=== PATIENT | male | born 1950 | race Caucasian/White ===

== ENCOUNTER 2017-08-20 11:15 | Inpatient (IN) | payer MEDICARE, OTHER ==
[~2017-08-20] VITALS: Ht 198.1 cm; Wt 67.6 kg
[2017-08-20 11:25] VITALS: BP 129/92
[2017-08-20] MEDS ORDERED: Mylanta II UD 30ml ORAL PRN (11:30)
[2017-08-20] MEDS ORDERED: LIPITOR80 MG ORAL (11:50)
[2017-08-20] MEDS ORDERED: GABAPENTIN300 MG ORAL (11:52)
[2017-08-20] MEDS ORDERED: ZOFRAN4 M3 ORAL (11:52)
[2017-08-20] MEDS ORDERED: BACLOFEN10 MG ORAL (11:52)
[2017-08-20] MEDS ORDERED: MECLIZINE HCL25 MG ORAL (11:52)
[2017-08-20] MEDS ORDERED: PANTOPRAZOLE SO40 MG ORAL (11:52)
[2017-08-20] MEDS ORDERED: CLOPIDOGREL75 MG ORAL (11:52)
[2017-08-20] MEDS ORDERED: MIRALAX17 G2 ORAL (11:52)
[2017-08-20] MEDS ORDERED: NUCYNTA75 MG PO (11:54)
[2017-08-20] MEDS ORDERED: FLUOXETINE HCL20 MG ORAL (11:55)
[2017-08-20] MEDS ORDERED: BUSPIRONE HCL10 M1 ORAL (11:55)
[2017-08-20 12:24] LABS: BASOPHILS % (AUTO) 0.8 % (0.0-2.0); EOSINOPHILS % (AUTO) 0.7 % (0.0-3.0); HEMOGLOBIN 16.2 G/DL (14.2-18.0); MEAN CORPUSCULAR VOLUME 88 FL (80-99); MONOCYTES % (AUTO) 8.1 % (1.0-10.0); NEUTROPHILS % (AUTO) 70.4 % (45.0-75.0); PLATELET COUNT 235 K/UL (150-450); RED CELL DISTRIBUTION WIDTH 11.8 % (11.6-14.8); WHITE BLOOD COUNT 12.4 K/UL (4.8-10.8)
--- NOTE | 2017-08-20 12:26 | Diagnostic Imaging Report ---
Indication: Cough Technique: One view of the chest Comparison: none Findings: Suboptimal inspiration. Lungs and pleural spaces are clear. Heart size is normal. The aorta is tortuous. The upper mediastinum is unremarkable. Surgical hardware is seen in the lumbar spine Impression: No acute process
[2017-08-20] MEDS ORDERED: Morphine Sulfate 4mg/ml Inj IVP ONE (12:30)
[2017-08-20] MEDS: LORazepam Inj 2mg/ml 1ml IV PRN ×3 (12:34→22:03)
--- NOTE | 2017-08-20 12:36 | GI Initial Consult Note ---
History of Present Illness General Date patient seen: Aug 20, 2017 Time patient seen: 12:23 Reason for Hospitalization: General Complaint Referring physician: DIMPLE OBRIEN Reason for Consultation: FTT Present Illness HPI 67 year old male patient brought in today for FTT. Per report, the patient has not had any PO intake for the past 3 days. Has complaint of odynophagia and nausea x 1 week without emesis. Epigastric abdominal pain 8/10 with tenderness described as sharp and constant. History of depression, chronic pain , neuropathy, HLD,constipation and heart disease. His last EGD/colonoscopy was performed in 2012. No labs or imaging studies available at this time. Home Meds Reported Medications Buspirone Hcl* (BUSPIRONE HCL*) 10 Mg Tablet, 10 MG ORAL TWICE A DAY, #60 TAB 0 Refills 08/20/17 Fluoxetine Hcl* (FLUOXETINE HCL*) 20 Mg Capsule, 20 MG ORAL DAILY, #3 CAP 08/20/17 Tapentadol Hcl (NUCYNTA) 75 Mg Tablet, 75 MG PO NEEDED, TAB 08/20/17 Polyethylene Glycol 3350* (MIRALAX*) 17 Gm Powd.pack, 17 GM ORAL DAILY, PACKET 08/20/17 Ondansetron* (ZOFRAN*) 4 Mg Tablet, 4 MG ORAL Q6H PRN for Nausea & Vomiting, TAB 08/20/17 Meclizine Hcl* (MECLIZINE*) 25 Mg Tablet, 25 MG ORAL FOUR TIMES A DAY, TAB 08/20/17 Pantoprazole* (PANTOPRAZOLE*) 40 Mg Tablet.dr, 40 MG ORAL DAILY, TAB 08/20/17 Gabapentin* (GABAPENTIN*) 300 Mg Capsule, 300 MG ORAL THREE TIMES A DAY, CAP 0 Refills 08/20/17 Clopidogrel* (CLOPIDOGREL*) 75 Mg Tablet, 75 MG ORAL DAILY, TAB 08/20/17 Baclofen* (BACLOFEN*) 10 Mg Tablet, 10 MG ORAL THREE TIMES A DAY, TAB 08/20/17 Atorvastatin (Lipitor) 80 Mg Tablet, 80 MG ORAL DAILY, TAB 0 Refills 08/20/17 Med list reviewed/reconciled: Yes Allergies: Coded Allergies: FENTANYL (Unverified Allergy, Unknown, 08/20/17) KETOROLAC (Unverified Allergy, Unknown, 08/20/17) NAPROXEN (Unverified Allergy, Unknown, 08/20/17) PENICILLINS (Unverified Allergy, Unknown, 08/20/17) Patient History History Provided By: Patient, Medical Record PMH Narrative See HPI. Social History: Denies: smoking, alcohol use, drug use, other Review of Systems All Other Systems: negative except mentioned in HPI Physical Exam Vital Signs Date Time Temp Pulse Resp B/P (MAP) Pulse Ox O2 Delivery O2 Flow Rate FiO2 08/20/17 11:10 98.7 79 18 155/91 96 Room Air 98.8 Sp02 EP Interpretation: reviewed, normal General Appearance: well appearing, no apparent distress, alert, thin Head: normocephalic EENT: PERRL/EOMI, normal ENT inspection Neck: supple Respiratory: normal breath sounds, no respiratory distress Cardiovascular: normal rate Gastrointestinal: normal inspection, non tender, soft, normal bowel sounds, non -distended Rectal: deferred Genitourinary: deferred Musculoskeletal: normal inspection, back normal Neurologic: normal inspection, alert, oriented x3, responsive Psychiatric: normal inspection, judgement/insight normal, memory normal Skin: normal inspection, normal color, no rash, warm/dry, palpation normal, well hydrated, other - BLE trace edema Lymphatic: normal inspection, no adenopathy Current Medications Current Medications Medications (Trade) Dose Ordered Sig/Paul Route PRN Reason Start Time Stop Time Status Last Admin Dose Admin Acetaminophen (Tylenol) 650 mg Q4H PRN ORAL T>100.5 08/20/17 11:30 09/19/17 11:29 Al Hydroxide/Mg Hydroxide (Mylanta II) 30 ml Q6H PRN ORAL dyspepsia 08/20/17 11:30 09/19/17 11:29 Dextrose (Dextrose 50%) 25 ml PRN IV Hypoglycemia 08/20/17 11:45 09/19/17 11:44 Dextrose (Dextrose 50%) 50 ml PRN IV hypoglycemia 08/20/17 11:45 09/19/17 11:44 Lorazepam (Ativan 2mg/ml 1ml) 0.5 mg Q4H PRN IV For Anxiety 08/20/17 11:30 08/27/17 11:29 Morphine Sulfate (Morphine Sulfate) 1 mg Q4H PRN IVP PAIN 4-10 08/20/17 11:30 08/27/17 11:29 Morphine Sulfate (Morphine Sulfate) 4 mg ONCE ONCE IVP 08/20/17 12:30 08/20/17 12:31 Ondansetron HCl (Zofran) 4 mg Q6H PRN IVP Nausea & Vomiting 08/20/17 11:30 09/19/17 11:29 Polyethylene Glycol (Miralax) 17 gm HSPRN PRN ORAL Constipation 08/20/17 21:00 09/19/17 20:59 Sodium Chloride 1,000 ml @ 300 mls/hr Q3H20M IV 08/20/17 11:30 09/19/17 11:29 08/20/17 11:30 Zolpidem Tartrate (Ambien) 5 mg HSPRN PRN ORAL Insomnia 08/20/17 21:00 08/27/17 20:59 GI: Plan Problems: (1) Odynophagia (2) Abdominal pain (3) Dehydration (4) Severe malnutrition (5) Constipation (6) Nausea alone (7) Failure to thrive Plan Hx of EGD/colonoscopy in 2012 patient on Plavix >> must be stopped min 72 hours prior if any GI procedures are to be done will consider endoscopy Sunday if needed maintain NPO + IVFs obtain ST evaluation calorie count ppi pain mgmt IV/PO hydration electrolyte correction consider Marinol bowel regime PT/OT consult fu labs Discussed with Dr. Ramos. Thank you for this patient referral, we will follow. The patient was seen and examined at bedside and all new and available data was reviewed in the patients chart. I agree with the above findings, impression and plan. (Patient seen earlier today. Signature stamp does not reflect patient encounter time.). - MD Shelly Soler,[facility] [employer] Aug 20, 2017 12:36
[2017-08-20 12:39] LABS: ANION GAP 9 mmol/L (5-15); BLOOD UREA NITROGEN 16 mg/dL (7-18); CALCIUM 9.8 MG/DL (8.5-10.1); CARBON DIOXIDE 26 MMOL/L (21-32); CHLORIDE 105 MMOL/L (98-107); CREATININE 1.1 MG/DL (0.55-1.30); POTASSIUM 3.5 MMOL/L (3.5-5.1); SODIUM 140 MMOL/L (136-145)
[2017-08-20 12:44] LABS: ALANINE AMINOTRANSFERASE 15 U/L (12-78); ALBUMIN 3.7 G/DL (3.4-5.0); ALBUMIN/GLOBULIN RATIO 0.8 (1.0-2.7); ALKALINE PHOSPHATASE 112 U/L (46-116); ASPARTATE AMINO TRANSFERASE 13 U/L (15-37); BILIRUBIN,TOTAL 0.5 MG/DL (0.2-1.0)
--- NOTE | 2017-08-20 12:45 | History and Physical Report ---
DATE OF ADMISSION: 08/20/2017 TIME: 12 noon. CONSULTANTS: 1. Camden Ramos M.D. 2. Javi Viveros M.D. 3. Hudson Ribeiro M.D. 4. Danita Swift M.D. CHIEF COMPLAINT: Nausea and vomiting x3 days, failure to thrive, and weakness. BRIEF HISTORY: This is a 67-year-old male from [facility] presents with above-mentioned diagnosis. Currently in the ER being process to be admitted, calm in bed, slight general weakness. No complaint. REVIEW OF SYSTEMS: No chest pain. No shortness of breath. Slight nausea and vomiting. No diarrhea. PAST MEDICAL HISTORY: Includes failure to thrive and weakness. PAST SURGICAL HISTORY: Back surgery. MEDICATIONS: Include MiraLAX, Ambien, IV fluids, Zofran, Tylenol, morphine, and Mylanta. ALLERGIES: Fentanyl, Ketoralac, naproxen, and penicillin. SOCIAL HISTORY: No smoking. No alcohol. No intravenous drug abuse. FAMILY HISTORY: Noncontributory. PHYSICAL EXAMINATION: GENERAL: Calm in bed, oriented x2, in no acute distress. VITAL SIGNS: Temperature 98, pulse 84, respirations 17, and blood pressure 129/92 CARDIOVASCULAR: No murmur. LUNGS: Distant and clear. ABDOMEN: Bowel sounds distant. Soft. No guarding. No rigidity. No rebound. EXTREMITIES: No cyanosis, clubbing, or edema. NEUROLOGIC: The patient moves all extremities, slightly weak. LABORATORY DATA: Laboratories at this time are pending. ASSESSMENT: 1. Failure to thrive. 2. Nausea. 3. Vomiting. 4. Weakness. PLAN: 1. Continue previous medications. 2. OT, PT, dietary evaluation. 3. CBC and BMP in the morning. 4. Dr. Ramos, Dr. Viveros, Dr. Orozco, and Dr. Swift to consult. Miguel Patino D.O. DR: KURTIS JOB#: [id number] CC:
[2017-08-20 12:48] LABS: AMMONIA 35 umol/L (11-32)
[2017-08-20 13:30] VITALS: BP 141/96
[2017-08-20] MEDS: Morphine Sulfate 2mg/ml Inj IVP PRN ×3 (15:19→23:49)
[2017-08-20 16:24] VITALS: BP 131/69
--- NOTE | 2017-08-20 18:20 | Diagnostic Imaging Report ---
Indication: Abdominal pain Technique: Supine view of the abdomen Comparison: none Findings: There are cholecystectomy clips. There is spinal fusion hardware. Bowel gas pattern is unremarkable. No unusual masses or calcifications. Impression: No acute process
[2017-08-20 20:27] VITALS: BP 123/85
[2017-08-20 20:38] LABS: APPEARANCE,URINE CLEAR; BILIRUBIN, URINE NEGATIVE (NEGATIVE); COLOR,URINE PALE YELLOW; GLUCOSE, URINE (UA) NEGATIVE (NEGATIVE); KETONES,URINE NEGATIVE (NEGATIVE); LEUKOCYTE ESTERASE ,URINE NEGATIVE (NEGATIVE); NITRITE,URINE NEGATIVE (NEGATIVE); PH,URINE 8 (4.5-8.0); PROTEIN,URINE NEGATIVE (NEGATIVE); UROBILINOGEN,URINE 1 MG/DL (0.0-1.0)
[2017-08-20] MEDS ORDERED: Miralax 17gm pkt ORAL PRN (21:00)
--- NOTE | 2017-08-20 22:59 | Emergency Room Report ---
History of Present Illness General Chief Complaint: General Complaint Source: Patient, Medical Record Present Illness HPI Patient sent for not eating. States has nausea but not vomiting. (Other reports suggest some vomiting.) Also not taking meds. Chronic back pain. Pain rated 6/10, lower back and not radiating. States an operation was not successful. H/O schizophrenia H/O depression and anxiety. Denies SI or HI. No headache, rashes, sore throat, cough, dysuria, extremity pain, change vision , polyuria/polydipsia. No seizures. Allergies: Coded Allergies: FENTANYL (Unverified Allergy, Unknown, 08/20/17) KETOROLAC (Unverified Allergy, Unknown, 08/20/17) NAPROXEN (Unverified Allergy, Unknown, 08/20/17) PENICILLINS (Unverified Allergy, Unknown, 08/20/17) Patient History Past Medical History: see triage record Social History: Reports: alcohol use; Denies: smoking - former Social History Narrative in SNF Reviewed Nursing Documentation: PMH: Agreed; PSxH: Agreed Nursing Documentation-PMH Past Medical History: No History, Except For Hx Cardiac Problems: Yes Hx Cancer: No Hx Gastrointestinal Problems: No Hx Neurological Problems: Yes - polyneuropathy Hx Dizziness: Yes Hx Weakness: Yes Review of Systems All Other Systems: negative except mentioned in HPI Physical Exam Vital Signs Date Time Temp Pulse Resp B/P (MAP) Pulse Ox O2 Delivery O2 Flow Rate FiO2 08/20/17 11:10 98.7 79 18 155/91 96 Room Air 98.8 Sp02 EP Interpretation: reviewed, normal General Appearance: no apparent distress, GCS 15, Chronically Ill Head: normocephalic, atraumatic Eyes: bilateral eye normal inspection, bilateral eye PERRL ENT: moist mucus membranes - poor dentition Neck: supple Respiratory: lungs clear, normal breath sounds Cardiovascular #1: regular rate, rhythm Cardiovascular #2: 2+ radial (R) Gastrointestinal: normal inspection, normal bowel sounds, non tender, no mass, non-distended Musculoskeletal: back normal, normal range of motion Neurologic: alert, noise tester III-XII nml as tested, DTRs symmetric, sensory intact, motor weakness - LE and foot drop, oriented - X2 Psychiatric: no suicidal/homicidal ideation, depressed affect - flat Skin: normal inspection, warm/dry Medical Decision Making Diagnostic Impression: Primary Impression: Dehydration Additional Impressions: Failure to thrive Qualified Codes: R62.7 - Adult failure to thrive Back pain Qualified Codes: M54.5 - Low back pain; G89.29 - Other chronic pain Schizophrenia Qualified Codes: F20.9 - Schizophrenia, unspecified ER Course Patient presents with poor oral intake. DDx: electrolyte abnormality, failure to thrive, dehydration, renal failure, AMI, occult infection, exacerbation of depression/schizophrenia, PMR amongst others. Evaluation with EKG, CXR, abd film labs. Treatment with IV hydration, zofran, pepcid. EKG without injury. CXR no infiltrates. Abd, NSBGP and prior back surgery. Labs leukocytosis, CMP normal. Slight improvement. Treated for back pain with improvement. Still not taking po well. Admit med Dr. Patino. Laboratory Tests Test 08/20/17 11:35 08/20/17 20:20 White Blood Count 12.4 K/UL (4.8-10.8) H Red Blood Count 5.20 M/UL (4.70-6.10) Hemoglobin 16.2 G/DL (14.2-18.0) Hematocrit 46.0 % (42.0-52.0) Mean Corpuscular Volume 88 FL (80-99) Mean Corpuscular Hemoglobin 31.1 PG (27.0-31.0) H Mean Corpuscular Hemoglobin Concent 35.1 G/DL (32.0-36.0) Red Cell Distribution Width 11.8 % (11.6-14.8) Platelet Count 235 K/UL (150-450) Mean Platelet Volume 8.3 FL (6.5-10.1) Neutrophils (%) (Auto) 70.4 % (45.0-75.0) Lymphocytes (%) (Auto) 20.0 % (20.0-45.0) Monocytes (%) (Auto) 8.1 % (1.0-10.0) Eosinophils (%) (Auto) 0.7 % (0.0-3.0) Basophils (%) (Auto) 0.8 % (0.0-2.0) Prothrombin Time 10.4 SEC (9.30-11.50) Prothrombin Time INR 1.0 (0.9-1.1) PTT 26 SEC (23-33) Sodium Level 140 MMOL/L (136-145) Potassium Level 3.5 MMOL/L (3.5-5.1) Chloride Level 105 MMOL/L (98-107) Carbon Dioxide Level 26 MMOL/L (21-32) Anion Gap 9 mmol/L (5-15) Blood Urea Nitrogen 16 mg/dL (7-18) Creatinine 1.1 MG/DL (0.55-1.30) Estimate Glomerular Filtration Rate > 60 mL/min (>60) Glucose Level 105 MG/DL (74-106) Calcium Level 9.8 MG/DL (8.5-10.1) Total Bilirubin 0.5 MG/DL (0.2-1.0) Aspartate Amino Transferase (AST) 13 U/L (15-37) L Alanine Aminotransferase (ALT) 15 U/L (12-78) Alkaline Phosphatase 112 U/L (46-116) Ammonia 35 umol/L (11-32) H Troponin I 0.000 ng/mL (0.000-0.056) Total Protein 8.3 G/DL (6.4-8.2) H Albumin 3.7 G/DL (3.4-5.0) Globulin 4.6 g/dL Albumin/Globulin Ratio 0.8 (1.0-2.7) L Lipase 159 U/L (73-393) Urine Color Pale yellow Urine Appearance Clear Urine pH 8 (4.5-8.0) Urine Specific [place] 1.010 (1.005-1.035) Urine Protein Negative (NEGATIVE) Urine Glucose (UA) Negative (NEGATIVE) Urine Ketones Negative (NEGATIVE) Urine Occult Blood 3+ (NEGATIVE) H Urine Nitrite Negative (NEGATIVE) Urine Bilirubin Negative (NEGATIVE) Urine Urobilinogen 1 MG/DL (0.0-1.0) H Urine Leukocyte Esterase Negative (NEGATIVE) Urine RBC 5-10 /HPF (0 - 0) H Urine WBC 2-4 /HPF (0 - 0) Urine Squamous Epithelial Cells None /LPF (NONE/OCC) Urine Bacteria Moderate /HPF (NONE) H Urine Yeast Few /HPF (NONE) H EKG Diagnostic Results Rate: normal Rhythm: NSR ST Segments: no acute changes Rhythm Strip Diag. Results EP Interpretation: yes Rhythm: NSR, no PVC's, other - PACs Chest X-Ray Diagnostic Results Chest X-Ray Diagnostic Results : Chest X-Ray Ordered: Yes # of Views/Limited/Complete: 1 View Indication: Other Interpretation: no consolidation, no effusion, no pneumothorax Impression: No acute disease Electronically Signed by: Marc Garcia MD Other X-Ray Diagnostic Results Other X-Ray Diagnostic Results : X-Ray ordered: abd # of Views/Limited Vs Complete: 1 View Indication: Other Interpretation: nonspecific bowel gas, no sbo, other - fusion Lumbar spine Impression: Other Electronically Signed by: Marc Garcia MD Last Vital Signs Date Time Temp Pulse Resp B/P (MAP) Pulse Ox O2 Delivery O2 Flow Rate FiO2 08/20/17 20:27 97.1 78 18 123/85 98 Room Air 97.1 Status: improved Disposition: ADMITTED INPATIENT Condition: Serious Referrals: Miguel Patino DO (PCP) Marc Garcia M.D. Aug 20, 2017 22:59
[2017-08-21] VITALS: BP 135/85
[2017-08-21] MEDS: Morphine Sulfate 2mg/ml Inj IVP PRN ×2 (03:49→21:04)
[2017-08-21 04:00] VITALS: BP 137/79
[2017-08-21 06:14] LABS: BASOPHILS % (AUTO) 1.1 % (0.0-2.0); HEMATOCRIT 42.4 % (42.0-52.0); HEMOGLOBIN 14.9 G/DL (14.2-18.0); LYMPHOCYTES % (AUTO) 21.3 % (20.0-45.0); MEAN CORPUSCULAR VOLUME 88 FL (80-99); NEUTROPHILS % (AUTO) 67.6 % (45.0-75.0); PLATELET COUNT 226 K/UL (150-450); RED BLOOD COUNT 4.82 M/UL (4.70-6.10); RED CELL DISTRIBUTION WIDTH 11.7 % (11.6-14.8)
[2017-08-21 06:56] LABS: ALANINE AMINOTRANSFERASE 15 U/L (12-78); ALBUMIN 3.4 G/DL (3.4-5.0); ALBUMIN/GLOBULIN RATIO 0.8 (1.0-2.7); ALKALINE PHOSPHATASE 102 U/L (46-116); ANION GAP 10 mmol/L (5-15); ASPARTATE AMINO TRANSFERASE 12 U/L (15-37); BILIRUBIN,TOTAL 0.5 MG/DL (0.2-1.0); BLOOD UREA NITROGEN 14 mg/dL (7-18); CALCIUM 9.8 MG/DL (8.5-10.1); CARBON DIOXIDE 26 MMOL/L (21-32); CHLORIDE 104 MMOL/L (98-107); CHOLESTEROL 98 MG/DL (< 200); CREATININE 0.9 MG/DL (0.55-1.30); HDL CHOLESTEROL 42 MG/DL (40-60); POTASSIUM 3.6 MMOL/L (3.5-5.1); SODIUM 140 MMOL/L (136-145); TRIGLYCERIDES 74 MG/DL (30-150)
[2017-08-21 08:15] VITALS: BP 129/78
--- NOTE | 2017-08-21 08:17 | Consultation ---
History of Present Illness General Date patient seen: Aug 21, 2017 Chief Complaint: Referring physician: Reason for Consultation: Present Illness Allergies: Coded Allergies: FENTANYL (Unverified Allergy, Unknown, 08/20/17) KETOROLAC (Unverified Allergy, Unknown, 08/20/17) NAPROXEN (Unverified Allergy, Unknown, 08/20/17) PENICILLINS (Unverified Allergy, Unknown, 08/20/17) Medication History Scheduled Atorvastatin (Lipitor), 80 MG ORAL DAILY, (Reported) Baclofen* (Baclofen*), 10 MG ORAL THREE TIMES A DAY, (Reported) Buspirone Hcl* (Buspirone Hcl*), 10 MG ORAL TWICE A DAY, (Reported) Clopidogrel* (Clopidogrel*), 75 MG ORAL DAILY, (Reported) Fluoxetine Hcl* (Fluoxetine Hcl*), 20 MG ORAL DAILY, (Reported) Gabapentin* (Gabapentin*), 300 MG ORAL THREE TIMES A DAY, (Reported) Meclizine Hcl* (Meclizine*), 25 MG ORAL FOUR TIMES A DAY, (Reported) Pantoprazole* (Pantoprazole*), 40 MG ORAL DAILY, (Reported) Polyethylene Glycol 3350* (Miralax*), 17 GM ORAL DAILY, (Reported) Tapentadol Hcl (Nucynta), 75 MG PO NEEDED, (Reported) Scheduled PRN Ondansetron* (Zofran*), 4 MG ORAL Q6H PRN for Nausea & Vomiting, (Reported) Patient History Healthcare decision maker Resuscitation status Full Code Advanced Directive on File No Physical Exam Last 24 Hour Vital Signs Date Time Temp Pulse Resp B/P (MAP) Pulse Ox O2 Delivery O2 Flow Rate FiO2 08/21/17 04:00 98.3 72 18 137/79 97 Room Air 98.3 08/21/17 00:00 98.2 76 18 135/85 98 Room Air 98.2 08/20/17 20:27 97.1 78 18 123/85 98 Room Air 97.1 08/20/17 16:24 97.3 87 20 131/69 97 97.3 08/20/17 15:49 98.7 08/20/17 15:19 98.7 08/20/17 13:32 98.7 74 18 141/96 96 Room Air 98.7 08/20/17 13:30 98.7 74 18 141/96 96 Room Air 98.7 08/20/17 12:36 98.8 08/20/17 11:25 98.8 84 17 129/92 96 Room Air 98.8 08/20/17 11:10 98.7 79 18 155/91 96 Room Air 98.8 Intake and Output 08/20/17 08/21/17 19:00 07:00 Intake Total 420 ml Output Total 300 ml 850 ml Balance 120 ml -850 ml Intake Oral 420 ml Output Urine Total 300 ml 850 ml # Voids 2 Laboratory Tests Test 08/20/17 11:35 08/20/17 20:20 08/21/17 05:41 White Blood Count 12.4 K/UL (4.8-10.8) H 14.0 K/UL (4.8-10.8) H Red Blood Count 5.20 M/UL (4.70-6.10) 4.82 M/UL (4.70-6.10) Hemoglobin 16.2 G/DL (14.2-18.0) 14.9 G/DL (14.2-18.0) Hematocrit 46.0 % (42.0-52.0) 42.4 % (42.0-52.0) Mean Corpuscular Volume 88 FL (80-99) 88 FL (80-99) Mean Corpuscular Hemoglobin 31.1 PG (27.0-31.0) H 30.8 PG (27.0-31.0) Mean Corpuscular Hemoglobin Concent 35.1 G/DL (32.0-36.0) 35.1 G/DL (32.0-36.0) Red Cell Distribution Width 11.8 % (11.6-14.8) 11.7 % (11.6-14.8) Platelet Count 235 K/UL (150-450) 226 K/UL (150-450) Mean Platelet Volume 8.3 FL (6.5-10.1) 8.0 FL (6.5-10.1) Neutrophils (%) (Auto) 70.4 % (45.0-75.0) 67.6 % (45.0-75.0) Lymphocytes (%) (Auto) 20.0 % (20.0-45.0) 21.3 % (20.0-45.0) Monocytes (%) (Auto) 8.1 % (1.0-10.0) 9.0 % (1.0-10.0) Eosinophils (%) (Auto) 0.7 % (0.0-3.0) 1.0 % (0.0-3.0) Basophils (%) (Auto) 0.8 % (0.0-2.0) 1.1 % (0.0-2.0) Prothrombin Time 10.4 SEC (9.30-11.50) Prothromb Time International Ratio 1.0 (0.9-1.1) Activated Partial Thromboplast Time 26 SEC (23-33) Sodium Level 140 MMOL/L (136-145) 140 MMOL/L (136-145) Potassium Level 3.5 MMOL/L (3.5-5.1) 3.6 MMOL/L (3.5-5.1) Chloride Level 105 MMOL/L (98-107) 104 MMOL/L (98-107) Carbon Dioxide Level 26 MMOL/L (21-32) 26 MMOL/L (21-32) Anion Gap 9 mmol/L (5-15) 10 mmol/L (5-15) Blood Urea Nitrogen 16 mg/dL (7-18) 14 mg/dL (7-18) Creatinine 1.1 MG/DL (0.55-1.30) 0.9 MG/DL (0.55-1.30) Estimat Glomerular Filtration Rate > 60 mL/min (>60) > 60 mL/min (>60) Glucose Level 105 MG/DL (74-106) 98 MG/DL (74-106) Calcium Level 9.8 MG/DL (8.5-10.1) 9.8 MG/DL (8.5-10.1) Total Bilirubin 0.5 MG/DL (0.2-1.0) 0.5 MG/DL (0.2-1.0) Aspartate Amino Transf (AST/SGOT) 13 U/L (15-37) L 12 U/L (15-37) L Alanine Aminotransferase (ALT/SGPT) 15 U/L (12-78) 15 U/L (12-78) Alkaline Phosphatase 112 U/L (46-116) 102 U/L (46-116) Ammonia 35 umol/L (11-32) H Troponin I 0.000 ng/mL (0.000-0.056) Total Protein 8.3 G/DL (6.4-8.2) H 7.7 G/DL (6.4-8.2) Albumin 3.7 G/DL (3.4-5.0) 3.4 G/DL (3.4-5.0) Globulin 4.6 g/dL 4.3 g/dL Albumin/Globulin Ratio 0.8 (1.0-2.7) L 0.8 (1.0-2.7) L Lipase 159 U/L (73-393) Urine Color Pale yellow Urine Appearance Clear Urine pH 8 (4.5-8.0) Urine Specific [place] 1.010 (1.005-1.035) Urine Protein Negative (NEGATIVE) Urine Glucose (UA) Negative (NEGATIVE) Urine Ketones Negative (NEGATIVE) Urine Occult Blood 3+ (NEGATIVE) H Urine Nitrite Negative (NEGATIVE) Urine Bilirubin Negative (NEGATIVE) Urine Urobilinogen 1 MG/DL (0.0-1.0) H Urine Leukocyte Esterase Negative (NEGATIVE) Urine RBC 5-10 /HPF (0 - 0) H Urine WBC 2-4 /HPF (0 - 0) Urine Squamous Epithelial Cells None /LPF (NONE/OCC) Urine Bacteria Moderate /HPF (NONE) H Urine Yeast Few /HPF (NONE) H Triglycerides Level 74 MG/DL (30-150) Cholesterol Level 98 MG/DL (< 200) LDL Cholesterol 58 mg/dL (<100) HDL Cholesterol 42 MG/DL (40-60) Cholesterol/HDL Ratio 2.3 (3.3-4.4) L Thyroid Stimulating Hormone (TSH) 0.850 uiU/mL (0.358-3.740) Height (Feet): 6 Height (Inches): 0.00 Weight (Pounds): 150 Medications Current Medications Medications (Trade) Dose Ordered Sig/Paul Route PRN Reason Start Time Stop Time Status Last Admin Dose Admin Acetaminophen (Tylenol) 650 mg Q4H PRN ORAL T>100.5 08/20/17 11:30 09/19/17 11:29 Al Hydroxide/Mg Hydroxide (Mylanta II) 30 ml Q6H PRN ORAL dyspepsia 08/20/17 11:30 09/19/17 11:29 Dextrose (Dextrose 50%) 25 ml PRN IV Hypoglycemia 08/20/17 11:45 09/19/17 11:44 Dextrose (Dextrose 50%) 50 ml PRN IV hypoglycemia 08/20/17 11:45 09/19/17 11:44 Lorazepam (Ativan 2mg/ml 1ml) 0.5 mg Q4H PRN IV For Anxiety 08/20/17 11:30 08/27/17 11:29 08/20/17 22:03 Morphine Sulfate (Morphine Sulfate) 1 mg Q4H PRN IVP PAIN 4-10 08/20/17 11:30 08/27/17 11:29 08/21/17 03:49 Ondansetron HCl (Zofran) 4 mg Q6H PRN IVP Nausea & Vomiting 08/20/17 11:30 09/19/17 11:29 Pantoprazole (Protonix) 40 mg DAILY IVP 08/21/17 09:00 09/20/17 08:59 Polyethylene Glycol (Miralax) 17 gm HSPRN PRN ORAL Constipation 08/20/17 21:00 09/19/17 20:59 Zolpidem Tartrate (Ambien) 5 mg HSPRN PRN ORAL Insomnia 08/20/17 21:00 08/27/17 20:59 Assessment/Plan Assessment/Plan (1) Lumbar DDD (2) Lumbar Spondylosis (3) Lumbar Herniated disc (4) Lumbar Radiculopathy (5) H/o Lumbar fusion (6) Paraparesis (7) Abdominal pain seen dictated Khari Harrison Aug 21, 2017 08:17
[2017-08-21] MEDS: Pantoprazole Inj IVP SCH (09:24)
[2017-08-21] MEDS: LORazepam Inj 2mg/ml 1ml IV PRN (11:25)
[2017-08-21 12:00] VITALS: BP 141/98
--- NOTE | 2017-08-21 13:00 | Consultation ---
DATE OF CONSULTATION: 08/21/2017 PAIN MANAGEMENT CONSULTATION CONSULTING PHYSICIAN: Danita Swift M.D. REFERRING PHYSICIAN: Miguel Patino D.O. PHYSICIAN MECHANICAL SUPERVISOR: Collin Wayne CHIEF COMPLAINT: Low back pain. HISTORY OF PRESENT ILLNESS: This is a 67-year-old male, who is being seen on the Medical/Surgical floor of [facility] for comprehensive pain management consultation. The patient is a known patient from prior admission to the hospital as well in Dr. Swift's office reporting that he has been having epigastric abdominal pain and unable to intake food for the past three days, being seen by medical geneticist at this time and continues to have chronic back pain, which he has been admitted into nursing facilities for and has been on mg every four hours as needed for pain. At this time, we were consulted to help the patient to have adequate pain control while here in the hospital. The patient was on morphine 1 mg IV every four hours as needed and has been reducing his pain at this time. REVIEW OF SYSTEMS: Denies rash, fever, chills, sweating, dizziness, drowsiness, blurred vision, sore throat, or change in weight. No shortness of breath or chest pain. No nausea, vomiting, diarrhea, or blood in the stool or urine. No dysuria. No bowel or bladder incontinence. He is complaining of low back and abdominal pain. PHYSICAL EXAMINATION: GENERAL: Alert, awake, and oriented. VITAL SIGNS: Blood pressure 137/69, heart rate 72, oxygen saturation is 92%, respiratory rate 18, and temperature 98.2 degrees Fahrenheit. LUNGS: Decreased breath sounds bilaterally. HEART: Regular. ABDOMEN: Tenderness to palpation. BACK: Range of motion is decreased in flexion and extension with scar noted on midline of the lumbar spine. EXTREMITIES: No cyanosis. No clubbing. No edema. NEUROLOGIC: Paraplegia as noted. ASSESSMENT AND PLAN: This is a 67-year-old male with lumbar degenerative disc disease, lumbar spondylosis, lumbar herniated disc, lumbar radiculopathy, history of lumbar fusion, paraplegia, and abdominal pain. The patient will be continued on the morphine 1 mg IV every four hours as needed for severe pain. The patient was discussed with Dr. Swift and Dr. Swift concurred. We will follow the patient. Thank you very much for the courtesy of this consultation Danita Swift M.D. STEVE Wayne DR: TELLO JOB#: [id number] CC:
[2017-08-21 13:05] VITALS: BP 141/98
--- NOTE | 2017-08-21 13:47 | Consultation ---
History of Present Illness General Chief Complaint: General Complaint Referring physician: Reason for Consultation: Present Illness Allergies: Coded Allergies: FENTANYL (Unverified Allergy, Unknown, 08/20/17) KETOROLAC (Unverified Allergy, Unknown, 08/20/17) NAPROXEN (Unverified Allergy, Unknown, 08/20/17) PENICILLINS (Unverified Allergy, Unknown, 08/20/17) Medication History Scheduled Atorvastatin (Lipitor), 80 MG ORAL DAILY, (Reported) Baclofen* (Baclofen*), 10 MG ORAL THREE TIMES A DAY, (Reported) Buspirone Hcl* (Buspirone Hcl*), 10 MG ORAL TWICE A DAY, (Reported) Clopidogrel* (Clopidogrel*), 75 MG ORAL DAILY, (Reported) Fluoxetine Hcl* (Fluoxetine Hcl*), 20 MG ORAL DAILY, (Reported) Gabapentin* (Gabapentin*), 300 MG ORAL THREE TIMES A DAY, (Reported) Meclizine Hcl* (Meclizine*), 25 MG ORAL FOUR TIMES A DAY, (Reported) Pantoprazole* (Pantoprazole*), 40 MG ORAL DAILY, (Reported) Polyethylene Glycol 3350* (Miralax*), 17 GM ORAL DAILY, (Reported) Tapentadol Hcl (Nucynta), 75 MG PO NEEDED, (Reported) Scheduled PRN Ondansetron* (Zofran*), 4 MG ORAL Q6H PRN for Nausea & Vomiting, (Reported) Patient History Healthcare decision maker Resuscitation status Full Code Advanced Directive on File No Physical Exam Last 24 Hour Vital Signs Date Time Temp Pulse Resp B/P (MAP) Pulse Ox O2 Delivery O2 Flow Rate FiO2 08/21/17 13:05 98.1 85 18 141/98 97 Room Air 98.1 08/21/17 12:00 98.1 85 18 141/98 97 Room Air 98.1 08/21/17 08:15 99.9 75 16 129/78 95 Room Air 99.9 08/21/17 04:00 98.3 72 18 137/79 97 Room Air 98.3 08/21/17 00:00 98.2 76 18 135/85 98 Room Air 98.2 08/20/17 20:27 97.1 78 18 123/85 98 Room Air 97.1 08/20/17 16:24 97.3 87 20 131/69 97 97.3 6/25/18 15:49 98.7 08/20/17 15:19 98.7 Intake and Output 08/20/17 08/21/17 19:00 07:00 Intake Total 420 ml Output Total 300 ml 850 ml Balance 120 ml -850 ml Intake Oral 420 ml Output Urine Total 300 ml 850 ml # Voids 2 Laboratory Tests Test 08/20/17 20:20 08/21/17 05:41 Urine Color Pale yellow Urine Appearance Clear Urine pH 8 (4.5-8.0) Urine Specific [place] 1.010 (1.005-1.035) Urine Protein Negative (NEGATIVE) Urine Glucose (UA) Negative (NEGATIVE) Urine Ketones Negative (NEGATIVE) Urine Occult Blood 3+ (NEGATIVE) H Urine Nitrite Negative (NEGATIVE) Urine Bilirubin Negative (NEGATIVE) Urine Urobilinogen 1 MG/DL (0.0-1.0) H Urine Leukocyte Esterase Negative (NEGATIVE) Urine RBC 5-10 /HPF (0 - 0) H Urine WBC 2-4 /HPF (0 - 0) Urine Squamous Epithelial Cells None /LPF (NONE/OCC) Urine Bacteria Moderate /HPF (NONE) H Urine Yeast Few /HPF (NONE) H White Blood Count 14.0 K/UL (4.8-10.8) H Red Blood Count 4.82 M/UL (4.70-6.10) Hemoglobin 14.9 G/DL (14.2-18.0) Hematocrit 42.4 % (42.0-52.0) Mean Corpuscular Volume 88 FL (80-99) Mean Corpuscular Hemoglobin 30.8 PG (27.0-31.0) Mean Corpuscular Hemoglobin Concent 35.1 G/DL (32.0-36.0) Red Cell Distribution Width 11.7 % (11.6-14.8) Platelet Count 226 K/UL (150-450) Mean Platelet Volume 8.0 FL (6.5-10.1) Neutrophils (%) (Auto) 67.6 % (45.0-75.0) Lymphocytes (%) (Auto) 21.3 % (20.0-45.0) Monocytes (%) (Auto) 9.0 % (1.0-10.0) Eosinophils (%) (Auto) 1.0 % (0.0-3.0) Basophils (%) (Auto) 1.1 % (0.0-2.0) Sodium Level 140 MMOL/L (136-145) Potassium Level 3.6 MMOL/L (3.5-5.1) Chloride Level 104 MMOL/L (98-107) Carbon Dioxide Level 26 MMOL/L (21-32) Anion Gap 10 mmol/L (5-15) Blood Urea Nitrogen 14 mg/dL (7-18) Creatinine 0.9 MG/DL (0.55-1.30) Estimat Glomerular Filtration Rate > 60 mL/min (>60) Glucose Level 98 MG/DL (74-106) Calcium Level 9.8 MG/DL (8.5-10.1) Total Bilirubin 0.5 MG/DL (0.2-1.0) Aspartate Amino Transf (AST/SGOT) 12 U/L (15-37) L Alanine Aminotransferase (ALT/SGPT) 15 U/L (12-78) Alkaline Phosphatase 102 U/L (46-116) Total Protein 7.7 G/DL (6.4-8.2) Albumin 3.4 G/DL (3.4-5.0) Globulin 4.3 g/dL Albumin/Globulin Ratio 0.8 (1.0-2.7) L Triglycerides Level 74 MG/DL (30-150) Cholesterol Level 98 MG/DL (< 200) LDL Cholesterol 58 mg/dL (<100) HDL Cholesterol 42 MG/DL (40-60) Cholesterol/HDL Ratio 2.3 (3.3-4.4) L Thyroid Stimulating Hormone (TSH) 0.850 uiU/mL (0.358-3.740) Microbiology Date/Time Source Procedure Growth Status 08/20/17 20:20 Urine,Clean Catch Urine Culture - Preliminary NO GROWTH Resulted Height (Feet): 6 Height (Inches): 0.00 Weight (Pounds): 150 Medications Current Medications Medications (Trade) Dose Ordered Sig/Paul Route PRN Reason Start Time Stop Time Status Last Admin Dose Admin Acetaminophen (Tylenol) 650 mg Q4H PRN ORAL T>100.5 08/20/17 11:30 09/19/17 11:29 Al Hydroxide/Mg Hydroxide (Mylanta II) 30 ml Q6H PRN ORAL dyspepsia 08/20/17 11:30 09/19/17 11:29 Dextrose (Dextrose 50%) 25 ml PRN IV Hypoglycemia 08/20/17 11:45 09/19/17 11:44 Dextrose (Dextrose 50%) 50 ml PRN IV hypoglycemia 08/20/17 11:45 09/19/17 11:44 Lorazepam (Ativan 2mg/ml 1ml) 0.5 mg Q4H PRN IV For Anxiety 08/20/17 11:30 08/27/17 11:29 08/21/17 11:25 Morphine Sulfate (Morphine Sulfate) 1 mg Q4H PRN IVP PAIN 4-10 08/20/17 11:30 08/27/17 11:29 08/21/17 03:49 Ondansetron HCl (Zofran) 4 mg Q6H PRN IVP Nausea & Vomiting 08/20/17 11:30 09/19/17 11:29 Pantoprazole (Protonix) 40 mg DAILY IVP 08/21/17 09:00 09/20/17 08:59 08/21/17 09:24 Polyethylene Glycol (Miralax) 17 gm HSPRN PRN ORAL Constipation 08/20/17 21:00 09/19/17 20:59 Zolpidem Tartrate (Ambien) 5 mg HSPRN PRN ORAL Insomnia 08/20/17 21:00 08/27/17 20:59 Javi Viveros MD Aug 21, 2017 13:47
--- NOTE | 2017-08-21 13:53 | General Progress Note ---
Assessment/Plan Problem List: (1) Nausea & vomiting ICD Codes: R11.2 - Nausea with vomiting, unspecified SNOMED: 05928366 (2) Leukocytosis ICD Codes: D72.829 - Elevated white blood cell count, unspecified SNOMED: 757844476, 947008927 (3) Failure to thrive SNOMED: 64702377 Qualifiers: Qualified Codes: R62.7 - Adult failure to thrive Status: unchanged Assessment/Plan ot pt diet abx cbc bmp am Subjective Constitutional: Reports: weakness Allergies: Coded Allergies: FENTANYL (Unverified Allergy, Unknown, 08/20/17) KETOROLAC (Unverified Allergy, Unknown, 08/20/17) NAPROXEN (Unverified Allergy, Unknown, 08/20/17) PENICILLINS (Unverified Allergy, Unknown, 08/20/17) All Systems: reviewed and negative except above Subjective sleepy calm Objective Last 24 Hour Vital Signs Date Time Temp Pulse Resp B/P (MAP) Pulse Ox O2 Delivery O2 Flow Rate FiO2 08/21/17 13:05 98.1 85 18 141/98 97 Room Air 98.1 08/21/17 12:00 98.1 85 18 141/98 97 Room Air 98.1 08/21/17 08:15 99.9 75 16 129/78 95 Room Air 99.9 08/21/17 04:00 98.3 72 18 137/79 97 Room Air 98.3 08/21/17 00:00 98.2 76 18 135/85 98 Room Air 98.2 08/20/17 20:27 97.1 78 18 123/85 98 Room Air 97.1 08/20/17 16:24 97.3 87 20 131/69 97 97.3 08/20/17 15:49 98.7 08/20/17 15:19 98.7 Intake and Output 08/20/17 08/21/17 19:00 07:00 Intake Total 420 ml Output Total 300 ml 850 ml Balance 120 ml -850 ml Intake Oral 420 ml Output Urine Total 300 ml 850 ml # Voids 2 Laboratory Tests 08/20/17 20:20: Urine Color Pale yellow, Urine Appearance Clear, Urine pH 8, Urine Specific [place] 1.010, Urine Protein Negative, Urine Glucose (UA) Negative, Urine Ketones Negative, Urine Occult Blood 3+H, Urine Nitrite Negative, Urine Bilirubin Negative, Urine Urobilinogen 1H, Urine Leukocyte Esterase Negative, Urine RBC 5-10H, Urine WBC 2-4, Urine Squamous Epithelial Cells None, Urine Bacteria ModerateH, Urine Yeast FewH 08/21/17 05:41: White Blood Count 14.0H, Red Blood Count 4.82, Hemoglobin 14.9, Hematocrit 42.4 , Mean Corpuscular Volume 88, Mean Corpuscular Hemoglobin 30.8, Mean Corpuscular Hemoglobin Concent 35.1, Red Cell Distribution Width 11.7, Platelet Count 226, Mean Platelet Volume 8.0, Neutrophils (%) (Auto) 67.6, Lymphocytes (% ) (Auto) 21.3, Monocytes (%) (Auto) 9.0, Eosinophils (%) (Auto) 1.0, Basophils ( %) (Auto) 1.1, Sodium Level 140, Potassium Level 3.6, Chloride Level 104, Carbon Dioxide Level 26, Anion Gap 10, Blood Urea Nitrogen 14, Creatinine 0.9, Estimat Glomerular Filtration Rate > 60, Glucose Level 98, Calcium Level 9.8, Total Bilirubin 0.5, Aspartate Amino Transf (AST/SGOT) 12L, Alanine Aminotransferase (ALT/SGPT) 15, Alkaline Phosphatase 102, Total Protein 7.7, Albumin 3.4, Globulin 4.3, Albumin/Globulin Ratio 0.8L, Triglycerides Level 74, Cholesterol Level 98, LDL Cholesterol 58, HDL Cholesterol 42, Cholesterol/HDL Ratio 2.3L, Thyroid Stimulating Hormone (TSH) 0.850 Height (Feet): 6 Height (Inches): 0.00 Weight (Pounds): 150 General Appearance: lethargic EENT: normal ENT inspection Neck: normal alignment Cardiovascular: normal peripheral pulses, normal rate, regular rhythm Respiratory/Chest: chest wall non-tender, lungs clear, normal breath sounds Abdomen: normal bowel sounds, non tender, soft Extremities: normal inspection Edema: no edema noted Arm (L), no edema noted Arm (R), no edema noted Leg (L), no edema noted Leg (R), no edema noted Pedal (L), no edema noted Pedal (R), no edema noted Generalized Neurologic: motor weakness Skin: normal pigmentation, warm/dry Miguel Patino DO Aug 21, 2017 13:53
--- NOTE | 2017-08-21 14:27 | GI Progress Note ---
Assessment/Plan Problems: (1) Odynophagia ICD Codes: R13.10 - Dysphagia, unspecified SNOMED: 14614634 (2) Constipation ICD Codes: K59.00 - Constipation, unspecified SNOMED: 84736461 (3) Abdominal pain ICD Codes: R10.9 - Unspecified abdominal pain SNOMED: 68151112 (4) Severe malnutrition ICD Codes: E43 - Unspecified severe protein-calorie malnutrition SNOMED: 24214210 (5) Schizophrenia ICD Codes: F20.9 - Schizophrenia, unspecified SNOMED: 25983170 Qualifiers: Qualified Codes: F20.9 - Schizophrenia, unspecified (6) Dehydration ICD Codes: E86.0 - Dehydration SNOMED: 76368653 (7) Failure to thrive SNOMED: 85675647 Qualifiers: Qualified Codes: R62.7 - Adult failure to thrive (8) Leukocytosis ICD Codes: D72.829 - Elevated white blood cell count, unspecified SNOMED: 141717266, 185377856 (9) Nausea & vomiting ICD Codes: R11.2 - Nausea with vomiting, unspecified SNOMED: 90053764 Status: unchanged Status Narrative Discussed with Dr. Ramos. Assessment/Plan Hx of EGD/colonoscopy in 2013 patient on Plavix >> must be stopped min 72 hours prior if any GI procedures are to be done ST evaluation not done >> patient refused patient requires PEG, fu psychiatric notes to see if patient have capacity to sign consent. diet fu ST evaluation calorie count ppi pain mgmt IV/PO hydration electrolyte correction consider Marinol bowel regime PT/OT consult fu labs The patient was seen and examined at bedside and all new and available data was reviewed in the patients chart. I agree with the above findings, impression and plan. (Patient seen earlier today. Signature stamp does not reflect patient encounter time.). - Camden Ramos MD Subjective Subjective refusing care agitated c/o of painful swallowing Objective Last 24 Hour Vital Signs Date Time Temp Pulse Resp B/P (MAP) Pulse Ox O2 Delivery O2 Flow Rate FiO2 08/21/17 13:05 98.1 85 18 141/98 97 Room Air 98.1 08/21/17 12:00 98.1 85 18 141/98 97 Room Air 98.1 08/21/17 08:15 99.9 75 16 129/78 95 Room Air 99.9 6/26/18 04:00 98.3 72 18 137/79 97 Room Air 98.3 08/21/17 00:00 98.2 76 18 135/85 98 Room Air 98.2 08/20/17 20:27 97.1 78 18 123/85 98 Room Air 97.1 08/20/17 16:24 97.3 87 20 131/69 97 97.3 08/20/17 15:49 98.7 08/20/17 15:19 98.7 Intake and Output 08/20/17 08/21/17 19:00 07:00 Intake Total 420 ml Output Total 300 ml 850 ml Balance 120 ml -850 ml Intake Oral 420 ml Output Urine Total 300 ml 850 ml # Voids 2 Laboratory Tests Test 08/20/17 20:20 08/21/17 05:41 Urine Color Pale yellow Urine Appearance Clear Urine pH 8 (4.5-8.0) Urine Specific [place] 1.010 (1.005-1.035) Urine Protein Negative (NEGATIVE) Urine Glucose (UA) Negative (NEGATIVE) Urine Ketones Negative (NEGATIVE) Urine Occult Blood 3+ (NEGATIVE) H Urine Nitrite Negative (NEGATIVE) Urine Bilirubin Negative (NEGATIVE) Urine Urobilinogen 1 MG/DL (0.0-1.0) H Urine Leukocyte Esterase Negative (NEGATIVE) Urine RBC 5-10 /HPF (0 - 0) H Urine WBC 2-4 /HPF (0 - 0) Urine Squamous Epithelial Cells None /LPF (NONE/OCC) Urine Bacteria Moderate /HPF (NONE) H Urine Yeast Few /HPF (NONE) H White Blood Count 14.0 K/UL (4.8-10.8) H Red Blood Count 4.82 M/UL (4.70-6.10) Hemoglobin 14.9 G/DL (14.2-18.0) Hematocrit 42.4 % (42.0-52.0) Mean Corpuscular Volume 88 FL (80-99) Mean Corpuscular Hemoglobin 30.8 PG (27.0-31.0) Mean Corpuscular Hemoglobin Concent 35.1 G/DL (32.0-36.0) Red Cell Distribution Width 11.7 % (11.6-14.8) Platelet Count 226 K/UL (150-450) Mean Platelet Volume 8.0 FL (6.5-10.1) Neutrophils (%) (Auto) 67.6 % (45.0-75.0) Lymphocytes (%) (Auto) 21.3 % (20.0-45.0) Monocytes (%) (Auto) 9.0 % (1.0-10.0) Eosinophils (%) (Auto) 1.0 % (0.0-3.0) Basophils (%) (Auto) 1.1 % (0.0-2.0) Sodium Level 140 MMOL/L (136-145) Potassium Level 3.6 MMOL/L (3.5-5.1) Chloride Level 104 MMOL/L (98-107) Carbon Dioxide Level 26 MMOL/L (21-32) Anion Gap 10 mmol/L (5-15) Blood Urea Nitrogen 14 mg/dL (7-18) Creatinine 0.9 MG/DL (0.55-1.30) Estimat Glomerular Filtration Rate > 60 mL/min (>60) Glucose Level 98 MG/DL (74-106) Calcium Level 9.8 MG/DL (8.5-10.1) Total Bilirubin 0.5 MG/DL (0.2-1.0) Aspartate Amino Transf (AST/SGOT) 12 U/L (15-37) L Alanine Aminotransferase (ALT/SGPT) 15 U/L (12-78) Alkaline Phosphatase 102 U/L (46-116) Total Protein 7.7 G/DL (6.4-8.2) Albumin 3.4 G/DL (3.4-5.0) Globulin 4.3 g/dL Albumin/Globulin Ratio 0.8 (1.0-2.7) L Triglycerides Level 74 MG/DL (30-150) Cholesterol Level 98 MG/DL (< 200) LDL Cholesterol 58 mg/dL (<100) HDL Cholesterol 42 MG/DL (40-60) Cholesterol/HDL Ratio 2.3 (3.3-4.4) L Thyroid Stimulating Hormone (TSH) 0.850 uiU/mL (0.358-3.740) Microbiology Date/Time Source Procedure Growth Status 08/20/17 20:20 Urine,Clean Catch Urine Culture - Preliminary NO GROWTH Resulted Height (Feet): 6 Height (Inches): 0.00 Weight (Pounds): 150 General Appearance: WD/WN, no apparent distress, alert Cardiovascular: normal rate Respiratory/Chest: normal breath sounds, no respiratory distress Abdominal Exam: normal bowel sounds, non tender, soft Extremities: normal range of motion, non-tender Chandler Bravo NP Aug 21, 2017 14:27
--- NOTE | 2017-08-21 14:59 | Consultation ---
History of Present Illness General Date patient seen: Aug 21, 2017 Chief Complaint: General Complaint Referring physician: Reason for Consultation: Present Illness HPI 67 y/o M with hx of chronic back pain 2ry to Lumbar DDD/spondylosis/herniated disc w/ radiculopathy s/p lumbar fusion, paraplegia,schizophrenia/MDD, HLD presents to ED on 08/20 with low back pain, poor PO intake, nausea and vomiting, odynophagia and epigastric abd pain. Denies f/c, rash, diarrhea afebrile leukocytosis Allergies: Coded Allergies: FENTANYL (Unverified Allergy, Unknown, 08/20/17) KETOROLAC (Unverified Allergy, Unknown, 08/20/17) NAPROXEN (Unverified Allergy, Unknown, 08/20/17) PENICILLINS (Unverified Allergy, Unknown, 08/20/17) Medication History Scheduled Atorvastatin (Lipitor), 80 MG ORAL DAILY, (Reported) Baclofen* (Baclofen*), 10 MG ORAL THREE TIMES A DAY, (Reported) Buspirone Hcl* (Buspirone Hcl*), 10 MG ORAL TWICE A DAY, (Reported) Clopidogrel* (Clopidogrel*), 75 MG ORAL DAILY, (Reported) Fluoxetine Hcl* (Fluoxetine Hcl*), 20 MG ORAL DAILY, (Reported) Gabapentin* (Gabapentin*), 300 MG ORAL THREE TIMES A DAY, (Reported) Meclizine Hcl* (Meclizine*), 25 MG ORAL FOUR TIMES A DAY, (Reported) Pantoprazole* (Pantoprazole*), 40 MG ORAL DAILY, (Reported) Polyethylene Glycol 3350* (Miralax*), 17 GM ORAL DAILY, (Reported) Tapentadol Hcl (Nucynta), 75 MG PO NEEDED, (Reported) Scheduled PRN Ondansetron* (Zofran*), 4 MG ORAL Q6H PRN for Nausea & Vomiting, (Reported) Patient History Healthcare decision maker Resuscitation status Full Code Advanced Directive on File No Patient History Narrative Pmhx: as above Shx: No smoking. No alcohol. No intravenous drug abuse. Fhx: non contributory Review of Systems All Other Systems: negative except mentioned in HPI Physical Exam Physical Exam Narrative not able to examine patient as he was agitated and throwing things to the floor Last 24 Hour Vital Signs Date Time Temp Pulse Resp B/P (MAP) Pulse Ox O2 Delivery O2 Flow Rate FiO2 08/21/17 13:05 98.1 85 18 141/98 97 Room Air 98.1 08/21/17 12:00 98.1 85 18 141/98 97 Room Air 98.1 08/21/17 08:15 99.9 75 16 129/78 95 Room Air 99.9 08/21/17 04:00 98.3 72 18 137/79 97 Room Air 98.3 08/21/17 00:00 98.2 76 18 135/85 98 Room Air 98.2 08/20/17 20:27 97.1 78 18 123/85 98 Room Air 97.1 08/20/17 16:24 97.3 87 20 131/69 97 97.3 08/20/17 15:49 98.7 08/20/17 15:19 98.7 Intake and Output 08/20/17 08/21/17 19:00 07:00 Intake Total 420 ml Output Total 300 ml 850 ml Balance 120 ml -850 ml Intake Oral 420 ml Output Urine Total 300 ml 850 ml # Voids 2 Laboratory Tests Test 08/20/17 20:20 08/21/17 05:41 Urine Color Pale yellow Urine Appearance Clear Urine pH 8 (4.5-8.0) Urine Specific [place] 1.010 (1.005-1.035) Urine Protein Negative (NEGATIVE) Urine Glucose (UA) Negative (NEGATIVE) Urine Ketones Negative (NEGATIVE) Urine Occult Blood 3+ (NEGATIVE) H Urine Nitrite Negative (NEGATIVE) Urine Bilirubin Negative (NEGATIVE) Urine Urobilinogen 1 MG/DL (0.0-1.0) H Urine Leukocyte Esterase Negative (NEGATIVE) Urine RBC 5-10 /HPF (0 - 0) H Urine WBC 2-4 /HPF (0 - 0) Urine Squamous Epithelial Cells None /LPF (NONE/OCC) Urine Bacteria Moderate /HPF (NONE) H Urine Yeast Few /HPF (NONE) H White Blood Count 14.0 K/UL (4.8-10.8) H Red Blood Count 4.82 M/UL (4.70-6.10) Hemoglobin 14.9 G/DL (14.2-18.0) Hematocrit 42.4 % (42.0-52.0) Mean Corpuscular Volume 88 FL (80-99) Mean Corpuscular Hemoglobin 30.8 PG (27.0-31.0) Mean Corpuscular Hemoglobin Concent 35.1 G/DL (32.0-36.0) Red Cell Distribution Width 11.7 % (11.6-14.8) Platelet Count 226 K/UL (150-450) Mean Platelet Volume 8.0 FL (6.5-10.1) Neutrophils (%) (Auto) 67.6 % (45.0-75.0) Lymphocytes (%) (Auto) 21.3 % (20.0-45.0) Monocytes (%) (Auto) 9.0 % (1.0-10.0) Eosinophils (%) (Auto) 1.0 % (0.0-3.0) Basophils (%) (Auto) 1.1 % (0.0-2.0) Sodium Level 140 MMOL/L (136-145) Potassium Level 3.6 MMOL/L (3.5-5.1) Chloride Level 104 MMOL/L (98-107) Carbon Dioxide Level 26 MMOL/L (21-32) Anion Gap 10 mmol/L (5-15) Blood Urea Nitrogen 14 mg/dL (7-18) Creatinine 0.9 MG/DL (0.55-1.30) Estimat Glomerular Filtration Rate > 60 mL/min (>60) Glucose Level 98 MG/DL (74-106) Calcium Level 9.8 MG/DL (8.5-10.1) Total Bilirubin 0.5 MG/DL (0.2-1.0) Aspartate Amino Transf (AST/SGOT) 12 U/L (15-37) L Alanine Aminotransferase (ALT/SGPT) 15 U/L (12-78) Alkaline Phosphatase 102 U/L (46-116) Total Protein 7.7 G/DL (6.4-8.2) Albumin 3.4 G/DL (3.4-5.0) Globulin 4.3 g/dL Albumin/Globulin Ratio 0.8 (1.0-2.7) L Triglycerides Level 74 MG/DL (30-150) Cholesterol Level 98 MG/DL (< 200) LDL Cholesterol 58 mg/dL (<100) HDL Cholesterol 42 MG/DL (40-60) Cholesterol/HDL Ratio 2.3 (3.3-4.4) L Thyroid Stimulating Hormone (TSH) 0.850 uiU/mL (0.358-3.740) Microbiology Date/Time Source Procedure Growth Status 08/20/17 20:20 Urine,Clean Catch Urine Culture - Preliminary NO GROWTH Resulted Height (Feet): 6 Height (Inches): 0.00 Weight (Pounds): 150 Medications Current Medications Medications (Trade) Dose Ordered Sig/Paul Route PRN Reason Start Time Stop Time Status Last Admin Dose Admin Acetaminophen (Tylenol) 650 mg Q4H PRN ORAL T>100.5 08/20/17 11:30 09/19/17 11:29 Al Hydroxide/Mg Hydroxide (Mylanta II) 30 ml Q6H PRN ORAL dyspepsia 08/20/17 11:30 09/19/17 11:29 Dextrose (Dextrose 50%) 25 ml PRN IV Hypoglycemia 08/20/17 11:45 09/19/17 11:44 Dextrose (Dextrose 50%) 50 ml PRN IV hypoglycemia 08/20/17 11:45 09/19/17 11:44 Lorazepam (Ativan 2mg/ml 1ml) 0.5 mg Q4H PRN IV For Anxiety 08/20/17 11:30 08/27/17 11:29 08/21/17 11:25 Morphine Sulfate (Morphine Sulfate) 1 mg Q4H PRN IVP PAIN 4-10 08/20/17 11:30 08/27/17 11:29 08/21/17 03:49 Ondansetron HCl (Zofran) 4 mg Q6H PRN IVP Nausea & Vomiting 08/20/17 11:30 09/19/17 11:29 Pantoprazole (Protonix) 40 mg DAILY IVP 08/21/17 09:00 09/20/17 08:59 08/21/17 09:24 Polyethylene Glycol (Miralax) 17 gm HSPRN PRN ORAL Constipation 08/20/17 21:00 09/19/17 20:59 Zolpidem Tartrate (Ambien) 5 mg HSPRN PRN ORAL Insomnia 08/20/17 21:00 08/27/17 20:59 Assessment/Plan Assessment/Plan Abx: None Assessment: FTT N/V Leukocytosis, mild- increasing -u/a neg ; uCx NTD -CXR: no acute disease Odynophagia Agitation chronic back pain 2ry to Lumbar DDD/spondylosis/herniated disc w/ radiculopathy s/p lumbar fusion paraplegia schizophrenia/MDD HLD Plan: -Continue to monitor off abx unless febrile, and/or worsening leukocytosis -f/u cx -Monitor CBC/BMP, temperatures -Plan for EGD -r/o fungal or viral esophagitis -Aspiration precautions Thank you for this consultation. Will continue to follow along with you. Discussed with CARMEN. Lynette Nichole M.D. Aug 21, 2017 14:59
[2017-08-21] MEDS ORDERED: LORazepam Inj 2mg/ml 1ml IM SCH (16:45)
[2017-08-21] MEDS ORDERED: DiphenhydrAMINE 50mg/ml Inj IM SCH (16:45)
[2017-08-21] MEDS ORDERED: Haloperidol 5mg/ml Inj IM SCH (16:45)
[2017-08-21 20:01] VITALS: BP 130/75
--- NOTE | 2017-08-21 23:02 | Consultation ---
History of Present Illness General Date patient seen: Aug 21, 2017 Chief Complaint: General Complaint Referring physician: Reason for Consultation: Present Illness HPI 67-year-old male from [facility] who is well know to me the pt has hx of schizoaffective d/o and depression. In addition the pt is dependent to pain meds and benzos. the pt is no endorsing si/hi. the pt is pw depressed mood, anhedonia and low energy. the pt endorses med seeking behavior. Allergies: Coded Allergies: FENTANYL (Unverified Allergy, Unknown, 08/20/17) KETOROLAC (Unverified Allergy, Unknown, 08/20/17) NAPROXEN (Unverified Allergy, Unknown, 08/20/17) PENICILLINS (Unverified Allergy, Unknown, 08/20/17) Medication History Scheduled Atorvastatin (Lipitor), 80 MG ORAL DAILY, (Reported) Baclofen* (Baclofen*), 10 MG ORAL THREE TIMES A DAY, (Reported) Buspirone Hcl* (Buspirone Hcl*), 10 MG ORAL TWICE A DAY, (Reported) Clopidogrel* (Clopidogrel*), 75 MG ORAL DAILY, (Reported) Fluoxetine Hcl* (Fluoxetine Hcl*), 20 MG ORAL DAILY, (Reported) Gabapentin* (Gabapentin*), 300 MG ORAL THREE TIMES A DAY, (Reported) Meclizine Hcl* (Meclizine*), 25 MG ORAL FOUR TIMES A DAY, (Reported) Pantoprazole* (Pantoprazole*), 40 MG ORAL DAILY, (Reported) Polyethylene Glycol 3350* (Miralax*), 17 GM ORAL DAILY, (Reported) Tapentadol Hcl (Nucynta), 75 MG PO NEEDED, (Reported) Scheduled PRN Ondansetron* (Zofran*), 4 MG ORAL Q6H PRN for Nausea & Vomiting, (Reported) Patient History Limited by: medical condition History Provided By: Patient, Medical Record, PMD Healthcare decision maker Resuscitation status Full Code Advanced Directive on File No Past Medical/Surgical History Past Medical/Surgical History: (1) Odynophagia (2) Constipation (3) Nausea alone (4) Abdominal pain (5) Severe malnutrition (6) Leukocytosis (7) Nausea & vomiting (8) Psychiatric disorder (9) Psychiatric illness (10) Psychiatric disturbance (11) Dehydration (12) Back pain (13) Failure to thrive (14) Schizophrenia (15) COPD (chronic obstructive pulmonary disease) (16) At high risk for aspiration Review of Systems Psychiatric: Reports: prior hx, anxiety, depressed feelings, emotional problems Physical Exam General Appearance: no apparent distress, alert Neurologic: alert, oriented x 3, responsive, depressed affect Last 24 Hour Vital Signs Date Time Temp Pulse Resp B/P (MAP) Pulse Ox O2 Delivery O2 Flow Rate FiO2 08/21/17 21:34 97.9 08/21/17 21:04 97.9 08/21/17 20:01 97.9 85 20 130/75 93 Room Air 97.9 85 08/21/17 13:05 98.1 85 18 141/98 97 Room Air 98.1 08/21/17 12:00 98.1 85 18 141/98 97 Room Air 98.1 08/21/17 08:15 99.9 75 16 129/78 95 Room Air 99.9 08/21/17 04:00 98.3 72 18 137/79 97 Room Air 98.3 08/21/17 00:00 98.2 76 18 135/85 98 Room Air 98.2 Intake and Output 08/20/17 08/21/17 19:00 07:00 Intake Total 420 ml Output Total 300 ml 850 ml Balance 120 ml -850 ml Intake Oral 420 ml Output Urine Total 300 ml 850 ml # Voids 2 Laboratory Tests Test 08/21/17 05:41 White Blood Count 14.0 K/UL (4.8-10.8) H Red Blood Count 4.82 M/UL (4.70-6.10) Hemoglobin 14.9 G/DL (14.2-18.0) Hematocrit 42.4 % (42.0-52.0) Mean Corpuscular Volume 88 FL (80-99) Mean Corpuscular Hemoglobin 30.8 PG (27.0-31.0) Mean Corpuscular Hemoglobin Concent 35.1 G/DL (32.0-36.0) Red Cell Distribution Width 11.7 % (11.6-14.8) Platelet Count 226 K/UL (150-450) Mean Platelet Volume 8.0 FL (6.5-10.1) Neutrophils (%) (Auto) 67.6 % (45.0-75.0) Lymphocytes (%) (Auto) 21.3 % (20.0-45.0) Monocytes (%) (Auto) 9.0 % (1.0-10.0) Eosinophils (%) (Auto) 1.0 % (0.0-3.0) Basophils (%) (Auto) 1.1 % (0.0-2.0) Sodium Level 140 MMOL/L (136-145) Potassium Level 3.6 MMOL/L (3.5-5.1) Chloride Level 104 MMOL/L (98-107) Carbon Dioxide Level 26 MMOL/L (21-32) Anion Gap 10 mmol/L (5-15) Blood Urea Nitrogen 14 mg/dL (7-18) Creatinine 0.9 MG/DL (0.55-1.30) Estimat Glomerular Filtration Rate > 60 mL/min (>60) Glucose Level 98 MG/DL (74-106) Calcium Level 9.8 MG/DL (8.5-10.1) Total Bilirubin 0.5 MG/DL (0.2-1.0) Aspartate Amino Transf (AST/SGOT) 12 U/L (15-37) L Alanine Aminotransferase (ALT/SGPT) 15 U/L (12-78) Alkaline Phosphatase 102 U/L (46-116) Total Protein 7.7 G/DL (6.4-8.2) Albumin 3.4 G/DL (3.4-5.0) Globulin 4.3 g/dL Albumin/Globulin Ratio 0.8 (1.0-2.7) L Triglycerides Level 74 MG/DL (30-150) Cholesterol Level 98 MG/DL (< 200) LDL Cholesterol 58 mg/dL (<100) HDL Cholesterol 42 MG/DL (40-60) Cholesterol/HDL Ratio 2.3 (3.3-4.4) L Thyroid Stimulating Hormone (TSH) 0.850 uiU/mL (0.358-3.740) Height (Feet): 6 Height (Inches): 0.00 Weight (Pounds): 150 Medications Current Medications Medications (Trade) Dose Ordered Sig/Paul Route PRN Reason Start Time Stop Time Status Last Admin Dose Admin Acetaminophen (Tylenol) 650 mg Q4H PRN ORAL T>100.5 08/20/17 11:30 09/19/17 11:29 Al Hydroxide/Mg Hydroxide (Mylanta II) 30 ml Q6H PRN ORAL dyspepsia 08/20/17 11:30 09/19/17 11:29 Dextrose (Dextrose 50%) 25 ml PRN IV Hypoglycemia 08/20/17 11:45 09/19/17 11:44 Dextrose (Dextrose 50%) 50 ml PRN IV hypoglycemia 08/20/17 11:45 09/19/17 11:44 Lorazepam (Ativan 2mg/ml 1ml) 0.5 mg Q4H PRN IV For Anxiety 08/20/17 11:30 08/27/17 11:29 08/21/17 11:25 Morphine Sulfate (Morphine Sulfate) 1 mg Q4H PRN IVP PAIN 4-10 08/20/17 11:30 08/27/17 11:29 08/21/17 21:04 Ondansetron HCl (Zofran) 4 mg Q6H PRN IVP Nausea & Vomiting 08/20/17 11:30 09/19/17 11:29 Pantoprazole (Protonix) 40 mg DAILY IVP 08/21/17 09:00 09/20/17 08:59 08/21/17 09:24 Polyethylene Glycol (Miralax) 17 gm HSPRN PRN ORAL Constipation 08/20/17 21:00 09/19/17 20:59 Zolpidem Tartrate (Ambien) 5 mg HSPRN PRN ORAL Insomnia 08/20/17 21:00 08/27/17 20:59 Assessment/Plan Status: stable, progressing Assessment/Plan schizoaffective d/o depression the pt has capacity to make decisions -resume his current meds Dexter Payne M.D. Aug 21, 2017 23:02
--- NOTE | 2017-08-21 23:06 | General Progress Note ---
Assessment/Plan Assessment/Plan MDD Anxiety Prozac 40mg qam Buspar 10mg tid Subjective Date patient seen: Aug 22, 2017 Neurologic/Psychiatric: Reports: anxiety, depressed, emotional problems Allergies: Coded Allergies: FENTANYL (Unverified Allergy, Unknown, 08/20/17) KETOROLAC (Unverified Allergy, Unknown, 08/20/17) NAPROXEN (Unverified Allergy, Unknown, 08/20/17) PENICILLINS (Unverified Allergy, Unknown, 08/20/17) Objective Last 24 Hour Vital Signs Date Time Temp Pulse Resp B/P (MAP) Pulse Ox O2 Delivery O2 Flow Rate FiO2 08/21/17 21:34 97.9 08/21/17 21:04 97.9 08/21/17 20:01 97.9 85 20 130/75 93 Room Air 97.9 85 08/21/17 13:05 98.1 85 18 141/98 97 Room Air 98.1 08/21/17 12:00 98.1 85 18 141/98 97 Room Air 98.1 08/21/17 08:15 99.9 75 16 129/78 95 Room Air 99.9 08/21/17 04:00 98.3 72 18 137/79 97 Room Air 98.3 08/21/17 00:00 98.2 76 18 135/85 98 Room Air 98.2 Intake and Output 08/20/17 08/21/17 19:00 07:00 Intake Total 420 ml Output Total 300 ml 850 ml Balance 120 ml -850 ml Intake Oral 420 ml Output Urine Total 300 ml 850 ml # Voids 2 Laboratory Tests 08/21/17 05:41: White Blood Count 14.0H, Red Blood Count 4.82, Hemoglobin 14.9, Hematocrit 42.4 , Mean Corpuscular Volume 88, Mean Corpuscular Hemoglobin 30.8, Mean Corpuscular Hemoglobin Concent 35.1, Red Cell Distribution Width 11.7, Platelet Count 226, Mean Platelet Volume 8.0, Neutrophils (%) (Auto) 67.6, Lymphocytes (% ) (Auto) 21.3, Monocytes (%) (Auto) 9.0, Eosinophils (%) (Auto) 1.0, Basophils ( %) (Auto) 1.1, Sodium Level 140, Potassium Level 3.6, Chloride Level 104, Carbon Dioxide Level 26, Anion Gap 10, Blood Urea Nitrogen 14, Creatinine 0.9, Estimat Glomerular Filtration Rate > 60, Glucose Level 98, Calcium Level 9.8, Total Bilirubin 0.5, Aspartate Amino Transf (AST/SGOT) 12L, Alanine Aminotransferase (ALT/SGPT) 15, Alkaline Phosphatase 102, Total Protein 7.7, Albumin 3.4, Globulin 4.3, Albumin/Globulin Ratio 0.8L, Triglycerides Level 74, Cholesterol Level 98, LDL Cholesterol 58, HDL Cholesterol 42, Cholesterol/HDL Ratio 2.3L, Thyroid Stimulating Hormone (TSH) 0.850 Height (Feet): 6 Height (Inches): 0.00 Weight (Pounds): 150 General Appearance: no apparent distress, alert Neurologic: oriented x 3, responsive, depressed affect Dexter Payne M.D. Aug 21, 2017 23:06
[2017-08-22 03:39] VITALS: BP 140/72
--- NOTE | 2017-08-22 05:15 | Consultation ---
DATE OF CONSULTATION: 08/21/2017 "NOTE: POOR AUDIO QUALITY" TREATING ATTENDING PHYSICIAN: Miguel Patino D.O. HISTORY OF PRESENT ILLNESS: The patient is a 67-year-old male [facility]. The patient is following through hospital initially for failure to thrive. Since then, the patient has been extremely agitated, irritable, disorganized, and aggressive. The patient has been checking . The patient has been depressed, confused and agitated. The patient has been kicking and throwing yelling at nursing staff, screaming with nursing staff. The patient stated that he believes that he is in the [facility] cell and that is why he is screaming at others. However, the patient is very confused, disorganized, agitated and just mental illness including mood disorder. The patient currently lives in the facility. PAST MEDICAL HISTORY: Includes a history of failure to thrive and weakness as well as back surgery. ALLERGIES: This patient is allergic ketorolac, naproxen, penicillin, and fentanyl. SUBSTANCE ABUSE HISTORY: The patient denies history of alcohol use. PSYCHIATRIC HISTORY: The patient has a history of mood disorder and has been treated with psychotropic medications in the past. SOCIAL HISTORY: The patient is a 67-year-old male patient from [facility]. Financially supported by [facility]. MENTAL STATUS EXAMINATION: The patient is alert and oriented to person and place. His mood is extremely agitated. Affect is congruent. Thought process, disorganized. Thought content, confused. The patient has poor attention and concentration. Poor insight, judgment, and impulse control. DIAGNOSES: Worthington I Schizoaffective disorder, bipolar type. Worthington II Deferred. Worthington III Per History and Physical. Worthington IV Worthington V PLAN: This clinician assessed this patient's mental status and provided the patient with reality orientation and provided supportive psychotherapy. Adjusting the patient's poor frustration tolerance and mood stability. Continue with behavioral management. This clinician has reviewed the patient's chart and discussed the treatment with treatment team. Cameron Kathleen PsyD. DR: HALI JOB#: [id number] CC:
[2017-08-22 07:11] LABS: ANION GAP 12 mmol/L (5-15); BLOOD UREA NITROGEN 14 mg/dL (7-18); CALCIUM 9.7 MG/DL (8.5-10.1); CARBON DIOXIDE 26 MMOL/L (21-32); CHLORIDE 103 MMOL/L (98-107); CREATININE 1.1 MG/DL (0.55-1.30); POTASSIUM 3.4 MMOL/L (3.5-5.1); SODIUM 141 MMOL/L (136-145)
[2017-08-22 07:17] LABS: BASOPHILS % (AUTO) 0.8 % (0.0-2.0); EOSINOPHILS % (AUTO) 0.7 % (0.0-3.0); HEMATOCRIT 46.6 % (42.0-52.0); LYMPHOCYTES % (AUTO) 21.3 % (20.0-45.0); MEAN CORPUSCULAR VOLUME 88 FL (80-99); MONOCYTES % (AUTO) 9.9 % (1.0-10.0); NEUTROPHILS % (AUTO) 67.3 % (45.0-75.0); PLATELET COUNT 255 K/UL (150-450); RED BLOOD COUNT 5.32 M/UL (4.70-6.10); RED CELL DISTRIBUTION WIDTH 11.7 % (11.6-14.8); WHITE BLOOD COUNT 14.5 K/UL (4.8-10.8)
--- NOTE | 2017-08-22 07:48 | General Progress Note ---
Assessment/Plan Assessment/Plan (1) Lumbar DDD (2) Lumbar Spondylosis (3) Lumbar Herniated disc (4) Lumbar Radiculopathy (5) H/o Lumbar fusion (6) Paraparesis (7) Abdominal pain Pt to be continued on Morphine D/w Dr. norton and he concurred. Subjective Date patient seen: Aug 22, 2017 Time patient seen: 07:00 - am Allergies: Coded Allergies: FENTANYL (Unverified Allergy, Unknown, 08/20/17) KETOROLAC (Unverified Allergy, Unknown, 08/20/17) NAPROXEN (Unverified Allergy, Unknown, 08/20/17) PENICILLINS (Unverified Allergy, Unknown, 08/20/17) Subjective REVIEW OF SYSTEMS: Denies rash, fever, chills, sweating, dizziness, drowsiness, blurred vision, sore throat, or change in weight. No shortness of breath or chest pain. No nausea, vomiting, diarrhea, or blood in the stool or urine. No dysuria. No bowel or bladder incontinence. He is complaining of low back and abdominal pain. SUBJECTIVE: Patient is in bed and reports that his pain is stable and tolerated on the Morphine. He has no new complaints. Objective Last 24 Hour Vital Signs Date Time Temp Pulse Resp B/P (MAP) Pulse Ox O2 Delivery O2 Flow Rate FiO2 08/22/17 03:39 97.7 81 20 140/72 95 Room Air 97.7 81 08/21/17 21:34 97.9 08/21/17 21:04 97.9 08/21/17 20:01 97.9 85 20 130/75 93 Room Air 97.9 85 08/21/17 13:05 98.1 85 18 141/98 97 Room Air 98.1 08/21/17 12:00 98.1 85 18 141/98 97 Room Air 98.1 08/21/17 08:15 99.9 75 16 129/78 95 Room Air 99.9 Intake and Output 08/21/17 08/22/17 19:00 07:00 Output Total 400 ml Balance -400 ml Output Urine Total 400 ml # Voids 4 3 # Bowel Movements 1 1 Laboratory Tests 08/22/17 05:10: White Blood Count 14.5H, Red Blood Count 5.32, Hemoglobin 17.0, Hematocrit 46.6 , Mean Corpuscular Volume 88, Mean Corpuscular Hemoglobin 32.0H, Mean Corpuscular Hemoglobin Concent 36.5H, Red Cell Distribution Width 11.7, Platelet Count 255, Mean Platelet Volume 7.7, Neutrophils (%) (Auto) 67.3, Lymphocytes (%) (Auto) 21.3, Monocytes (%) (Auto) 9.9, Eosinophils (%) (Auto) 0.7, Basophils (%) (Auto) 0.8, Prothrombin Time 10.7, Prothromb Time International Ratio 1.0, Activated Partial Thromboplast Time 27, Sodium Level 141, Potassium Level 3.4L, Chloride Level 103, Carbon Dioxide Level 26, Anion Gap 12, Blood Urea Nitrogen 14, Creatinine 1.1, Estimat Glomerular Filtration Rate > 60, Glucose Level 91, Calcium Level 9.7 Height (Feet): 6 Height (Inches): 0.00 Weight (Pounds): 149 Objective GENERAL: Alert, awake, and oriented. LUNGS: Decreased breath sounds bilaterally. HEART: Regular. ABDOMEN: Tenderness to palpation. EXTREMITIES: No cyanosis. No clubbing. No edema. NEUROLOGIC: No changes. Khari Harrison Aug 22, 2017 07:48
[2017-08-22 08:00] VITALS: BP 135/86
[2017-08-22] MEDS: Pantoprazole Inj IVP SCH (09:00)
[2017-08-22] MEDS: Morphine Sulfate 2mg/ml Inj IVP PRN ×3 (09:01→18:20)
--- NOTE | 2017-08-22 10:39 | GI Progress Note ---
Assessment/Plan Problems: (1) Odynophagia ICD Codes: R13.10 - Dysphagia, unspecified SNOMED: 30333083 (2) Constipation ICD Codes: K59.00 - Constipation, unspecified SNOMED: 78817571 (3) Abdominal pain ICD Codes: R10.9 - Unspecified abdominal pain SNOMED: 36026823 (4) Severe malnutrition ICD Codes: E43 - Unspecified severe protein-calorie malnutrition SNOMED: 11591038 (5) Schizophrenia ICD Codes: F20.9 - Schizophrenia, unspecified SNOMED: 33769542 Qualifiers: Qualified Codes: F20.9 - Schizophrenia, unspecified (6) Dehydration ICD Codes: E86.0 - Dehydration SNOMED: 28207786 (7) Failure to thrive SNOMED: 85580939 Qualifiers: Qualified Codes: R62.7 - Adult failure to thrive (8) Leukocytosis ICD Codes: D72.829 - Elevated white blood cell count, unspecified SNOMED: 144993808, 734954198 (9) Nausea & vomiting ICD Codes: R11.2 - Nausea with vomiting, unspecified SNOMED: 53419772 Status: unchanged Status Narrative Discussed with Dr. Ramos. Assessment/Plan Hx of EGD/colonoscopy in 2013 patient on Plavix >> must be stopped min 72 hours prior if any GI procedures are to be done ST evaluation not done >> patient refused patient would benefit from PEG, however given psychiatric history the patient would either refuse or remove. d/w with psychiatry, patient has capacity to sign consent for EGD to evaluate odynophagia EGD scheduled for tomorrow. - diet now, NPO @ [place]. - hold all blood thinners marinol diet fu ST evaluation calorie count ppi pain mgmt IV/PO hydration electrolyte correction bowel regime PT/OT consult fu labs The patient was seen and examined at bedside and all new and available data was reviewed in the patients chart. I agree with the above findings, impression and plan. (Patient seen earlier today. Signature stamp does not reflect patient encounter time.). - Camden Ramos MD Subjective Subjective refusing care agitated c/o of painful swallowing c/o of being "sick" Objective Last 24 Hour Vital Signs Date Time Temp Pulse Resp B/P (MAP) Pulse Ox O2 Delivery O2 Flow Rate FiO2 08/22/17 08:00 98.1 83 18 135/86 94 98.1 83 08/22/17 03:39 97.7 81 20 140/72 95 Room Air 97.7 81 08/21/17 21:34 97.9 08/21/17 21:04 97.9 08/21/17 20:01 97.9 85 20 130/75 93 Room Air 97.9 85 08/21/17 13:05 98.1 85 18 141/98 97 Room Air 98.1 08/21/17 12:00 98.1 85 18 141/98 97 Room Air 98.1 Intake and Output 08/21/17 08/22/17 19:00 07:00 Output Total 400 ml Balance -400 ml Output Urine Total 400 ml # Voids 4 3 # Bowel Movements 1 1 Laboratory Tests Test 08/22/17 05:10 White Blood Count 14.5 K/UL (4.8-10.8) H Red Blood Count 5.32 M/UL (4.70-6.10) Hemoglobin 17.0 G/DL (14.2-18.0) Hematocrit 46.6 % (42.0-52.0) Mean Corpuscular Volume 88 FL (80-99) Mean Corpuscular Hemoglobin 32.0 PG (27.0-31.0) H Mean Corpuscular Hemoglobin Concent 36.5 G/DL (32.0-36.0) H Red Cell Distribution Width 11.7 % (11.6-14.8) Platelet Count 255 K/UL (150-450) Mean Platelet Volume 7.7 FL (6.5-10.1) Neutrophils (%) (Auto) 67.3 % (45.0-75.0) Lymphocytes (%) (Auto) 21.3 % (20.0-45.0) Monocytes (%) (Auto) 9.9 % (1.0-10.0) Eosinophils (%) (Auto) 0.7 % (0.0-3.0) Basophils (%) (Auto) 0.8 % (0.0-2.0) Prothrombin Time 10.7 SEC (9.30-11.50) Prothromb Time International Ratio 1.0 (0.9-1.1) Activated Partial Thromboplast Time 27 SEC (23-33) Sodium Level 141 MMOL/L (136-145) Potassium Level 3.4 MMOL/L (3.5-5.1) L Chloride Level 103 MMOL/L (98-107) Carbon Dioxide Level 26 MMOL/L (21-32) Anion Gap 12 mmol/L (5-15) Blood Urea Nitrogen 14 mg/dL (7-18) Creatinine 1.1 MG/DL (0.55-1.30) Estimat Glomerular Filtration Rate > 60 mL/min (>60) Glucose Level 91 MG/DL (74-106) Calcium Level 9.7 MG/DL (8.5-10.1) Height (Feet): 6 Height (Inches): 0.00 Weight (Pounds): 149 General Appearance: WD/WN, no apparent distress, alert Cardiovascular: normal rate Respiratory/Chest: normal breath sounds, no respiratory distress Abdominal Exam: normal bowel sounds, non tender, soft Extremities: normal range of motion, non-tender Chandler Bravo NP Aug 22, 2017 10:39
[2017-08-22] MEDS: LORazepam Inj 2mg/ml 1ml IV PRN ×2 (11:48→20:28)
[2017-08-22 12:00] VITALS: BP 136/84
--- NOTE | 2017-08-22 13:35 | Pulmonology Progress Note ---
Assessment/Plan Problems: (1) COPD (chronic obstructive pulmonary disease) (2) At high risk for aspiration (3) Schizophrenia (4) Failure to thrive (5) Severe malnutrition (6) Odynophagia Assessment/Plan respiratory treatment titrate fio2 to sat of 92% f/u psych recommendations f/u swallow studies Subjective Interval Events: doesn't want to talk Allergies: Coded Allergies: FENTANYL (Unverified Allergy, Unknown, 08/20/17) KETOROLAC (Unverified Allergy, Unknown, 08/20/17) NAPROXEN (Unverified Allergy, Unknown, 08/20/17) PENICILLINS (Unverified Allergy, Unknown, 08/20/17) Objective Last 24 Hour Vital Signs Date Time Temp Pulse Resp B/P (MAP) Pulse Ox O2 Delivery O2 Flow Rate FiO2 08/22/17 12:00 96.8 94 20 136/84 94 Room Air 96.8 08/22/17 08:00 Room Air 08/22/17 08:00 98.1 83 18 135/86 94 98.1 83 08/22/17 03:39 97.7 81 20 140/72 95 Room Air 97.7 81 08/21/17 21:34 97.9 08/21/17 21:04 97.9 08/21/17 20:01 97.9 85 20 130/75 93 Room Air 97.9 85 Intake and Output 08/21/17 08/22/17 19:00 07:00 Output Total 400 ml Balance -400 ml Output Urine Total 400 ml # Voids 4 3 # Bowel Movements 1 1 General Appearance: cachetic HEENT: normocephalic, atraumatic Respiratory/Chest: chest wall non-tender, lungs clear Abdomen: normal bowel sounds, soft, non tender Genitourinary: normal external genitalia Extremities: no cyanosis Neurologic/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 Complete Laboratory Tests 08/22/17 05:10: White Blood Count 14.5H, Red Blood Count 5.32, Hemoglobin 17.0, Hematocrit 46.6 , Mean Corpuscular Volume 88, Mean Corpuscular Hemoglobin 32.0H, Mean Corpuscular Hemoglobin Concent 36.5H, Red Cell Distribution Width 11.7, Platelet Count 255, Mean Platelet Volume 7.7, Neutrophils (%) (Auto) 67.3, Lymphocytes (%) (Auto) 21.3, Monocytes (%) (Auto) 9.9, Eosinophils (%) (Auto) 0.7, Basophils (%) (Auto) 0.8, Prothrombin Time 10.7, Prothromb Time International Ratio 1.0, Activated Partial Thromboplast Time 27, Sodium Level 141, Potassium Level 3.4L, Chloride Level 103, Carbon Dioxide Level 26, Anion Gap 12, Blood Urea Nitrogen 14, Creatinine 1.1, Estimat Glomerular Filtration Rate > 60, Glucose Level 91, Calcium Level 9.7 Current Medications Medications (Trade) Dose Ordered Sig/Paul Route PRN Reason Start Time Stop Time Status Last Admin Dose Admin Acetaminophen (Tylenol) 650 mg Q4H PRN ORAL T>100.5 08/20/17 11:30 09/19/17 11:29 Al Hydroxide/Mg Hydroxide (Mylanta II) 30 ml Q6H PRN ORAL dyspepsia 08/20/17 11:30 09/19/17 11:29 Dextrose (Dextrose 50%) 25 ml PRN IV Hypoglycemia 08/20/17 11:45 09/19/17 11:44 Dextrose (Dextrose 50%) 50 ml PRN IV hypoglycemia 08/20/17 11:45 09/19/17 11:44 Lorazepam (Ativan 2mg/ml 1ml) 0.5 mg Q4H PRN IV For Anxiety 08/20/17 11:30 08/27/17 11:29 08/22/17 11:48 Morphine Sulfate (Morphine Sulfate) 1 mg Q4H PRN IVP PAIN 4-10 08/20/17 11:30 08/27/17 11:29 08/22/17 13:03 Ondansetron HCl (Zofran) 4 mg Q6H PRN IVP Nausea & Vomiting 08/20/17 11:30 09/19/17 11:29 Pantoprazole (Protonix) 40 mg DAILY IVP 08/21/17 09:00 09/20/17 08:59 08/22/17 09:00 Polyethylene Glycol (Miralax) 17 gm HSPRN PRN ORAL Constipation 08/20/17 21:00 09/19/17 20:59 Zolpidem Tartrate (Ambien) 5 mg HSPRN PRN ORAL Insomnia 08/20/17 21:00 08/27/17 20:59 Javi Viveros MD Aug 22, 2017 13:35
--- NOTE | 2017-08-22 14:08 | General Progress Note ---
Assessment/Plan Problem List: (1) Nausea & vomiting ICD Codes: R11.2 - Nausea with vomiting, unspecified SNOMED: 95035958 (2) Leukocytosis ICD Codes: D72.829 - Elevated white blood cell count, unspecified SNOMED: 529511750, 485357001 (3) Failure to thrive SNOMED: 35721987 Qualifiers: Qualified Codes: R62.7 - Adult failure to thrive Status: stable, progressing Assessment/Plan ot pt diet abx cbc bmp am pending egd Subjective Allergies: Coded Allergies: FENTANYL (Unverified Allergy, Unknown, 08/20/17) KETOROLAC (Unverified Allergy, Unknown, 08/20/17) NAPROXEN (Unverified Allergy, Unknown, 08/20/17) PENICILLINS (Unverified Allergy, Unknown, 08/20/17) All Systems: reviewed and negative except above Subjective sleepy calm Objective Last 24 Hour Vital Signs Date Time Temp Pulse Resp B/P (MAP) Pulse Ox O2 Delivery O2 Flow Rate FiO2 08/22/17 12:00 96.8 94 20 136/84 94 Room Air 96.8 08/22/17 08:00 Room Air 08/22/17 08:00 98.1 83 18 135/86 94 98.1 83 08/22/17 03:39 97.7 81 20 140/72 95 Room Air 97.7 81 08/21/17 21:34 97.9 08/21/17 21:04 97.9 08/21/17 20:01 97.9 85 20 130/75 93 Room Air 97.9 85 Intake and Output 08/21/17 08/22/17 19:00 07:00 Output Total 400 ml Balance -400 ml Output Urine Total 400 ml # Voids 4 3 # Bowel Movements 1 1 Laboratory Tests 08/22/17 05:10: White Blood Count 14.5H, Red Blood Count 5.32, Hemoglobin 17.0, Hematocrit 46.6 , Mean Corpuscular Volume 88, Mean Corpuscular Hemoglobin 32.0H, Mean Corpuscular Hemoglobin Concent 36.5H, Red Cell Distribution Width 11.7, Platelet Count 255, Mean Platelet Volume 7.7, Neutrophils (%) (Auto) 67.3, Lymphocytes (%) (Auto) 21.3, Monocytes (%) (Auto) 9.9, Eosinophils (%) (Auto) 0.7, Basophils (%) (Auto) 0.8, Prothrombin Time 10.7, Prothromb Time International Ratio 1.0, Activated Partial Thromboplast Time 27, Sodium Level 141, Potassium Level 3.4L, Chloride Level 103, Carbon Dioxide Level 26, Anion Gap 12, Blood Urea Nitrogen 14, Creatinine 1.1, Estimat Glomerular Filtration Rate > 60, Glucose Level 91, Calcium Level 9.7 Height (Feet): 6 Height (Inches): 0.00 Weight (Pounds): 149 General Appearance: lethargic EENT: normal ENT inspection Neck: normal alignment Cardiovascular: normal peripheral pulses, normal rate, regular rhythm Respiratory/Chest: chest wall non-tender, lungs clear, normal breath sounds Abdomen: normal bowel sounds, non tender, soft Extremities: normal inspection Edema: no edema noted Arm (L), no edema noted Arm (R), no edema noted Leg (L), no edema noted Leg (R), no edema noted Pedal (L), no edema noted Pedal (R), no edema noted Generalized Neurologic: motor weakness Skin: normal pigmentation, warm/dry Miguel Patino DO Aug 22, 2017 14:08
[2017-08-22 16:00] VITALS: BP 131/87
--- NOTE | 2017-08-22 19:19 | Infectious Diseases Prog Note ---
Assessment/Plan Assessment/Plan Abx: None Assessment: FTT N/V- r/o intraabdominal -Abd xray: no acute process Leukocytosis, mild- suspect reactive; no obvious infections process; r/o intra- abdominal process -u/a neg ; uCx 70-80K mixed gram positive growth ( not clinically significant) -CXR: no acute disease Odynophagia- no visible thrush or other abnormalities Agitation chronic back pain 2ry to Lumbar DDD/spondylosis/herniated disc w/ radiculopathy s/p lumbar fusion paraplegia schizophrenia/MDD HLD Plan: -Continue to monitor off abx unless febrile, and/or worsening leukocytosis -Abd US -Bcx x2 -repeat u/a w/ reflex -f/u cx -Monitor CBC/BMP, temperatures -Plan for EGD -r/o fungal or viral esophagitis -Aspiration precautions -CXR am Thank you for this consultation. Will continue to follow along with you. Discussed with RN. Subjective Allergies: Coded Allergies: FENTANYL (Unverified Allergy, Unknown, 08/20/17) KETOROLAC (Unverified Allergy, Unknown, 08/20/17) NAPROXEN (Unverified Allergy, Unknown, 08/20/17) PENICILLINS (Unverified Allergy, Unknown, 08/20/17) Objective Vital Signs Last 24 Hour Vital Signs Date Time Temp Pulse Resp B/P (MAP) Pulse Ox O2 Delivery O2 Flow Rate FiO2 08/22/17 16:00 98.1 94 20 131/87 97 Room Air 98.1 08/22/17 12:00 96.8 94 20 136/84 94 Room Air 96.8 08/22/17 08:00 Room Air 08/22/17 08:00 98.1 83 18 135/86 94 98.1 83 08/22/17 03:39 97.7 81 20 140/72 95 Room Air 97.7 81 08/21/17 21:34 97.9 08/21/17 21:04 97.9 08/21/17 20:01 97.9 85 20 130/75 93 Room Air 97.9 85 Height (Feet): 6 Height (Inches): 0.00 Weight (Pounds): 149 Objective General Appearance: cachetic HEENT: normocephalic, atraumatic Respiratory/Chest: chest wall non-tender, lungs clear Abdomen: normal bowel sounds, soft, non tender Genitourinary: normal external genitalia Extremities: no cyanosis 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 Complete Laboratory Tests Test 08/22/17 05:10 White Blood Count 14.5 K/UL (4.8-10.8) H Red Blood Count 5.32 M/UL (4.70-6.10) Hemoglobin 17.0 G/DL (14.2-18.0) Hematocrit 46.6 % (42.0-52.0) Mean Corpuscular Volume 88 FL (80-99) Mean Corpuscular Hemoglobin 32.0 PG (27.0-31.0) H Mean Corpuscular Hemoglobin Concent 36.5 G/DL (32.0-36.0) H Red Cell Distribution Width 11.7 % (11.6-14.8) Platelet Count 255 K/UL (150-450) Mean Platelet Volume 7.7 FL (6.5-10.1) Neutrophils (%) (Auto) 67.3 % (45.0-75.0) Lymphocytes (%) (Auto) 21.3 % (20.0-45.0) Monocytes (%) (Auto) 9.9 % (1.0-10.0) Eosinophils (%) (Auto) 0.7 % (0.0-3.0) Basophils (%) (Auto) 0.8 % (0.0-2.0) Prothrombin Time 10.7 SEC (9.30-11.50) Prothromb Time International Ratio 1.0 (0.9-1.1) Activated Partial Thromboplast Time 27 SEC (23-33) Sodium Level 141 MMOL/L (136-145) Potassium Level 3.4 MMOL/L (3.5-5.1) L Chloride Level 103 MMOL/L (98-107) Carbon Dioxide Level 26 MMOL/L (21-32) Anion Gap 12 mmol/L (5-15) Blood Urea Nitrogen 14 mg/dL (7-18) Creatinine 1.1 MG/DL (0.55-1.30) Estimat Glomerular Filtration Rate > 60 mL/min (>60) Glucose Level 91 MG/DL (74-106) Calcium Level 9.7 MG/DL (8.5-10.1) Current Medications Medications (Trade) Dose Ordered Sig/Paul Route PRN Reason Start Time Stop Time Status Last Admin Dose Admin Acetaminophen (Tylenol) 650 mg Q4H PRN ORAL T>100.5 08/20/17 11:30 09/19/17 11:29 Al Hydroxide/Mg Hydroxide (Mylanta II) 30 ml Q6H PRN ORAL dyspepsia 08/20/17 11:30 09/19/17 11:29 Buspirone HCl (Buspar) 5 mg THREE TIMES A DAY ORAL 08/23/17 09:00 09/22/17 08:59 Dextrose (Dextrose 50%) 25 ml PRN IV Hypoglycemia 08/20/17 11:45 09/19/17 11:44 Dextrose (Dextrose 50%) 50 ml PRN IV hypoglycemia 08/20/17 11:45 09/19/17 11:44 Fluoxetine HCl (PROzac) 40 mg DAILY ORAL 08/23/17 09:00 09/22/17 08:59 Lorazepam (Ativan 2mg/ml 1ml) 0.5 mg Q4H PRN IV For Anxiety 08/20/17 11:30 08/27/17 11:29 08/22/17 11:48 Morphine Sulfate (Morphine Sulfate) 1 mg Q4H PRN IVP PAIN 4-10 08/20/17 11:30 08/27/17 11:29 08/22/17 18:20 Ondansetron HCl (Zofran) 4 mg Q6H PRN IVP Nausea & Vomiting 08/20/17 11:30 09/19/17 11:29 Pantoprazole (Protonix) 40 mg DAILY IVP 08/21/17 09:00 09/20/17 08:59 08/22/17 09:00 Polyethylene Glycol (Miralax) 17 gm HSPRN PRN ORAL Constipation 08/20/17 21:00 09/19/17 20:59 Zolpidem Tartrate (Ambien) 5 mg HSPRN PRN ORAL Insomnia 08/20/17 21:00 08/27/17 20:59 Lynette Nichole M.D. Aug 22, 2017 19:19
[2017-08-22 19:25] VITALS: BP_SYST 104; BP_SYST 126; BP_DIAS 57; BP_DIAS 82
[2017-08-22] MEDS: Zolpidem 5mg tab ORAL PRN ×2 (22:28→23:34)
[2017-08-23] VITALS (11 sets, daily range): BP systolic 113–152; BP diastolic 78–105
--- NOTE | 2017-08-23 06:36 | Anethesia Preoperative Eval ---
Anesthesia Pre-op PMH/ROS General Date of Evaluation: Aug 23, 2017 Time of Evaluation: 06:33 Anesthesiologist: rigoberto ASA Score: ASA 3 Mallampati Score Class I : Soft palate, uvula, fauces, pillars visible Class II: Soft palate, uvula, fauces visible Class III: Soft palate, base of uvula visible Class IV: Only hard plate visible Mallampati Classification: Class II Surgeon: anneliese Diagnosis: ftt, severe malnutriition Surgical Procedure: egd Anesthesia History: none Family History: no anesthesia problems Allergies: Coded Allergies: FENTANYL (Unverified Allergy, Unknown, 08/20/17) KETOROLAC (Unverified Allergy, Unknown, 08/20/17) NAPROXEN (Unverified Allergy, Unknown, 08/20/17) PENICILLINS (Unverified Allergy, Unknown, 08/20/17) Medications: see eMAR Past Medical History Pulmonary: Reports: COPD, other - risk of aspiration Gastrointestinal/Genitourinary: Reports: other - odynophagia, constipation, nausea, abdominal pain, Neurologic/Psychiatric: Reports: dementia, depression/anxiety, other - polyneuropathy Anesthesia Pre-op Phys. Exam Physician Exam Last Vital Signs Date Time Temp Pulse Resp B/P (MAP) Pulse Ox O2 Delivery O2 Flow Rate FiO2 08/23/17 03:58 97.0 81 20 143/90 94 Room Air 97.0 81 Constitutional: NAD Neurologic: CN 2-12 intact Cardiovascular: RRR Respiratory: CTA Gastrointestinal: S/NT/ND Airway Exam Mallampati Score: Class II MO: full Neck: supple TMD: 2fb ROM: full Teeth: missing Anesthesia Pre-op A/P Labs Labs Test 08/20/17 11:35 08/20/17 20:20 08/21/17 05:41 08/22/17 05:10 White Blood Count 12.4 K/UL (4.8-10.8) 14.0 K/UL (4.8-10.8) 14.5 K/UL (4.8-10.8) Red Blood Count 5.20 M/UL (4.70-6.10) 4.82 M/UL (4.70-6.10) 5.32 M/UL (4.70-6.10) Hemoglobin 16.2 G/DL (14.2-18.0) 14.9 G/DL (14.2-18.0) 17.0 G/DL (14.2-18.0) Hematocrit 46.0 % (42.0-52.0) 42.4 % (42.0-52.0) 46.6 % (42.0-52.0) Mean Corpuscular Volume 88 FL (80-99) 88 FL (80-99) 88 FL (80-99) Mean Corpuscular Hemoglobin 31.1 PG (27.0-31.0) 30.8 PG (27.0-31.0) 32.0 PG (27.0-31.0) Mean Corpuscular Hemoglobin Concent 35.1 G/DL (32.0-36.0) 35.1 G/DL (32.0-36.0) 36.5 G/DL (32.0-36.0) Red Cell Distribution Width 11.8 % (11.6-14.8) 11.7 % (11.6-14.8) 11.7 % (11.6-14.8) Platelet Count 235 K/UL (150-450) 226 K/UL (150-450) 255 K/UL (150-450) Mean Platelet Volume 8.3 FL (6.5-10.1) 8.0 FL (6.5-10.1) 7.7 FL (6.5-10.1) Neutrophils (%) (Auto) 70.4 % (45.0-75.0) 67.6 % (45.0-75.0) 67.3 % (45.0-75.0) Lymphocytes (%) (Auto) 20.0 % (20.0-45.0) 21.3 % (20.0-45.0) 21.3 % (20.0-45.0) Monocytes (%) (Auto) 8.1 % (1.0-10.0) 9.0 % (1.0-10.0) 9.9 % (1.0-10.0) Eosinophils (%) (Auto) 0.7 % (0.0-3.0) 1.0 % (0.0-3.0) 0.7 % (0.0-3.0) Basophils (%) (Auto) 0.8 % (0.0-2.0) 1.1 % (0.0-2.0) 0.8 % (0.0-2.0) Prothrombin Time 10.4 SEC (9.30-11.50) 10.7 SEC (9.30-11.50) Prothromb Time International Ratio 1.0 (0.9-1.1) 1.0 (0.9-1.1) Activated Partial Thromboplast Time 26 SEC (23-33) 27 SEC (23-33) Sodium Level 140 MMOL/L (136-145) 140 MMOL/L (136-145) 141 MMOL/L (136-145) Potassium Level 3.5 MMOL/L (3.5-5.1) 3.6 MMOL/L (3.5-5.1) 3.4 MMOL/L (3.5-5.1) Chloride Level 105 MMOL/L (98-107) 104 MMOL/L (98-107) 103 MMOL/L (98-107) Carbon Dioxide Level 26 MMOL/L (21-32) 26 MMOL/L (21-32) 26 MMOL/L (21-32) Anion Gap 9 mmol/L (5-15) 10 mmol/L (5-15) 12 mmol/L (5-15) Blood Urea Nitrogen 16 mg/dL (7-18) 14 mg/dL (7-18) 14 mg/dL (7-18) Creatinine 1.1 MG/DL (0.55-1.30) 0.9 MG/DL (0.55-1.30) 1.1 MG/DL (0.55-1.30) Estimat Glomerular Filtration Rate > 60 mL/min (>60) > 60 mL/min (>60) > 60 mL/min (>60) Glucose Level 105 MG/DL (74-106) 98 MG/DL (74-106) 91 MG/DL (74-106) Calcium Level 9.8 MG/DL (8.5-10.1) 9.8 MG/DL (8.5-10.1) 9.7 MG/DL (8.5-10.1) Total Bilirubin 0.5 MG/DL (0.2-1.0) 0.5 MG/DL (0.2-1.0) Aspartate Amino Transf (AST/SGOT) 13 U/L (15-37) 12 U/L (15-37) Alanine Aminotransferase (ALT/SGPT) 15 U/L (12-78) 15 U/L (12-78) Alkaline Phosphatase 112 U/L (46-116) 102 U/L (46-116) Ammonia 35 umol/L (11-32) Troponin I 0.000 ng/mL (0.000-0.056) Total Protein 8.3 G/DL (6.4-8.2) 7.7 G/DL (6.4-8.2) Albumin 3.7 G/DL (3.4-5.0) 3.4 G/DL (3.4-5.0) Globulin 4.6 g/dL 4.3 g/dL Albumin/Globulin Ratio 0.8 (1.0-2.7) 0.8 (1.0-2.7) Lipase 159 U/L (73-393) Urine Color Pale yellow Urine Appearance Clear Urine pH 8 (4.5-8.0) Urine Specific [place] 1.010 (1.005-1.035) Urine Protein Negative (NEGATIVE) Urine Glucose (UA) Negative (NEGATIVE) Urine Ketones Negative (NEGATIVE) Urine Occult Blood 3+ (NEGATIVE) Urine Nitrite Negative (NEGATIVE) Urine Bilirubin Negative (NEGATIVE) Urine Urobilinogen 1 MG/DL (0.0-1.0) Urine Leukocyte Esterase Negative (NEGATIVE) Urine RBC 5-10 /HPF (0 - 0) Urine WBC 2-4 /HPF (0 - 0) Urine Squamous Epithelial Cells None /LPF (NONE/OCC) Urine Bacteria Moderate /HPF (NONE) Urine Yeast Few /HPF (NONE) Triglycerides Level 74 MG/DL (30-150) Cholesterol Level 98 MG/DL (< 200) LDL Cholesterol 58 mg/dL (<100) HDL Cholesterol 42 MG/DL (40-60) Cholesterol/HDL Ratio 2.3 (3.3-4.4) Thyroid Stimulating Hormone (TSH) 0.850 uiU/mL (0.358-3.740) Risk Assessment & Plan Assessment: asa3 Plan: mac Status Change Before Surgery: No Pre-Antibiotics Drug: La Mcnair MD Aug 23, 2017 06:36
[2017-08-23 07:32] LABS: BASOPHILS % (AUTO) 1.4 % (0.0-2.0); EOSINOPHILS % (AUTO) 0.7 % (0.0-3.0); HEMATOCRIT 44.3 % (42.0-52.0); HEMOGLOBIN 15.8 G/DL (14.2-18.0); LYMPHOCYTES % (AUTO) 23.7 % (20.0-45.0); MEAN CORPUSCULAR VOLUME 87 FL (80-99); MONOCYTES % (AUTO) 10.3 % (1.0-10.0); NEUTROPHILS % (AUTO) 63.9 % (45.0-75.0); PLATELET COUNT 251 K/UL (150-450); RED BLOOD COUNT 5.07 M/UL (4.70-6.10); RED CELL DISTRIBUTION WIDTH 11.6 % (11.6-14.8)
[2017-08-23 07:39] LABS: ALANINE AMINOTRANSFERASE 19 U/L (12-78); ALBUMIN 3.5 G/DL (3.4-5.0); ALKALINE PHOSPHATASE 108 U/L (46-116); ASPARTATE AMINO TRANSFERASE 26 U/L (15-37); BILIRUBIN,DIRECT 0.2 MG/DL (0.0-0.3); BILIRUBIN,TOTAL 0.7 MG/DL (0.2-1.0)
[2017-08-23 08:01] LABS: ANION GAP 8 mmol/L (5-15); BLOOD UREA NITROGEN 15 mg/dL (7-18); CALCIUM 9.2 MG/DL (8.5-10.1); CARBON DIOXIDE 26 MMOL/L (21-32); CHLORIDE 105 MMOL/L (98-107); POTASSIUM 3.7 MMOL/L (3.5-5.1); SODIUM 139 MMOL/L (136-145)
--- NOTE | 2017-08-23 08:05 | General Progress Note ---
Assessment/Plan Assessment/Plan (1) Lumbar DDD (2) Lumbar Spondylosis (3) Lumbar Herniated disc (4) Lumbar Radiculopathy (5) H/o Lumbar fusion (6) Paraparesis (7) Abdominal pain Pt to be continued on Morphine D/w Dr. norton and he concurred. Subjective Date patient seen: Aug 23, 2017 Time patient seen: 07:15 - am Allergies: Coded Allergies: FENTANYL (Unverified Allergy, Unknown, 08/20/17) KETOROLAC (Unverified Allergy, Unknown, 08/20/17) NAPROXEN (Unverified Allergy, Unknown, 08/20/17) PENICILLINS (Unverified Allergy, Unknown, 08/20/17) Subjective REVIEW OF SYSTEMS: Denies rash, fever, chills, sweating, dizziness, drowsiness, blurred vision, sore throat, or change in weight. No shortness of breath or chest pain. No nausea, vomiting, diarrhea, or blood in the stool or urine. No dysuria. No bowel or bladder incontinence. He is complaining of low back and abdominal pain. SUBJECTIVE: Patient reports that the pain has been stable having gotten 4 doses of Morphine in the last 24hrs. He has no new complaints. Objective Last 24 Hour Vital Signs Date Time Temp Pulse Resp B/P (MAP) Pulse Ox O2 Delivery O2 Flow Rate FiO2 08/23/17 03:58 97.0 81 20 143/90 94 Room Air 97.0 81 08/23/17 00:00 97.4 90 20 133/88 98 Room Air 97.4 08/22/17 19:25 98.4 87 20 126/82 96 Room Air 98.4 87 08/22/17 16:00 98.1 94 20 131/87 97 Room Air 98.1 08/22/17 12:00 96.8 94 20 136/84 94 Room Air 96.8 Intake and Output 08/22/17 08/23/17 19:00 07:00 Output Total 600 ml 600 ml Balance -600 ml -600 ml Output Urine Total 600 ml 600 ml # Voids 2 3 # Bowel Movements 1 Laboratory Tests 08/23/17 06:55: White Blood Count 13.0H, Red Blood Count 5.07, Hemoglobin 15.8, Hematocrit 44.3 , Mean Corpuscular Volume 87, Mean Corpuscular Hemoglobin 31.3H, Mean Corpuscular Hemoglobin Concent 35.8, Red Cell Distribution Width 11.6, Platelet Count 251, Mean Platelet Volume 8.2, Neutrophils (%) (Auto) 63.9, Lymphocytes (% ) (Auto) 23.7, Monocytes (%) (Auto) 10.3H, Eosinophils (%) (Auto) 0.7, Basophils (%) (Auto) 1.4, Prothrombin Time 10.7, Prothromb Time International Ratio 1.0, Activated Partial Thromboplast Time 27, Sodium Level [Pending], Potassium Level [Pending], Chloride Level [Pending], Carbon Dioxide Level [ Pending], Blood Urea Nitrogen [Pending], Creatinine [Pending], Estimat Glomerular Filtration Rate [Pending], Glucose Level [Pending], Calcium Level [ Pending], Total Bilirubin 0.7, Direct Bilirubin 0.2, Aspartate Amino Transf (AST /SGOT) 26, Alanine Aminotransferase (ALT/SGPT) 19, Alkaline Phosphatase 108, Total Protein 8.0, Albumin 3.5 Height (Feet): 6 Height (Inches): 6.00 Weight (Pounds): 149 Objective GENERAL: Alert, awake, and oriented. LUNGS: Decreased breath sounds bilaterally. HEART: Regular. ABDOMEN: Tenderness to palpation. EXTREMITIES: No cyanosis. No clubbing. No edema. NEUROLOGIC: No changes. Khari Harrison Aug 23, 2017 08:05
[2017-08-23] MEDS: Pantoprazole Inj IVP SCH (09:00)
[2017-08-23] MEDS: BusPIRone 5mg Tab ORAL SCH ×3 (09:00→17:53)
[2017-08-23 09:54] LABS: APPEARANCE,URINE CLEAR; BILIRUBIN, URINE NEGATIVE (NEGATIVE); GLUCOSE, URINE (UA) NEGATIVE (NEGATIVE); KETONES,URINE NEGATIVE (NEGATIVE); LEUKOCYTE ESTERASE ,URINE NEGATIVE (NEGATIVE); NITRITE,URINE NEGATIVE (NEGATIVE); PH,URINE 6.5 (4.5-8.0); PROTEIN,URINE 1+ (NEGATIVE); UROBILINOGEN,URINE 4 MG/DL (0.0-1.0)
[2017-08-23 09:59] LABS: COLOR,URINE YELLOW
[2017-08-23] MEDS: Morphine Sulfate 2mg/ml Inj IVP PRN ×3 (10:06→20:02)
--- NOTE | 2017-08-23 12:22 | Diagnostic Imaging Report ---
Indication: Dyspnea Comparison: None A single view chest radiograph was obtained. Findings: Cardiomediastinal appearance is within normal limits for age. Pulmonary vascularity is appropriate. The diaphragmatic contour is smooth and costophrenic angles are sharp. No pleural effusions are identified. The bones are unremarkable. Impression: No acute findings
--- NOTE | 2017-08-23 12:29 | General Progress Note ---
Assessment/Plan Status: stable Assessment/Plan MDD Anxiety Prozac 40mg qam Buspar 10mg tid Subjective Date patient seen: Aug 23, 2017 Gastrointestinal/Abdominal: Reports: abdominal pain, difficulty swallowing, nausea, poor appetite Neurologic/Psychiatric: Reports: anxiety, depressed, emotional problems Allergies: Coded Allergies: FENTANYL (Unverified Allergy, Unknown, 08/20/17) KETOROLAC (Unverified Allergy, Unknown, 08/20/17) NAPROXEN (Unverified Allergy, Unknown, 08/20/17) PENICILLINS (Unverified Allergy, Unknown, 08/20/17) Objective Last 24 Hour Vital Signs Date Time Temp Pulse Resp B/P (MAP) Pulse Ox O2 Delivery O2 Flow Rate FiO2 08/23/17 12:00 97.8 94 19 152/105 97 Room Air 97.8 08/23/17 08:00 97.6 83 19 129/83 98 97.6 83 08/23/17 08:00 Room Air 08/23/17 03:58 97.0 81 20 143/90 94 Room Air 97.0 81 08/23/17 00:00 97.4 90 20 133/88 98 Room Air 97.4 08/22/17 19:25 98.4 87 20 126/82 96 Room Air 98.4 87 08/22/17 16:00 98.1 94 20 131/87 97 Room Air 98.1 Intake and Output 08/22/17 08/23/17 19:00 07:00 Output Total 600 ml 600 ml Balance -600 ml -600 ml Output Urine Total 600 ml 600 ml # Voids 2 3 # Bowel Movements 1 Laboratory Tests 08/23/17 06:55: White Blood Count 13.0H, Red Blood Count 5.07, Hemoglobin 15.8, Hematocrit 44.3 , Mean Corpuscular Volume 87, Mean Corpuscular Hemoglobin 31.3H, Mean Corpuscular Hemoglobin Concent 35.8, Red Cell Distribution Width 11.6, Platelet Count 251, Mean Platelet Volume 8.2, Neutrophils (%) (Auto) 63.9, Lymphocytes (% ) (Auto) 23.7, Monocytes (%) (Auto) 10.3H, Eosinophils (%) (Auto) 0.7, Basophils (%) (Auto) 1.4, Prothrombin Time 10.7, Prothromb Time International Ratio 1.0, Activated Partial Thromboplast Time 27, Sodium Level 139, Potassium Level 3.7, Chloride Level 105, Carbon Dioxide Level 26, Anion Gap 8, Blood Urea Nitrogen 15, Creatinine 1.0, Estimat Glomerular Filtration Rate > 60, Glucose Level 111H, Calcium Level 9.2, Total Bilirubin 0.7, Direct Bilirubin 0.2, Aspartate Amino Transf (AST/SGOT) 26, Alanine Aminotransferase (ALT/SGPT) 19, Alkaline Phosphatase 108, Total Protein 8.0, Albumin 3.5 Height (Feet): 6 Height (Inches): 6.00 Weight (Pounds): 149 General Appearance: alert, moderate distress Neurologic: oriented x 3, responsive, depressed affect Dexter Payne M.D. Aug 23, 2017 12:29
[2017-08-23] MEDS ORDERED: NS 500ML IVPB ONE (12:35)
--- NOTE | 2017-08-23 12:36 | Pulmonology Progress Note ---
Assessment/Plan Problems: (1) COPD (chronic obstructive pulmonary disease) (2) At high risk for aspiration (3) Schizophrenia (4) Failure to thrive (5) Severe malnutrition (6) Odynophagia Assessment/Plan feeling better today respiratory treatment titrate fio2 to sat of 92% f/u psych recommendations f/u swallow studies Subjective ROS Limited/Unobtainable: No Constitutional: Reports: no symptoms HEENT: Repors: no symptoms Respiratory: Reports: no symptoms Allergies: Coded Allergies: FENTANYL (Unverified Allergy, Unknown, 08/20/17) KETOROLAC (Unverified Allergy, Unknown, 08/20/17) NAPROXEN (Unverified Allergy, Unknown, 08/20/17) PENICILLINS (Unverified Allergy, Unknown, 08/20/17) Objective Last 24 Hour Vital Signs Date Time Temp Pulse Resp B/P (MAP) Pulse Ox O2 Delivery O2 Flow Rate FiO2 08/23/17 12:00 97.8 94 19 152/105 97 Room Air 97.8 08/23/17 08:00 97.6 83 19 129/83 98 97.6 83 08/23/17 08:00 Room Air 08/23/17 03:58 97.0 81 20 143/90 94 Room Air 97.0 81 08/23/17 00:00 97.4 90 20 133/88 98 Room Air 97.4 08/22/17 19:25 98.4 87 20 126/82 96 Room Air 98.4 87 08/22/17 16:00 98.1 94 20 131/87 97 Room Air 98.1 Intake and Output 08/22/17 08/23/17 19:00 07:00 Output Total 600 ml 600 ml Balance -600 ml -600 ml Output Urine Total 600 ml 600 ml # Voids 2 3 # Bowel Movements 1 General Appearance: WD/WN HEENT: normocephalic Respiratory/Chest: chest wall non-tender, lungs clear Cardiovascular: normal peripheral pulses, normal rate Abdomen: normal bowel sounds, soft, non tender, no scars Skin: no lesions 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 Complete 08/20/17 13:10 Rectum VRE Culture - Final NO VANCOMYCIN RESISTANT ENTEROCOCCUS ... Complete Laboratory Tests 08/23/17 06:55: White Blood Count 13.0H, Red Blood Count 5.07, Hemoglobin 15.8, Hematocrit 44.3 , Mean Corpuscular Volume 87, Mean Corpuscular Hemoglobin 31.3H, Mean Corpuscular Hemoglobin Concent 35.8, Red Cell Distribution Width 11.6, Platelet Count 251, Mean Platelet Volume 8.2, Neutrophils (%) (Auto) 63.9, Lymphocytes (% ) (Auto) 23.7, Monocytes (%) (Auto) 10.3H, Eosinophils (%) (Auto) 0.7, Basophils (%) (Auto) 1.4, Prothrombin Time 10.7, Prothromb Time International Ratio 1.0, Activated Partial Thromboplast Time 27, Sodium Level 139, Potassium Level 3.7, Chloride Level 105, Carbon Dioxide Level 26, Anion Gap 8, Blood Urea Nitrogen 15, Creatinine 1.0, Estimat Glomerular Filtration Rate > 60, Glucose Level 111H, Calcium Level 9.2, Total Bilirubin 0.7, Direct Bilirubin 0.2, Aspartate Amino Transf (AST/SGOT) 26, Alanine Aminotransferase (ALT/SGPT) 19, Alkaline Phosphatase 108, Total Protein 8.0, Albumin 3.5 Current Medications Medications (Trade) Dose Ordered Sig/Paul Route PRN Reason Start Time Stop Time Status Last Admin Dose Admin Acetaminophen (Tylenol) 650 mg Q4H PRN ORAL T>100.5 08/20/17 11:30 09/19/17 11:29 Al Hydroxide/Mg Hydroxide (Mylanta II) 30 ml Q6H PRN ORAL dyspepsia 08/20/17 11:30 09/19/17 11:29 Buspirone HCl (Buspar) 5 mg THREE TIMES A DAY ORAL 08/23/17 09:00 09/22/17 08:59 Dextrose (Dextrose 50%) 25 ml PRN IV Hypoglycemia 08/20/17 11:45 09/19/17 11:44 Dextrose (Dextrose 50%) 50 ml PRN IV hypoglycemia 08/20/17 11:45 09/19/17 11:44 Fluoxetine HCl (PROzac) 40 mg DAILY ORAL 08/23/17 09:00 09/22/17 08:59 Lorazepam (Ativan 2mg/ml 1ml) 0.5 mg Q4H PRN IV For Anxiety 08/20/17 11:30 08/27/17 11:29 08/22/17 20:28 Morphine Sulfate (Morphine Sulfate) 1 mg Q4H PRN IVP PAIN 4-10 08/20/17 11:30 08/27/17 11:29 08/23/17 10:06 Ondansetron HCl (Zofran) 4 mg Q6H PRN IVP Nausea & Vomiting 08/20/17 11:30 09/19/17 11:29 Pantoprazole (Protonix) 40 mg DAILY IVP 08/21/17 09:00 09/20/17 08:59 08/22/17 09:00 Polyethylene Glycol (Miralax) 17 gm HSPRN PRN ORAL Constipation 08/20/17 21:00 09/19/17 20:59 Zolpidem Tartrate (Ambien) 5 mg HSPRN PRN ORAL Insomnia 08/20/17 21:00 08/27/17 20:59 08/22/17 23:34 Javi Viveros MD Aug 23, 2017 12:36
--- NOTE | 2017-08-23 12:40 | Pre-Procedure Note/Attestation ---
Pre-Procedure Note/Attestation Complete Prior to Procedure Planned Procedure: not applicable Procedure Narrative: egd Indications for Procedure Pre-Operative Diagnosis: gib Attestation I attest that I discussed the nature of the procedure; its benefits; risks and complications; and alternatives (and the risks and benefits of such alternatives ), prior to the procedure, with the patient (or the patient's legal membership sales representative). I attest that, if there was a reasonable possibility of needing a blood transfusion, the patient (or the patient's legal membership sales representative) was given the [facility] standardized written summary, pursuant to the See [place] Blood Safety Act ([place] Health and Safety Code # 1645, as amended). I attest that I re-evaluated the patient just prior to the surgery and that there has been no change in the patient's H&P, except as documented below: Camden Ramos MD Aug 23, 2017 12:40
[2017-08-23] MEDS ORDERED: Propofol 200mg/20ml IV ONE (12:45)
[2017-08-23] MEDS ORDERED: Lidocaine 1% MPF 10mg/ml 5ml ONE (12:45)
--- NOTE | 2017-08-23 12:58 | Endoscopy Procedure Note ---
Endoscopy Procedure Note General Indication for Procedure: abd pain, dysphagia Procedures Performed: EGD Operative Findings/Diagnosis: gastritis Specimen: yes Pt Tolerated Procedure Well: Yes Estimated Blood Loss: none Anesthesia Anesthesiologist: cesar Anesthesia: MAC Inserted Devices Implant(s) used?: No GI Core Measures 50 yrs or older w/o bx or poly: Not Applicable 10yrs. F/U not recommended: Not Applicable Camden Ramos MD Aug 23, 2017 12:58
--- NOTE | 2017-08-23 13:21 | Immediate Post-Op Evaluation ---
Immediate Post-Op Evalulation Immediate Post-Op Evalulation Procedure: egd w/bx Date of Evaluation: Aug 23, 2017 Time of Evaluation: 13:15 IV Fluids: 100ml Blood Products: none Estimated Blood Loss: neglgigible Blood Pressure Systolic: 108 Blood Pressure Diastolic: 79 Pulse Rate: 88 Respiratory Rate: 18 O2 Sat by Pulse Oximetry: 99 Temperature (Fahrenheit): 98.2 Pain Score (1-10): 0 Nausea: No Vomiting: No Complications none Patient Status: awake, reacts, patent Hydration Status: adequate Drug: La Mcnair MD Aug 23, 2017 13:21
--- NOTE | 2017-08-23 13:23 | 48 Hour Post Anesthesia Eval ---
Post Anesthesia Evaluation Procedure: egd w/bx Date of Evaluation: Aug 23, 2017 Time of Evaluation: 13:21 Blood Pressure Systolic: 114 0: 70 Pulse Rate: 88 Respiratory Rate: 18 Temperature (Fahrenheit): 98.2 O2 Sat by Pulse Oximetry: 99 Airway: patent Nausea: No Vomiting: No Pain Intensity: 0 Hydration Status: adequate Cardiopulmonary Status: stable Mental Status/LOC: patient returned to baseline Post-Anesthesia Complications: none Follow-up care needed: N/A [place] MD Aug 23, 2017 13:22
--- NOTE | 2017-08-23 13:50 | Diagnostic Imaging Report ---
Indication:Abdominal pain. Poor appetite. Nausea Technique: Grayscale and duplex Doppler imaging of the abdomen performed. Comparison: None Findings: The exam is incomplete. The patient refused to continue at a certain point during the exam. The liver, demonstrated part of the pancreas, aorta and IVC, spleen appear unremarkable. The gallbladder is absent. There is a probable right renal cyst measuring 1.5 cm. Left kidney incompletely evaluated. There is no biliary ductal dilatation identified. Doppler evaluation of the main portal vein shows patency. There is no ascites. No hydronephrosis seen. Impression: No acute findings. Incomplete exam. Right renal cyst. Status post cholecystectomy
[2017-08-23] MEDS: LORazepam Inj 2mg/ml 1ml IV PRN ×3 (14:05→22:07)
--- NOTE | 2017-08-23 14:36 | General Progress Note ---
Assessment/Plan Problem List: (1) Nausea & vomiting ICD Codes: R11.2 - Nausea with vomiting, unspecified SNOMED: 33082951 (2) Leukocytosis ICD Codes: D72.829 - Elevated white blood cell count, unspecified SNOMED: 052204486, 909148684 (3) Failure to thrive SNOMED: 26723960 Qualifiers: Qualified Codes: R62.7 - Adult failure to thrive Status: stable, progressing Assessment/Plan ot pt diet abx cbc bmp am id f/u Subjective Constitutional: Reports: weakness Allergies: Coded Allergies: FENTANYL (Unverified Allergy, Unknown, 08/20/17) KETOROLAC (Unverified Allergy, Unknown, 08/20/17) NAPROXEN (Unverified Allergy, Unknown, 08/20/17) PENICILLINS (Unverified Allergy, Unknown, 08/20/17) All Systems: reviewed and negative except above Subjective sleepy calm Objective Last 24 Hour Vital Signs Date Time Temp Pulse Resp B/P (MAP) Pulse Ox O2 Delivery O2 Flow Rate FiO2 08/23/17 13:30 98.5 90 20 125/98 95 Room Air 98.5 08/23/17 13:25 93 20 139/97 96 Room Air 08/23/17 13:22 208.8 88 18 99 08/23/17 13:21 208.8 88 18 99 08/23/17 13:15 88 20 119/92 98 Room Air 08/23/17 13:10 91 20 126/90 99 Nasal Cannula 2 08/23/17 13:05 98.2 88 17 113/78 97 Nasal Cannula 2 98.2 08/23/17 12:00 97.8 94 19 152/105 97 Room Air 97.8 08/23/17 08:00 97.6 83 19 129/83 98 97.6 83 08/23/17 08:00 Room Air 08/23/17 03:58 97.0 81 20 143/90 94 Room Air 97.0 81 08/23/17 00:00 97.4 90 20 133/88 98 Room Air 97.4 08/22/17 19:25 98.4 87 20 126/82 96 Room Air 98.4 87 08/22/17 16:00 98.1 94 20 131/87 97 Room Air 98.1 Intake and Output 08/22/17 08/23/17 19:00 07:00 Output Total 600 ml 600 ml Balance -600 ml -600 ml Output Urine Total 600 ml 600 ml # Voids 2 3 # Bowel Movements 1 Laboratory Tests 08/23/17 06:55: White Blood Count 13.0H, Red Blood Count 5.07, Hemoglobin 15.8, Hematocrit 44.3 , Mean Corpuscular Volume 87, Mean Corpuscular Hemoglobin 31.3H, Mean Corpuscular Hemoglobin Concent 35.8, Red Cell Distribution Width 11.6, Platelet Count 251, Mean Platelet Volume 8.2, Neutrophils (%) (Auto) 63.9, Lymphocytes (% ) (Auto) 23.7, Monocytes (%) (Auto) 10.3H, Eosinophils (%) (Auto) 0.7, Basophils (%) (Auto) 1.4, Prothrombin Time 10.7, Prothromb Time International Ratio 1.0, Activated Partial Thromboplast Time 27, Sodium Level 139, Potassium Level 3.7, Chloride Level 105, Carbon Dioxide Level 26, Anion Gap 8, Blood Urea Nitrogen 15, Creatinine 1.0, Estimat Glomerular Filtration Rate > 60, Glucose Level 111H, Calcium Level 9.2, Total Bilirubin 0.7, Direct Bilirubin 0.2, Aspartate Amino Transf (AST/SGOT) 26, Alanine Aminotransferase (ALT/SGPT) 19, Alkaline Phosphatase 108, Total Protein 8.0, Albumin 3.5 Height (Feet): 6 Height (Inches): 6.00 Weight (Pounds): 149 General Appearance: lethargic EENT: normal ENT inspection Neck: normal alignment Cardiovascular: normal peripheral pulses, normal rate, regular rhythm Respiratory/Chest: chest wall non-tender, lungs clear, normal breath sounds Abdomen: normal bowel sounds, non tender, soft Extremities: normal inspection Edema: no edema noted Arm (L), no edema noted Arm (R), no edema noted Leg (L), no edema noted Leg (R), no edema noted Pedal (L), no edema noted Pedal (R), no edema noted Generalized Neurologic: responsive, motor weakness Skin: normal pigmentation, warm/dry Miguel Patino DO Aug 23, 2017 14:36
--- NOTE | 2017-08-23 14:40 | Infectious Diseases Prog Note ---
Assessment/Plan Assessment/Plan Abx: None Assessment: FTT N/V- r/o intraabdominal -Abd xray: no acute process -Abd US: . No acute findings. Incomplete exam. Right renal cyst. Status post cholecystectomy. There is no biliary ductal dilatation identified Leukocytosis, mild- suspect reactive; no obvious infections process; r/o intra- abdominal process -u/a neg ; uCx 70-80K mixed gram positive growth ( not clinically significant) ; repeat u/a neg -CXR: no acute disease; repeat no acute disease Odynophagia- no visible thrush or other abnormalities -s/p EGD 08/23, prelim report : gastritis Agitation chronic back pain 2ry to Lumbar DDD/spondylosis/herniated disc w/ radiculopathy s/p lumbar fusion paraplegia schizophrenia/MDD HLD Plan: -Continue to monitor off abx unless febrile, and/or worsening leukocytosis -f/u Bcx -f/u cx -Monitor CBC/BMP, temperatures -s/p EGD- ?esophagitis findings -Aspiration precautions Thank you for this consultation. Will continue to follow along with you. Discussed with RN. Subjective Allergies: Coded Allergies: FENTANYL (Unverified Allergy, Unknown, 08/20/17) KETOROLAC (Unverified Allergy, Unknown, 08/20/17) NAPROXEN (Unverified Allergy, Unknown, 08/20/17) PENICILLINS (Unverified Allergy, Unknown, 08/20/17) Subjective afebrile wbc improved s/p EGD- gastritis Bcx p Objective Vital Signs Last 24 Hour Vital Signs Date Time Temp Pulse Resp B/P (MAP) Pulse Ox O2 Delivery O2 Flow Rate FiO2 08/23/17 13:30 98.5 90 20 125/98 95 Room Air 98.5 08/23/17 13:25 93 20 139/97 96 Room Air 08/23/17 13:22 208.8 88 18 99 08/23/17 13:21 208.8 88 18 99 08/23/17 13:15 88 20 119/92 98 Room Air 08/23/17 13:10 91 20 126/90 99 Nasal Cannula 2 08/23/17 13:05 98.2 88 17 113/78 97 Nasal Cannula 2 98.2 08/23/17 12:00 97.8 94 19 152/105 97 Room Air 97.8 08/23/17 08:00 97.6 83 19 129/83 98 97.6 83 08/23/17 08:00 Room Air 08/23/17 03:58 97.0 81 20 143/90 94 Room Air 97.0 81 08/23/17 00:00 97.4 90 20 133/88 98 Room Air 97.4 08/22/17 19:25 98.4 87 20 126/82 96 Room Air 98.4 87 08/22/17 16:00 98.1 94 20 131/87 97 Room Air 98.1 Height (Feet): 6 Height (Inches): 6.00 Weight (Pounds): 149 Objective General Appearance: cachetic HEENT: normocephalic, atraumatic Respiratory/Chest: chest wall non-tender, lungs clear Abdomen: normal bowel sounds, soft, non tender Genitourinary: normal external genitalia Extremities: no cyanosis 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 Microbiology Date/Time Source Procedure Growth Status 08/20/17 20:20 Urine,Clean Catch Urine Culture - Final Mixed Gram Positive Organism Complete Laboratory Tests Test 08/23/17 06:55 White Blood Count 13.0 K/UL (4.8-10.8) H Red Blood Count 5.07 M/UL (4.70-6.10) Hemoglobin 15.8 G/DL (14.2-18.0) Hematocrit 44.3 % (42.0-52.0) Mean Corpuscular Volume 87 FL (80-99) Mean Corpuscular Hemoglobin 31.3 PG (27.0-31.0) H Mean Corpuscular Hemoglobin Concent 35.8 G/DL (32.0-36.0) Red Cell Distribution Width 11.6 % (11.6-14.8) Platelet Count 251 K/UL (150-450) Mean Platelet Volume 8.2 FL (6.5-10.1) Neutrophils (%) (Auto) 63.9 % (45.0-75.0) Lymphocytes (%) (Auto) 23.7 % (20.0-45.0) Monocytes (%) (Auto) 10.3 % (1.0-10.0) H Eosinophils (%) (Auto) 0.7 % (0.0-3.0) Basophils (%) (Auto) 1.4 % (0.0-2.0) Prothrombin Time 10.7 SEC (9.30-11.50) Prothromb Time International Ratio 1.0 (0.9-1.1) Activated Partial Thromboplast Time 27 SEC (23-33) Sodium Level 139 MMOL/L (136-145) Potassium Level 3.7 MMOL/L (3.5-5.1) Chloride Level 105 MMOL/L (98-107) Carbon Dioxide Level 26 MMOL/L (21-32) Anion Gap 8 mmol/L (5-15) Blood Urea Nitrogen 15 mg/dL (7-18) Creatinine 1.0 MG/DL (0.55-1.30) Estimat Glomerular Filtration Rate > 60 mL/min (>60) Glucose Level 111 MG/DL (74-106) H Calcium Level 9.2 MG/DL (8.5-10.1) Total Bilirubin 0.7 MG/DL (0.2-1.0) Direct Bilirubin 0.2 MG/DL (0.0-0.3) Aspartate Amino Transf (AST/SGOT) 26 U/L (15-37) Alanine Aminotransferase (ALT/SGPT) 19 U/L (12-78) Alkaline Phosphatase 108 U/L (46-116) Total Protein 8.0 G/DL (6.4-8.2) Albumin 3.5 G/DL (3.4-5.0) Current Medications Medications (Trade) Dose Ordered Sig/Paul Route PRN Reason Start Time Stop Time Status Last Admin Dose Admin Acetaminophen (Tylenol) 650 mg Q4H PRN ORAL T>100.5 08/20/17 11:30 09/19/17 11:29 Al Hydroxide/Mg Hydroxide (Mylanta II) 30 ml Q6H PRN ORAL dyspepsia 08/20/17 11:30 09/19/17 11:29 Buspirone HCl (Buspar) 5 mg THREE TIMES A DAY ORAL 08/23/17 09:00 09/22/17 08:59 Dextrose (Dextrose 50%) 25 ml PRN IV Hypoglycemia 08/20/17 11:45 09/19/17 11:44 Dextrose (Dextrose 50%) 50 ml PRN IV hypoglycemia 08/20/17 11:45 09/19/17 11:44 Fluoxetine HCl (PROzac) 40 mg DAILY ORAL 08/23/17 09:00 09/22/17 08:59 Lorazepam (Ativan 2mg/ml 1ml) 0.5 mg Q4H PRN IV For Anxiety 08/20/17 11:30 08/27/17 11:29 08/23/17 14:05 Morphine Sulfate (Morphine Sulfate) 1 mg Q4H PRN IVP PAIN 4-10 08/20/17 11:30 08/27/17 11:29 08/23/17 10:06 Ondansetron HCl (Zofran) 4 mg Q6H PRN IVP Nausea & Vomiting 08/20/17 11:30 09/19/17 11:29 08/23/17 13:35 Pantoprazole (Protonix) 40 mg DAILY IVP 08/21/17 09:00 09/20/17 08:59 08/22/17 09:00 Polyethylene Glycol (Miralax) 17 gm HSPRN PRN ORAL Constipation 08/20/17 21:00 09/19/17 20:59 Zolpidem Tartrate (Ambien) 5 mg HSPRN PRN ORAL Insomnia 08/20/17 21:00 08/27/17 20:59 08/22/17 23:34 Lynette Nichole M.D. Aug 23, 2017 14:40
--- NOTE | 2017-08-23 16:31 | Procedure Note ---
DATE OF PROCEDURE: 08/23/2017 SURGEON: Camden Ramos M.D. PROCEDURE: Upper endoscopy with biopsy. ANESTHESIA: Per Dr. Palma. INSTRUMENT: Olympus adult flexible upper endoscope. INDICATIONS: Dysphagia and abdominal pain. The procedure, risks, benefits, and possible consequences, including hemorrhage, aspiration, perforation and infection, and alternative treatments, were explained to the patient/legal guardian by Dr. Camden Ramos and the patient/legal guardian understood and accepted these risks. PROCEDURE IN DETAIL: After informed consent was obtained and the patient was adequately sedated, Olympus upper endoscope was advanced from mouth into second portion of the duodenum. Retroflexion was performed in the stomach. The patient has evidence of diffuse and severe inflammation in the body and antrum of the stomach, most probably from bile reflux. The patient had a lot of bile in the stomach. No obvious ulcerations. No obvious bleeding. Random biopsy from antrum was obtained. SUMMARY OF FINDINGS: Diffuse bile-induced gastropathy versus gastritis, status post biopsy, otherwise, normal upper endoscopic examination. RECOMMENDATION: Follow up biopsy results and treat accordingly. I want to thank Dr. Miguel Patino for this kind referral. Camden Ramos M.D. DR: DRAKE JOB#: [id number] CC: Miguel Patino D.O.
[2017-08-24] VITALS: BP 133/90
[2017-08-24] MEDS: Morphine Sulfate 2mg/ml Inj IVP PRN ×6 (00:04→20:55)
[2017-08-24] MEDS: Zolpidem 5mg tab ORAL PRN (00:40)
[2017-08-24] MEDS: LORazepam Inj 2mg/ml 1ml IV PRN ×4 (02:10→23:09)
[2017-08-24 04:00] VITALS: BP 141/88
[2017-08-24 07:18] LABS: HEMATOCRIT 42.8 % (42.0-52.0); HEMOGLOBIN 15.1 G/DL (14.2-18.0); MEAN CORPUSCULAR VOLUME 88 FL (80-99); MONOCYTES % (AUTO) 11.5 % (1.0-10.0); NEUTROPHILS % (AUTO) 62.5 % (45.0-75.0); PLATELET COUNT 247 K/UL (150-450); RED BLOOD COUNT 4.85 M/UL (4.70-6.10); RED CELL DISTRIBUTION WIDTH 11.7 % (11.6-14.8); WHITE BLOOD COUNT 13.3 K/UL (4.8-10.8)
[2017-08-24 07:19] LABS: ANION GAP 12 mmol/L (5-15); BLOOD UREA NITROGEN 21 mg/dL (7-18); CALCIUM 9.2 MG/DL (8.5-10.1); CARBON DIOXIDE 24 MMOL/L (21-32); CHLORIDE 104 MMOL/L (98-107); CREATININE 1.1 MG/DL (0.55-1.30); POTASSIUM 3.6 MMOL/L (3.5-5.1); SODIUM 140 MMOL/L (136-145)
[2017-08-24 08:00] VITALS: BP 115/71
[2017-08-24] MEDS: Pantoprazole Inj IVP SCH (08:10)
[2017-08-24] MEDS: BusPIRone 5mg Tab ORAL SCH ×3 (08:10→17:29)
--- NOTE | 2017-08-24 08:11 | General Progress Note ---
Assessment/Plan Assessment/Plan (1) Lumbar DDD (2) Lumbar Spondylosis (3) Lumbar Herniated disc (4) Lumbar Radiculopathy (5) H/o Lumbar fusion (6) Paraparesis (7) Abdominal pain Pt to be continued on Morphine We will start [place] 10/325mg PO 1 tab Q4H PRN moderate pain. D/w Dr. norton and he concurred. Subjective Date patient seen: Aug 24, 2017 Time patient seen: 07:15 - am Allergies: Coded Allergies: FENTANYL (Unverified Allergy, Unknown, 08/20/17) KETOROLAC (Unverified Allergy, Unknown, 08/20/17) NAPROXEN (Unverified Allergy, Unknown, 08/20/17) PENICILLINS (Unverified Allergy, Unknown, 08/20/17) Subjective REVIEW OF SYSTEMS: Denies rash, fever, chills, sweating, dizziness, drowsiness, blurred vision, sore throat, or change in weight. No shortness of breath or chest pain. No nausea, vomiting, diarrhea, or blood in the stool or urine. No dysuria. No bowel or bladder incontinence. He is complaining of low back and abdominal pain. SUBJECTIVE: Patient is having abdominal pain and not wanting to eat. GI on the case. Pain is tolerated on the Morphine and was started on puree diet. Objective Last 24 Hour Vital Signs Date Time Temp Pulse Resp B/P (MAP) Pulse Ox O2 Delivery O2 Flow Rate FiO2 08/24/17 04:00 97.4 81 18 141/88 98 Room Air 97.4 08/24/17 00:00 97.8 88 18 133/90 97 Room Air 97.8 08/23/17 20:00 98.2 81 20 138/89 98 Room Air 98.2 08/23/17 16:00 98.0 98 19 131/91 97 98.0 98 08/23/17 13:30 98.5 90 20 125/98 95 Room Air 98.5 08/23/17 13:25 93 20 139/97 96 Room Air 08/23/17 13:22 208.8 88 18 99 08/23/17 13:21 208.8 88 18 99 08/23/17 13:15 88 20 119/92 98 Room Air 08/23/17 13:10 91 20 126/90 99 Nasal Cannula 2 08/23/17 13:05 98.2 88 17 113/78 97 Nasal Cannula 2 98.2 08/23/17 12:00 97.8 94 19 152/105 97 Room Air 97.8 Intake and Output 08/23/17 08/24/17 19:00 07:00 Intake Total 100 ml 200 ml Output Total 300 ml 700 ml Balance -200 ml -500 ml Intake Oral 200 ml IV Total 100 ml Output Urine Total 300 ml 700 ml Laboratory Tests 08/24/17 05:10: White Blood Count 13.3H, Red Blood Count 4.85, Hemoglobin 15.1, Hematocrit 42.8 , Mean Corpuscular Volume 88, Mean Corpuscular Hemoglobin 31.1H, Mean Corpuscular Hemoglobin Concent 35.2, Red Cell Distribution Width 11.7, Platelet Count 247, Mean Platelet Volume 7.9, Neutrophils (%) (Auto) 62.5, Lymphocytes (% ) (Auto) 24.0, Monocytes (%) (Auto) 11.5H, Eosinophils (%) (Auto) 1.0, Basophils (%) (Auto) 1.0, Sodium Level 140, Potassium Level 3.6, Chloride Level 104, Carbon Dioxide Level 24, Anion Gap 12, Blood Urea Nitrogen 21H, Creatinine 1.1, Estimat Glomerular Filtration Rate > 60, Glucose Level 102, Calcium Level 9.2 Height (Feet): 6 Height (Inches): 6.00 Weight (Pounds): 149 Objective GENERAL: Alert, awake, and oriented. LUNGS: Decreased breath sounds bilaterally. HEART: Regular. ABDOMEN: Tenderness to palpation. EXTREMITIES: No cyanosis. No clubbing. No edema. NEUROLOGIC: No changes. Khari Harrison Aug 24, 2017 08:11
[2017-08-24 12:00] VITALS: BP 144/98
--- NOTE | 2017-08-24 13:32 | Infectious Diseases Prog Note ---
Assessment/Plan Assessment/Plan Abx: None Assessment: FTT N/V- likely 2ry to gastritis -EGDL Diffuse bile-induced gastropathy versus gastritis, status post biopsy, otherwise, normal upper endoscopic examination. -Abd xray: no acute process -Abd US: . No acute findings. Incomplete exam. Right renal cyst. Status post cholecystectomy. There is no biliary ductal dilatation identified Leukocytosis, mild- suspect reactive; no obvious infections process -u/a neg ; uCx 70-80K mixed gram positive growth ( not clinically significant) ; repeat u/a neg -CXR: no acute disease; repeat no acute disease Odynophagia- no visible thrush or other abnormalities; EGD normal examination of esophagus Agitation; improved chronic back pain 2ry to Lumbar DDD/spondylosis/herniated disc w/ radiculopathy s/p lumbar fusion paraplegia schizophrenia/MDD HLD Plan: -Continue to monitor off abx unless febrile, and/or worsening leukocytosis -if worsening Abd pain, leukocytosis and/or febrile, obtain CT abd/p w/ -f/u Bcx -f/u cx -Monitor CBC/BMP, temperatures -Aspiration precautions Thank you for this consultation. Will continue to follow along with you. Discussed with RN. Subjective Allergies: Coded Allergies: FENTANYL (Unverified Allergy, Unknown, 08/20/17) KETOROLAC (Unverified Allergy, Unknown, 08/20/17) NAPROXEN (Unverified Allergy, Unknown, 08/20/17) PENICILLINS (Unverified Allergy, Unknown, 08/20/17) Subjective afebrile wbc stable Bcx NTD Objective Vital Signs Last 24 Hour Vital Signs Date Time Temp Pulse Resp B/P (MAP) Pulse Ox O2 Delivery O2 Flow Rate FiO2 08/24/17 12:00 98.0 78 20 144/98 97 98.0 08/24/17 08:00 98.0 76 20 115/71 98 98.0 08/24/17 04:00 97.4 81 18 141/88 98 Room Air 97.4 08/24/17 00:00 97.8 88 18 133/90 97 Room Air 97.8 08/23/17 20:00 98.2 81 20 138/89 98 Room Air 98.2 08/23/17 16:00 98.0 98 19 131/91 97 98.0 98 08/23/17 13:30 98.5 90 20 125/98 95 Room Air 98.5 Height (Feet): 6 Height (Inches): 6.00 Weight (Pounds): 149 Objective General Appearance: cachetic HEENT: normocephalic, atraumatic Respiratory/Chest: chest wall non-tender, lungs clear Abdomen: normal bowel sounds, soft, non tender Genitourinary: normal external genitalia Extremities: no cyanosis Neurologic/Psychiatric: [employer] II-XII grossly normal Microbiology Date/Time Source Procedure Growth Status 08/22/17 20:35 Blood Blood Culture - Preliminary NO GROWTH AFTER 24 HOURS Resulted 08/22/17 20:20 Blood Blood Culture - Preliminary NO GROWTH AFTER 24 HOURS Resulted Laboratory Tests Test 08/24/17 05:10 White Blood Count 13.3 K/UL (4.8-10.8) H Red Blood Count 4.85 M/UL (4.70-6.10) Hemoglobin 15.1 G/DL (14.2-18.0) Hematocrit 42.8 % (42.0-52.0) Mean Corpuscular Volume 88 FL (80-99) Mean Corpuscular Hemoglobin 31.1 PG (27.0-31.0) H Mean Corpuscular Hemoglobin Concent 35.2 G/DL (32.0-36.0) Red Cell Distribution Width 11.7 % (11.6-14.8) Platelet Count 247 K/UL (150-450) Mean Platelet Volume 7.9 FL (6.5-10.1) Neutrophils (%) (Auto) 62.5 % (45.0-75.0) Lymphocytes (%) (Auto) 24.0 % (20.0-45.0) Monocytes (%) (Auto) 11.5 % (1.0-10.0) H Eosinophils (%) (Auto) 1.0 % (0.0-3.0) Basophils (%) (Auto) 1.0 % (0.0-2.0) Sodium Level 140 MMOL/L (136-145) Potassium Level 3.6 MMOL/L (3.5-5.1) Chloride Level 104 MMOL/L (98-107) Carbon Dioxide Level 24 MMOL/L (21-32) Anion Gap 12 mmol/L (5-15) Blood Urea Nitrogen 21 mg/dL (7-18) H Creatinine 1.1 MG/DL (0.55-1.30) Estimat Glomerular Filtration Rate > 60 mL/min (>60) Glucose Level 102 MG/DL (74-106) Calcium Level 9.2 MG/DL (8.5-10.1) Current Medications Medications (Trade) Dose Ordered Sig/Paul Route PRN Reason Start Time Stop Time Status Last Admin Dose Admin Acetaminophen (Tylenol) 650 mg Q4H PRN ORAL T>100.5 08/20/17 11:30 09/19/17 11:29 Acetaminophen/ Hydrocodone Bitart ([place] 10) 1 tab Q4H PRN ORAL For Pain 08/23/17 16:30 08/30/17 16:29 Al Hydroxide/Mg Hydroxide (Mylanta II) 30 ml Q6H PRN ORAL dyspepsia 08/20/17 11:30 09/19/17 11:29 Buspirone HCl (Buspar) 5 mg THREE TIMES A DAY ORAL 08/23/17 09:00 09/22/17 08:59 08/24/17 12:25 Dextrose (Dextrose 50%) 25 ml PRN IV Hypoglycemia 08/20/17 11:45 09/19/17 11:44 Dextrose (Dextrose 50%) 50 ml PRN IV hypoglycemia 08/20/17 11:45 09/19/17 11:44 Fluoxetine HCl (PROzac) 40 mg DAILY ORAL 08/23/17 09:00 09/22/17 08:59 08/24/17 08:10 Lorazepam (Ativan 2mg/ml 1ml) 0.5 mg Q4H PRN IV For Anxiety 08/20/17 11:30 08/27/17 11:29 08/24/17 02:10 Morphine Sulfate (Morphine Sulfate) 1 mg Q4H PRN IVP Severe Pain (Pain Scale 7-10) 08/23/17 19:45 08/30/17 19:44 08/24/17 12:26 Ondansetron HCl (Zofran) 4 mg Q6H PRN IVP Nausea & Vomiting 08/20/17 11:30 09/19/17 11:29 08/23/17 13:35 Pantoprazole (Protonix) 40 mg DAILY IVP 08/21/17 09:00 09/20/17 08:59 08/24/17 08:10 Polyethylene Glycol (Miralax) 17 gm HSPRN PRN ORAL Constipation 08/20/17 21:00 09/19/17 20:59 Zolpidem Tartrate (Ambien) 5 mg HSPRN PRN ORAL Insomnia 08/20/17 21:00 08/27/17 20:59 08/24/17 00:40 Lynette Nichole M.D. Aug 24, 2017 13:32
--- NOTE | 2017-08-24 13:46 | GI Progress Note ---
Assessment/Plan Problems: (1) Odynophagia ICD Codes: R13.10 - Dysphagia, unspecified SNOMED: 84991203 (2) Constipation ICD Codes: K59.00 - Constipation, unspecified SNOMED: 84655038 (3) Abdominal pain ICD Codes: R10.9 - Unspecified abdominal pain SNOMED: 95878028 (4) Severe malnutrition ICD Codes: E43 - Unspecified severe protein-calorie malnutrition SNOMED: 12705485 (5) Schizophrenia ICD Codes: F20.9 - Schizophrenia, unspecified SNOMED: 47440059 Qualifiers: Qualified Codes: F20.9 - Schizophrenia, unspecified (6) Dehydration ICD Codes: E86.0 - Dehydration SNOMED: 41716338 (7) Failure to thrive SNOMED: 71490034 Qualifiers: Qualified Codes: R62.7 - Adult failure to thrive (8) Leukocytosis ICD Codes: D72.829 - Elevated white blood cell count, unspecified SNOMED: 239020805, 991343949 (9) Nausea & vomiting ICD Codes: R11.2 - Nausea with vomiting, unspecified SNOMED: 06327320 Status: stable Status Narrative Discussed with Dr. Ramos. Assessment/Plan Hx of EGD/colonoscopy in 2013 patient on Plavix >> must be stopped min 72 hours prior if any GI procedures are to be done >> resume per primary ST evaluation not done >> patient refused SUMMARY OF FINDINGS: Diffuse bile-induced gastropathy versus gastritis, status post biopsy, otherwise, normal upper endoscopic examination. RECOMMENDATION: okay for DC per GI standpoint Follow up biopsy results and treat accordingly. pain mgmt IV/PO hydration electrolyte correction bowel regime PT/OT consult fu labs The patient was seen and examined at bedside and all new and available data was reviewed in the patients chart. I agree with the above findings, impression and plan. (Patient seen earlier today. Signature stamp does not reflect patient encounter time.). - Camden Ramos MD Subjective Subjective refusing care agitated c/o of painful swallowing c/o of being "sick has generalized pain Objective Last 24 Hour Vital Signs Date Time Temp Pulse Resp B/P (MAP) Pulse Ox O2 Delivery O2 Flow Rate FiO2 08/24/17 12:00 98.0 78 20 144/98 97 98.0 08/24/17 08:00 98.0 76 20 115/71 98 98.0 08/24/17 04:00 97.4 81 18 141/88 98 Room Air 97.4 08/24/17 00:00 97.8 88 18 133/90 97 Room Air 97.8 08/23/17 20:00 98.2 81 20 138/89 98 Room Air 98.2 08/23/17 16:00 98.0 98 19 131/91 97 98.0 98 Intake and Output 08/23/17 08/24/17 19:00 07:00 Intake Total 100 ml 200 ml Output Total 300 ml 700 ml Balance -200 ml -500 ml Intake Oral 200 ml IV Total 100 ml Output Urine Total 300 ml 700 ml Laboratory Tests Test 08/24/17 05:10 White Blood Count 13.3 K/UL (4.8-10.8) H Red Blood Count 4.85 M/UL (4.70-6.10) Hemoglobin 15.1 G/DL (14.2-18.0) Hematocrit 42.8 % (42.0-52.0) Mean Corpuscular Volume 88 FL (80-99) Mean Corpuscular Hemoglobin 31.1 PG (27.0-31.0) H Mean Corpuscular Hemoglobin Concent 35.2 G/DL (32.0-36.0) Red Cell Distribution Width 11.7 % (11.6-14.8) Platelet Count 247 K/UL (150-450) Mean Platelet Volume 7.9 FL (6.5-10.1) Neutrophils (%) (Auto) 62.5 % (45.0-75.0) Lymphocytes (%) (Auto) 24.0 % (20.0-45.0) Monocytes (%) (Auto) 11.5 % (1.0-10.0) H Eosinophils (%) (Auto) 1.0 % (0.0-3.0) Basophils (%) (Auto) 1.0 % (0.0-2.0) Sodium Level 140 MMOL/L (136-145) Potassium Level 3.6 MMOL/L (3.5-5.1) Chloride Level 104 MMOL/L (98-107) Carbon Dioxide Level 24 MMOL/L (21-32) Anion Gap 12 mmol/L (5-15) Blood Urea Nitrogen 21 mg/dL (7-18) H Creatinine 1.1 MG/DL (0.55-1.30) Estimat Glomerular Filtration Rate > 60 mL/min (>60) Glucose Level 102 MG/DL (74-106) Calcium Level 9.2 MG/DL (8.5-10.1) Height (Feet): 6 Height (Inches): 6.00 Weight (Pounds): 149 General Appearance: WD/WN, no apparent distress, alert Cardiovascular: normal rate Respiratory/Chest: normal breath sounds, no respiratory distress Abdominal Exam: normal bowel sounds, non tender, soft Extremities: normal range of motion, non-tender Chandler Bravo NP Aug 24, 2017 13:46
--- NOTE | 2017-08-24 13:57 | General Progress Note ---
Assessment/Plan Problem List: (1) Nausea & vomiting ICD Codes: R11.2 - Nausea with vomiting, unspecified SNOMED: 95161524 (2) Leukocytosis ICD Codes: D72.829 - Elevated white blood cell count, unspecified SNOMED: 565654842, 415015041 (3) Failure to thrive SNOMED: 52838845 Qualifiers: Qualified Codes: R62.7 - Adult failure to thrive Status: stable, progressing Assessment/Plan ot pt diet abx cbc bmp am id f/u Subjective Constitutional: Reports: weakness Allergies: Coded Allergies: FENTANYL (Unverified Allergy, Unknown, 08/20/17) KETOROLAC (Unverified Allergy, Unknown, 08/20/17) NAPROXEN (Unverified Allergy, Unknown, 08/20/17) PENICILLINS (Unverified Allergy, Unknown, 08/20/17) All Systems: reviewed and negative except above Subjective sleepy calm c/o abd pain Objective Last 24 Hour Vital Signs Date Time Temp Pulse Resp B/P (MAP) Pulse Ox O2 Delivery O2 Flow Rate FiO2 08/24/17 12:00 98.0 78 20 144/98 97 98.0 08/24/17 08:00 98.0 76 20 115/71 98 98.0 08/24/17 04:00 97.4 81 18 141/88 98 Room Air 97.4 08/24/17 00:00 97.8 88 18 133/90 97 Room Air 97.8 08/23/17 20:00 98.2 81 20 138/89 98 Room Air 98.2 08/23/17 16:00 98.0 98 19 131/91 97 98.0 98 Intake and Output 08/23/17 08/24/17 19:00 07:00 Intake Total 100 ml 200 ml Output Total 300 ml 700 ml Balance -200 ml -500 ml Intake Oral 200 ml IV Total 100 ml Output Urine Total 300 ml 700 ml Laboratory Tests 08/24/17 05:10: White Blood Count 13.3H, Red Blood Count 4.85, Hemoglobin 15.1, Hematocrit 42.8 , Mean Corpuscular Volume 88, Mean Corpuscular Hemoglobin 31.1H, Mean Corpuscular Hemoglobin Concent 35.2, Red Cell Distribution Width 11.7, Platelet Count 247, Mean Platelet Volume 7.9, Neutrophils (%) (Auto) 62.5, Lymphocytes (% ) (Auto) 24.0, Monocytes (%) (Auto) 11.5H, Eosinophils (%) (Auto) 1.0, Basophils (%) (Auto) 1.0, Sodium Level 140, Potassium Level 3.6, Chloride Level 104, Carbon Dioxide Level 24, Anion Gap 12, Blood Urea Nitrogen 21H, Creatinine 1.1, Estimat Glomerular Filtration Rate > 60, Glucose Level 102, Calcium Level 9.2 Height (Feet): 6 Height (Inches): 6.00 Weight (Pounds): 149 General Appearance: lethargic EENT: normal ENT inspection Neck: normal alignment Cardiovascular: normal peripheral pulses, normal rate, regular rhythm Respiratory/Chest: chest wall non-tender, lungs clear, normal breath sounds Abdomen: normal bowel sounds, non tender, soft Extremities: normal inspection Edema: no edema noted Arm (L), no edema noted Arm (R), no edema noted Leg (L), no edema noted Leg (R), no edema noted Pedal (L), no edema noted Pedal (R), no edema noted Generalized Neurologic: responsive, motor weakness Skin: normal pigmentation, warm/dry Miguel Patino DO Aug 24, 2017 13:57
[2017-08-24 16:00] VITALS: BP 125/70
[2017-08-24 20:00] VITALS: BP 131/82
--- NOTE | 2017-08-24 22:18 | Pulmonology Progress Note ---
Assessment/Plan Problems: (1) COPD (chronic obstructive pulmonary disease) (2) At high risk for aspiration (3) Schizophrenia (4) Failure to thrive (5) Severe malnutrition (6) Odynophagia Assessment/Plan feeling better today respiratory treatment titrate fio2 to sat of 92% f/u psych recommendations f/u swallow studies Subjective Allergies: Coded Allergies: FENTANYL (Unverified Allergy, Unknown, 08/20/17) KETOROLAC (Unverified Allergy, Unknown, 08/20/17) NAPROXEN (Unverified Allergy, Unknown, 08/20/17) PENICILLINS (Unverified Allergy, Unknown, 08/20/17) Objective Last 24 Hour Vital Signs Date Time Temp Pulse Resp B/P (MAP) Pulse Ox O2 Delivery O2 Flow Rate FiO2 08/24/17 20:00 97.9 86 18 131/82 98 Room Air 97.9 08/24/17 16:00 97.8 80 19 125/70 97 97.8 08/24/17 16:00 Room Air 08/24/17 12:00 Room Air 08/24/17 12:00 98.0 78 20 144/98 97 98.0 08/24/17 08:00 Room Air 08/24/17 08:00 98.0 76 20 115/71 98 98.0 08/24/17 04:00 97.4 81 18 141/88 98 Room Air 97.4 08/24/17 00:00 97.8 88 18 133/90 97 Room Air 97.8 Intake and Output 08/23/17 08/24/17 19:00 07:00 Intake Total 100 ml 200 ml Output Total 300 ml 700 ml Balance -200 ml -500 ml Intake Oral 200 ml IV Total 100 ml Output Urine Total 300 ml 700 ml Microbiology Date/Time Source Procedure Growth Status 08/22/17 20:35 Blood Blood Culture - Preliminary NO GROWTH AFTER 24 HOURS Resulted 08/22/17 20:20 Blood Blood Culture - Preliminary NO GROWTH AFTER 24 HOURS Resulted Laboratory Tests 08/24/17 05:10: White Blood Count 13.3H, Red Blood Count 4.85, Hemoglobin 15.1, Hematocrit 42.8 , Mean Corpuscular Volume 88, Mean Corpuscular Hemoglobin 31.1H, Mean Corpuscular Hemoglobin Concent 35.2, Red Cell Distribution Width 11.7, Platelet Count 247, Mean Platelet Volume 7.9, Neutrophils (%) (Auto) 62.5, Lymphocytes (% ) (Auto) 24.0, Monocytes (%) (Auto) 11.5H, Eosinophils (%) (Auto) 1.0, Basophils (%) (Auto) 1.0, Sodium Level 140, Potassium Level 3.6, Chloride Level 104, Carbon Dioxide Level 24, Anion Gap 12, Blood Urea Nitrogen 21H, Creatinine 1.1, Estimat Glomerular Filtration Rate > 60, Glucose Level 102, Calcium Level 9.2 Current Medications Medications (Trade) Dose Ordered Sig/Paul Route PRN Reason Start Time Stop Time Status Last Admin Dose Admin Acetaminophen (Tylenol) 650 mg Q4H PRN ORAL T>100.5 08/20/17 11:30 09/19/17 11:29 Acetaminophen/ Hydrocodone Bitart ([place] 10) 1 tab Q4H PRN ORAL For Pain 08/23/17 16:30 08/30/17 16:29 Al Hydroxide/Mg Hydroxide (Mylanta II) 30 ml Q6H PRN ORAL dyspepsia 08/20/17 11:30 09/19/17 11:29 Buspirone HCl (Buspar) 5 mg THREE TIMES A DAY ORAL 08/23/17 09:00 09/22/17 08:59 08/24/17 12:25 Cetylpyridinium Chloride (Cepacol) 1 lozg Q2H PRN CHARLI SORE THROAT 08/24/17 18:45 09/23/17 18:44 08/24/17 18:44 Dextrose (Dextrose 50%) 25 ml PRN IV Hypoglycemia 08/20/17 11:45 09/19/17 11:44 Dextrose (Dextrose 50%) 50 ml PRN IV hypoglycemia 08/20/17 11:45 09/19/17 11:44 Fluoxetine HCl (PROzac) 40 mg DAILY ORAL 08/23/17 09:00 09/22/17 08:59 08/24/17 08:10 Lorazepam (Ativan 2mg/ml 1ml) 0.5 mg Q4H PRN IV For Anxiety 08/20/17 11:30 08/27/17 11:29 08/24/17 18:45 Morphine Sulfate (Morphine Sulfate) 1 mg Q4H PRN IVP Severe Pain (Pain Scale 7-10) 08/23/17 19:45 08/30/17 19:44 08/24/17 20:55 Ondansetron HCl (Zofran) 4 mg Q6H PRN IVP Nausea & Vomiting 08/20/17 11:30 09/19/17 11:29 08/23/17 13:35 Pantoprazole (Protonix) 40 mg DAILY IVP 08/21/17 09:00 09/20/17 08:59 08/24/17 08:10 Polyethylene Glycol (Miralax) 17 gm HSPRN PRN ORAL Constipation 08/20/17 21:00 09/19/17 20:59 Zolpidem Tartrate (Ambien) 5 mg HSPRN PRN ORAL Insomnia 08/20/17 21:00 08/27/17 20:59 08/24/17 00:40 Javi Viveros MD Aug 24, 2017 22:18
[2017-08-25] VITALS (7 sets, daily range): BP systolic 106–133; BP diastolic 70–90
[2017-08-25] MEDS: Morphine Sulfate 2mg/ml Inj IVP PRN ×5 (00:55→21:26)
[2017-08-25] MEDS: LORazepam Inj 2mg/ml 1ml IV PRN ×2 (03:09→14:20)
[2017-08-25 07:13] LABS: ANION GAP 9 mmol/L (5-15); BLOOD UREA NITROGEN 18 mg/dL (7-18); CALCIUM 9.4 MG/DL (8.5-10.1); CARBON DIOXIDE 25 MMOL/L (21-32); CHLORIDE 103 MMOL/L (98-107); CREATININE 1.1 MG/DL (0.55-1.30); POTASSIUM 3.5 MMOL/L (3.5-5.1); SODIUM 137 MMOL/L (136-145)
[2017-08-25 07:18] LABS: BASOPHILS % (AUTO) 0.8 % (0.0-2.0); EOSINOPHILS % (AUTO) 1.4 % (0.0-3.0); HEMATOCRIT 41.5 % (42.0-52.0); HEMOGLOBIN 15.1 G/DL (14.2-18.0); LYMPHOCYTES % (AUTO) 30.6 % (20.0-45.0); MEAN CORPUSCULAR VOLUME 88 FL (80-99); MONOCYTES % (AUTO) 10.7 % (1.0-10.0); NEUTROPHILS % (AUTO) 56.6 % (45.0-75.0); PLATELET COUNT 252 K/UL (150-450); RED BLOOD COUNT 4.71 M/UL (4.70-6.10); RED CELL DISTRIBUTION WIDTH 11.4 % (11.6-14.8); WHITE BLOOD COUNT 12.1 K/UL (4.8-10.8)
--- NOTE | 2017-08-25 07:27 | Pulmonology Progress Note ---
Assessment/Plan Assessment/Plan ASSESSMENT n/v with abd pain - likely secondary to gastritis s/p upper endoscopy with biopsy: gastropathy versus gastritis Dysphagia Aspiration risk COPD Severe protein calorie malnutrition Failure to thrive Major depression disorder Anxiety Constipation Lumbar DJD Lumbar spondylosis Lumbar radiculopathy History of lumbar fusion Paraparesis PLAN of CARE Med Surg floor s/p EGD with biopsy; gastropathy versus gastritis GI recommended diet as tolerated ; f/up with the biopsy results and treat accordingly patient declined bedside swallow evaluation speech therapist recommended oral diet as tolerated and consider video swallow evaluation only if patient is willing to participate continue strict aspiration/ reflux precautions nutritional recommendation implemented in plan of care continue PPI Hgb and Hct stable monitor renal parameters ,electrolytes, correct electrolytes as needed antiemetics as needed able to tolerate diet psychiatrist closely follow , started on Prozac and Buspra pain management addressed , pain controlled pain specialist follows push po fluids leukocytosis mild , likely reactive, no obvious infectious disease process as per ID specialist per ID recs: keep patient off antibiotic and observe closely bowel regimen instituted supportive care provided case discussed and evaluated by supervising physician Subjective Allergies: Coded Allergies: FENTANYL (Unverified Allergy, Unknown, 08/20/17) KETOROLAC (Unverified Allergy, Unknown, 08/20/17) NAPROXEN (Unverified Allergy, Unknown, 08/20/17) PENICILLINS (Unverified Allergy, Unknown, 08/20/17) Subjective leucocytosis trending down, afebrile pulse oximetry stable in room air no abdominal pain currently tolerates diet Objective Last 24 Hour Vital Signs Date Time Temp Pulse Resp B/P (MAP) Pulse Ox O2 Delivery O2 Flow Rate FiO2 08/25/17 04:00 97.2 82 17 111/90 96 Room Air 97.2 08/25/17 00:00 97.9 80 17 123/87 95 Room Air 97.9 08/24/17 20:00 97.9 86 18 131/82 98 Room Air 97.9 08/24/17 16:00 97.8 80 19 125/70 97 97.8 08/24/17 16:00 Room Air 08/24/17 12:00 Room Air 08/24/17 12:00 98.0 78 20 144/98 97 98.0 08/24/17 08:00 Room Air 08/24/17 08:00 98.0 76 20 115/71 98 98.0 Intake and Output 08/24/17 08/25/17 19:00 07:00 Intake Total 120 ml Output Total 500 ml 600 ml Balance -500 ml -480 ml Intake Oral 120 ml Output Urine Total 500 ml 600 ml # Voids 4 General Appearance: no acute distress HEENT: normocephalic, atraumatic, anicteric Respiratory/Chest: lungs clear, no respiratory distress Cardiovascular: normal rate Abdomen: normal bowel sounds, soft, non tender Extremities: no edema, pedal pulses normal Neurologic/Psychiatric: alert, responsive Musculoskeletal: normal muscle bulk Microbiology Date/Time Source Procedure Growth Status 08/22/17 20:35 Blood Blood Culture - Preliminary NO GROWTH AFTER 48 HOURS Resulted 08/22/17 20:20 Blood Blood Culture - Preliminary NO GROWTH AFTER 48 HOURS Resulted Laboratory Tests 08/25/17 04:50: White Blood Count 12.1H, Red Blood Count 4.71, Hemoglobin 15.1, Hematocrit 41.5L , Mean Corpuscular Volume 88, Mean Corpuscular Hemoglobin 32.0H, Mean Corpuscular Hemoglobin Concent 36.4H, Red Cell Distribution Width 11.4L, Platelet Count 252, Mean Platelet Volume 7.8, Neutrophils (%) (Auto) 56.6, Lymphocytes (%) (Auto) 30.6, Monocytes (%) (Auto) 10.7H, Eosinophils (%) (Auto) 1.4, Basophils (%) (Auto) 0.8, Sodium Level 137, Potassium Level 3.5, Chloride Level 103, Carbon Dioxide Level 25, Anion Gap 9, Blood Urea Nitrogen 18, Creatinine 1.1, Estimat Glomerular Filtration Rate > 60, Glucose Level 115H, Calcium Level 9.4 Current Medications Medications (Trade) Dose Ordered Sig/Paul Route PRN Reason Start Time Stop Time Status Last Admin Dose Admin Acetaminophen (Tylenol) 650 mg Q4H PRN ORAL T>100.5 08/20/17 11:30 09/19/17 11:29 Acetaminophen/ Hydrocodone Bitart ([place] 10/325) 1 tab Q4H PRN ORAL For Pain 08/23/17 16:30 08/30/17 16:29 Al Hydroxide/Mg Hydroxide (Mylanta II) 30 ml Q6H PRN ORAL dyspepsia 08/20/17 11:30 09/19/17 11:29 Buspirone HCl (Buspar) 5 mg THREE TIMES A DAY ORAL 08/23/17 09:00 09/22/17 08:59 08/24/17 12:25 Cetylpyridinium Chloride (Cepacol) 1 lozg Q2H PRN CHARLI SORE THROAT 08/24/17 18:45 09/23/17 18:44 08/25/17 02:36 Dextrose (Dextrose 50%) 25 ml PRN IV Hypoglycemia 08/20/17 11:45 09/19/17 11:44 Dextrose (Dextrose 50%) 50 ml PRN IV hypoglycemia 08/20/17 11:45 09/19/17 11:44 Fluoxetine HCl (PROzac) 40 mg DAILY ORAL 08/23/17 09:00 09/22/17 08:59 08/24/17 08:10 Lorazepam (Ativan 2mg/ml 1ml) 0.5 mg Q4H PRN IV For Anxiety 08/20/17 11:30 08/27/17 11:29 08/25/17 03:09 Morphine Sulfate (Morphine Sulfate) 1 mg Q4H PRN IVP Severe Pain (Pain Scale 7-10) 08/23/17 19:45 08/30/17 19:44 08/25/17 04:53 Ondansetron HCl (Zofran) 4 mg Q6H PRN IVP Nausea & Vomiting 08/20/17 11:30 09/19/17 11:29 08/23/17 13:35 Pantoprazole (Protonix) 40 mg DAILY IVP 08/21/17 09:00 09/20/17 08:59 08/24/17 08:10 Polyethylene Glycol (Miralax) 17 gm HSPRN PRN ORAL Constipation 08/20/17 21:00 09/19/17 20:59 Zolpidem Tartrate (Ambien) 5 mg HSPRN PRN ORAL Insomnia 08/20/17 21:00 08/27/17 20:59 08/24/17 00:40 Analy Stoner NP Aug 25, 2017 07:27
--- NOTE | 2017-08-25 08:54 | General Progress Note ---
Assessment/Plan Problem List: (1) Nausea & vomiting ICD Codes: R11.2 - Nausea with vomiting, unspecified SNOMED: 11315609 (2) Leukocytosis ICD Codes: D72.829 - Elevated white blood cell count, unspecified SNOMED: 974499661, 954075649 (3) Failure to thrive SNOMED: 64166877 Qualifiers: Qualified Codes: R62.7 - Adult failure to thrive Status: stable, progressing Assessment/Plan ot pt diet abx cbc bmp am id f/u Subjective Constitutional: Reports: weakness Allergies: Coded Allergies: FENTANYL (Unverified Allergy, Unknown, 08/20/17) KETOROLAC (Unverified Allergy, Unknown, 08/20/17) NAPROXEN (Unverified Allergy, Unknown, 08/20/17) PENICILLINS (Unverified Allergy, Unknown, 08/20/17) All Systems: reviewed and negative except above Subjective sleepy calm c/o abd pain Objective Last 24 Hour Vital Signs Date Time Temp Pulse Resp B/P (MAP) Pulse Ox O2 Delivery O2 Flow Rate FiO2 08/25/17 04:00 97.2 82 17 111/90 96 Room Air 97.2 08/25/17 00:00 97.9 80 17 123/87 95 Room Air 97.9 08/24/17 20:00 97.9 86 18 131/82 98 Room Air 97.9 08/24/17 16:00 97.8 80 19 125/70 97 97.8 08/24/17 16:00 Room Air 08/24/17 12:00 Room Air 08/24/17 12:00 98.0 78 20 144/98 97 98.0 Intake and Output 08/24/17 08/25/17 19:00 07:00 Intake Total 120 ml Output Total 500 ml 600 ml Balance -500 ml -480 ml Intake Oral 120 ml Output Urine Total 500 ml 600 ml # Voids 4 Laboratory Tests 08/25/17 04:50: White Blood Count 12.1H, Red Blood Count 4.71, Hemoglobin 15.1, Hematocrit 41.5L , Mean Corpuscular Volume 88, Mean Corpuscular Hemoglobin 32.0H, Mean Corpuscular Hemoglobin Concent 36.4H, Red Cell Distribution Width 11.4L, Platelet Count 252, Mean Platelet Volume 7.8, Neutrophils (%) (Auto) 56.6, Lymphocytes (%) (Auto) 30.6, Monocytes (%) (Auto) 10.7H, Eosinophils (%) (Auto) 1.4, Basophils (%) (Auto) 0.8, Sodium Level 137, Potassium Level 3.5, Chloride Level 103, Carbon Dioxide Level 25, Anion Gap 9, Blood Urea Nitrogen 18, Creatinine 1.1, Estimat Glomerular Filtration Rate > 60, Glucose Level 115H, Calcium Level 9.4 Height (Feet): 6 Height (Inches): 6.00 Weight (Pounds): 149 General Appearance: lethargic EENT: normal ENT inspection Neck: normal alignment Cardiovascular: normal peripheral pulses, normal rate, regular rhythm Respiratory/Chest: chest wall non-tender, lungs clear, normal breath sounds Abdomen: normal bowel sounds, non tender, soft Extremities: normal inspection Edema: no edema noted Arm (L), no edema noted Arm (R), no edema noted Leg (L), no edema noted Leg (R), no edema noted Pedal (L), no edema noted Pedal (R), no edema noted Generalized Neurologic: motor weakness Skin: normal pigmentation, warm/dry Miguel Patino DO Aug 25, 2017 08:54
[2017-08-25] MEDS: BusPIRone 5mg Tab ORAL SCH ×3 (08:56→17:25)
[2017-08-25] MEDS: Pantoprazole Inj IVP SCH (08:57)
--- NOTE | 2017-08-25 14:32 | Infectious Diseases Prog Note ---
Assessment/Plan Assessment/Plan Assessment: FTT N/V- likely 2ry to gastritis -EGDL Diffuse bile-induced gastropathy versus gastritis, status post biopsy, otherwise, normal upper endoscopic examination. -Abd xray: no acute process -Abd US: . No acute findings. Incomplete exam. Right renal cyst. Status post cholecystectomy. There is no biliary ductal dilatation identified Leukocytosis, mild- suspect reactive; no obvious infections process , improving -u/a neg ; uCx 70-80K mixed gram positive growth ( not clinically significant) ; repeat u/a neg -CXR: no acute disease; repeat no acute disease Odynophagia- no visible thrush or other abnormalities; EGD normal examination of esophagus Agitation; improved chronic back pain 2ry to Lumbar DDD/spondylosis/herniated disc w/ radiculopathy s/p lumbar fusion paraplegia schizophrenia/MDD HLD Plan: -Continue to monitor off abx unless febrile, and/or worsening leukocytosis -if worsening Abd pain, leukocytosis and/or febrile, obtain CT abd/p w/ -f/u Bcx -Monitor CBC/BMP, temperatures -Aspiration precautions Subjective Constitutional: Denies: no symptoms, fever, chills, fatigue, anorexia, drenching sweats, other Allergies: Coded Allergies: FENTANYL (Unverified Allergy, Unknown, 08/20/17) KETOROLAC (Unverified Allergy, Unknown, 08/20/17) NAPROXEN (Unverified Allergy, Unknown, 08/20/17) PENICILLINS (Unverified Allergy, Unknown, 08/20/17) Objective Vital Signs Last 24 Hour Vital Signs Date Time Temp Pulse Resp B/P (MAP) Pulse Ox O2 Delivery O2 Flow Rate FiO2 08/25/17 13:35 97.7 68 18 125/75 95 Room Air 97.7 08/25/17 12:00 97.7 68 18 125/75 95 Room Air 97.7 08/25/17 08:00 97.2 78 18 106/70 Room Air 97.2 08/25/17 04:00 97.2 82 17 111/90 96 Room Air 97.2 08/25/17 00:00 97.9 80 17 123/87 95 Room Air 97.9 08/24/17 20:00 97.9 86 18 131/82 98 Room Air 97.9 08/24/17 16:00 97.8 80 19 125/70 97 97.8 08/24/17 16:00 Room Air Height (Feet): 6 Height (Inches): 6.00 Weight (Pounds): 149 HEENT: atraumatic Respiratory/Chest: no accessory muscle use Cardiovascular: regularly irregular Abdomen: no organomegaly Microbiology Date/Time Source Procedure Growth Status 08/22/17 20:35 Blood Blood Culture - Preliminary NO GROWTH AFTER 48 HOURS Resulted 08/22/17 20:20 Blood Blood Culture - Preliminary NO GROWTH AFTER 48 HOURS Resulted Laboratory Tests Test 08/25/17 04:50 White Blood Count 12.1 K/UL (4.8-10.8) H Red Blood Count 4.71 M/UL (4.70-6.10) Hemoglobin 15.1 G/DL (14.2-18.0) Hematocrit 41.5 % (42.0-52.0) L Mean Corpuscular Volume 88 FL (80-99) Mean Corpuscular Hemoglobin 32.0 PG (27.0-31.0) H Mean Corpuscular Hemoglobin Concent 36.4 G/DL (32.0-36.0) H Red Cell Distribution Width 11.4 % (11.6-14.8) L Platelet Count 252 K/UL (150-450) Mean Platelet Volume 7.8 FL (6.5-10.1) Neutrophils (%) (Auto) 56.6 % (45.0-75.0) Lymphocytes (%) (Auto) 30.6 % (20.0-45.0) Monocytes (%) (Auto) 10.7 % (1.0-10.0) H Eosinophils (%) (Auto) 1.4 % (0.0-3.0) Basophils (%) (Auto) 0.8 % (0.0-2.0) Sodium Level 137 MMOL/L (136-145) Potassium Level 3.5 MMOL/L (3.5-5.1) Chloride Level 103 MMOL/L (98-107) Carbon Dioxide Level 25 MMOL/L (21-32) Anion Gap 9 mmol/L (5-15) Blood Urea Nitrogen 18 mg/dL (7-18) Creatinine 1.1 MG/DL (0.55-1.30) Estimat Glomerular Filtration Rate > 60 mL/min (>60) Glucose Level 115 MG/DL (74-106) H Calcium Level 9.4 MG/DL (8.5-10.1) Current Medications Medications (Trade) Dose Ordered Sig/Paul Route PRN Reason Start Time Stop Time Status Last Admin Dose Admin Acetaminophen (Tylenol) 650 mg Q4H PRN ORAL T>100.5 08/20/17 11:30 09/19/17 11:29 Acetaminophen/ Hydrocodone Bitart ([place] 10/325) 1 tab Q4H PRN ORAL For Pain 08/23/17 16:30 08/30/17 16:29 Al Hydroxide/Mg Hydroxide (Mylanta II) 30 ml Q6H PRN ORAL dyspepsia 08/20/17 11:30 09/19/17 11:29 Buspirone HCl (Buspar) 5 mg THREE TIMES A DAY ORAL 08/23/17 09:00 09/22/17 08:59 08/25/17 13:00 Cetylpyridinium Chloride (Cepacol) 1 lozg Q2H PRN CHARLI SORE THROAT 08/24/17 18:45 09/23/17 18:44 08/25/17 14:19 Dextrose (Dextrose 50%) 25 ml PRN IV Hypoglycemia 08/20/17 11:45 09/19/17 11:44 Dextrose (Dextrose 50%) 50 ml PRN IV hypoglycemia 08/20/17 11:45 09/19/17 11:44 Fluoxetine HCl (PROzac) 40 mg DAILY ORAL 08/23/17 09:00 09/22/17 08:59 08/25/17 08:57 Lorazepam (Ativan 2mg/ml 1ml) 0.5 mg Q4H PRN IV For Anxiety 08/20/17 11:30 08/27/17 11:29 08/25/17 14:20 Morphine Sulfate (Morphine Sulfate) 1 mg Q4H PRN IVP Severe Pain (Pain Scale 7-10) 08/23/17 19:45 08/30/17 19:44 08/25/17 12:18 Ondansetron HCl (Zofran) 4 mg Q6H PRN IVP Nausea & Vomiting 08/20/17 11:30 09/19/17 11:29 08/25/17 13:00 Pantoprazole (Protonix) 40 mg DAILY IVP 08/21/17 09:00 09/20/17 08:59 08/25/17 08:57 Polyethylene Glycol (Miralax) 17 gm HSPRN PRN ORAL Constipation 08/20/17 21:00 09/19/17 20:59 Zolpidem Tartrate (Ambien) 5 mg HSPRN PRN ORAL Insomnia 08/20/17 21:00 08/27/17 20:59 08/24/17 00:40 Estuardo Neville MD Aug 25, 2017 14:32
[2017-08-25] MEDS: LORazepam 1mg tab ORAL PRN (19:46)
[2017-08-25] MEDS: Zolpidem 5mg tab ORAL PRN ×2 (19:52→23:06)
--- NOTE | 2017-08-25 20:26 | General Progress Note ---
Assessment/Plan Assessment/Plan Assessment/Plan Problems: (1) Odynophagia ICD Codes: R13.10 - Dysphagia, unspecified SNOMED: 38431201 (2) Constipation ICD Codes: K59.00 - Constipation, unspecified SNOMED: 14034908 (3) Abdominal pain ICD Codes: R10.9 - Unspecified abdominal pain SNOMED: 26182136 (4) Severe malnutrition ICD Codes: E43 - Unspecified severe protein-calorie malnutrition SNOMED: 39449443 (5) Schizophrenia ICD Codes: F20.9 - Schizophrenia, unspecified SNOMED: 33639016 Qualifiers: Qualified Codes: F20.9 - Schizophrenia, unspecified (6) Dehydration ICD Codes: E86.0 - Dehydration SNOMED: 00420323 (7) Failure to thrive SNOMED: 52770454 Qualifiers: Qualified Codes: R62.7 - Adult failure to thrive (8) Leukocytosis ICD Codes: D72.829 - Elevated white blood cell count, unspecified SNOMED: 630604627, 494263624 (9) Nausea & vomiting ICD Codes: R11.2 - Nausea with vomiting, unspecified SNOMED: 97392012 Status: stable Status Narrative Discussed with Dr. Ramos. Assessment/Plan Hx of EGD/colonoscopy [place] [address] evaluation not done >> patient refused SUMMARY OF FINDINGS: Diffuse bile-induced gastropathy versus gastritis, status post biopsy, otherwise, normal upper endoscopic examination. RECOMMENDATION: okay for DC per GI standpoint Follow up biopsy results and treat accordingly. pain mgmt IV/PO hydration electrolyte correction bowel regime PT/OT consult fu labs Subjective Allergies: Coded Allergies: FENTANYL (Unverified Allergy, Unknown, 08/20/17) KETOROLAC (Unverified Allergy, Unknown, 08/20/17) NAPROXEN (Unverified Allergy, Unknown, 08/20/17) PENICILLINS (Unverified Allergy, Unknown, 08/20/17) Subjective c/o poor appetite d/w RN no vomiting Objective Last 24 Hour Vital Signs Date Time Temp Pulse Resp B/P (MAP) Pulse Ox O2 Delivery O2 Flow Rate FiO2 08/25/17 16:00 97.7 75 18 118/85 97 Room Air 97.7 08/25/17 13:35 97.7 68 18 125/75 95 Room Air 97.7 08/25/17 12:00 97.7 68 18 125/75 95 Room Air 97.7 08/25/17 08:00 97.2 78 18 106/70 Room Air 97.2 08/25/17 04:00 97.2 82 17 111/90 96 Room Air 97.2 08/25/17 00:00 97.9 80 17 123/87 95 Room Air 97.9 Intake and Output 08/24/17 08/25/17 19:00 07:00 Intake Total 120 ml Output Total 500 ml 600 ml Balance -500 ml -480 ml Intake Oral 120 ml Output Urine Total 500 ml 600 ml # Voids 4 Laboratory Tests 08/25/17 04:50: White Blood Count 12.1H, Red Blood Count 4.71, Hemoglobin 15.1, Hematocrit 41.5L , Mean Corpuscular Volume 88, Mean Corpuscular Hemoglobin 32.0H, Mean Corpuscular Hemoglobin Concent 36.4H, Red Cell Distribution Width 11.4L, Platelet Count 252, Mean Platelet Volume 7.8, Neutrophils (%) (Auto) 56.6, Lymphocytes (%) (Auto) 30.6, Monocytes (%) (Auto) 10.7H, Eosinophils (%) (Auto) 1.4, Basophils (%) (Auto) 0.8, Sodium Level 137, Potassium Level 3.5, Chloride Level 103, Carbon Dioxide Level 25, Anion Gap 9, Blood Urea Nitrogen 18, Creatinine 1.1, Estimat Glomerular Filtration Rate > 60, Glucose Level 115H, Calcium Level 9.4 Height (Feet): 6 Height (Inches): 6.00 Weight (Pounds): 149 Objective WDWN NCAT supple CTA RRR soft NT ND no edema non focal Yuan Rodriguez MD Aug 25, 2017 20:25
[2017-08-25] MEDS ORDERED: DiphenhydrAMINE 50mg/ml Inj IM SCH (23:45)
[2017-08-25] MEDS ORDERED: Haloperidol 5mg/ml Inj IM SCH (23:45)
[2017-08-25] MEDS ORDERED: LORazepam Inj 2mg/ml 1ml IM SCH (23:45)
[2017-08-26] VITALS (10 sets, daily range): BP systolic 106–148; BP diastolic 62–99
[2017-08-26 07:11] LABS: BASOPHILS % (AUTO) 0.8 % (0.0-2.0); EOSINOPHILS % (AUTO) 1.3 % (0.0-3.0); HEMOGLOBIN 15.4 G/DL (14.2-18.0); LYMPHOCYTES % (AUTO) 28.9 % (20.0-45.0); MEAN CORPUSCULAR VOLUME 88 FL (80-99); MONOCYTES % (AUTO) 9.9 % (1.0-10.0); NEUTROPHILS % (AUTO) 59.2 % (45.0-75.0); PLATELET COUNT 252 K/UL (150-450); RED BLOOD COUNT 4.98 M/UL (4.70-6.10); RED CELL DISTRIBUTION WIDTH 11.6 % (11.6-14.8); WHITE BLOOD COUNT 12.6 K/UL (4.8-10.8)
[2017-08-26 07:13] LABS: ANION GAP 9 mmol/L (5-15); BLOOD UREA NITROGEN 16 mg/dL (7-18); CALCIUM 9.4 MG/DL (8.5-10.1); CARBON DIOXIDE 26 MMOL/L (21-32); CHLORIDE 105 MMOL/L (98-107); CREATININE 1.1 MG/DL (0.55-1.30); POTASSIUM 3.3 MMOL/L (3.5-5.1); SODIUM 140 MMOL/L (136-145)
--- NOTE | 2017-08-26 08:49 | Pulmonology Progress Note ---
Assessment/Plan Assessment/Plan ASSESSMENT n/v with abd pain - likely secondary to gastritis s/p upper endoscopy with biopsy: gastropathy versus gastritis Dysphagia Aspiration risk COPD Severe protein calorie malnutrition Failure to thrive Major depression disorder Anxiety Constipation Lumbar DJD Lumbar spondylosis Lumbar radiculopathy History of lumbar fusion Paraparesis hypokalemia PLAN of CARE Med Surg floor s/p EGD with biopsy; gastropathy versus gastritis GI recommended diet as tolerated ; f/up with the biopsy results and treat accordingly patient declined bedside swallow evaluation speech therapist recommended oral diet as tolerated and consider video swallow evaluation only if patient is willing to participate continue strict aspiration/ reflux precautions nutritional recommendation implemented in plan of care continue PPI Hgb and Hct stable monitor renal parameters ,electrolytes, correct electrolytes as needed antiemetics as needed able to tolerate diet psychiatrist closely follow , started on Prozac and Buspra pain management addressed , pain controlled pain specialist follows push po fluids leukocytosis mild , likely reactive, no obvious infectious disease process as per ID specialist per ID recs: keep patient off antibiotic and observe closely bowel regimen instituted replace K, check K and Mg in am supportive care provided case discussed and evaluated by supervising physician Subjective Allergies: Coded Allergies: FENTANYL (Unverified Allergy, Unknown, 08/20/17) KETOROLAC (Unverified Allergy, Unknown, 08/20/17) NAPROXEN (Unverified Allergy, Unknown, 08/20/17) PENICILLINS (Unverified Allergy, Unknown, 08/20/17) All Systems: reviewed and negative except above Subjective leucocytosis trending down, afebrile pulse oximetry stable on room air no abdominal pain currently tolerates diet K-3.3 Objective Last 24 Hour Vital Signs Date Time Temp Pulse Resp B/P (MAP) Pulse Ox O2 Delivery O2 Flow Rate FiO2 08/26/17 08:00 97.7 74 20 129/88 97 97.7 08/26/17 04:18 97.7 77 20 141/92 92 Room Air 97.7 08/26/17 01:15 94 18 141/98 95 Room Air 08/26/17 01:00 20 148/76 95 Room Air 08/26/17 00:45 89 18 145/86 95 Room Air 08/26/17 00:30 97.7 99 17 135/99 96 Room Air 97.7 08/25/17 20:00 97.2 79 18 133/85 96 Room Air 97.2 08/25/17 16:00 97.7 75 18 118/85 97 Room Air 97.7 08/25/17 13:35 97.7 68 18 125/75 95 Room Air 97.7 08/25/17 12:00 97.7 68 18 125/75 95 Room Air 97.7 Intake and Output 08/25/17 08/26/17 19:00 07:00 Output Total 250 ml Balance -250 ml Output Urine Total 250 ml # Voids 1 3 Objective General Appearance: no acute distress HEENT: normocephalic, atraumatic, anicteric Respiratory/Chest: lungs clear, no respiratory distress Cardiovascular: normal rate Abdomen: normal bowel sounds, soft, non tender Extremities: no edema, pedal pulses normal Neurologic/Psychiatric: alert, responsive Musculoskeletal: normal muscle bulk Laboratory Tests 08/26/17 04:50: White Blood Count 12.6H, Red Blood Count 4.98, Hemoglobin 15.4, Hematocrit 44.0 , Mean Corpuscular Volume 88, Mean Corpuscular Hemoglobin 30.9, Mean Corpuscular Hemoglobin Concent 35.0, Red Cell Distribution Width 11.6, Platelet Count 252, Mean Platelet Volume 7.5, Neutrophils (%) (Auto) 59.2, Lymphocytes (% ) (Auto) 28.9, Monocytes (%) (Auto) 9.9, Eosinophils (%) (Auto) 1.3, Basophils ( %) (Auto) 0.8, Sodium Level 140, Potassium Level 3.3L, Chloride Level 105, Carbon Dioxide Level 26, Anion Gap 9, Blood Urea Nitrogen 16, Creatinine 1.1, Estimat Glomerular Filtration Rate > 60, Glucose Level 87, Calcium Level 9.4 Current Medications Medications (Trade) Dose Ordered Sig/Paul Route PRN Reason Start Time Stop Time Status Last Admin Dose Admin Acetaminophen (Tylenol) 650 mg Q4H PRN ORAL T>100.5 08/20/17 11:30 09/19/17 11:29 Acetaminophen/ Hydrocodone Bitart ([place] 10/325) 1 tab Q4H PRN ORAL For Pain 08/23/17 16:30 08/30/17 16:29 Al Hydroxide/Mg Hydroxide (Mylanta II) 30 ml Q6H PRN ORAL dyspepsia 08/20/17 11:30 09/19/17 11:29 Buspirone HCl (Buspar) 10 mg THREE TIMES A DAY ORAL 08/25/17 18:00 09/24/17 17:59 08/25/17 17:25 Cetylpyridinium Chloride (Cepacol) 1 lozg Q2H PRN CHARLI SORE THROAT 08/24/17 18:45 09/23/17 18:44 08/25/17 19:45 Dextrose (Dextrose 50%) 25 ml PRN IV Hypoglycemia 08/20/17 11:45 09/19/17 11:44 Dextrose (Dextrose 50%) 50 ml PRN IV hypoglycemia 08/20/17 11:45 09/19/17 11:44 Fluoxetine HCl (PROzac) 40 mg DAILY ORAL 08/23/17 09:00 09/22/17 08:59 08/25/17 08:57 Lorazepam (Ativan) 2 mg Q6HR PRN ORAL For Anxiety 08/25/17 16:15 09/01/17 16:14 08/25/17 19:46 Mirtazapine (Remeron) 15 mg BEDTIME ORAL 08/25/17 21:00 09/24/17 20:59 08/25/17 20:17 Ondansetron HCl (Zofran) 4 mg Q6H PRN IVP Nausea & Vomiting 08/20/17 11:30 09/19/17 11:29 08/25/17 19:52 Pantoprazole (Protonix) 40 mg DAILY IVP 08/21/17 09:00 09/20/17 08:59 08/25/17 08:57 Polyethylene Glycol (Miralax) 17 gm HSPRN PRN ORAL Constipation 08/20/17 21:00 09/19/17 20:59 Zolpidem Tartrate (Ambien) 5 mg HSPRN PRN ORAL Insomnia 08/20/17 21:00 08/27/17 20:59 08/25/17 23:06 Analy Stoner NP Aug 26, 2017 08:49
--- NOTE | 2017-08-26 09:05 | General Progress Note ---
Assessment/Plan Problem List: (1) Nausea & vomiting ICD Codes: R11.2 - Nausea with vomiting, unspecified SNOMED: 38599900 (2) Leukocytosis ICD Codes: D72.829 - Elevated white blood cell count, unspecified SNOMED: 285839500, 656441249 (3) Failure to thrive SNOMED: 71800502 Qualifiers: Qualified Codes: R62.7 - Adult failure to thrive Status: unchanged Assessment/Plan ot pt diet abx cbc bmp am id f/u psyc transfer Subjective Constitutional: Reports: weakness Allergies: Coded Allergies: FENTANYL (Unverified Allergy, Unknown, 08/20/17) KETOROLAC (Unverified Allergy, Unknown, 08/20/17) NAPROXEN (Unverified Allergy, Unknown, 08/20/17) PENICILLINS (Unverified Allergy, Unknown, 08/20/17) All Systems: reviewed and negative except above Subjective sleepy calm c/o abd pain Objective Last 24 Hour Vital Signs Date Time Temp Pulse Resp B/P (MAP) Pulse Ox O2 Delivery O2 Flow Rate FiO2 08/26/17 08:00 97.7 74 20 129/88 97 97.7 08/26/17 04:18 97.7 77 20 141/92 92 Room Air 97.7 08/26/17 01:15 94 18 141/98 95 Room Air 08/26/17 01:00 20 148/76 95 Room Air 08/26/17 00:45 89 18 145/86 95 Room Air 08/26/17 00:30 97.7 99 17 135/99 96 Room Air 97.7 08/25/17 20:00 97.2 79 18 133/85 96 Room Air 97.2 08/25/17 16:00 97.7 75 18 118/85 97 Room Air 97.7 08/25/17 13:35 97.7 68 18 125/75 95 Room Air 97.7 08/25/17 12:00 97.7 68 18 125/75 95 Room Air 97.7 Intake and Output 08/25/17 08/26/17 19:00 07:00 Output Total 250 ml Balance -250 ml Output Urine Total 250 ml # Voids 1 3 Laboratory Tests 08/26/17 04:50: White Blood Count 12.6H, Red Blood Count 4.98, Hemoglobin 15.4, Hematocrit 44.0 , Mean Corpuscular Volume 88, Mean Corpuscular Hemoglobin 30.9, Mean Corpuscular Hemoglobin Concent 35.0, Red Cell Distribution Width 11.6, Platelet Count 252, Mean Platelet Volume 7.5, Neutrophils (%) (Auto) 59.2, Lymphocytes (% ) (Auto) 28.9, Monocytes (%) (Auto) 9.9, Eosinophils (%) (Auto) 1.3, Basophils ( %) (Auto) 0.8, Sodium Level 140, Potassium Level 3.3L, Chloride Level 105, Carbon Dioxide Level 26, Anion Gap 9, Blood Urea Nitrogen 16, Creatinine 1.1, Estimat Glomerular Filtration Rate > 60, Glucose Level 87, Calcium Level 9.4 Height (Feet): 6 Height (Inches): 6.00 Weight (Pounds): 149 General Appearance: lethargic EENT: normal ENT inspection Neck: normal alignment Cardiovascular: normal peripheral pulses, normal rate, regular rhythm Respiratory/Chest: chest wall non-tender, lungs clear, normal breath sounds Abdomen: normal bowel sounds, non tender, soft Extremities: normal inspection Edema: no edema noted Arm (L), no edema noted Arm (R), no edema noted Leg (L), no edema noted Leg (R), no edema noted Pedal (L), no edema noted Pedal (R), no edema noted Generalized Neurologic: motor weakness Skin: normal pigmentation, warm/dry Miguel Patino DO Aug 26, 2017 09:05
[2017-08-26] MEDS: BusPIRone 5mg Tab ORAL SCH ×3 (10:18→18:03)
[2017-08-26] MEDS: Pantoprazole Inj IVP SCH (10:19)
--- NOTE | 2017-08-26 11:24 | General Progress Note ---
Assessment/Plan Assessment/Plan (1) Lumbar DDD (2) Lumbar Spondylosis (3) Lumbar Herniated disc (4) Lumbar Radiculopathy (5) H/o Lumbar fusion (6) Paraparesis (7) Abdominal pain Pt to be continued on [place]. D/w Dr. norton and he concurred. Subjective Date patient seen: Aug 26, 2017 Time patient seen: 10:15 - am Allergies: Coded Allergies: FENTANYL (Unverified Allergy, Unknown, 08/20/17) KETOROLAC (Unverified Allergy, Unknown, 08/20/17) NAPROXEN (Unverified Allergy, Unknown, 08/20/17) PENICILLINS (Unverified Allergy, Unknown, 08/20/17) Subjective REVIEW OF SYSTEMS: Denies rash, fever, chills, sweating, dizziness, drowsiness, blurred vision, sore throat, or change in weight. No shortness of breath or chest pain. No nausea, vomiting, diarrhea, or blood in the stool or urine. No dysuria. No bowel or bladder incontinence. He is complaining of low back and abdominal pain. SUBJECTIVE: Patient continues to c/o pain and lashing out due to psych issues and the Morphine was d/cd as per psychiatrist receiving cocktail medication for agitation. Objective Last 24 Hour Vital Signs Date Time Temp Pulse Resp B/P (MAP) Pulse Ox O2 Delivery O2 Flow Rate FiO2 08/26/17 08:00 97.7 74 20 129/88 97 97.7 08/26/17 04:18 97.7 77 20 141/92 92 Room Air 97.7 08/26/17 01:15 94 18 141/98 95 Room Air 08/26/17 01:00 20 148/76 95 Room Air 08/26/17 00:45 89 18 145/86 95 Room Air 08/26/17 00:30 97.7 99 17 135/99 96 Room Air 97.7 08/25/17 20:00 97.2 79 18 133/85 96 Room Air 97.2 08/25/17 16:00 97.7 75 18 118/85 97 Room Air 97.7 08/25/17 13:35 97.7 68 18 125/75 95 Room Air 97.7 08/25/17 12:00 97.7 68 18 125/75 95 Room Air 97.7 Intake and Output 08/25/17 08/26/17 19:00 07:00 Output Total 250 ml Balance -250 ml Output Urine Total 250 ml # Voids 1 3 Laboratory Tests 08/26/17 04:50: White Blood Count 12.6H, Red Blood Count 4.98, Hemoglobin 15.4, Hematocrit 44.0 , Mean Corpuscular Volume 88, Mean Corpuscular Hemoglobin 30.9, Mean Corpuscular Hemoglobin Concent 35.0, Red Cell Distribution Width 11.6, Platelet Count 252, Mean Platelet Volume 7.5, Neutrophils (%) (Auto) 59.2, Lymphocytes (% ) (Auto) 28.9, Monocytes (%) (Auto) 9.9, Eosinophils (%) (Auto) 1.3, Basophils ( %) (Auto) 0.8, Sodium Level 140, Potassium Level 3.3L, Chloride Level 105, Carbon Dioxide Level 26, Anion Gap 9, Blood Urea Nitrogen 16, Creatinine 1.1, Estimat Glomerular Filtration Rate > 60, Glucose Level 87, Calcium Level 9.4 Height (Feet): 6 Height (Inches): 6.00 Weight (Pounds): 149 Objective GENERAL: Alert, awake, and oriented. LUNGS: Decreased breath sounds bilaterally. HEART: Regular. ABDOMEN: Tenderness to palpation. EXTREMITIES: No cyanosis. No clubbing. No edema. NEUROLOGIC: No changes. Khari Harrison Aug 26, 2017 11:24
--- NOTE | 2017-08-26 13:15 | General Progress Note ---
Assessment/Plan Assessment/Plan Assessment/Plan Problems: (1) Odynophagia ICD Codes: R13.10 - Dysphagia, unspecified SNOMED: 58506852 (2) Constipation ICD Codes: K59.00 - Constipation, unspecified SNOMED: 45863004 (3) Abdominal pain ICD Codes: R10.9 - Unspecified abdominal pain SNOMED: 89962424 (4) Severe malnutrition ICD Codes: E43 - Unspecified severe protein-calorie malnutrition SNOMED: 69614053 (5) Schizophrenia ICD Codes: F20.9 - Schizophrenia, unspecified SNOMED: 56826068 Qualifiers: Qualified Codes: F20.9 - Schizophrenia, unspecified (6) Dehydration ICD Codes: E86.0 - Dehydration SNOMED: 35596976 (7) Failure to thrive SNOMED: 15252584 Qualifiers: Qualified Codes: R62.7 - Adult failure to thrive (8) Leukocytosis ICD Codes: D72.829 - Elevated white blood cell count, unspecified SNOMED: 030849657, 953419681 (9) Nausea & vomiting ICD Codes: R11.2 - Nausea with vomiting, unspecified SNOMED: 84393413 Status: stable Status Narrative Discussed with Dr. Ramos. Assessment/Plan Hx of EGD/colonoscopy [place] [address] evaluation not done >> patient refused SUMMARY OF FINDINGS: Diffuse bile-induced gastropathy versus gastritis, status post biopsy, otherwise, normal upper endoscopic examination. RECOMMENDATION: okay for DC per GI standpoint may need NGT or PEG Follow up biopsy results and treat accordingly. pain mgmt IV/PO hydration electrolyte correction bowel regime PT/OT consult fu labs Subjective Allergies: Coded Allergies: FENTANYL (Unverified Allergy, Unknown, 08/20/17) KETOROLAC (Unverified Allergy, Unknown, 08/20/17) NAPROXEN (Unverified Allergy, Unknown, 08/20/17) PENICILLINS (Unverified Allergy, Unknown, 08/20/17) Subjective c/o poor appetite d/w RN poor PO no vomiting Objective Last 24 Hour Vital Signs Date Time Temp Pulse Resp B/P (MAP) Pulse Ox O2 Delivery O2 Flow Rate FiO2 08/26/17 12:00 97.4 80 19 106/75 98 97.4 08/26/17 08:00 97.7 74 20 129/88 97 97.7 08/26/17 04:18 97.7 77 20 141/92 92 Room Air 97.7 08/26/17 01:15 94 18 141/98 95 Room Air 08/26/17 01:00 20 148/76 95 Room Air 08/26/17 00:45 89 18 145/86 95 Room Air 08/26/17 00:30 97.7 99 17 135/99 96 Room Air 97.7 08/25/17 20:00 97.2 79 18 133/85 96 Room Air 97.2 08/25/17 16:00 97.7 75 18 118/85 97 Room Air 97.7 08/25/17 13:35 97.7 68 18 125/75 95 Room Air 97.7 Intake and Output 08/25/17 08/26/17 19:00 07:00 Output Total 250 ml Balance -250 ml Output Urine Total 250 ml # Voids 1 3 Laboratory Tests 08/26/17 04:50: White Blood Count 12.6H, Red Blood Count 4.98, Hemoglobin 15.4, Hematocrit 44.0 , Mean Corpuscular Volume 88, Mean Corpuscular Hemoglobin 30.9, Mean Corpuscular Hemoglobin Concent 35.0, Red Cell Distribution Width 11.6, Platelet Count 252, Mean Platelet Volume 7.5, Neutrophils (%) (Auto) 59.2, Lymphocytes (% ) (Auto) 28.9, Monocytes (%) (Auto) 9.9, Eosinophils (%) (Auto) 1.3, Basophils ( %) (Auto) 0.8, Sodium Level 140, Potassium Level 3.3L, Chloride Level 105, Carbon Dioxide Level 26, Anion Gap 9, Blood Urea Nitrogen 16, Creatinine 1.1, Estimat Glomerular Filtration Rate > 60, Glucose Level 87, Calcium Level 9.4 Height (Feet): 6 Height (Inches): 6.00 Weight (Pounds): 149 Objective WDWN NCAT supple CTA RRR soft NT ND no edema non focal Yuan Rodriguez MD Aug 26, 2017 13:15
[2017-08-26] MEDS: LORazepam 1mg tab ORAL PRN ×2 (15:39→22:58)
[2017-08-26] MEDS: HYDROcodone/Acetamin 10/325 tab ORAL PRN (16:59)
[2017-08-27 04:00] VITALS: BP 136/89
--- NOTE | 2017-08-27 08:01 | General Progress Note ---
Assessment/Plan Assessment/Plan (1) Lumbar DDD (2) Lumbar Spondylosis (3) Lumbar Herniated disc (4) Lumbar Radiculopathy (5) H/o Lumbar fusion (6) Paraparesis (7) Abdominal pain Pt to be continued on [place]. D/w Dr. norton and he concurred. Subjective Date patient seen: Aug 27, 2017 Time patient seen: 07:45 - am Allergies: Coded Allergies: FENTANYL (Unverified Allergy, Unknown, 08/20/17) KETOROLAC (Unverified Allergy, Unknown, 08/20/17) NAPROXEN (Unverified Allergy, Unknown, 08/20/17) PENICILLINS (Unverified Allergy, Unknown, 08/20/17) Subjective REVIEW OF SYSTEMS: Denies rash, fever, chills, sweating, dizziness, drowsiness, blurred vision, sore throat, or change in weight. No shortness of breath or chest pain. No nausea, vomiting, diarrhea, or blood in the stool or urine. No dysuria. No bowel or bladder incontinence. He is complaining of low back and abdominal pain. SUBJECTIVE: Patient is in bed no signs of pain or distress. He has no new complaints. Objective Last 24 Hour Vital Signs Date Time Temp Pulse Resp B/P (MAP) Pulse Ox O2 Delivery O2 Flow Rate FiO2 08/27/17 04:00 97.7 80 16 136/89 97 Room Air 97.7 08/26/17 23:54 98.3 68 18 124/83 96 Room Air 98.3 08/26/17 20:00 98.7 74 18 126/83 98 Room Air 98.7 08/26/17 17:58 98.1 08/26/17 16:59 98.1 08/26/17 15:52 98.1 80 20 111/62 98 Room Air 98.1 08/26/17 12:00 97.4 80 19 106/75 98 97.4 Intake and Output 08/26/17 08/27/17 19:00 07:00 Intake Total 480 ml Output Total 800 ml Balance -320 ml Intake Oral 480 ml Output Urine Total 800 ml Height (Feet): 6 Height (Inches): 6.00 Weight (Pounds): 149 Objective GENERAL: Alert, awake, and oriented. LUNGS: Decreased breath sounds bilaterally. HEART: Regular. ABDOMEN: Tenderness to palpation. EXTREMITIES: No cyanosis. No clubbing. No edema. NEUROLOGIC: No changes. Khari Harrison Aug 27, 2017 08:01
[2017-08-27 08:10] VITALS: BP 115/75
[2017-08-27] MEDS: BusPIRone 5mg Tab ORAL SCH ×2 (08:41→12:01)
[2017-08-27] MEDS: Pantoprazole Inj IVP SCH (08:42)
[2017-08-27 09:47] LABS: EOSINOPHILS % (AUTO) 1.8 % (0.0-3.0); HEMATOCRIT 43.8 % (42.0-52.0); HEMOGLOBIN 15.3 G/DL (14.2-18.0); LYMPHOCYTES % (AUTO) 24.3 % (20.0-45.0); MEAN CORPUSCULAR VOLUME 89 FL (80-99); MONOCYTES % (AUTO) 9.4 % (1.0-10.0); NEUTROPHILS % (AUTO) 63.6 % (45.0-75.0); PLATELET COUNT 250 K/UL (150-450); RED BLOOD COUNT 4.95 M/UL (4.70-6.10); RED CELL DISTRIBUTION WIDTH 11.7 % (11.6-14.8); WHITE BLOOD COUNT 10.8 K/UL (4.8-10.8)
[2017-08-27 09:51] LABS: ANION GAP 9 mmol/L (5-15); BLOOD UREA NITROGEN 17 mg/dL (7-18); CALCIUM 9.3 MG/DL (8.5-10.1); CARBON DIOXIDE 25 MMOL/L (21-32); CHLORIDE 105 MMOL/L (98-107); CREATININE 1.1 MG/DL (0.55-1.30); POTASSIUM 3.7 MMOL/L (3.5-5.1); SODIUM 139 MMOL/L (136-145)
--- NOTE | 2017-08-27 10:20 | GI Progress Note ---
Assessment/Plan Problems: (1) Odynophagia ICD Codes: R13.10 - Dysphagia, unspecified SNOMED: 09452423 (2) Constipation ICD Codes: K59.00 - Constipation, unspecified SNOMED: 63867134 (3) Abdominal pain ICD Codes: R10.9 - Unspecified abdominal pain SNOMED: 54447606 (4) Severe malnutrition ICD Codes: E43 - Unspecified severe protein-calorie malnutrition SNOMED: 83831633 (5) Schizophrenia ICD Codes: F20.9 - Schizophrenia, unspecified SNOMED: 58442021 Qualifiers: Qualified Codes: F20.9 - Schizophrenia, unspecified (6) Dehydration ICD Codes: E86.0 - Dehydration SNOMED: 12934442 (7) Failure to thrive SNOMED: 28560894 Qualifiers: Qualified Codes: R62.7 - Adult failure to thrive (8) Leukocytosis ICD Codes: D72.829 - Elevated white blood cell count, unspecified SNOMED: 674658760, 411466055 (9) Nausea & vomiting ICD Codes: R11.2 - Nausea with vomiting, unspecified SNOMED: 29804314 Status: stable Status Narrative Discussed with Dr. Ramos. Assessment/Plan Hx of EGD/colonoscopy in [address] evaluation not done >> patient refused SUMMARY OF FINDINGS: Diffuse bile-induced gastropathy versus gastritis, status post biopsy, otherwise, normal upper endoscopic examination. RECOMMENDATION: okay for DC per GI standpoint may need NGT or PEG, Follow up biopsy results and treat accordingly. pain mgmt IV/PO hydration electrolyte correction bowel regime PT/OT consult fu labs The patient was seen and examined at bedside and all new and available data was reviewed in the patients chart. I agree with the above findings, impression and plan. (Patient seen earlier today. Signature stamp does not reflect patient encounter time.). - Camden Ramos MD Subjective Subjective refusing care agitated c/o of painful swallowing c/o of being "sick has generalized pain Objective Last 24 Hour Vital Signs Date Time Temp Pulse Resp B/P (MAP) Pulse Ox O2 Delivery O2 Flow Rate FiO2 08/27/17 08:10 97.8 74 17 115/75 97 Room Air 97.8 08/27/17 04:00 97.7 80 16 136/89 97 Room Air 97.7 08/26/17 23:54 98.3 68 18 124/83 96 Room Air 98.3 08/26/17 20:00 98.7 74 18 126/83 98 Room Air 98.7 08/26/17 17:58 98.1 08/26/17 16:59 98.1 08/26/17 15:52 98.1 80 20 111/62 98 Room Air 98.1 08/26/17 12:00 97.4 80 19 106/75 98 97.4 Intake and Output 08/26/17 08/27/17 19:00 07:00 Intake Total 480 ml Output Total 800 ml Balance -320 ml Intake Oral 480 ml Output Urine Total 800 ml Laboratory Tests Test 08/27/17 09:00 White Blood Count 10.8 K/UL (4.8-10.8) Red Blood Count 4.95 M/UL (4.70-6.10) Hemoglobin 15.3 G/DL (14.2-18.0) Hematocrit 43.8 % (42.0-52.0) Mean Corpuscular Volume 89 FL (80-99) Mean Corpuscular Hemoglobin 31.0 PG (27.0-31.0) Mean Corpuscular Hemoglobin Concent 35.0 G/DL (32.0-36.0) Red Cell Distribution Width 11.7 % (11.6-14.8) Platelet Count 250 K/UL (150-450) Mean Platelet Volume 7.9 FL (6.5-10.1) Neutrophils (%) (Auto) 63.6 % (45.0-75.0) Lymphocytes (%) (Auto) 24.3 % (20.0-45.0) Monocytes (%) (Auto) 9.4 % (1.0-10.0) Eosinophils (%) (Auto) 1.8 % (0.0-3.0) Basophils (%) (Auto) 1.0 % (0.0-2.0) Sodium Level 139 MMOL/L (136-145) Potassium Level 3.7 MMOL/L (3.5-5.1) Chloride Level 105 MMOL/L (98-107) Carbon Dioxide Level 25 MMOL/L (21-32) Anion Gap 9 mmol/L (5-15) Blood Urea Nitrogen 17 mg/dL (7-18) Creatinine 1.1 MG/DL (0.55-1.30) Estimat Glomerular Filtration Rate > 60 mL/min (>60) Glucose Level 116 MG/DL (74-106) H Calcium Level 9.3 MG/DL (8.5-10.1) Magnesium Level 1.8 MG/DL (1.8-2.4) Height (Feet): 6 Height (Inches): 6.00 Weight (Pounds): 149 General Appearance: WD/WN, no apparent distress, alert Cardiovascular: normal rate Respiratory/Chest: normal breath sounds, no respiratory distress Abdominal Exam: normal bowel sounds, non tender, soft Extremities: normal range of motion, non-tender Chandler Bravo NP Aug 27, 2017 10:20
--- NOTE | 2017-08-27 11:39 | General Progress Note ---
Assessment/Plan Status: stable, progressing Assessment/Plan MDD Anxiety Prozac 40mg qam Buspar 10mg tid the pt is not hold-able and does not meet the criteria for hold the pt is not suicidal nor homicidal clear from psych stand point Subjective Date patient seen: Aug 27, 2017 Neurologic/Psychiatric: Reports: anxiety, depressed, emotional problems Allergies: Coded Allergies: FENTANYL (Unverified Allergy, Unknown, 08/20/17) KETOROLAC (Unverified Allergy, Unknown, 08/20/17) NAPROXEN (Unverified Allergy, Unknown, 08/20/17) PENICILLINS (Unverified Allergy, Unknown, 08/20/17) Objective Last 24 Hour Vital Signs Date Time Temp Pulse Resp B/P (MAP) Pulse Ox O2 Delivery O2 Flow Rate FiO2 08/27/17 08:10 97.8 74 17 115/75 97 Room Air 97.8 08/27/17 04:00 97.7 80 16 136/89 97 Room Air 97.7 08/26/17 23:54 98.3 68 18 124/83 96 Room Air 98.3 08/26/17 20:00 98.7 74 18 126/83 98 Room Air 98.7 08/26/17 17:58 98.1 08/26/17 16:59 98.1 08/26/17 15:52 98.1 80 20 111/62 98 Room Air 98.1 08/26/17 12:00 97.4 80 19 106/75 98 97.4 Intake and Output 08/26/17 08/27/17 19:00 07:00 Intake Total 480 ml Output Total 800 ml Balance -320 ml Intake Oral 480 ml Output Urine Total 800 ml Laboratory Tests 08/27/17 09:00: White Blood Count 10.8, Red Blood Count 4.95, Hemoglobin 15.3, Hematocrit 43.8, Mean Corpuscular Volume 89, Mean Corpuscular Hemoglobin 31.0, Mean Corpuscular Hemoglobin Concent 35.0, Red Cell Distribution Width 11.7, Platelet Count 250, Mean Platelet Volume 7.9, Neutrophils (%) (Auto) 63.6, Lymphocytes (%) (Auto) 24.3, Monocytes (%) (Auto) 9.4, Eosinophils (%) (Auto) 1.8, Basophils (%) (Auto ) 1.0, Sodium Level 139, Potassium Level 3.7, Chloride Level 105, Carbon Dioxide Level 25, Anion Gap 9, Blood Urea Nitrogen 17, Creatinine 1.1, Estimat Glomerular Filtration Rate > 60, Glucose Level 116H, Calcium Level 9.3, Magnesium Level 1.8 Height (Feet): 6 Height (Inches): 6.00 Weight (Pounds): 149 General Appearance: no apparent distress, alert Neurologic: oriented x 3, responsive, depressed affect Dexter Payne MD Aug 27, 2017 11:39
[2017-08-27 11:42] VITALS: BP 148/79
--- NOTE | 2017-08-27 11:48 | General Progress Note ---
Assessment/Plan Problem List: (1) Nausea & vomiting ICD Codes: R11.2 - Nausea with vomiting, unspecified SNOMED: 42106082 (2) Leukocytosis ICD Codes: D72.829 - Elevated white blood cell count, unspecified SNOMED: 057702397, 874782074 (3) Failure to thrive SNOMED: 34591694 Qualifiers: Qualified Codes: R62.7 - Adult failure to thrive Status: stable, progressing Assessment/Plan ot pt diet abx dc if clear by gi and psyc or pyc unit transfer Subjective Constitutional: Reports: weakness Allergies: Coded Allergies: FENTANYL (Unverified Allergy, Unknown, 08/20/17) KETOROLAC (Unverified Allergy, Unknown, 08/20/17) NAPROXEN (Unverified Allergy, Unknown, 08/20/17) PENICILLINS (Unverified Allergy, Unknown, 08/20/17) All Systems: reviewed and negative except above Subjective sleepy calm c/o abd pain Objective Last 24 Hour Vital Signs Date Time Temp Pulse Resp B/P (MAP) Pulse Ox O2 Delivery O2 Flow Rate FiO2 08/27/17 11:42 97.8 74 19 148/79 100 Room Air 97.8 08/27/17 08:10 97.8 74 17 115/75 97 Room Air 97.8 08/27/17 04:00 97.7 80 16 136/89 97 Room Air 97.7 08/26/17 23:54 98.3 68 18 124/83 96 Room Air 98.3 08/26/17 20:00 98.7 74 18 126/83 98 Room Air 98.7 08/26/17 17:58 98.1 08/26/17 16:59 98.1 08/26/17 15:52 98.1 80 20 111/62 98 Room Air 98.1 08/26/17 12:00 97.4 80 19 106/75 98 97.4 Intake and Output 08/26/17 08/27/17 19:00 07:00 Intake Total 480 ml Output Total 800 ml Balance -320 ml Intake Oral 480 ml Output Urine Total 800 ml Laboratory Tests 08/27/17 09:00: White Blood Count 10.8, Red Blood Count 4.95, Hemoglobin 15.3, Hematocrit 43.8, Mean Corpuscular Volume 89, Mean Corpuscular Hemoglobin 31.0, Mean Corpuscular Hemoglobin Concent 35.0, Red Cell Distribution Width 11.7, Platelet Count 250, Mean Platelet Volume 7.9, Neutrophils (%) (Auto) 63.6, Lymphocytes (%) (Auto) 24.3, Monocytes (%) (Auto) 9.4, Eosinophils (%) (Auto) 1.8, Basophils (%) (Auto ) 1.0, Sodium Level 139, Potassium Level 3.7, Chloride Level 105, Carbon Dioxide Level 25, Anion Gap 9, Blood Urea Nitrogen 17, Creatinine 1.1, Estimat Glomerular Filtration Rate > 60, Glucose Level 116H, Calcium Level 9.3, Magnesium Level 1.8 Height (Feet): 6 Height (Inches): 6.00 Weight (Pounds): 149 General Appearance: lethargic EENT: normal ENT inspection Neck: normal alignment Cardiovascular: normal peripheral pulses, normal rate, regular rhythm Respiratory/Chest: chest wall non-tender, lungs clear, normal breath sounds Abdomen: normal bowel sounds, non tender, soft Extremities: normal inspection Edema: no edema noted Arm (L), no edema noted Arm (R), no edema noted Leg (L), no edema noted Leg (R), no edema noted Pedal (L), no edema noted Pedal (R), no edema noted Generalized Neurologic: motor weakness Skin: normal pigmentation, warm/dry Miguel Patino DO Aug 27, 2017 11:48
[2017-08-27] MEDS ORDERED: ACETAMINOPHEN325 M1 ORAL ×2 (12:56→13:00)
[2017-08-27] MEDS ORDERED: PROZAC40 MG ORAL (13:00)
[2017-08-27] MEDS ORDERED: NORCO 10/3251 EA ORAL (13:01)
[2017-08-27] MEDS ORDERED: LORAZEPAM2 MG/1 M4 ORAL (13:02)
[2017-08-27] MEDS ORDERED: ZOFRAN4 M1 ORAL (13:03)
[2017-08-27] MEDS ORDERED: REMERON15 M1 ORAL (13:03)
[2017-08-27] MEDS ORDERED: MYLANTA30 M1 GT (13:05)
--- NOTE | 2017-08-27 13:42 | Pulmonology Progress Note ---
Assessment/Plan Problems: (1) COPD (chronic obstructive pulmonary disease) (2) At high risk for aspiration (3) Schizophrenia (4) Failure to thrive (5) Severe malnutrition (6) Odynophagia Assessment/Plan still c/o abdominal pain feeling better today respiratory treatment titrate fio2 to sat of 92% f/u psych recommendations f/u swallow studies Subjective ROS Limited/Unobtainable: No Allergies: Coded Allergies: FENTANYL (Unverified Allergy, Unknown, 08/20/17) KETOROLAC (Unverified Allergy, Unknown, 08/20/17) NAPROXEN (Unverified Allergy, Unknown, 08/20/17) PENICILLINS (Unverified Allergy, Unknown, 08/20/17) Objective Last 24 Hour Vital Signs Date Time Temp Pulse Resp B/P (MAP) Pulse Ox O2 Delivery O2 Flow Rate FiO2 08/27/17 11:42 97.8 74 19 148/79 100 Room Air 97.8 08/27/17 08:10 97.8 74 17 115/75 97 Room Air 97.8 08/27/17 04:00 97.7 80 16 136/89 97 Room Air 97.7 08/26/17 23:54 98.3 68 18 124/83 96 Room Air 98.3 08/26/17 20:00 98.7 74 18 126/83 98 Room Air 98.7 08/26/17 17:58 98.1 08/26/17 16:59 98.1 08/26/17 15:52 98.1 80 20 111/62 98 Room Air 98.1 Intake and Output 08/26/17 08/27/17 19:00 07:00 Intake Total 480 ml Output Total 800 ml Balance -320 ml Intake Oral 480 ml Output Urine Total 800 ml General Appearance: WD/WN HEENT: normocephalic, atraumatic Respiratory/Chest: chest wall non-tender, lungs clear Cardiovascular: normal peripheral pulses, normal rate Abdomen: normal bowel sounds, soft, non tender Extremities: no cyanosis Skin: no lesions Neurologic/Psychiatric: manager film II-XII grossly normal, no motor/sensory deficits Laboratory Tests 08/27/17 09:00: White Blood Count 10.8, Red Blood Count 4.95, Hemoglobin 15.3, Hematocrit 43.8, Mean Corpuscular Volume 89, Mean Corpuscular Hemoglobin 31.0, Mean Corpuscular Hemoglobin Concent 35.0, Red Cell Distribution Width 11.7, Platelet Count 250, Mean Platelet Volume 7.9, Neutrophils (%) (Auto) 63.6, Lymphocytes (%) (Auto) 24.3, Monocytes (%) (Auto) 9.4, Eosinophils (%) (Auto) 1.8, Basophils (%) (Auto ) 1.0, Sodium Level 139, Potassium Level 3.7, Chloride Level 105, Carbon Dioxide Level 25, Anion Gap 9, Blood Urea Nitrogen 17, Creatinine 1.1, Estimat Glomerular Filtration Rate > 60, Glucose Level 116H, Calcium Level 9.3, Magnesium Level 1.8 Current Medications Medications (Trade) Dose Ordered Sig/Paul Route PRN Reason Start Time Stop Time Status Last Admin Dose Admin Acetaminophen (Tylenol) 650 mg Q4H PRN ORAL T>100.5 08/20/17 11:30 09/19/17 11:29 Acetaminophen/ Hydrocodone Bitart ([place]ford 10/325) 1 tab Q4H PRN ORAL For Pain 08/23/17 16:30 08/30/17 16:29 08/26/17 16:59 Al Hydroxide/Mg Hydroxide (Mylanta II) 30 ml Q6H PRN ORAL dyspepsia 08/20/17 11:30 09/19/17 11:29 Buspirone HCl (Buspar) 10 mg THREE TIMES A DAY ORAL 08/25/17 18:00 09/24/17 17:59 08/27/17 12:01 Cetylpyridinium Chloride (Cepacol) 1 lozg Q2H PRN CHARLI SORE THROAT 08/24/17 18:45 09/23/17 18:44 08/25/17 19:45 Dextrose (Dextrose 50%) 25 ml PRN IV Hypoglycemia 08/20/17 11:45 09/19/17 11:44 Dextrose (Dextrose 50%) 50 ml PRN IV hypoglycemia 08/20/17 11:45 09/19/17 11:44 Fluoxetine HCl (PROzac) 40 mg DAILY ORAL 08/23/17 09:00 09/22/17 08:59 08/27/17 08:41 Lorazepam (Ativan) 2 mg Q6HR PRN ORAL For Anxiety 08/25/17 16:15 09/01/17 16:14 08/26/17 22:58 Mirtazapine (Remeron) 15 mg BEDTIME ORAL 08/25/17 21:00 09/24/17 20:59 08/26/17 20:20 Ondansetron HCl (Zofran) 4 mg Q6H PRN IVP Nausea & Vomiting 08/20/17 11:30 09/19/17 11:29 08/26/17 13:31 Pantoprazole (Protonix) 40 mg DAILY IVP 08/21/17 09:00 09/20/17 08:59 08/27/17 08:42 Polyethylene Glycol (Miralax) 17 gm HSPRN PRN ORAL Constipation 08/20/17 21:00 09/19/17 20:59 08/26/17 14:29 Zolpidem Tartrate (Ambien) 5 mg HSPRN PRN ORAL Insomnia 08/20/17 21:00 08/27/17 20:59 08/25/17 23:06 Javi Viveros MD Aug 27, 2017 13:42
[2017-08-27] MEDS: HYDROcodone/Acetamin 10/325 tab ORAL PRN (14:51)
--- NOTE | 2017-08-27 17:29 | General Progress Note ---
Assessment/Plan Status: stable, progressing Assessment/Plan MDD Anxiety Prozac 40mg qam Buspar 15mg tid the pt is not hold-able and does not meet the criteria for hold the pt is not suicidal nor homicidal clear from psych stand point Subjective Date patient seen: Aug 26, 2017 Neurologic/Psychiatric: Reports: anxiety, depressed, emotional problems Allergies: Coded Allergies: FENTANYL (Unverified Allergy, Unknown, 08/20/17) KETOROLAC (Unverified Allergy, Unknown, 08/20/17) NAPROXEN (Unverified Allergy, Unknown, 08/20/17) PENICILLINS (Unverified Allergy, Unknown, 08/20/17) Objective Last 24 Hour Vital Signs Date Time Temp Pulse Resp B/P (MAP) Pulse Ox O2 Delivery O2 Flow Rate FiO2 08/27/17 11:42 97.8 74 19 148/79 100 Room Air 97.8 08/27/17 08:10 97.8 74 17 115/75 97 Room Air 97.8 08/27/17 04:00 97.7 80 16 136/89 97 Room Air 97.7 08/26/17 23:54 98.3 68 18 124/83 96 Room Air 98.3 08/26/17 20:00 98.7 74 18 126/83 98 Room Air 98.7 08/26/17 17:58 98.1 Intake and Output 08/26/17 08/27/17 19:00 07:00 Intake Total 480 ml Output Total 800 ml Balance -320 ml Intake Oral 480 ml Output Urine Total 800 ml Laboratory Tests 08/27/17 09:00: White Blood Count 10.8, Red Blood Count 4.95, Hemoglobin 15.3, Hematocrit 43.8, Mean Corpuscular Volume 89, Mean Corpuscular Hemoglobin 31.0, Mean Corpuscular Hemoglobin Concent 35.0, Red Cell Distribution Width 11.7, Platelet Count 250, Mean Platelet Volume 7.9, Neutrophils (%) (Auto) 63.6, Lymphocytes (%) (Auto) 24.3, Monocytes (%) (Auto) 9.4, Eosinophils (%) (Auto) 1.8, Basophils (%) (Auto ) 1.0, Sodium Level 139, Potassium Level 3.7, Chloride Level 105, Carbon Dioxide Level 25, Anion Gap 9, Blood Urea Nitrogen 17, Creatinine 1.1, Estimat Glomerular Filtration Rate > 60, Glucose Level 116H, Calcium Level 9.3, Magnesium Level 1.8 Height (Feet): 6 Height (Inches): 6.00 Weight (Pounds): 149 General Appearance: no apparent distress, alert Neurologic: oriented x 3, responsive, depressed affect Dexter Payne MD Aug 27, 2017 17:29
--- NOTE | 2017-08-27 17:30 | Psych Consult Progress Note ---
Psych Consult Progress Note Consult 08/25/17 the pt has been agitated and got a cocktail shot MDD Anxiety Prozac 40mg qam Buspar 15mg tid Vital Signs Last 24 Hour Vital Signs Date Time Temp Pulse Resp B/P (MAP) Pulse Ox O2 Delivery O2 Flow Rate FiO2 08/27/17 11:42 97.8 74 19 148/79 100 Room Air 97.8 08/27/17 08:10 97.8 74 17 115/75 97 Room Air 97.8 08/27/17 04:00 97.7 80 16 136/89 97 Room Air 97.7 08/26/17 23:54 98.3 68 18 124/83 96 Room Air 98.3 08/26/17 20:00 98.7 74 18 126/83 98 Room Air 98.7 08/26/17 17:58 98.1 Labs Laboratory Tests Test 08/27/17 09:00 White Blood Count 10.8 K/UL (4.8-10.8) Red Blood Count 4.95 M/UL (4.70-6.10) Hemoglobin 15.3 G/DL (14.2-18.0) Hematocrit 43.8 % (42.0-52.0) Mean Corpuscular Volume 89 FL (80-99) Mean Corpuscular Hemoglobin 31.0 PG (27.0-31.0) Mean Corpuscular Hemoglobin Concent 35.0 G/DL (32.0-36.0) Red Cell Distribution Width 11.7 % (11.6-14.8) Platelet Count 250 K/UL (150-450) Mean Platelet Volume 7.9 FL (6.5-10.1) Neutrophils (%) (Auto) 63.6 % (45.0-75.0) Lymphocytes (%) (Auto) 24.3 % (20.0-45.0) Monocytes (%) (Auto) 9.4 % (1.0-10.0) Eosinophils (%) (Auto) 1.8 % (0.0-3.0) Basophils (%) (Auto) 1.0 % (0.0-2.0) Sodium Level 139 MMOL/L (136-145) Potassium Level 3.7 MMOL/L (3.5-5.1) Chloride Level 105 MMOL/L (98-107) Carbon Dioxide Level 25 MMOL/L (21-32) Anion Gap 9 mmol/L (5-15) Blood Urea Nitrogen 17 mg/dL (7-18) Creatinine 1.1 MG/DL (0.55-1.30) Estimat Glomerular Filtration Rate > 60 mL/min (>60) Glucose Level 116 MG/DL (74-106) H Calcium Level 9.3 MG/DL (8.5-10.1) Magnesium Level 1.8 MG/DL (1.8-2.4) Dexter Payne MD Aug 27, 2017 17:30
--- NOTE | 2017-08-30 09:04 | Discharge Summary ---
Discharge Summary Discharge Summary _ DATE OF ADMISSION: 08/20/2017 DATE OF DISCHARGE: 08/27/2017 REASON FOR ADMISSION: 67-year-old male with past medical history significant for schizophrenia , depression , anxiety, polyneuropathy, chronic back pain, history of lumbar fusion , was [facility] for evaluation due to oral poor oral intake. Upon evaluation noted leukocytosis with WBC 12.4, stable hemoglobin and hematocrit. Afebrile. Stable electrolytes, renal parameters, LFT, lipase. Troponin negative. Urinalysis with evidence of moderate bacteria but no pyuria, negative leukocyte esterase. Chest x-ray revealed no acute cardiopulmonary pathology . Abdominal x-ray was negative. EKG revealed no acute ischemic changes. Patient admitted with diagnosis of nausea, vomiting, dehydration, failure to thrive, chronic back pain, schizophrenia. CONSULTANTS: pulmonary Dr. Viveros ID specialist Dr. Neville GI specialist Dr. Ramos psychiatrist Dr. Payne Pain specialist Dr. Swift HOSPITAL COURSE: Patient admitted and started on IV hydration. Patient undergone bedside swallow evaluation of 08/21 which revealed dysphagia and high aspiration risk. Patient refused by oral trials. However patient consumed 100% at dinnertime per nursing report. Diet provided as per speech therapist recommendations with strict aspiration/ reflux precautions. Speech therapist recommended to consider video swallow evaluation only if patient agrees. GI seen and evaluated patient . Patient subsequently undergone upper endoscopy with biopsy on August 23, which revealed gastropathy versus gastritis. Biopsy revealed mild chronic gastritis with healing erosion and reactive changes. No evidence of H. pylori infection. Diet was slowly resumed as tolerated . Patient was on PPI . Oral and IV fluids were pushed. Home Care Manager d recommendations implemented in plan of care. c Hemoglobin and hematocrit remained stable. Patient was able to tolerate diet with the nearly 100% intake. Bowel regimen instituted. Abdominal ultrasound revealed no acute findings. Electrolytes were closely monitored and corrected as needed. Renal parameters were closely monitored, nephrotoxins were avoided. Supplemental oxygen provided as needed to keep pulse oximetry above 92%. Pulmonary toilet provided. Life Skills Coach closely followed, no evidence of aspiration. ID specialist closely followed. Blood culture were negative, urine culture revealed mixed gram-positive organisms. Mild leukocytosis was likely reactive, no obvious infectious process. No visible oral thrush. EGD with normal esophagus. ID specialist recommended to keep patient off antibiotic and observe closely. Mild leukocytosis resolved, patient afebrile. Pain management was provided. Pain specialist closely followed. Patient was working with physical and occupational therapists. Psychiatrist seen and evaluated patient , diagnosed patient with major depressive disorder and anxiety disorder. Psychiatrist stated that the patient was not holdable since patient was not suicidal, or homicidal. Patient was started on Prozac and BuSpar. Supportive care provided Patient was stable for discharge back to the [facility] for continuation of care. FINAL DIAGNOSES: Nausea and vomiting with abdominal pain likely secondary to gastritis Status post upper endoscopy with biopsy Gastritis possible gastropathy v Dysphagia High aspiration risk Severe protein calorie malnutrition Dehydration Failure to thrive COPD Odynophagia Lumbar DDD Lumbar spondylolisthesis Lumbar radiculopathy History of lumbar fusion Paraparesis Hypokalemia Major depressive disorder Anxiety Schizophrenia DISCHARGE MEDICATIONS: List of medication was sent accepting facility DISCHARGE INSTRUCTIONS: Patient was discharged to [facility], follow-up with medical doctor at the facility. Analy Stoner NP Aug 30, 2017 09:04
== END 2017-08-27 15:30 | DRG 391 ==
LOC: EDBD 11:15 → EMR 11:49 → 4W 12:00 → EDBEDREQ 13:01 → 4W 08-21 20:42
PROC: 0DB78ZX Excision of Stomach, Pylorus, Via Natural or Artificial Opening Endoscopic, Diagnostic (ICD-10-PCS; principal; 2017-08-23 12:52)
DX: K29.50 Unspecified chronic gastritis without bleeding (principal); E43 Unspecified severe protein-calorie malnutrition; G82.20 Paraplegia, unspecified; E86.0 Dehydration; R11.2 Nausea with vomiting, unspecified; R13.10 Dysphagia, unspecified; Z88.6 Allergy status to analgesic agent; Z88.0 Allergy status to penicillin; Z88.8 Allergy status to other drugs, medicaments and biological substances; R10.9 Unspecified abdominal pain; K59.00 Constipation, unspecified; R62.7 Adult failure to thrive; Z79.02 Long term (current) use of antithrombotics/antiplatelets; M51.16 Intervertebral disc disorders with radiculopathy, lumbar region; M47.26 Other spondylosis with radiculopathy, lumbar region; Z98.1 Arthrodesis status; F25.0 Schizoaffective disorder, bipolar type; F32.9 Major depressive disorder, single episode, unspecified; F41.9 Anxiety disorder, unspecified; R45.1 Restlessness and agitation; E78.5 Hyperlipidemia, unspecified; J44.9 Chronic obstructive pulmonary disease, unspecified; E87.6 Hypokalemia; K31.9 Disease of stomach and duodenum, unspecified
CPT/HCPCS: 36415; 71045; 74018; 76700; 80048; 80053; 80061; 80076; 81003; 82140; 83690; 83735; 84443; 84484; 85025; 85610; 85730; 87040; 87081; 87086; 93005; 94003; 94150; 99285; J2405; J8499

== ENCOUNTER 2018-08-19 16:54 | Inpatient (IN) | payer MEDICARE, OTHER ==
[~2018-08-19] VITALS: Ht 185.4 cm; Wt 127.0 kg
[~2018-08-19 16:54] MED LIST: ACETAMINOPHEN325 M1 ORAL; BACLOFEN10 MG ORAL; BUSPIRONE HCL10 M1 ORAL; CLOPIDOGREL75 MG ORAL; FLUOXETINE HCL20 MG ORAL; GABAPENTIN300 MG ORAL; LIPITOR80 MG ORAL; LORAZEPAM2 MG/1 M4 ORAL; MECLIZINE HCL25 MG ORAL; MIRALAX17 G2 ORAL; MYLANTA30 M1 GT; NORCO 10/3251 EA ORAL; NUCYNTA75 MG PO; PANTOPRAZOLE SO40 MG ORAL; PROZAC40 MG ORAL; REMERON15 M1 ORAL; ZOFRAN4 M1 ORAL; ZOFRAN4 M3 ORAL
[2018-08-19] MEDS ORDERED: CRANBERRY450 M4 PO (17:00)
[2018-08-19] MEDS ORDERED: AMLODIPINE BESYL5 MG ORAL (17:00)
[2018-08-19] MEDS ORDERED: CATAPRES0.1 MG ORAL (17:00)
[2018-08-19] MEDS ORDERED: BACLOFEN10 MG ORAL (17:00)
[2018-08-19] MEDS ORDERED: MELATONIN5 M5 ORAL (17:00)
[2018-08-19] MEDS ORDERED: Morphine Sulfate 4mg/ml Inj (IV USE ONLY) IVP ONE (17:30)
[2018-08-19] MEDS ORDERED: Dicyclomine HCl 10mg/5ml oral soln ORAL ONE (17:30)
[2018-08-19] MEDS ORDERED: Isovue-300 100ml vial INJ PRN (17:30)
[2018-08-19] MEDS ORDERED: Lidocaine 2% Visc 15ml soln ORAL ONE (17:30)
[2018-08-19] MEDS ORDERED: Mylanta II UD 30ml ORAL ONE (17:30)
--- NOTE | 2018-08-19 17:51 | NUR ---
ED Nurse Note: pt tolerates iv and lab draw well no n/v given po meds . pt states this feels like his normal ulcer pains. a/ox4 cooperative with care. no active n/v/d no dyspnea.
[2018-08-19 17:59] LABS: BASOPHILS % (AUTO) 1.7 % (0.0-2.0); EOSINOPHILS % (AUTO) 0.7 % (0.0-3.0); HEMATOCRIT 42.8 % (42.0-52.0); HEMOGLOBIN 15.7 G/DL (14.2-18.0); LYMPHOCYTES % (AUTO) 22.4 % (20.0-45.0); MEAN CORPUSCULAR VOLUME 86 FL (80-99); MONOCYTES % (AUTO) 7.3 % (1.0-10.0); NEUTROPHILS % (AUTO) 67.9 % (45.0-75.0); PLATELET COUNT 305 K/UL (150-450); RED BLOOD COUNT 4.99 M/UL (4.70-6.10); RED CELL DISTRIBUTION WIDTH 11.4 % (11.6-14.8); WHITE BLOOD COUNT 15.5 K/UL (4.8-10.8)
[2018-08-19 18:03] LABS: BILIRUBIN, URINE NEGATIVE (NEGATIVE); COLOR,URINE PALE YELLOW; GLUCOSE, URINE (UA) NEGATIVE (NEGATIVE); KETONES,URINE NEGATIVE (NEGATIVE); LEUKOCYTE ESTERASE ,URINE 1+ (NEGATIVE); NITRITE,URINE NEGATIVE (NEGATIVE); PH,URINE 8 (4.5-8.0); PROTEIN,URINE NEGATIVE (NEGATIVE); UROBILINOGEN,URINE NORMAL MG/DL (0.0-1.0)
[2018-08-19 18:04] LABS: APPEARANCE,URINE SLIGHTLY CLOUDY
[2018-08-19 18:09] LABS: ANION GAP 12 mmol/L (5-15); BLOOD UREA NITROGEN 15 mg/dL (7-18); CALCIUM 9.5 MG/DL (8.5-10.1); CARBON DIOXIDE 26 MMOL/L (21-32); CHLORIDE 107 MMOL/L (98-107); CREATININE 1.1 MG/DL (0.55-1.30); POTASSIUM 3.7 MMOL/L (3.5-5.1); SODIUM 145 MMOL/L (136-145)
[2018-08-19 18:13] LABS: ALANINE AMINOTRANSFERASE 24 U/L (12-78); ALBUMIN 3.4 G/DL (3.4-5.0); ALBUMIN/GLOBULIN RATIO 0.7 (1.0-2.7); ALKALINE PHOSPHATASE 88 U/L (46-116); ASPARTATE AMINO TRANSFERASE 18 U/L (15-37); BILIRUBIN,TOTAL 0.3 MG/DL (0.2-1.0)
--- NOTE | 2018-08-19 18:25 | NUR ---
ED Nurse Note: pt to ct scan, pain controlled
--- NOTE | 2018-08-19 18:42 | NUR ---
ED Nurse Note: pt returned back from ct scan no increased pain remains a/ox4
--- NOTE | 2018-08-19 18:50 | Emergency Room Report ---
History of Present Illness General Chief Complaint: Abdominal Pain Source: Patient, Medical Record, EMS Present Illness HPI 68-year-old male who presents ED for evaluation. Patient brought in by EMS from senior care facility. Complaining of abdominal pain for the last several weeks. Thinks it is ulcer. Pain is sharp, 7 out of 10, radiating to lower abdomen. Denies fevers or chills. Denies nausea or vomiting. Denies chest pain or shortness of breath. No other aggravating or relieving factors. Denies any other associated symptoms Allergies: Coded Allergies: FENTANYL (Unverified Allergy, Unknown, 08/20/17) KETOROLAC (Unverified Allergy, Unknown, 08/20/17) NAPROXEN (Unverified Allergy, Unknown, 08/20/17) PENICILLINS (Unverified Allergy, Unknown, 08/20/17) Patient History Past Medical History: HTN, GERD, psych hx Past Surgical History: none Pertinent Family History: none Social History: Denies: smoking, alcohol use, drug use Immunizations: UTD Reviewed Nursing Documentation: PMH: Agreed; PSxH: Agreed Nursing Documentation-PMH Hx Cardiac Problems: Yes - HYPERLIPIDEMIA Hx Hypertension: Yes - R HIP PAIN, DIZZINESS LOW BACK PAIN Hx Cancer: No Hx Gastrointestinal Problems: Yes - GASTRITIS History Of Psychiatric Problem: Yes - SCHIZO Hx Neurological Problems: Yes - polyneuropathy Hx Dizziness: Yes Hx Weakness: Yes Review of Systems All Other Systems: negative except mentioned in HPI Physical Exam Vital Signs Date Time Temp Pulse Resp B/P (MAP) Pulse Ox O2 Delivery O2 Flow Rate FiO2 08/19/18 16:51 99.0 88 17 140/90 (107) 97 Room Air Sp02 EP Interpretation: reviewed, normal General Appearance: no apparent distress, alert, GCS 15, non-toxic, obese Head: normocephalic, atraumatic Eyes: bilateral eye normal inspection, bilateral eye PERRL ENT: hearing grossly normal, normal pharynx, no angioedema, normal voice Neck: full range of motion, supple/symm/no masses Respiratory: chest non-tender, lungs clear, normal breath sounds, speaking full sentences Cardiovascular #1: regular rate, rhythm, no edema Cardiovascular #2: 2+ carotid (R), 2+ carotid (L), 2+ radial (R), 2+ radial (L) , 2+ dorsalis pedis (R), 2+ dorsalis pedis (L) Gastrointestinal: normal bowel sounds, soft, non-distended, no guarding, no rebound, tenderness Rectal: deferred Genitourinary: normal inspection, no CVA tenderness Musculoskeletal: back normal, gait/station normal, normal range of motion, non- tender Neurologic: alert, oriented x3, responsive, motor strength/tone normal, sensory intact, speech normal Psychiatric: judgement/insight normal, memory normal, mood/affect normal, no suicidal/homicidal ideation Reflexes: 3+ bicep (R), 3+ bicep (L), 3+ tricep (R), 3+ tricep (L), 3+ knee (R) , 3+ knee (L) Skin: normal color, no rash, warm/dry, well hydrated Lymphatic: no adenopathy Medical Decision Making Diagnostic Impression: Primary Impression: UTI (urinary tract infection) Qualified Codes: N39.0 - Urinary tract infection, site not specified Additional Impressions: Abdominal pain Qualified Codes: R10.9 - Unspecified abdominal pain Psychiatric disorder Periumbilical hernia Diverticulosis ER Course Hospital Course 68-year-old male presents to ED with abdominal pain Differential diagnoses include: BPH, cystitis, pyelonephritis, kidney stone Clinical course Patient placed on stretcher. engine monitor. After initial history and physical I ordered labs, IV fluids, UA, pain medication and CT scan Labs - noted leukocytosis, Hb/Hct electrolytes ok UA + bacteria CT abdomen and pelvis - diverticulosis without diverticultis. periumbilical hernia without obstruction abx given. Case discussed with Dr. Patino and he agreed to accept the patient to his service for further care and support I feel this is a highly complex case requiring extensive working including EKG/ Rhythm strip, Xray/CT/US, Blood/urine lab work, repeat exams while in ED, and administration of strong opiates/narcotics for pain control, admission to hospital or close patient follow up. Diagnosis - UTI, abdominal pain, psychiatric disorder, periumbilical hernia, diverticulsis Patient admitted to floor in serious condition Labs Test 08/19/18 17:35 08/19/18 17:45 White Blood Count 15.5 K/UL (4.8-10.8) Red Blood Count 4.99 M/UL (4.70-6.10) Hemoglobin 15.7 G/DL (14.2-18.0) Hematocrit 42.8 % (42.0-52.0) Mean Corpuscular Volume 86 FL (80-99) Mean Corpuscular Hemoglobin 31.5 PG (27.0-31.0) Mean Corpuscular Hemoglobin Concent 36.8 G/DL (32.0-36.0) Red Cell Distribution Width 11.4 % (11.6-14.8) Platelet Count 305 K/UL (150-450) Mean Platelet Volume 6.2 FL (6.5-10.1) Neutrophils (%) (Auto) 67.9 % (45.0-75.0) Lymphocytes (%) (Auto) 22.4 % (20.0-45.0) Monocytes (%) (Auto) 7.3 % (1.0-10.0) Eosinophils (%) (Auto) 0.7 % (0.0-3.0) Basophils (%) (Auto) 1.7 % (0.0-2.0) Sodium Level 145 MMOL/L (136-145) Potassium Level 3.7 MMOL/L (3.5-5.1) Chloride Level 107 MMOL/L (98-107) Carbon Dioxide Level 26 MMOL/L (21-32) Anion Gap 12 mmol/L (5-15) Blood Urea Nitrogen 15 mg/dL (7-18) Creatinine 1.1 MG/DL (0.55-1.30) Estimat Glomerular Filtration Rate > 60 mL/min (>60) Glucose Level 102 MG/DL (74-106) Calcium Level 9.5 MG/DL (8.5-10.1) Total Bilirubin 0.3 MG/DL (0.2-1.0) Aspartate Amino Transf (AST/SGOT) 18 U/L (15-37) Alanine Aminotransferase (ALT/SGPT) 24 U/L (12-78) Alkaline Phosphatase 88 U/L (46-116) Total Protein 8.0 G/DL (6.4-8.2) Albumin 3.4 G/DL (3.4-5.0) Globulin 4.6 g/dL Albumin/Globulin Ratio 0.7 (1.0-2.7) Lipase 184 U/L (73-393) Urine Color Pale yellow Urine Appearance Slightly cloudy Urine pH 8 (4.5-8.0) Urine Specific [place] 1.010 (1.005-1.035) Urine Protein Negative (NEGATIVE) Urine Glucose (UA) Negative (NEGATIVE) Urine Ketones Negative (NEGATIVE) Urine Blood 3+ (NEGATIVE) Urine Nitrite Negative (NEGATIVE) Urine Bilirubin Negative (NEGATIVE) Urine Urobilinogen Normal MG/DL (0.0-1.0) Urine Leukocyte Esterase 1+ (NEGATIVE) Urine RBC 10-15 /HPF (0 - 0) Urine WBC 2-4 /HPF (0 - 0) Urine Squamous Epithelial Cells None /LPF (NONE/OCC) Urine Amorphous Sediment Many /LPF (NONE) Urine Bacteria Moderate /HPF (NONE) CT/MRI/US Diagnostic Results CT/MRI/US Diagnostic Results : Imaging Test Ordered: CT A/P Impression -Colonic diverticulosis without acute diverticulitis. -Nonobstructed small bowel loop extends into a fat-containing periumbilical hernia with a wide mouth measuring 4.2 cm, no findings of ischemia or fat stranding. -Tiny subcentimeter likely benign splenic small cyst or hemangioma. -Cholecystectomy. -Likely benign bilateral small renal cysts. -Scattered ASVD. -Unilateral posterior L1-S1 stabilization with posterior decompression and interbody spacers. Last Vital Signs Date Time Temp Pulse Resp B/P (MAP) Pulse Ox O2 Delivery O2 Flow Rate FiO2 08/19/18 18:00 88 17 Room Air 08/19/18 16:51 99.0 140/90 (107) 97 Status: improved Disposition: ADMITTED INPATIENT Condition: Serious Emmanuel Guzman MD Aug 19, 2018 18:50
[2018-08-19 18:53] VITALS: BP 132/93
[2018-08-19] MEDS ORDERED: cefTRIAXone 1 GM in NS 55 ML IVPB ONE (19:30)
[2018-08-19 19:55] VITALS: BP 135/89
--- NOTE | 2018-08-19 19:55 | NUR ---
ED Nurse Note: Patient was admited to [facility] due to UTI, and abdominal pain. AAO x4, VSS at this time, skin warm to touch. Patient was transfered via gurney, with all belongings.
[2018-08-19] MEDS ORDERED: Nitroglycerin Subl 0.4mg tab SL PRN (20:00)
--- NOTE | 2018-08-19 20:30 | NUR ---
NURSE NOTES: Received report from CARMEN Shah from ER. Patient arrived on floor at 2030. Patient is breathing unlabored and evenly without signs of distress, discomfort, or SOB. Patient skin is intact with no known condition otherwise. Patient has left AC 20g IV clean, intact, patent, and dry. Patient vital signs are bp:121/83 HR: 74 Temp: 97.7 RR:14 SatO2: 96% on room air. Patient has socks and radio as his belongings. Call light placed within reach for any assistance needed. Patient currently laying on the bed comfortably with HOB elevated. Will continue to monitor.
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
[2018-08-19] MEDS: Heparin 5000 units/ml inj SUBQ SCH (21:33)
[2018-08-19] MEDS: Morphine Sulfate 2mg/ml Inj(IV/IM USE ONLY) IVP PRN (21:34)
[2018-08-19] MEDS: D5 1/2NS 1,000 ML IV SCH (22:14)
[2018-08-19] MEDS: Sucralfate 1gm tab ORAL PRN (23:41)
[2018-08-20] VITALS: BP 120/66
--- NOTE | 2018-08-20 00:54 | NUR ---
NURSE NOTES: Patient verbalized pain 10/10 after prn pain medication administered. Contacted Dr. Viveros for any new orders for breakthrough pain. New order followed as prescribed. Patient verbalized continuous pain after new medication administration. Patient was offered non-pharmacological pain management such as ice/hot packs, positional change, distraction and rest. Patient's room was darkened and blankets were offered to promote high-quality rest. Will continue to monitor. Call light placed within reach for any assistance needed. Addendum: 08/20/18 at 0100 by Baudilio Thacker RN NURSE NOTES: Patient verbalized pain 10/10 after prn pain medication administered. Contacted Dr. Viveros for any new orders for breakthrough pain. New order followed as prescribed. Patient verbalized continuous pain after new medication administration. Patient was offered non-pharmacological pain management such as ice/hot packs, positional change, distraction and rest. Patient's room was darkened and blankets were offered to promote high-quality rest. Will continue to monitor. Call light placed within reach for any assistance needed. Patient vital signs are stable and no fever. Patient is breathing unlabored and evenly without signs of respiratory distress.
[2018-08-20] MEDS: Morphine Sulfate 2mg/ml Inj(IV/IM USE ONLY) IVP PRN ×3 (01:11→09:17)
[2018-08-20 04:00] VITALS: BP 127/83
[2018-08-20] MEDS: Sucralfate 1gm tab ORAL PRN (05:50)
[2018-08-20 06:34] LABS: ALANINE AMINOTRANSFERASE 23 U/L (12-78); ALBUMIN/GLOBULIN RATIO 0.7 (1.0-2.7); ALKALINE PHOSPHATASE 79 U/L (46-116); AMYLASE 45 U/L (25-115); ANION GAP 9 mmol/L (5-15); ASPARTATE AMINO TRANSFERASE 16 U/L (15-37); BILIRUBIN,TOTAL 0.3 MG/DL (0.2-1.0); BLOOD UREA NITROGEN 15 mg/dL (7-18); CARBON DIOXIDE 27 MMOL/L (21-32); CHLORIDE 108 MMOL/L (98-107); POTASSIUM 3.6 MMOL/L (3.5-5.1); SODIUM 144 MMOL/L (136-145)
[2018-08-20 06:39] LABS: BASOPHILS % (AUTO) 1.1 % (0.0-2.0); EOSINOPHILS % (AUTO) 1.5 % (0.0-3.0); HEMATOCRIT 41.5 % (42.0-52.0); LYMPHOCYTES % (AUTO) 34.5 % (20.0-45.0); MEAN CORPUSCULAR VOLUME 89 FL (80-99); MONOCYTES % (AUTO) 9.2 % (1.0-10.0); NEUTROPHILS % (AUTO) 53.7 % (45.0-75.0); PLATELET COUNT 265 K/UL (150-450); RED BLOOD COUNT 4.64 M/UL (4.70-6.10); RED CELL DISTRIBUTION WIDTH 11.7 % (11.6-14.8); WHITE BLOOD COUNT 11.6 K/UL (4.8-10.8)
--- NOTE | 2018-08-20 07:29 | NUR ---
HAND-OFF: Report given to CARMEN Tay. Patient currently sleeping comfortably on the bed without noticible signs of distress. In stable condition.
--- NOTE | 2018-08-20 07:30 | NUR ---
NURSE NOTES: Received pt from RN JESSICA/JOSHUA. Pt is alert and orient x4. Pt is in RA, No SOB or acute respiratory distress noted. pt has intact iv access LAC 20G SL. All needs attended, bed is locked and is in the lowest position. call light within easy reach. will continue to monitor.
[2018-08-20 08:00] VITALS: BP 142/82
[2018-08-20] MEDS: BusPIRone 5mg Tab ORAL SCH ×2 (09:17→17:28)
[2018-08-20] MEDS: Heparin 5000 units/ml inj SUBQ SCH ×2 (09:23→21:29)
[2018-08-20] MEDS: D5 1/2NS 1,000 ML IV SCH (09:25)
--- NOTE | 2018-08-20 10:00 | Diagnostic Imaging Report ---
Indication: Abdominal pain Technique: Continuous helical transaxial imaging of the abdomen and pelvis was obtained from the lung bases to the pubic symphysis during intravenous contrast administration. Coronal 2-D reformats were also obtained. Study obtained in a Siemens sensation [address] Automatic Exposure Control was utilized. Total Dose length Product (DLP): 1033.[address] Dose Index Volume (CTDIvol): 19.07 mGy Comparison: None Findings: The lung bases are clear. Cholecystectomy clips noted. There is a small hypodensity in the right kidney measuring about 1 cm likely cystic. There is no hydronephrosis. The patient has had extensive hardware and multilevel laminectomy within the lumbar spine. Resultant streak artifact limits evaluation. There is an umbilical hernia containing fat and some small bowel. Appendix is not definitely seen but there are no secondary signs of acute appendicitis. Bowel gas pattern is nonobstructive. Aortoiliac calcifications are present. Small cystic focus noted within the spleen. The liver is unremarkable. The pancreas and adrenal glands are unremarkable. IMPRESSION: No acute findings appreciated. Multiple incidental findings as discussed above. [facility] has communicated the preliminary results to the Emergency Department. Their findings are largely concordant with this report. The CT scanner at [facility] is accredited by the [employer] and the scans are performed using dose optimization techniques as appropriate to a performed exam including Automatic Exposure control.
[2018-08-20] MEDS ORDERED: D5 1/2NS 1000ml IV ONE (11:29)
--- NOTE | 2018-08-20 11:30 | NUR ---
NURSE NOTES: Dr fournier visited pt and he is notified about abd pain 12/05, ordered consult with Dr CORMIER and pt eval, noted and carried out. Dr CORMIER notified. Dr FOURNIER is aware about WBC 11.6, nO new order to RN. Will continue to monitor.
[2018-08-20 11:50] VITALS: BP 129/72
--- NOTE | 2018-08-20 12:14 | NUR ---
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 [place] CC:ABD PAIN SI:UTI/ ABD PAIN VS: BP 140/90, P 88, T 99.0, RR 17, SpO2 97 WBC 15.5, UR: Blood 3+, Bacteria-Moderate, Amorphous Sediment-Many ABD CT:There is a small hypodensity in the right kidney. There is an umbilical hernia containing fat and some small bowel. Small cystic focus noted within the spleen. IS:NS 500ml IV MORPHINE SULFATE 4mg IVP BENTYL 10mg LIDOCAINE HCI 10ml MYLANTA II 30ml PEPCID 20mg IVP CEFTRIAXONE 55ml IVPB ADMITTED TO MED/SURG Addendum: 08/21/18 at 1711 by Britt Bailey LVN MET INTERQUAL CRITERIA
--- NOTE | 2018-08-20 12:20 | NUR ---
NURSE NOTES: Dr patel is aware pt has severe pain and ordered DILAUDID 2MG IV PRN Q4HR. Noted and carried out. will continue to monitor.
--- NOTE | 2018-08-20 13:29 | Consultation ---
History of Present Illness General Date patient seen: Aug 20, 2018 Reason for Hospitalization: Abdominal Pain Present Illness HPI 68 year old male [place] presented with 2 weeks of cramping abdominal discomfort with intermittent sharp mid abdominal discomfort. no n/v/f /c. has not had prior episode like this but believes he has ulcers and they feels the same. CT noted. leukocytosis. surgery called to evaluate and assist with care. patient seen, chart reviewed, patient examined. Allergies: Coded Allergies: FENTANYL (Unverified Allergy, Unknown, 08/20/17) KETOROLAC (Unverified Allergy, Unknown, 08/20/17) NAPROXEN (Unverified Allergy, Unknown, 08/20/17) PENICILLINS (Unverified Allergy, Unknown, 08/20/17) Medication History Scheduled Amlodipine Besylate* (Amlodipine Besylate*), 5 MG ORAL DAILY, (Reported) Atorvastatin (Lipitor), 80 MG ORAL DAILY, (Reported) Baclofen* (Baclofen*), 15 MG ORAL THREE TIMES A DAY, (Reported) Buspirone Hcl* (Buspirone Hcl*), 10 MG ORAL TWICE A DAY, (Reported) Clonidine Hcl* (Catapres*), 0.1 MG ORAL EVERY 6 HOURS, (Reported) Clopidogrel* (Clopidogrel*), 75 MG ORAL DAILY, (Reported) Fluoxetine Hcl* (Fluoxetine Hcl*), 20 MG ORAL DAILY, (Reported) Fluoxetine Hcl* (Prozac*), 40 MG ORAL DAILY, (Reported) Gabapentin* (Gabapentin*), 300 MG ORAL THREE TIMES A DAY, (Reported) Meclizine Hcl* (Meclizine*), 25 MG ORAL FOUR TIMES A DAY, (Reported) Pantoprazole* (Pantoprazole*), 40 MG ORAL DAILY, (Reported) Polyethylene Glycol 3350* (Miralax*), 17 GM ORAL DAILY, (Reported) Tapentadol Hcl (Nucynta), 75 MG PO NEEDED, (Reported) Scheduled PRN Acetaminophen* (Acetaminophen 325MG Tablet*), 325 MG ORAL Q4H PRN for Pain Scale (3-5), (Reported) Acetaminophen* (Acetaminophen 325MG Tablet*), 325 MG ORAL Q4H PRN for For Pain, (Reported) Al Hydroxide/mg Hydroxide (Mag-Al Liquid), 30 ML GT Q6HR PRN for Constipation, ( Reported) Hydrocodone/Acetaminophen (Hydrocodon-Acetaminophn 10-325), 1 TAB ORAL Q4H PRN for For Pain, (Reported) Lorazepam (Lorazepam), 2 MG ORAL Q6HR PRN for For Anxiety, (Reported) Melatonin (Melatonin), 5 MG ORAL BEDTIME PRN for Insomnia, (Reported) Mirtazapine (Remeron), 15 MG ORAL BEDTIME PRN for Insomnia, (Reported) Ondansetron (Zofran), 4 MG ORAL Q6H PRN for Nausea & Vomiting, (Reported) Ondansetron* (Zofran*), 4 MG ORAL Q6H PRN for Nausea & Vomiting, (Reported) Miscellaneous Medications Cranberry Fruit Concentrate (Cranberry), 450 MG PO, (Reported) Patient History History Provided By: Patient, Medical Record, PMD Healthcare decision maker Resuscitation status Full Code Advanced Directive on File No Past Medical/Surgical History Past Medical/Surgical History: (1) Odynophagia (2) Constipation (3) Nausea alone (4) Severe malnutrition (5) Leukocytosis (6) Nausea & vomiting (7) Dehydration (8) Failure to thrive (9) COPD (chronic obstructive pulmonary disease) (10) At high risk for aspiration (11) Psychiatric illness (12) Psychiatric disturbance (13) Diverticulosis (14) Periumbilical hernia (15) Psychiatric disorder (16) UTI (urinary tract infection) (17) Abdominal pain Review of Systems Review of Symptoms General ROS: no weight loss or fever Psychological ROS: no depression or mood changes, no memory loss Ophthalmic ROS: no visual changes or eye irritation ENT ROS: no nasal congestion, hearing loss, dizziness Allergy and Immunology ROS: no allergic symptoms or urticaria Hematological and Lymphatic ROS: no swollen glands, unusual bleeding or bruising Endocrine ROS: no polyuria, polydipsia, weight changes, temperature intolerance Respiratory ROS: no cough, shortness of breath, or wheezing Cardiovascular ROS: no chest pain or dyspnea on exertion Gastrointestinal ROS: denies abdominal pain, no bright red blood in stool. Musculoskeletal ROS: no myalgias or arthralgias Neurological ROS: no TIA or stroke symptoms Dermatological ROS: no new or changing skin lesions, rashes or pruritis Physical Exam Physical Exam General appearance: alert, cooperative, no distress, appears stated age Head: Normocephalic, without obvious abnormality, atraumatic Eyes: conjunctivae/corneas clear. PERRL, EOM's intact. Fundi benign Throat: Lips, mucosa, and tongue normal. Teeth and gums normal Neck: supple, symmetrical, trachea midline, no adenopathy, thyroid: not enlarged, symmetric, no tenderness/mass/nodules, no carotid bruit and no JVD Lungs: clear to auscultation bilaterally Heart: regular rate and rhythm, S1, S2 normal, no murmur, click, rub or gallop Abdomen: soft, non-tender. Bowel sounds normal. No masses, no organomegaly Extremities: extremities normal, atraumatic, no cyanosis or edema Pulses: 2+ and symmetric Skin: Skin color, texture, turgor normal. No rashes or lesions Neurologic: Grossly normal Last 24 Hour Vital Signs Date Time Temp Pulse Resp B/P (MAP) Pulse Ox O2 Delivery O2 Flow Rate FiO2 08/20/18 11:50 98.6 73 18 129/72 (91) 95 08/20/18 09:47 98.6 08/20/18 09:17 77 142/82 08/20/18 09:00 Room Air 08/20/18 08:00 98.6 77 18 142/82 (102) 100 08/20/18 04:00 97.6 75 18 127/83 (98) 96 08/20/18 00:00 97.8 72 16 120/66 (84) 95 08/19/18 21:56 Room Air 08/19/18 19:55 99.0 80 16 134/89 98 Room Air 08/19/18 19:55 99.0 80 16 135/89 98 Room Air 08/19/18 18:53 78 16 132/93 100 Room Air 08/19/18 18:00 88 17 Room Air 08/19/18 16:51 99.0 88 17 140/90 (107) 97 Room Air Intake and Output 08/19/18 08/20/18 19:00 07:00 Intake Total 500 ml 525 ml Output Total 300 ml 300 ml Balance 200 ml 225 ml Intake Oral 0 ml IV Total 500 ml 525 ml Output Urine Total 300 ml 300 ml Laboratory Tests Test 08/19/18 17:35 08/19/18 17:45 08/20/18 04:40 White Blood Count 15.5 K/UL (4.8-10.8) H 11.6 K/UL (4.8-10.8) H Red Blood Count 4.99 M/UL (4.70-6.10) 4.64 M/UL (4.70-6.10) L Hemoglobin 15.7 G/DL (14.2-18.0) 15.0 G/DL (14.2-18.0) Hematocrit 42.8 % (42.0-52.0) 41.5 % (42.0-52.0) L Mean Corpuscular Volume 86 FL (80-99) 89 FL (80-99) Mean Corpuscular Hemoglobin 31.5 PG (27.0-31.0) H 32.3 PG (27.0-31.0) H Mean Corpuscular Hemoglobin Concent 36.8 G/DL (32.0-36.0) H 36.1 G/DL (32.0-36.0) H Red Cell Distribution Width 11.4 % (11.6-14.8) L 11.7 % (11.6-14.8) Platelet Count 305 K/UL (150-450) 265 K/UL (150-450) Mean Platelet Volume 6.2 FL (6.5-10.1) L 7.2 FL (6.5-10.1) Neutrophils (%) (Auto) 67.9 % (45.0-75.0) 53.7 % (45.0-75.0) Lymphocytes (%) (Auto) 22.4 % (20.0-45.0) 34.5 % (20.0-45.0) Monocytes (%) (Auto) 7.3 % (1.0-10.0) 9.2 % (1.0-10.0) Eosinophils (%) (Auto) 0.7 % (0.0-3.0) 1.5 % (0.0-3.0) Basophils (%) (Auto) 1.7 % (0.0-2.0) 1.1 % (0.0-2.0) Sodium Level 145 MMOL/L (136-145) 144 MMOL/L (136-145) Potassium Level 3.7 MMOL/L (3.5-5.1) 3.6 MMOL/L (3.5-5.1) Chloride Level 107 MMOL/L (98-107) 108 MMOL/L (98-107) H Carbon Dioxide Level 26 MMOL/L (21-32) 27 MMOL/L (21-32) Anion Gap 12 mmol/L (5-15) 9 mmol/L (5-15) Blood Urea Nitrogen 15 mg/dL (7-18) 15 mg/dL (7-18) Creatinine 1.1 MG/DL (0.55-1.30) 1.0 MG/DL (0.55-1.30) Estimat Glomerular Filtration Rate > 60 mL/min (>60) > 60 mL/min (>60) Glucose Level 102 MG/DL (74-106) 98 MG/DL (74-106) Calcium Level 9.5 MG/DL (8.5-10.1) 9.0 MG/DL (8.5-10.1) Total Bilirubin 0.3 MG/DL (0.2-1.0) 0.3 MG/DL (0.2-1.0) Aspartate Amino Transf (AST/SGOT) 18 U/L (15-37) 16 U/L (15-37) Alanine Aminotransferase (ALT/SGPT) 24 U/L (12-78) 23 U/L (12-78) Alkaline Phosphatase 88 U/L (46-116) 79 U/L (46-116) Total Protein 8.0 G/DL (6.4-8.2) 7.3 G/DL (6.4-8.2) Albumin 3.4 G/DL (3.4-5.0) 3.0 G/DL (3.4-5.0) L Globulin 4.6 g/dL 4.3 g/dL Albumin/Globulin Ratio 0.7 (1.0-2.7) L 0.7 (1.0-2.7) L Lipase 184 U/L (73-393) 157 U/L (73-393) Urine Color Pale yellow Urine Appearance Slightly cloudy Urine pH 8 (4.5-8.0) Urine Specific [place] 1.010 (1.005-1.035) Urine Protein Negative (NEGATIVE) Urine Glucose (UA) Negative (NEGATIVE) Urine Ketones Negative (NEGATIVE) Urine Blood 3+ (NEGATIVE) H Urine Nitrite Negative (NEGATIVE) Urine Bilirubin Negative (NEGATIVE) Urine Urobilinogen Normal MG/DL (0.0-1.0) Urine Leukocyte Esterase 1+ (NEGATIVE) H Urine RBC 10-15 /HPF (0 - 0) H Urine WBC 2-4 /HPF (0 - 0) Urine Squamous Epithelial Cells None /LPF (NONE/OCC) Urine Amorphous Sediment Many /LPF (NONE) H Urine Bacteria Moderate /HPF (NONE) H Activated Partial Thromboplast Time 27 SEC (23-33) Amylase Level 45 U/L (25-115) Microbiology Date/Time Source Procedure Growth Status 08/19/18 17:45 Urine,Clean Catch Urine Culture - Preliminary NO GROWTH Resulted 08/19/18 21:00 Rectum Received Height (Feet): 6 Height (Inches): 1.00 Weight (Pounds): 282 Medications Current Medications Medications (Trade) Dose Ordered Sig/Paul Route PRN Reason Start Time Stop Time Status Last Admin Dose Admin Acetaminophen (Tylenol) 650 mg Q4H PRN ORAL fever 08/19/18 20:00 09/18/18 19:59 Amlodipine Besylate (Norvasc) 5 mg DAILY ORAL 08/20/18 09:00 09/19/18 08:59 08/20/18 09:17 Baclofen (Lioresal) 15 mg THREE TIMES A DAY ORAL 08/20/18 09:00 09/19/18 08:59 08/20/18 13:07 Buspirone HCl (Buspar) 10 mg TWICE A DAY ORAL 08/20/18 09:00 09/19/18 08:59 08/20/18 09:17 Dextrose (Dextrose 50%) 25 ml Q30M PRN IV Hypoglycemia 08/19/18 20:00 09/18/18 19:59 Dextrose (Dextrose 50%) 50 ml Q30M PRN IV Hypoglycemia 08/19/18 20:00 09/18/18 19:59 Dextrose/ Electrolytes 1,000 ml @ 75 mls/hr [id number] IV 08/20/18 16:00 09/19/18 15:59 Dextrose/Sodium Chloride 1,000 ml @ 75 mls/hr [id number] IV 08/19/18 20:25 08/20/18 15:59 08/20/18 09:25 Diphenhydramine HCl (Benadryl) 25 mg Q6H PRN ORAL Itching/Pruritis 08/19/18 20:00 09/18/18 19:59 Famotidine (Pepcid) 20 mg BID ORAL 08/19/18 23:00 09/18/18 22:59 08/20/18 09:17 Fluoxetine HCl (PROzac) 20 mg DAILY ORAL 08/20/18 09:00 09/19/18 08:59 08/20/18 09:17 Heparin Sodium (Porcine) (Heparin 5000 units/ml) 5,000 units EVERY 12 HOURS SUBQ 08/19/18 21:00 09/18/18 20:59 08/20/18 09:23 Hydromorphone HCl (Dilaudid) 2 mg Q4H PRN IVP Severe Pain (Pain Scale 7-10) 08/20/18 12:30 08/27/18 12:29 08/20/18 13:07 Iopamidol (Isovue-300 100ml) 100 ml NOW PRN INJ Radiology Procedure 08/19/18 17:30 Nitroglycerin (Ntg) 0.4 mg Q5M X 3 DOSES PRN SL Prn Chest Pain 08/19/18 20:00 09/18/18 19:59 Ondansetron HCl (Zofran) 4 mg Q6H PRN IVP Nausea & Vomiting 08/19/18 20:00 09/18/18 19:59 Polyethylene Glycol (Miralax) 17 gm HSPRN PRN ORAL Constipation 08/19/18 20:00 09/18/18 19:59 Polyethylene Glycol/ Electrolytes (Nulytely) 4,000 ml ONCE ONCE ORAL 08/20/18 14:00 08/20/18 14:01 Sucralfate (Carafate) 1 gm Q6H PRN ORAL Burning Abdominal Pain 08/19/18 23:00 09/18/18 22:59 08/20/18 05:50 Temazepam (Restoril) 15 mg HSPRN PRN ORAL Insomnia 08/19/18 20:00 08/26/18 19:59 Assessment/Plan Problem List: (1) Diverticulosis ICD Codes: K57.90 - Diverticulosis of intestine, part unspecified, without perforation or abscess without bleeding SNOMED: 877349295 (2) Periumbilical hernia ICD Codes: K42.9 - Umbilical hernia without obstruction or gangrene SNOMED: 002330687 (3) Psychiatric disorder ICD Codes: F99 - Mental disorder, not otherwise specified SNOMED: 23747797, 483672252 (4) UTI (urinary tract infection) ICD Codes: N39.0 - Urinary tract infection, site not specified SNOMED: 77876659 Qualifiers: Qualified Codes: N39.0 - Urinary tract infection, site not specified (5) COPD (chronic obstructive pulmonary disease) ICD Codes: J44.9 - Chronic obstructive pulmonary disease, unspecified SNOMED: 48747711 (6) Odynophagia ICD Codes: R13.10 - Dysphagia, unspecified SNOMED: 16267482 (7) Constipation ICD Codes: K59.00 - Constipation, unspecified SNOMED: 85537638 (8) Dehydration ICD Codes: E86.0 - Dehydration SNOMED: 53933305 (9) Nausea alone ICD Codes: R11.0 - Nausea SNOMED: 412694837 (10) Failure to thrive SNOMED: 37089089 (11) Leukocytosis ICD Codes: D72.829 - Elevated white blood cell count, unspecified SNOMED: 698149863, 861975655 (12) Abdominal pain Assessment & Plan: 68 year old male with 2 weeks of cramping abdominal pain. no n/v/f/c leukocytosis UTI CT w/ Findings: The lung bases are clear. Cholecystectomy clips noted. There is a small hypodensity in the right kidney measuring about 1 cm likely cystic. There is no hydronephrosis. The patient has had extensive hardware and multilevel laminectomy within the lumbar spine. Resultant streak artifact limits evaluation. There is an umbilical hernia containing fat and some small bowel. Appendix is not definitely seen but there are no secondary signs of acute appendicitis. Bowel gas pattern is nonobstructive. Aortoiliac calcifications are present. Small cystic focus noted within the spleen. The liver is unremarkable. The pancreas and adrenal glands are unremarkable. exam benign. abd soft, nt/nd, bs+ hx of gastric ulcers? - no acute surgical intervention planned -IV abx as per ID -GI eval for possible endoscopy -PPI -IV fluids -trend labs will follow with recs thank you ICD Codes: R10.9 - Unspecified abdominal pain SNOMED: 71203840 Qualifiers: Qualified Codes: R10.9 - Unspecified abdominal pain (13) Severe malnutrition ICD Codes: E43 - Unspecified severe protein-calorie malnutrition SNOMED: 46534583 (14) Psychiatric illness ICD Codes: F99 - Mental disorder, not otherwise specified SNOMED: 00745196, 446856775 (15) Psychiatric disturbance ICD Codes: F99 - Mental disorder, not otherwise specified SNOMED: 583163614 (16) Nausea & vomiting ICD Codes: R11.2 - Nausea with vomiting, unspecified SNOMED: 35641355 (17) At high risk for aspiration ICD Codes: Z91.89 - Other specified personal risk factors, not elsewhere classified SNOMED: 137702102 Balwinder Marc Aug 20, 2018 13:29
--- NOTE | 2018-08-20 13:31 | Consultation ---
History of Present Illness General Date patient seen: Aug 20, 2018 Chief Complaint: Abdominal Pain Present Illness HPI 68 y/o M with hx of HTN, HLD, gastritis/GERD, paraplegia, chronic back pain 2ry to Lumbar DDD/spondylosis/herniated disc w/ radiculopathy s/p lumbar fusion, schizoaffective disorder, FTT, polyneuropathy SNF resident presented to ED on with several weeks of abd pain. Pain described as 7/10, radiating to lower abdomen. Denied f/c, n/v, CP, SOB. Allergies: Coded Allergies: FENTANYL (Unverified Allergy, Unknown, 08/20/17) KETOROLAC (Unverified Allergy, Unknown, 08/20/17) NAPROXEN (Unverified Allergy, Unknown, 08/20/17) PENICILLINS (Unverified Allergy, Unknown, 08/20/17) Medication History Scheduled Amlodipine Besylate* (Amlodipine Besylate*), 5 MG ORAL DAILY, (Reported) Atorvastatin (Lipitor), 80 MG ORAL DAILY, (Reported) Baclofen* (Baclofen*), 15 MG ORAL THREE TIMES A DAY, (Reported) Buspirone Hcl* (Buspirone Hcl*), 10 MG ORAL TWICE A DAY, (Reported) Clonidine Hcl* (Catapres*), 0.1 MG ORAL EVERY 6 HOURS, (Reported) Clopidogrel* (Clopidogrel*), 75 MG ORAL DAILY, (Reported) Fluoxetine Hcl* (Fluoxetine Hcl*), 20 MG ORAL DAILY, (Reported) Fluoxetine Hcl* (Prozac*), 40 MG ORAL DAILY, (Reported) Gabapentin* (Gabapentin*), 300 MG ORAL THREE TIMES A DAY, (Reported) Meclizine Hcl* (Meclizine*), 25 MG ORAL FOUR TIMES A DAY, (Reported) Pantoprazole* (Pantoprazole*), 40 MG ORAL DAILY, (Reported) Polyethylene Glycol 3350* (Miralax*), 17 GM ORAL DAILY, (Reported) Tapentadol Hcl (Nucynta), 75 MG PO NEEDED, (Reported) Scheduled PRN Acetaminophen* (Acetaminophen 325MG Tablet*), 325 MG ORAL Q4H PRN for Pain Scale (3-5), (Reported) Acetaminophen* (Acetaminophen 325MG Tablet*), 325 MG ORAL Q4H PRN for For Pain, (Reported) Al Hydroxide/mg Hydroxide (Mag-Al Liquid), 30 ML GT Q6HR PRN for Constipation, ( Reported) Hydrocodone/Acetaminophen (Hydrocodon-Acetaminophn 10-325), 1 TAB ORAL Q4H PRN for For Pain, (Reported) Lorazepam (Lorazepam), 2 MG ORAL Q6HR PRN for For Anxiety, (Reported) Melatonin (Melatonin), 5 MG ORAL BEDTIME PRN for Insomnia, (Reported) Mirtazapine (Remeron), 15 MG ORAL BEDTIME PRN for Insomnia, (Reported) Ondansetron (Zofran), 4 MG ORAL Q6H PRN for Nausea & Vomiting, (Reported) Ondansetron* (Zofran*), 4 MG ORAL Q6H PRN for Nausea & Vomiting, (Reported) Miscellaneous Medications Cranberry Fruit Concentrate (Cranberry), 450 MG PO, (Reported) Patient History Healthcare decision maker Resuscitation status Full Code Advanced Directive on File No Patient History Narrative Pmhx: as above Shx: Denies: smoking, alcohol use, drug use Fhx: non contributory Review of Systems All Other Systems: negative except mentioned in HPI Physical Exam Physical Exam Narrative Sp02 EP Interpretation: reviewed, normal General Appearance: no apparent distress, alert, GCS 15, non-toxic, obese Head: normocephalic, atraumatic Eyes: bilateral eye normal inspection, bilateral eye PERRL ENT: hearing grossly normal, normal pharynx, no angioedema, normal voice Neck: full range of motion, supple/symm/no masses Respiratory: chest non-tender, lungs clear, normal breath sounds, speaking full sentences Cardiovascular #1: regular rate, rhythm, no edema Cardiovascular #2: 2+ carotid (R), 2+ carotid (L), 2+ radial (R), 2+ radial (L) , 2+ dorsalis pedis (R), 2+ dorsalis pedis (L) Gastrointestinal: normal bowel sounds, soft, non-distended, no guarding, no rebound, tenderness Rectal: deferred Genitourinary: normal inspection, no CVA tenderness Musculoskeletal: back normal, gait/station normal, normal range of motion, non- tender Neurologic: alert, oriented x3, responsive, motor strength/tone normal, sensory intact, speech normal Psychiatric: judgement/insight normal, memory normal, mood/affect normal, no suicidal/homicidal ideation Reflexes: 3+ bicep (R), 3+ bicep (L), 3+ tricep (R), 3+ tricep (L), 3+ knee (R) , 3+ knee (L) Skin: normal color, no rash, warm/dry, well hydrated Lymphatic: no adenopathy ER Procedures - General Procedures Last 24 Hour Vital Signs Date Time Temp Pulse Resp B/P (MAP) Pulse Ox O2 Delivery O2 Flow Rate FiO2 08/20/18 11:50 98.6 73 18 129/72 (91) 95 08/20/18 09:47 98.6 08/20/18 09:17 77 142/82 08/20/18 09:00 Room Air 08/20/18 08:00 98.6 77 18 142/82 (102) 100 08/20/18 04:00 97.6 75 18 127/83 (98) 96 08/20/18 00:00 97.8 72 16 120/66 (84) 95 08/19/18 21:56 Room Air 08/19/18 19:55 99.0 80 16 134/89 98 Room Air 08/19/18 19:55 99.0 80 16 135/89 98 Room Air 08/19/18 18:53 78 16 132/93 100 Room Air 08/19/18 18:00 88 17 Room Air 08/19/18 16:51 99.0 88 17 140/90 (107) 97 Room Air Intake and Output 08/19/18 08/20/18 19:00 07:00 Intake Total 500 ml 525 ml Output Total 300 ml 300 ml Balance 200 ml 225 ml Intake Oral 0 ml IV Total 500 ml 525 ml Output Urine Total 300 ml 300 ml Laboratory Tests Test 08/19/18 17:35 08/19/18 17:45 08/20/18 04:40 White Blood Count 15.5 K/UL (4.8-10.8) H 11.6 K/UL (4.8-10.8) H Red Blood Count 4.99 M/UL (4.70-6.10) 4.64 M/UL (4.70-6.10) L Hemoglobin 15.7 G/DL (14.2-18.0) 15.0 G/DL (14.2-18.0) Hematocrit 42.8 % (42.0-52.0) 41.5 % (42.0-52.0) L Mean Corpuscular Volume 86 FL (80-99) 89 FL (80-99) Mean Corpuscular Hemoglobin 31.5 PG (27.0-31.0) H 32.3 PG (27.0-31.0) H Mean Corpuscular Hemoglobin Concent 36.8 G/DL (32.0-36.0) H 36.1 G/DL (32.0-36.0) H Red Cell Distribution Width 11.4 % (11.6-14.8) L 11.7 % (11.6-14.8) Platelet Count 305 K/UL (150-450) 265 K/UL (150-450) Mean Platelet Volume 6.2 FL (6.5-10.1) L 7.2 FL (6.5-10.1) Neutrophils (%) (Auto) 67.9 % (45.0-75.0) 53.7 % (45.0-75.0) Lymphocytes (%) (Auto) 22.4 % (20.0-45.0) 34.5 % (20.0-45.0) Monocytes (%) (Auto) 7.3 % (1.0-10.0) 9.2 % (1.0-10.0) Eosinophils (%) (Auto) 0.7 % (0.0-3.0) 1.5 % (0.0-3.0) Basophils (%) (Auto) 1.7 % (0.0-2.0) 1.1 % (0.0-2.0) Sodium Level 145 MMOL/L (136-145) 144 MMOL/L (136-145) Potassium Level 3.7 MMOL/L (3.5-5.1) 3.6 MMOL/L (3.5-5.1) Chloride Level 107 MMOL/L (98-107) 108 MMOL/L (98-107) H Carbon Dioxide Level 26 MMOL/L (21-32) 27 MMOL/L (21-32) Anion Gap 12 mmol/L (5-15) 9 mmol/L (5-15) Blood Urea Nitrogen 15 mg/dL (7-18) 15 mg/dL (7-18) Creatinine 1.1 MG/DL (0.55-1.30) 1.0 MG/DL (0.55-1.30) Estimat Glomerular Filtration Rate > 60 mL/min (>60) > 60 mL/min (>60) Glucose Level 102 MG/DL (74-106) 98 MG/DL (74-106) Calcium Level 9.5 MG/DL (8.5-10.1) 9.0 MG/DL (8.5-10.1) Total Bilirubin 0.3 MG/DL (0.2-1.0) 0.3 MG/DL (0.2-1.0) Aspartate Amino Transf (AST/SGOT) 18 U/L (15-37) 16 U/L (15-37) Alanine Aminotransferase (ALT/SGPT) 24 U/L (12-78) 23 U/L (12-78) Alkaline Phosphatase 88 U/L (46-116) 79 U/L (46-116) Total Protein 8.0 G/DL (6.4-8.2) 7.3 G/DL (6.4-8.2) Albumin 3.4 G/DL (3.4-5.0) 3.0 G/DL (3.4-5.0) L Globulin 4.6 g/dL 4.3 g/dL Albumin/Globulin Ratio 0.7 (1.0-2.7) L 0.7 (1.0-2.7) L Lipase 184 U/L (73-393) 157 U/L (73-393) Urine Color Pale yellow Urine Appearance Slightly cloudy Urine pH 8 (4.5-8.0) Urine Specific [place] 1.010 (1.005-1.035) Urine Protein Negative (NEGATIVE) Urine Glucose (UA) Negative (NEGATIVE) Urine Ketones Negative (NEGATIVE) Urine Blood 3+ (NEGATIVE) H Urine Nitrite Negative (NEGATIVE) Urine Bilirubin Negative (NEGATIVE) Urine Urobilinogen Normal MG/DL (0.0-1.0) Urine Leukocyte Esterase 1+ (NEGATIVE) H Urine RBC 10-15 /HPF (0 - 0) H Urine WBC 2-4 /HPF (0 - 0) Urine Squamous Epithelial Cells None /LPF (NONE/OCC) Urine Amorphous Sediment Many /LPF (NONE) H Urine Bacteria Moderate /HPF (NONE) H Activated Partial Thromboplast Time 27 SEC (23-33) Amylase Level 45 U/L (25-115) Microbiology Date/Time Source Procedure Growth Status 08/19/18 17:45 Urine,Clean Catch Urine Culture - Preliminary NO GROWTH Resulted 08/19/18 21:00 Rectum Received Height (Feet): 6 Height (Inches): 1.00 Weight (Pounds): 282 Medications Current Medications Medications (Trade) Dose Ordered Sig/Paul Route PRN Reason Start Time Stop Time Status Last Admin Dose Admin Acetaminophen (Tylenol) 650 mg Q4H PRN ORAL fever 08/19/18 20:00 09/18/18 19:59 Amlodipine Besylate (Norvasc) 5 mg DAILY ORAL 08/20/18 09:00 09/19/18 08:59 08/20/18 09:17 Baclofen (Lioresal) 15 mg THREE TIMES A DAY ORAL 08/20/18 09:00 09/19/18 08:59 08/20/18 13:07 Buspirone HCl (Buspar) 10 mg TWICE A DAY ORAL 08/20/18 09:00 09/19/18 08:59 08/20/18 09:17 Dextrose (Dextrose 50%) 25 ml Q30M PRN IV Hypoglycemia 08/19/18 20:00 09/18/18 19:59 Dextrose (Dextrose 50%) 50 ml Q30M PRN IV Hypoglycemia 08/19/18 20:00 09/18/18 19:59 Dextrose/ Electrolytes 1,000 ml @ 75 mls/hr [id number] IV 08/20/18 16:00 09/19/18 15:59 Dextrose/Sodium Chloride 1,000 ml @ 75 mls/hr [id number] IV 08/19/18 20:25 08/20/18 15:59 08/20/18 09:25 Diphenhydramine HCl (Benadryl) 25 mg Q6H PRN ORAL Itching/Pruritis 08/19/18 20:00 09/18/18 19:59 Famotidine (Pepcid) 20 mg BID ORAL 08/19/18 23:00 09/18/18 22:59 08/20/18 09:17 Fluoxetine HCl (PROzac) 20 mg DAILY ORAL 08/20/18 09:00 09/19/18 08:59 08/20/18 09:17 Heparin Sodium (Porcine) (Heparin 5000 units/ml) 5,000 units EVERY 12 HOURS SUBQ 08/19/18 21:00 09/18/18 20:59 08/20/18 09:23 Hydromorphone HCl (Dilaudid) 2 mg Q4H PRN IVP Severe Pain (Pain Scale 7-10) 08/20/18 12:30 08/27/18 12:29 08/20/18 13:07 Iopamidol (Isovue-300 100ml) 100 ml NOW PRN INJ Radiology Procedure 08/19/18 17:30 Nitroglycerin (Ntg) 0.4 mg Q5M X 3 DOSES PRN SL Prn Chest Pain 08/19/18 20:00 09/18/18 19:59 Ondansetron HCl (Zofran) 4 mg Q6H PRN IVP Nausea & Vomiting 08/19/18 20:00 09/18/18 19:59 Polyethylene Glycol (Miralax) 17 gm HSPRN PRN ORAL Constipation 08/19/18 20:00 09/18/18 19:59 Polyethylene Glycol/ Electrolytes (Nulytely) 4,000 ml ONCE ONCE ORAL 08/20/18 14:00 08/20/18 14:01 Sucralfate (Carafate) 1 gm Q6H PRN ORAL Burning Abdominal Pain 08/19/18 23:00 09/18/18 22:59 08/20/18 05:50 Temazepam (Restoril) 15 mg HSPRN PRN ORAL Insomnia 08/19/18 20:00 08/26/18 19:59 Assessment/Plan Assessment/Plan: Abx: Ceftriaxone x1 08/19 Assessment: Abd pain- likely 2ry to GERD/gastritis -CT abd/p w/: No acute findings appreciated. Afebrile Mild leukocytosis, improving- suspect reactive -u/a no pyuria HTN HLD gastritis/GERD -07/2017 SP -EGD: Diffuse bile-induced gastropathy versus gastritis, status post biopsy, otherwise, normal upper endoscopic examination. --path: mild chronic gastritis with healing erosion and reactive changes. No H. pylori paraplegia chronic back pain 2ry to Lumbar DDD/spondylosis/herniated disc w/ radiculopathy -- s/p lumbar fusion, schizoaffective disorder FTT polyneuropathy SNF resident Plan: -Continue to monitor off abx unless febrile, increasing WBC or HD unstability. -f/u cx -Monitor CBC/CMP, temperatures -CXR Thank you for this consultation. Will continue to follow along with you. Discussed with CARMEN. Lynette Nichole M.D. Aug 20, 2018 13:31
[2018-08-20] MEDS ORDERED: Nulytely 4L ORAL ONE (14:00)
--- NOTE | 2018-08-20 14:24 | General Progress Note ---
Assessment/Plan Assessment/Plan: (1) Lumbar DDD (2) Lumbar Spondylosis (3) Lumbar Radiculopathy (4) Lumbar Herniated disc (5) H/O Lumbar fusion (6) Paraparesis Patient to be started on Dilaudid 1mg IV Q4H PRN severe pain and Mildred 10/325mg PO 1 tab Q6H PRN D/w Dr. Swift and he concurred Subjective Date patient seen: Aug 20, 2018 Time patient seen: 02:00 - pm Constitutional: Reports: weakness HEENT: Reports: no symptoms Cardiovascular: Reports: no symptoms Respiratory: Reports: no symptoms Gastrointestinal/Abdominal: Reports: abdominal pain Genitourinary: Reports: no symptoms Neurologic/Psychiatric: Reports: weakness Endocrine: Reports: no symptoms Hematologic/Lymphatic: Reports: no symptoms Allergies: Coded Allergies: FENTANYL (Unverified Allergy, Unknown, 08/20/17) KETOROLAC (Unverified Allergy, Unknown, 08/20/17) NAPROXEN (Unverified Allergy, Unknown, 08/20/17) PENICILLINS (Unverified Allergy, Unknown, 08/20/17) Subjective Patient is a known patient from prior hospital admissions. He has been admitted under the care of Dr. Patino has continued low back pain with h/o fusion. We were consulted so patient has adequate pain control while here in the hospital. Objective Last 24 Hour Vital Signs Date Time Temp Pulse Resp B/P (MAP) Pulse Ox O2 Delivery O2 Flow Rate FiO2 08/20/18 13:37 98.6 08/20/18 11:50 98.6 73 18 129/72 (91) 95 08/20/18 09:47 98.6 08/20/18 09:17 77 142/82 08/20/18 09:00 Room Air 08/20/18 08:00 98.6 77 18 142/82 (102) 100 08/20/18 04:00 97.6 75 18 127/83 (98) 96 08/20/18 00:00 97.8 72 16 120/66 (84) 95 08/19/18 21:56 Room Air 08/19/18 19:55 99.0 80 16 134/89 98 Room Air 08/19/18 19:55 99.0 80 16 135/89 98 Room Air 08/19/18 18:53 78 16 132/93 100 Room Air 08/19/18 18:00 88 17 Room Air 08/19/18 16:51 99.0 88 17 140/90 (107) 97 Room Air Intake and Output 08/19/18 08/20/18 19:00 07:00 Intake Total 500 ml 525 ml Output Total 300 ml 300 ml Balance 200 ml 225 ml Intake Oral 0 ml IV Total 500 ml 525 ml Output Urine Total 300 ml 300 ml Laboratory Tests 08/19/18 17:35: White Blood Count 15.5H, Red Blood Count 4.99, Hemoglobin 15.7, Hematocrit 42.8 , Mean Corpuscular Volume 86, Mean Corpuscular Hemoglobin 31.5H, Mean Corpuscular Hemoglobin Concent 36.8H, Red Cell Distribution Width 11.4L, Platelet Count 305, Mean Platelet Volume 6.2L, Neutrophils (%) (Auto) 67.9, Lymphocytes (%) (Auto) 22.4, Monocytes (%) (Auto) 7.3, Eosinophils (%) (Auto) 0.7, Basophils (%) (Auto) 1.7, Sodium Level 145, Potassium Level 3.7, Chloride Level 107, Carbon Dioxide Level 26, Anion Gap 12, Blood Urea Nitrogen 15, Creatinine 1.1, Estimat Glomerular Filtration Rate > 60, Glucose Level 102, Calcium Level 9.5, Total Bilirubin 0.3, Aspartate Amino Transf (AST/SGOT) 18, Alanine Aminotransferase (ALT/SGPT) 24, Alkaline Phosphatase 88, Total Protein 8.0, Albumin 3.4, Globulin 4.6, Albumin/Globulin Ratio 0.7L, Lipase 184 08/19/18 17:45: Urine Color Pale yellow, Urine Appearance Slightly cloudy, Urine pH 8, Urine Specific [place] 1.010, Urine Protein Negative, Urine Glucose (UA) Negative, Urine Ketones Negative, Urine Blood 3+H, Urine Nitrite Negative, Urine Bilirubin Negative, Urine Urobilinogen Normal, Urine Leukocyte Esterase 1+H, Urine RBC 10-15H, Urine WBC 2-4, Urine Squamous Epithelial Cells None, Urine Amorphous Sediment ManyH, Urine Bacteria ModerateH 08/20/18 04:40: White Blood Count 11.6H, Red Blood Count 4.64L, Hemoglobin 15.0, Hematocrit 41.5L, Mean Corpuscular Volume 89, Mean Corpuscular Hemoglobin 32.3H, Mean Corpuscular Hemoglobin Concent 36.1H, Red Cell Distribution Width 11.7, Platelet Count 265, Mean Platelet Volume 7.2, Neutrophils (%) (Auto) 53.7, Lymphocytes (%) (Auto) 34.5, Monocytes (%) (Auto) 9.2, Eosinophils (%) (Auto) 1.5, Basophils (%) (Auto) 1.1, Sodium Level 144, Potassium Level 3.6, Chloride Level 108H, Carbon Dioxide Level 27, Anion Gap 9, Blood Urea Nitrogen 15, Creatinine 1.0, Estimat Glomerular Filtration Rate > 60, Glucose Level 98, Calcium Level 9.0, Total Bilirubin 0.3, Aspartate Amino Transf (AST/SGOT) 16, Alanine Aminotransferase (ALT/SGPT) 23, Alkaline Phosphatase 79, Total Protein 7.3, Albumin 3.0L, Globulin 4.3, Albumin/Globulin Ratio 0.7L, Lipase 157, Activated Partial Thromboplast Time 27, Amylase Level 45 Height (Feet): 6 Height (Inches): 1.00 Weight (Pounds): 282 General Appearance: no apparent distress, alert EENT: PERRL/EOMI, normal ENT inspection Neck: non-tender, normal alignment Cardiovascular: normal rate, regular rhythm Abdomen: non tender, soft Extremities: non-tender Edema: trace edema Neurologic: alert, responsive Skin: normal pigmentation Khari Harrison Aug 20, 2018 14:24
--- NOTE | 2018-08-20 14:40 | Consultation ---
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 Pain is sharp, 7 out of 10, radiating to lower abdomen. Denies fevers or chills. Denies nausea or vomiting. Denies chest pain or shortness of breath. No other aggravating or relieving factors. Denies any other associated symptoms. He was diagnosed to have acute UTI and sepsis and admitted for further evaluation. Allergies: Coded Allergies: FENTANYL (Unverified Allergy, Unknown, 08/20/17) KETOROLAC (Unverified Allergy, Unknown, 08/20/17) NAPROXEN (Unverified Allergy, Unknown, 08/20/17) PENICILLINS (Unverified Allergy, Unknown, 08/20/17) Medication History Scheduled Amlodipine Besylate* (Amlodipine Besylate*), 5 MG ORAL DAILY, (Reported) Atorvastatin (Lipitor), 80 MG ORAL DAILY, (Reported) Baclofen* (Baclofen*), 15 MG ORAL THREE TIMES A DAY, (Reported) Buspirone Hcl* (Buspirone Hcl*), 10 MG ORAL TWICE A DAY, (Reported) Clonidine Hcl* (Catapres*), 0.1 MG ORAL EVERY 6 HOURS, (Reported) Clopidogrel* (Clopidogrel*), 75 MG ORAL DAILY, (Reported) Fluoxetine Hcl* (Fluoxetine Hcl*), 20 MG ORAL DAILY, (Reported) Fluoxetine Hcl* (Prozac*), 40 MG ORAL DAILY, (Reported) Gabapentin* (Gabapentin*), 300 MG ORAL THREE TIMES A DAY, (Reported) Meclizine Hcl* (Meclizine*), 25 MG ORAL FOUR TIMES A DAY, (Reported) Pantoprazole* (Pantoprazole*), 40 MG ORAL DAILY, (Reported) Polyethylene Glycol 3350* (Miralax*), 17 GM ORAL DAILY, (Reported) Tapentadol Hcl (Nucynta), 75 MG PO NEEDED, (Reported) Scheduled PRN Acetaminophen* (Acetaminophen 325MG Tablet*), 325 MG ORAL Q4H PRN for Pain Scale (3-5), (Reported) Acetaminophen* (Acetaminophen 325MG Tablet*), 325 MG ORAL Q4H PRN for For Pain, (Reported) Al Hydroxide/mg Hydroxide (Mag-Al Liquid), 30 ML GT Q6HR PRN for Constipation, ( Reported) Hydrocodone/Acetaminophen (Hydrocodon-Acetaminophn 10-325), 1 TAB ORAL Q4H PRN for For Pain, (Reported) Lorazepam (Lorazepam), 2 MG ORAL Q6HR PRN for For Anxiety, (Reported) Melatonin (Melatonin), 5 MG ORAL BEDTIME PRN for Insomnia, (Reported) Mirtazapine (Remeron), 15 MG ORAL BEDTIME PRN for Insomnia, (Reported) Ondansetron (Zofran), 4 MG ORAL Q6H PRN for Nausea & Vomiting, (Reported) Ondansetron* (Zofran*), 4 MG ORAL Q6H PRN for Nausea & Vomiting, (Reported) Miscellaneous Medications Cranberry Fruit Concentrate (Cranberry), 450 MG PO, (Reported) Patient History Healthcare decision maker Resuscitation status Full Code Advanced Directive on File No Past Medical/Surgical History Past Medical/Surgical History: (1) COPD (chronic obstructive pulmonary disease) (2) Psychiatric disorder Review of Systems All Other Systems: negative except mentioned in HPI Physical Exam General Appearance: WD/WN, no apparent distress Lines, tubes and drains: peripheral HEENT: normocephalic, anicteric Neck: normal alignment, abnormal alignment Respiratory/Chest: chest wall non-tender, lungs clear Breasts: no masses Cardiovascular/Chest: normal rate Abdomen: normal bowel sounds, abnormal bowel sounds Genitourinary/Rectal: normal genital exam Extremities: normal range of motion Last 24 Hour Vital Signs Date Time Temp Pulse Resp B/P (MAP) Pulse Ox O2 Delivery O2 Flow Rate FiO2 08/20/18 13:37 98.6 08/20/18 11:50 98.6 73 18 129/72 (91) 95 08/20/18 09:47 98.6 08/20/18 09:17 77 142/82 08/20/18 09:00 Room Air 08/20/18 08:00 98.6 77 18 142/82 (102) 100 08/20/18 04:00 97.6 75 18 127/83 (98) 96 08/20/18 00:00 97.8 72 16 120/66 (84) 95 08/19/18 21:56 Room Air 08/19/18 19:55 99.0 80 16 134/89 98 Room Air 08/19/18 19:55 99.0 80 16 135/89 98 Room Air 08/19/18 18:53 78 16 132/93 100 Room Air 08/19/18 18:00 88 17 Room Air 08/19/18 16:51 99.0 88 17 140/90 (107) 97 Room Air Intake and Output 08/19/18 08/20/18 19:00 07:00 Intake Total 500 ml 525 ml Output Total 300 ml 300 ml Balance 200 ml 225 ml Intake Oral 0 ml IV Total 500 ml 525 ml Output Urine Total 300 ml 300 ml Laboratory Tests Test 08/19/18 17:35 08/19/18 17:45 08/20/18 04:40 White Blood Count 15.5 K/UL (4.8-10.8) H 11.6 K/UL (4.8-10.8) H Red Blood Count 4.99 M/UL (4.70-6.10) 4.64 M/UL (4.70-6.10) L Hemoglobin 15.7 G/DL (14.2-18.0) 15.0 G/DL (14.2-18.0) Hematocrit 42.8 % (42.0-52.0) 41.5 % (42.0-52.0) L Mean Corpuscular Volume 86 FL (80-99) 89 FL (80-99) Mean Corpuscular Hemoglobin 31.5 PG (27.0-31.0) H 32.3 PG (27.0-31.0) H Mean Corpuscular Hemoglobin Concent 36.8 G/DL (32.0-36.0) H 36.1 G/DL (32.0-36.0) H Red Cell Distribution Width 11.4 % (11.6-14.8) L 11.7 % (11.6-14.8) Platelet Count 305 K/UL (150-450) 265 K/UL (150-450) Mean Platelet Volume 6.2 FL (6.5-10.1) L 7.2 FL (6.5-10.1) Neutrophils (%) (Auto) 67.9 % (45.0-75.0) 53.7 % (45.0-75.0) Lymphocytes (%) (Auto) 22.4 % (20.0-45.0) 34.5 % (20.0-45.0) Monocytes (%) (Auto) 7.3 % (1.0-10.0) 9.2 % (1.0-10.0) Eosinophils (%) (Auto) 0.7 % (0.0-3.0) 1.5 % (0.0-3.0) Basophils (%) (Auto) 1.7 % (0.0-2.0) 1.1 % (0.0-2.0) Sodium Level 145 MMOL/L (136-145) 144 MMOL/L (136-145) Potassium Level 3.7 MMOL/L (3.5-5.1) 3.6 MMOL/L (3.5-5.1) Chloride Level 107 MMOL/L (98-107) 108 MMOL/L (98-107) H Carbon Dioxide Level 26 MMOL/L (21-32) 27 MMOL/L (21-32) Anion Gap 12 mmol/L (5-15) 9 mmol/L (5-15) Blood Urea Nitrogen 15 mg/dL (7-18) 15 mg/dL (7-18) Creatinine 1.1 MG/DL (0.55-1.30) 1.0 MG/DL (0.55-1.30) Estimat Glomerular Filtration Rate > 60 mL/min (>60) > 60 mL/min (>60) Glucose Level 102 MG/DL (74-106) 98 MG/DL (74-106) Calcium Level 9.5 MG/DL (8.5-10.1) 9.0 MG/DL (8.5-10.1) Total Bilirubin 0.3 MG/DL (0.2-1.0) 0.3 MG/DL (0.2-1.0) Aspartate Amino Transf (AST/SGOT) 18 U/L (15-37) 16 U/L (15-37) Alanine Aminotransferase (ALT/SGPT) 24 U/L (12-78) 23 U/L (12-78) Alkaline Phosphatase 88 U/L (46-116) 79 U/L (46-116) Total Protein 8.0 G/DL (6.4-8.2) 7.3 G/DL (6.4-8.2) Albumin 3.4 G/DL (3.4-5.0) 3.0 G/DL (3.4-5.0) L Globulin 4.6 g/dL 4.3 g/dL Albumin/Globulin Ratio 0.7 (1.0-2.7) L 0.7 (1.0-2.7) L Lipase 184 U/L (73-393) 157 U/L (73-393) Urine Color Pale yellow Urine Appearance Slightly cloudy Urine pH 8 (4.5-8.0) Urine Specific [place] 1.010 (1.005-1.035) Urine Protein Negative (NEGATIVE) Urine Glucose (UA) Negative (NEGATIVE) Urine Ketones Negative (NEGATIVE) Urine Blood 3+ (NEGATIVE) H Urine Nitrite Negative (NEGATIVE) Urine Bilirubin Negative (NEGATIVE) Urine Urobilinogen Normal MG/DL (0.0-1.0) Urine Leukocyte Esterase 1+ (NEGATIVE) H Urine RBC 10-15 /HPF (0 - 0) H Urine WBC 2-4 /HPF (0 - 0) Urine Squamous Epithelial Cells None /LPF (NONE/OCC) Urine Amorphous Sediment Many /LPF (NONE) H Urine Bacteria Moderate /HPF (NONE) H Activated Partial Thromboplast Time 27 SEC (23-33) Amylase Level 45 U/L (25-115) Microbiology Date/Time Source Procedure Growth Status 08/19/18 17:45 Urine,Clean Catch Urine Culture - Preliminary NO GROWTH Resulted 08/19/18 21:00 Rectum Received Height (Feet): 6 Height (Inches): 1.00 Weight (Pounds): 282 Medications Current Medications Medications (Trade) Dose Ordered Sig/Paul Route PRN Reason Start Time Stop Time Status Last Admin Dose Admin Acetaminophen (Tylenol) 650 mg Q4H PRN ORAL fever 08/19/18 20:00 09/18/18 19:59 Acetaminophen/ Hydrocodone Bitart ([place] 10/325) 1 tab Q6H PRN ORAL moderate pain 08/20/18 14:15 08/27/18 14:14 UNV Amlodipine Besylate (Norvasc) 5 mg DAILY ORAL 08/20/18 09:00 09/19/18 08:59 08/20/18 09:17 Baclofen (Lioresal) 15 mg THREE TIMES A DAY ORAL 08/20/18 09:00 7/25/19 08:59 08/20/18 13:07 Buspirone HCl (Buspar) 10 mg TWICE A DAY ORAL 08/20/18 09:00 09/19/18 08:59 08/20/18 09:17 Dextrose (Dextrose 50%) 25 ml Q30M PRN IV Hypoglycemia 08/19/18 20:00 09/18/18 19:59 Dextrose (Dextrose 50%) 50 ml Q30M PRN IV Hypoglycemia 08/19/18 20:00 09/18/18 19:59 Dextrose/ Electrolytes 1,000 ml @ 75 mls/hr [id number] IV 08/20/18 16:00 09/19/18 15:59 Dextrose/Sodium Chloride 1,000 ml @ 75 mls/hr [id number] IV 08/19/18 20:25 08/20/18 15:59 08/20/18 09:25 Diphenhydramine HCl (Benadryl) 25 mg Q6H PRN ORAL Itching/Pruritis 08/19/18 20:00 09/18/18 19:59 Famotidine (Pepcid) 20 mg BID ORAL 08/19/18 23:00 09/18/18 22:59 08/20/18 09:17 Fluoxetine HCl (PROzac) 20 mg DAILY ORAL 08/20/18 09:00 09/19/18 08:59 08/20/18 09:17 Heparin Sodium (Porcine) (Heparin 5000 units/ml) 5,000 units EVERY 12 HOURS SUBQ 08/19/18 21:00 09/18/18 20:59 08/20/18 09:23 Hydromorphone HCl (Dilaudid) 1 mg Q4H PRN IVP Severe Pain (Pain Scale 7-10) 08/20/18 16:30 08/27/18 12:29 UNV Iopamidol (Isovue-300 100ml) 100 ml NOW PRN INJ Radiology Procedure 08/19/18 17:30 08/21/18 17:29 Naloxegol (Movantik) 25 mg DAILY ORAL 08/20/18 14:15 09/19/18 14:14 UNV Nitroglycerin (Ntg) 0.4 mg Q5M X 3 DOSES PRN SL Prn Chest Pain 08/19/18 20:00 09/18/18 19:59 Ondansetron HCl (Zofran) 4 mg Q6H PRN IVP Nausea & Vomiting 08/19/18 20:00 09/18/18 19:59 Polyethylene Glycol (Miralax) 17 gm HSPRN PRN ORAL Constipation 08/19/18 20:00 09/18/18 19:59 Sucralfate (Carafate) 1 gm Q6H PRN ORAL Burning Abdominal Pain 08/19/18 23:00 09/18/18 22:59 08/20/18 05:50 Temazepam (Restoril) 15 mg HSPRN PRN ORAL Insomnia 08/19/18 20:00 08/26/18 19:59 Assessment/Plan Problem List: (1) Abdominal pain ICD Codes: R10.9 - Unspecified abdominal pain SNOMED: 25783552 Qualifiers: Qualified Codes: R10.9 - Unspecified abdominal pain (2) UTI (urinary tract infection) ICD Codes: N39.0 - Urinary tract infection, site not specified SNOMED: 56884553 Qualifiers: Qualified Codes: N39.0 - Urinary tract infection, site not specified (3) Psychiatric disorder ICD Codes: F99 - Mental disorder, not otherwise specified SNOMED: 60274901, [id number] Assessment/Plan: iv fluids npo GI evaluation possible endoscopy check urine cultures symptomatic treatment Javi Viveros MD Aug 20, 2018 14:40
--- NOTE | 2018-08-20 14:43 | Diagnostic Imaging Report ---
Indication: Cough Comparison: 08/23/2017 A single view chest radiograph was obtained. Findings: Minimal left basal atelectasis suspected. Lung volumes are low. Heart size is accentuated. No definite infiltrate identified. IMPRESSION: No acute disease. Minimal left basal atelectasis
--- NOTE | 2018-08-20 14:51 | NUR ---
RADIOLOGY DEPT., CHEST X-RAY DONE.-P.DYE
--- NOTE | 2018-08-20 15:45 | Consultation ---
DATE OF CONSULTATION: 08/20/2018 GASTROENTEROLOGY CONSULTATION CONSULTING PHYSICIAN: Camden Ramos M.D. REFERRING PHYSICIAN: Miguel Patino D.O. CHIEF COMPLAINT: Abdominal pain. HISTORY OF PRESENT ILLNESS: This is a pleasant 68-year-old male with multiple medical problems, known to me from last admission in 2018 where I did endoscopy, which showed evidence of gastritis. The patient came back to the hospital complained of muscular abdominal pain. CT was done in the ER, which did not find any acute findings. The patient's last colonoscopy was over 5 years ago and he wants another one. PAST MEDICAL HISTORY: 1. History of schizophrenia. 2. Gastritis. 3. Hypertension. 4. COPD. 5. Multiple back surgeries. 6. Depression and anxiety. 7. History of alcohol usage. ALLERGIES: To fentanyl, ketorolac, Naprosyn, penicillin. MEDICATIONS: Please see medication reconciliation list. SOCIAL HISTORY: The patient currently lives in a fci. Has prior history of alcohol abuse. REVIEW OF SYSTEMS: A 10-point review of systems was performed and pertinent positives in HPI. FAMILY HISTORY: Noncontributory. PAST SURGICAL HISTORY: Right hip surgery. PHYSICAL EXAMINATION: VITAL SIGNS: Temperature is 98.6, pulse 77, respirations 20, blood pressure 142/82. HEENT: Normocephalic and atraumatic. Sclerae anicteric. NECK: Supple. No evidence of obvious lymphadenopathy. CARDIOVASCULAR: Regular rate and rhythm. Plus S1 and S2. No obvious murmur. LUNGS: Clear to auscultation bilaterally. ABDOMEN: Positive bowel sounds. Soft and nontender. No rebound. No guarding. No peritoneal sign. EXTREMITIES: No cyanosis. No clubbing. No edema. LABORATORY DATA: White count is 11.6, hemoglobin 15, hematocrit 41, platelet count is 265. Chem-7, sodium 144, potassium 3.6. ASSESSMENT AND PLAN: This is a 68-year-old male with history of gastritis admitted to the hospital with abdominal pain with negative CT. The patient wants colonoscopy because the last colonoscopy was over 5 years ago and also wants to find out why he has abdominal pain. Plan to schedule for colonoscopy tomorrow. The patient to get prep today. I want to thank Dr. Miguel Patino for this kind referral. Camden Miladis Ramos DR: BUSHRA JOB#: [id number] CC: Miguel Patino D.O.
--- NOTE | 2018-08-20 15:50 | NUR ---
NURSE NOTES: PT SIGNED CONSENT FORM AND VERBALLY CONFIRMED TO UNDERSTAND ALL. WILL CONTINUE TO MONITOR.
[2018-08-20 15:58] VITALS: BP 110/76
--- NOTE | 2018-08-20 16:20 | NUR ---
NURSE NOTES: Asked pharmacist regarding the time of NALOXAGEL, stated I can administer. will continue to monitor.
[2018-08-20] MEDS: Naloxegol Oxalate 25mg tab ORAL SCH (16:23)
[2018-08-20] MEDS: D5 1/2NS w/KCl 20mEq 1,000 ML IV SCH (16:23)
--- NOTE | 2018-08-20 18:15 | History and Physical Report ---
DATE OF ADMISSION: 08/19/2018 DATE AND TIME SEEN: 08/20/2018 at 11 a.m. CONSULTANTS: 1. Camden Ramos M.D. 2. Javi Viveros M.D. 3. Estuardo Neville M.D. 4. Balwinder Marc M.D. 5. Danita Swift M.D. CHIEF COMPLAINT: Abdominal pain. BRIEF HISTORY: This is a 68-year-old male from [facility], presented with three-day increased abdominal pain, came to [place], diagnosed with abdominal pain, UTI, leukocytosis, diverticulitis, and being admitted for further care. Currently, calm, in bed, slight abdominal pain. No complaint. REVIEW OF SYSTEMS: No chest pain. No shortness of breath. No nausea, vomiting, or diarrhea. PAST MEDICAL HISTORY: Include COPD, gastric ulcer, psych history, and paraumbilical hernia. PAST SURGICAL HISTORY: Back surgery. MEDICATIONS: Include amlodipine, baclofen, buspirone, fluoxetine, sucralfate, famotidine, morphine, Zofran, and diphenhydramine. ALLERGIES: Fentanyl, ketorolac, Naprosyn, and penicillin. SOCIAL HISTORY: Positive smoking. No alcohol. No intravenous drug abuse. FAMILY HISTORY: Noncontributory. PHYSICAL EXAMINATION: GENERAL: Calm, in bed, oriented x2, in no acute distress. VITAL SIGNS: Temperature is 98 degrees, pulse 73, respirations 18, and blood pressure 129/72. CARDIOVASCULAR: No murmurs. LUNGS: Distant and clear. ABDOMEN: Bowel sounds positive. Nontender. Nondistended. EXTREMITIES: No cyanosis, clubbing, or edema. NEUROLOGIC: The patient moves all extremities, slightly weak. LABORATORY AND DIAGNOSTIC DATA: Labs at this time show white count 11.6, otherwise CBC is normal. BMP shows chloride 108, albumin 3.0. INR is and PTT is 27. Urinalysis show 1+ leukocyte esterase. ASSESSMENT: 1. Abdominal pain. 2. UTI. 3. Leukocytosis. 4. Diverticulitis. 5. Malnutrition. 6. History of stomach ulcers. 7. COPD. 8. Psych history. PLAN: NPO. IV fluids. Antibiotic per Infectious Disease. Advance diet as tolerated. Resume home medications. PT and dietary evaluation. CBC and BMP in the morning. Miguel Patino D.O. DR: KURTIS JOB#: [id number] CC:
--- NOTE | 2018-08-20 19:19 | NUR ---
HAND-OFF: Report given to RN JESSICA/JOSHUA. Endorsed to monitor for prep.
--- NOTE | 2018-08-20 19:30 | NUR ---
NURSE NOTES: Received patient from CARMEN Tay. Patient is on the bed in high-philip position. Patient is breathing unlabored and evenly without signs distress, discomfort, or SOB at the time of handoff. No pain noted at this time. Patient verbally claimed that his pain was well controlled with new medication prescribed. Bed is placed at the lowest with alarms and brakes on with two siderails up for safety. Patient was re-educated to press the call light whenever assistance is needed. Call light was placed within the reach. Will continue to monitor.
[2018-08-20 20:00] VITALS: BP 128/83
[2018-08-20] MEDS: Miralax 17gm pkt ORAL PRN (23:13)
[2018-08-21] VITALS (11 sets, daily range): BP systolic 97–134; BP diastolic 57–91
--- NOTE | 2018-08-21 03:37 | NUR ---
NURSE NOTES: Patient is tolerating the GI procedure prepping procedure well. Patient is stable. Patient's 20g left AC IV is running D51/2NS with KCL 20 mEq at 75 cc/hr. IV intact, dry, patent, and clean. Reinforced patient to use the call light whenever assistance is needed. Call light placed within reach. Bed is placed at the lowest level with alarm and brake on for safety. Side rails up x 2 to support bed mobility and promote safety. Will continue to monitor.
--- NOTE | 2018-08-21 04:00 | NUR ---
NURSE NOTES: Patient has order for Nulytely to be prepped for scheduled colonoscopy at 1200. Throughout the shift, encouraged patient to finish the Nulytely. Continuously reminded and encouraged to finish Nulytely. Patient managed to finish everything except one last pitcher of Nulytely. Patient verbally said " I can't take no more of that, I can't". Patient refused to finish Nulytely at this time. Patient's stool is watery, light brown. Will continue to monitor.
[2018-08-21] MEDS: D5 1/2NS w/KCl 20mEq 1,000 ML IV SCH ×3 (05:20→18:40)
[2018-08-21] MEDS: Naloxegol Oxalate 25mg tab ORAL SCH (06:04)
--- NOTE | 2018-08-21 07:30 | NUR ---
HAND-OFF: Report given to CARMEN Fonseca. Patient in stable condition.
--- NOTE | 2018-08-21 07:34 | NUR ---
NURSE NOTES: AWAKE/ALERT.PAIN SCALE 4/10. NPO MAINTAINED FOR COLONOSCOPY. IN NO APPARENT DISTRESS.
[2018-08-21] MEDS ORDERED: LR 1000ml 1,000 ML IVLG SCH (07:52)
--- NOTE | 2018-08-21 07:52 | Anethesia Preoperative Eval ---
Anesthesia Pre-op PMH/ROS General Date of Evaluation: Aug 21, 2018 Anesthesiologist: Azeem ASA Score: ASA 3 Mallampati Score Class I : Soft palate, uvula, fauces, pillars visible Class II: Soft palate, uvula, fauces visible Class III: Soft palate, base of uvula visible Class IV: Only hard plate visible Mallampati Classification: Class II Surgeon: Rachel Diagnosis: Abdominal pain Surgical Procedure: Colonoscopy Anesthesia History: none Family History: no anesthesia problems Allergies: Coded Allergies: FENTANYL (Unverified Allergy, Unknown, 08/20/17) KETOROLAC (Unverified Allergy, Unknown, 08/20/17) NAPROXEN (Unverified Allergy, Unknown, 08/20/17) PENICILLINS (Unverified Allergy, Unknown, 08/20/17) Medications: see eMAR Patient NPO?: Yes NPO Date: Aug 20, 2018 NPO Time: 22:00 Past Medical History Cardiovascular: Reports: HTN, other - HLD; Denies: CAD, PR, valve dz, arrhythmia Pulmonary: Reports: COPD; Denies: asthma, KRANTHI, other Gastrointestinal/Genitourinary: Reports: other - gastritis, dysphagia; Denies: GERD, CRI, ESRD Neurologic/Psychiatric: Reports: depression/anxiety, other - schizophrenia, foot drop; Denies: dementia, CVA, TIA Endocrine: Denies: DM, hypothyroidism, steroids, other HEENT: Denies: cataract (L), cataract (R), glaucoma, [place] (L), [place] (R), other Hematology/Immune: Denies: anemia, DVT, bleeding disorder, other Musculoskeletal/Integumentary: Denies: OA, RA, DJD, DDD, edema, other Other: obesity PSxH Narrative: see H&P Anesthesia Pre-op Phys. Exam Physician Exam Last Vital Signs Date Time Temp Pulse Resp B/P (MAP) Pulse Ox O2 Delivery O2 Flow Rate FiO2 08/21/18 04:00 97.2 70 20 121/76 (91) 95 08/20/18 21:00 Room Air Constitutional: NAD Cardiovascular: RRR Respiratory: CTA Airway Exam Mallampati Score: Class II MO: limited ROM: limited Anesthesia Pre-op A/P Labs see chart Studies Pre-op Studies: EKG - sr Risk Assessment & Plan Assessment: ASA III Plan: MAC Status Change Before Surgery: No Pre-Antibiotics Drug: N/A Yaneth James MD Aug 21, 2018 07:52
[2018-08-21] MEDS ORDERED: DiphenhydrAMINE 50mg/ml Inj IVP PRN (08:00)
--- NOTE | 2018-08-21 08:35 | General Progress Note ---
Assessment/Plan Assessment/Plan: (1) Lumbar DDD (2) Lumbar Spondylosis (3) Lumbar Radiculopathy (4) Lumbar Herniated disc (5) H/O Lumbar fusion (6) Paraparesis Patient to be continued on Dilaudid and [place]. D/w Dr. Swift and he concurred Subjective Date patient seen: Aug 21, 2018 Time patient seen: 07:00 - am Allergies: Coded Allergies: FENTANYL (Unverified Allergy, Unknown, 08/20/17) KETOROLAC (Unverified Allergy, Unknown, 08/20/17) NAPROXEN (Unverified Allergy, Unknown, 08/20/17) PENICILLINS (Unverified Allergy, Unknown, 08/20/17) Subjective Constitutional: Reports: weakness HEENT: Reports: no symptoms Cardiovascular: Reports: no symptoms Respiratory: Reports: no symptoms Gastrointestinal/Abdominal: Reports: abdominal pain Genitourinary: Reports: no symptoms Neurologic/Psychiatric: Reports: weakness Endocrine: Reports: no symptoms Subjective Patient is in bed continues to c/o pain and reports that the pain has been tolerated on the [place] and Dilaudid. Scheduled for a colonoscopy with GI today. He has no new complaints at this time Objective Last 24 Hour Vital Signs Date Time Temp Pulse Resp B/P (MAP) Pulse Ox O2 Delivery O2 Flow Rate FiO2 08/21/18 08:00 96.8 68 20 111/73 (86) 94 08/21/18 04:00 97.2 70 20 121/76 (91) 95 08/21/18 00:00 97.7 72 20 124/81 (95) 96 08/20/18 21:00 Room Air 08/20/18 20:00 97.3 77 20 128/83 (98) 97 08/20/18 17:59 97.2 08/20/18 15:58 97.2 76 18 110/76 (87) 94 08/20/18 13:37 98.6 08/20/18 11:50 98.6 73 18 129/72 (91) 95 08/20/18 09:47 98.6 08/20/18 09:17 77 142/82 08/20/18 09:00 Room Air Intake and Output 08/20/18 08/21/18 18:59 06:59 Intake Total 1425 ml 750 ml Output Total 1200 ml Balance 225 ml 750 ml Intake Oral 600 ml IV Total 825 ml 750 ml Output Urine Total 1200 ml # Voids 2 # Bowel Movements 1 1 Height (Feet): 6 Height (Inches): 1.00 Weight (Pounds): 280 Objective General Appearance: no apparent distress, alert EENT: PERRL/EOMI, normal ENT inspection Neck: non-tender, normal alignment Cardiovascular: normal rate, regular rhythm Abdomen: non tender, soft Extremities: non-tender Edema: trace edema Neurologic: alert, responsive Skin: normal pigmentation Khari Harrison Aug 21, 2018 08:35
[2018-08-21] MEDS: BusPIRone 5mg Tab ORAL SCH ×2 (08:47→17:34)
[2018-08-21] MEDS: Heparin 5000 units/ml inj SUBQ SCH ×2 (08:48→20:41)
[2018-08-21 08:53] LABS: BASOPHILS % (AUTO) 0.9 % (0.0-2.0); EOSINOPHILS % (AUTO) 1.3 % (0.0-3.0); HEMATOCRIT 40.9 % (42.0-52.0); HEMOGLOBIN 14.5 G/DL (14.2-18.0); LYMPHOCYTES % (AUTO) 33.4 % (20.0-45.0); MEAN CORPUSCULAR VOLUME 89 FL (80-99); MONOCYTES % (AUTO) 8.1 % (1.0-10.0); NEUTROPHILS % (AUTO) 56.3 % (45.0-75.0); PLATELET COUNT 267 K/UL (150-450); RED BLOOD COUNT 4.58 M/UL (4.70-6.10); RED CELL DISTRIBUTION WIDTH 11.6 % (11.6-14.8); WHITE BLOOD COUNT 10.3 K/UL (4.8-10.8)
[2018-08-21 09:12] LABS: ANION GAP 10 mmol/L (5-15); BLOOD UREA NITROGEN 15 mg/dL (7-18); CALCIUM 8.7 MG/DL (8.5-10.1); CARBON DIOXIDE 24 MMOL/L (21-32); CHLORIDE 104 MMOL/L (98-107); CREATININE 0.9 MG/DL (0.55-1.30); POTASSIUM 3.5 MMOL/L (3.5-5.1); SODIUM 138 MMOL/L (136-145)
--- NOTE | 2018-08-21 10:51 | Pulmonology Progress Note ---
Assessment/Plan Problems: (1) Abdominal pain (2) UTI (urinary tract infection) (3) Psychiatric disorder Assessment/Plan iv fluids npo GI evaluation for endoscopy today check urine cultures symptomatic treatment check cbc and bmp in am Subjective ROS Limited/Unobtainable: No Constitutional: Reports: no symptoms HEENT: Repors: no symptoms Allergies: Coded Allergies: FENTANYL (Unverified Allergy, Unknown, 08/20/17) KETOROLAC (Unverified Allergy, Unknown, 08/20/17) NAPROXEN (Unverified Allergy, Unknown, 08/20/17) PENICILLINS (Unverified Allergy, Unknown, 08/20/17) Objective Last 24 Hour Vital Signs Date Time Temp Pulse Resp B/P (MAP) Pulse Ox O2 Delivery O2 Flow Rate FiO2 08/21/18 10:03 96.8 08/21/18 09:05 Room Air 08/21/18 08:47 68 111/73 08/21/18 08:00 96.8 68 20 111/73 (86) 94 08/21/18 04:00 97.2 70 20 121/76 (91) 95 08/21/18 00:00 97.7 72 20 124/81 (95) 96 08/20/18 21:00 Room Air 08/20/18 20:00 97.3 77 20 128/83 (98) 97 08/20/18 15:58 97.2 76 18 110/76 (87) 94 08/20/18 13:37 98.6 08/20/18 11:50 98.6 73 18 129/72 (91) 95 Intake and Output 08/20/18 08/21/18 18:59 06:59 Intake Total 1425 ml 750 ml Output Total 1200 ml Balance 225 ml 750 ml Intake Oral 600 ml IV Total 825 ml 750 ml Output Urine Total 1200 ml # Voids 2 # Bowel Movements 1 1 General Appearance: WD/WN HEENT: normocephalic, atraumatic Respiratory/Chest: chest wall non-tender, normal breath sounds Cardiovascular: normal peripheral pulses, normal rate Abdomen: normal bowel sounds, no organomegaly Genitourinary: normal external genitalia Skin: no rash Microbiology Date/Time Source Procedure Growth Status 08/19/18 17:45 Urine,Clean Catch Urine Culture - Preliminary NO GROWTH AFTER 24 HOURS Resulted 08/19/18 21:00 Rectum Received Laboratory Tests 08/21/18 06:39: White Blood Count 10.3, Red Blood Count 4.58L, Hemoglobin 14.5, Hematocrit 40.9L , Mean Corpuscular Volume 89, Mean Corpuscular Hemoglobin 31.8H, Mean Corpuscular Hemoglobin Concent 35.6, Red Cell Distribution Width 11.6, Platelet Count 267, Mean Platelet Volume 6.8, Neutrophils (%) (Auto) 56.3, Lymphocytes (% ) (Auto) 33.4, Monocytes (%) (Auto) 8.1, Eosinophils (%) (Auto) 1.3, Basophils ( %) (Auto) 0.9, Sodium Level 138, Potassium Level 3.5, Chloride Level 104, Carbon Dioxide Level 24, Anion Gap 10, Blood Urea Nitrogen 15, Creatinine 0.9, Estimat Glomerular Filtration Rate > 60, Glucose Level 97, Calcium Level 8.7 Current Medications Medications (Trade) Dose Ordered Sig/Paul Route PRN Reason Start Time Stop Time Status Last Admin Dose Admin Acetaminophen (Tylenol) 650 mg Q4H PRN ORAL fever 08/19/18 20:00 09/18/18 19:59 Acetaminophen (Tylenol) 650 mg Q4H PRN ORAL Mild Pain (Pain Scale 1-3) 08/21/18 08:00 08/21/18 12:00 Acetaminophen/ Hydrocodone Bitart ([place] 10/325) 1 tab Q6H PRN ORAL Moderate Pain (Pain Scale 4-6) 08/20/18 14:15 08/27/18 14:14 Amlodipine Besylate (Norvasc) 5 mg DAILY ORAL 08/20/18 09:00 09/19/18 08:59 08/20/18 09:17 Baclofen (Lioresal) 15 mg THREE TIMES A DAY ORAL 08/20/18 09:00 09/19/18 08:59 08/20/18 17:29 Buspirone HCl (Buspar) 10 mg TWICE A DAY ORAL 08/20/18 09:00 09/19/18 08:59 08/20/18 17:28 Dextrose (Dextrose 50%) 25 ml Q30M PRN IV Hypoglycemia 08/19/18 20:00 09/18/18 19:59 Dextrose (Dextrose 50%) 50 ml Q30M PRN IV Hypoglycemia 08/19/18 20:00 09/18/18 19:59 Dextrose/ Electrolytes 1,000 ml @ 75 mls/hr [id number] IV 08/20/18 16:00 09/19/18 15:59 08/20/18 16:23 Diphenhydramine HCl (Benadryl) 25 mg Q15M PRN IVP Itching 08/21/18 08:00 08/21/18 12:00 Diphenhydramine HCl (Benadryl) 25 mg Q6H PRN ORAL Itching/Pruritis 08/19/18 20:00 09/18/18 19:59 Famotidine (Pepcid) 20 mg BID ORAL 08/19/18 23:00 09/18/18 22:59 08/20/18 17:28 Fluoxetine HCl (PROzac) 20 mg DAILY ORAL 08/20/18 09:00 09/19/18 08:59 08/20/18 09:17 Heparin Sodium (Porcine) (Heparin 5000 units/ml) 5,000 units EVERY 12 HOURS SUBQ 08/19/18 21:00 09/18/18 20:59 08/20/18 21:29 Hydralazine HCl (Apresoline) 5 mg Q30M PRN IV SBP>160 OR___/DBP>90 OR___ 08/21/18 08:00 08/21/18 12:00 Hydromorphone HCl (Dilaudid) 1 mg Q4H PRN IVP Severe Pain (Pain Scale 7-10) 08/20/18 16:30 08/27/18 12:29 08/21/18 09:33 Iopamidol (Isovue-300 100ml) 100 ml NOW PRN INJ Radiology Procedure 08/19/18 17:30 08/21/18 17:29 Lactated Ringer's 1,000 ml @ 10 mls/hr Q24H IVLG 08/21/18 07:52 08/21/18 12:00 Naloxegol (Movantik) 25 mg ACBREAKFAST ORAL 08/20/18 16:00 09/19/18 15:59 08/21/18 06:04 Nitroglycerin (Ntg) 0.4 mg Q5M X 3 DOSES PRN SL Prn Chest Pain 08/19/18 20:00 09/18/18 19:59 Ondansetron HCl (Zofran) 4 mg Q1H PRN IVP Nausea & Vomiting 08/21/18 08:00 08/21/18 12:00 Ondansetron HCl (Zofran) 4 mg Q6H PRN IVP Nausea & Vomiting 08/19/18 20:00 09/18/18 19:59 Polyethylene Glycol (Miralax) 17 gm HSPRN PRN ORAL Constipation 08/19/18 20:00 09/18/18 19:59 08/20/18 23:13 Sucralfate (Carafate) 1 gm Q6H PRN ORAL Burning Abdominal Pain 08/19/18 23:00 09/18/18 22:59 08/20/18 05:50 Temazepam (Restoril) 15 mg HSPRN PRN ORAL Insomnia 08/19/18 20:00 08/26/18 19:59 Javi Viveros MD Aug 21, 2018 10:51
--- NOTE | 2018-08-21 11:26 | Pre-Procedure Note/Attestation ---
Pre-Procedure Note/Attestation Complete Prior to Procedure Planned Procedure: not applicable Procedure Narrative: colonoscopy Indications for Procedure Pre-Operative Diagnosis: abd pain Attestation I attest that I discussed the nature of the procedure; its benefits; risks and complications; and alternatives (and the risks and benefits of such alternatives ), prior to the procedure, with the patient (or the patient's legal special service representative). I attest that, if there was a reasonable possibility of needing a blood transfusion, the patient (or the patient's legal special service representative) was given the [facility] standardized written summary, pursuant to the [place] Blood Safety Act ([place] Health and Safety Code # 1645, as amended). I attest that I re-evaluated the patient just prior to the surgery and that there has been no change in the patient's H&P, except as documented below: Camden Ramos MD Aug 21, 2018 11:26
[2018-08-21] MEDS ORDERED: Lidocaine 1% MPF 10mg/ml 5ml ONE (12:00)
[2018-08-21] MEDS ORDERED: Propofol 200mg/20ml IV ONE (12:00)
--- NOTE | 2018-08-21 12:16 | NUR ---
NURSE NOTES: npo maintained. to gi lab via jeb.
[2018-08-21] MEDS ORDERED: NS 500ML IVPB ONE (12:20)
--- NOTE | 2018-08-21 12:45 | Endoscopy Procedure Note ---
Endoscopy Procedure Note General Indication for Procedure: abd pain Procedures Performed: colonoscopy Operative Findings/Diagnosis: 4 polyps Specimen: yes Pt Tolerated Procedure Well: Yes Estimated Blood Loss: none Anesthesia Anesthesiologist: rosemary Anesthesia: MAC Inserted Devices Implant(s) used?: No Quality Quality of Bowel Preparation: Fair Did scope reach the cecum?: Yes Was there any complications?: No GI Core Measures 50 yrs or older w/o bx or poly: Not Applicable 10yrs. F/U recommended: Not Applicable Camden Ramos MD Aug 21, 2018 12:45
--- NOTE | 2018-08-21 12:52 | Immediate Post-Op Evaluation ---
Immediate Post-Op Evalulation Immediate Post-Op Evalulation Procedure: Colonoscopy Date of Evaluation: Aug 21, 2018 Time of Evaluation: 12:54 IV Fluids: 300 Blood Products: 0 Estimated Blood Loss: 0 Urinary Output: 0 Blood Pressure Systolic: 101 Blood Pressure Diastolic: 61 Pulse Rate: 63 Respiratory Rate: 17 O2 Sat by Pulse Oximetry: 100 Temperature (Fahrenheit): 97.3 Pain Score (1-10): 0 Nausea: No Vomiting: No Complications 0 Patient Status: awake, reacts Hydration Status: adequate Drug: N/A Yaneth James MD Aug 21, 2018 12:52
--- NOTE | 2018-08-21 12:53 | 48 Hour Post Anesthesia Eval ---
Post Anesthesia Evaluation Procedure: Colonoscopy Date of Evaluation: Aug 21, 2018 Airway: patent Nausea: No Vomiting: No Hydration Status: adequate Cardiopulmonary Status: at baseline Mental Status/LOC: patient returned to baseline Post-Anesthesia Complications: 0 Follow-up care needed: N/A - further care as per primary team Yaneth James MD Aug 21, 2018 12:53
--- NOTE | 2018-08-21 13:10 | NUR ---
NURSE NOTES: REC;D FROM PACU SP COLONOSCOPY. AWAKE ALERT. V/S TAKEN . C/O ABD PAIN. SCALE 10/10/ GIVEN DILAUDID IMG IV ORDERED. WILL CONTINUE TO MONITOR PT. LUCH SERVED. REFUSED TO EAT. FLUIDS GIVEN,
--- NOTE | 2018-08-21 13:52 | Surgery Progress Note ---
Surgery Progress Note Subjective Symptoms: improved, voiding well, passing flatus, pain decreased Objective Last 24 Hour Vital Signs Date Time Temp Pulse Resp B/P (MAP) Pulse Ox O2 Delivery O2 Flow Rate FiO2 08/21/18 13:10 97.2 64 20 130/91 (104) 95 08/21/18 13:08 97.4 63 17 111/64 98 Room Air 08/21/18 13:00 62 17 98/57 98 Room Air 08/21/18 12:55 59 18 97/64 100 Simple Mask 6 08/21/18 12:52 63 17 100 08/21/18 12:49 97.7 63 16 101/61 100 Simple Mask 6 08/21/18 12:01 97.0 70 18 120/70 (87) 96 08/21/18 10:03 96.8 08/21/18 09:05 Room Air 08/21/18 08:47 68 111/73 08/21/18 08:00 96.8 68 20 111/73 (86) 94 08/21/18 04:00 97.2 70 20 121/76 (91) 95 08/21/18 00:00 97.7 72 20 124/81 (95) 96 08/20/18 21:00 Room Air 08/20/18 20:00 97.3 77 20 128/83 (98) 97 08/20/18 15:58 97.2 76 18 110/76 (87) 94 I&O Intake and Output 08/20/18 08/21/18 19:00 07:00 Intake Total 1425 ml 825 ml Output Total 1200 ml Balance 225 ml 825 ml Intake Oral 600 ml IV Total 825 ml 825 ml Output Urine Total 1200 ml # Voids 2 # Bowel Movements 1 1 Cardiovascular: RSR Respiratory: clear Abdomen: soft, flat, non-tender, present bowel sounds, non-distended Extremities: no edema, no tenderness, no cyanosis Laboratory Tests Test 08/21/18 06:39 White Blood Count 10.3 K/UL (4.8-10.8) Red Blood Count 4.58 M/UL (4.70-6.10) L Hemoglobin 14.5 G/DL (14.2-18.0) Hematocrit 40.9 % (42.0-52.0) L Mean Corpuscular Volume 89 FL (80-99) Mean Corpuscular Hemoglobin 31.8 PG (27.0-31.0) H Mean Corpuscular Hemoglobin Concent 35.6 G/DL (32.0-36.0) Red Cell Distribution Width 11.6 % (11.6-14.8) Platelet Count 267 K/UL (150-450) Mean Platelet Volume 6.8 FL (6.5-10.1) Neutrophils (%) (Auto) 56.3 % (45.0-75.0) Lymphocytes (%) (Auto) 33.4 % (20.0-45.0) Monocytes (%) (Auto) 8.1 % (1.0-10.0) Eosinophils (%) (Auto) 1.3 % (0.0-3.0) Basophils (%) (Auto) 0.9 % (0.0-2.0) Sodium Level 138 MMOL/L (136-145) Potassium Level 3.5 MMOL/L (3.5-5.1) Chloride Level 104 MMOL/L (98-107) Carbon Dioxide Level 24 MMOL/L (21-32) Anion Gap 10 mmol/L (5-15) Blood Urea Nitrogen 15 mg/dL (7-18) Creatinine 0.9 MG/DL (0.55-1.30) Estimat Glomerular Filtration Rate > 60 mL/min (>60) Glucose Level 97 MG/DL (74-106) Calcium Level 8.7 MG/DL (8.5-10.1) Plan Problems: (1) Diverticulosis (2) Periumbilical hernia (3) Psychiatric disorder (4) UTI (urinary tract infection) (5) COPD (chronic obstructive pulmonary disease) (6) Odynophagia (7) Constipation (8) Abdominal pain Assessment & Plan: 68 year old male with 2 weeks of cramping abdominal pain. no n/v/f/c leukocytosis UTI CT w/ Findings: The lung bases are clear. Cholecystectomy clips noted. There is a small hypodensity in the right kidney measuring about 1 cm likely cystic. There is no hydronephrosis. The patient has had extensive hardware and multilevel laminectomy within the lumbar spine. Resultant streak artifact limits evaluation. There is an umbilical hernia containing fat and some small bowel. Appendix is not definitely seen but there are no secondary signs of acute appendicitis. Bowel gas pattern is nonobstructive. Aortoiliac calcifications are present. Small cystic focus noted within the spleen. The liver is unremarkable. The pancreas and adrenal glands are unremarkable. exam benign. abd soft, nt/nd, bs+ hx of gastric ulcers? - no acute surgical intervention planned -IV abx as per ID -okay for diet -PPI -IV fluids -trend labs will follow with recs thank you (9) Severe malnutrition (10) Nausea & vomiting Balwinder Marc Aug 21, 2018 13:52
--- NOTE | 2018-08-21 14:31 | General Progress Note ---
Assessment/Plan Problem List: (1) Diverticulosis ICD Codes: K57.90 - Diverticulosis of intestine, part unspecified, without perforation or abscess without bleeding SNOMED: 391616108 (2) UTI (urinary tract infection) ICD Codes: N39.0 - Urinary tract infection, site not specified SNOMED: 41723419 Qualifiers: Qualified Codes: N39.0 - Urinary tract infection, site not specified (3) COPD (chronic obstructive pulmonary disease) ICD Codes: J44.9 - Chronic obstructive pulmonary disease, unspecified SNOMED: 59194351 (4) Abdominal pain ICD Codes: R10.9 - Unspecified abdominal pain SNOMED: 23177783 Qualifiers: Qualified Codes: R10.9 - Unspecified abdominal pain Status: unchanged Assessment/Plan: pt diet abx pain control cbc bmp am Subjective Constitutional: Reports: weakness Allergies: Coded Allergies: FENTANYL (Unverified Allergy, Unknown, 08/20/17) KETOROLAC (Unverified Allergy, Unknown, 08/20/17) NAPROXEN (Unverified Allergy, Unknown, 08/20/17) PENICILLINS (Unverified Allergy, Unknown, 08/20/17) All Systems: reviewed and negative except above Subjective some abd pain Objective Last 24 Hour Vital Signs Date Time Temp Pulse Resp B/P (MAP) Pulse Ox O2 Delivery O2 Flow Rate FiO2 08/21/18 13:55 97.4 08/21/18 13:10 97.2 64 20 130/91 (104) 95 08/21/18 13:08 97.4 63 17 111/64 98 Room Air 08/21/18 13:00 62 17 98/57 98 Room Air 08/21/18 12:55 59 18 97/64 100 Simple Mask 6 08/21/18 12:52 63 17 100 08/21/18 12:49 97.7 63 16 101/61 100 Simple Mask 6 08/21/18 12:01 97.0 70 18 120/70 (87) 96 08/21/18 09:05 Room Air 08/21/18 08:47 68 111/73 08/21/18 08:00 96.8 68 20 111/73 (86) 94 08/21/18 04:00 97.2 70 20 121/76 (91) 95 08/21/18 00:00 97.7 72 20 124/81 (95) 96 08/20/18 21:00 Room Air 08/20/18 20:00 97.3 77 20 128/83 (98) 97 08/20/18 15:58 97.2 76 18 110/76 (87) 94 Intake and Output 08/20/18 08/21/18 19:00 07:00 Intake Total 1425 ml 825 ml Output Total 1200 ml Balance 225 ml 825 ml Intake Oral 600 ml IV Total 825 ml 825 ml Output Urine Total 1200 ml # Voids 2 # Bowel Movements 1 1 Laboratory Tests 08/21/18 06:39: White Blood Count 10.3, Red Blood Count 4.58L, Hemoglobin 14.5, Hematocrit 40.9L , Mean Corpuscular Volume 89, Mean Corpuscular Hemoglobin 31.8H, Mean Corpuscular Hemoglobin Concent 35.6, Red Cell Distribution Width 11.6, Platelet Count 267, Mean Platelet Volume 6.8, Neutrophils (%) (Auto) 56.3, Lymphocytes (% ) (Auto) 33.4, Monocytes (%) (Auto) 8.1, Eosinophils (%) (Auto) 1.3, Basophils ( %) (Auto) 0.9, Sodium Level 138, Potassium Level 3.5, Chloride Level 104, Carbon Dioxide Level 24, Anion Gap 10, Blood Urea Nitrogen 15, Creatinine 0.9, Estimat Glomerular Filtration Rate > 60, Glucose Level 97, Calcium Level 8.7 Height (Feet): 6 Height (Inches): 1.00 Weight (Pounds): 280 General Appearance: lethargic EENT: normal ENT inspection Neck: normal alignment Cardiovascular: normal peripheral pulses, normal rate, regular rhythm Respiratory/Chest: chest wall non-tender, lungs clear, normal breath sounds Abdomen: normal bowel sounds, non tender, soft Extremities: normal inspection Edema: no edema noted Arm (L), no edema noted Arm (R), no edema noted Leg (L), no edema noted Leg (R), no edema noted Pedal (L), no edema noted Pedal (R), no edema noted Generalized Neurologic: responsive, motor weakness Skin: normal pigmentation, warm/dry Miguel Patino DO Aug 21, 2018 14:31
[2018-08-21] MEDS: HYDROcodone/Acetamin 10/325 tab ORAL PRN (15:57)
--- NOTE | 2018-08-21 16:53 | Infectious Diseases Prog Note ---
Assessment/Plan Assessment/Plan Assessment: Abd pain- likely 2ry to GERD/gastritis -CT abd/p w/: No acute findings appreciated. -s/p colonoscopy: 4 polyps removed Afebrile Mild leukocytosis, resolved- likely reactive -u/a no pyuria; ucx NTD -CXR: No acute disease. Minimal left basal atelectasis HTN HLD gastritis/GERD -07/2017 SP -EGD: Diffuse bile-induced gastropathy versus gastritis, status post biopsy, otherwise, normal upper endoscopic examination. --path: mild chronic gastritis with healing erosion and reactive changes. No H. pylori paraplegia chronic back pain 2ry to Lumbar DDD/spondylosis/herniated disc w/ radiculopathy -- s/p lumbar fusion, schizoaffective disorder FTT polyneuropathy SNF resident Plan: -Continue to monitor off abx unless febrile, increasing WBC or HD unstability. -08/19 SP Ceftriaxone x1 -f/u cx -Monitor CBC/CMP, temperatures Thank you for this consultation. Will continue to follow along with you. Discussed with RN. Subjective Allergies: Coded Allergies: FENTANYL (Unverified Allergy, Unknown, 08/20/17) KETOROLAC (Unverified Allergy, Unknown, 08/20/17) NAPROXEN (Unverified Allergy, Unknown, 08/20/17) PENICILLINS (Unverified Allergy, Unknown, 08/20/17) Subjective afebrile leukocytosis resolved s/p colonoscopy today Objective Vital Signs Last 24 Hour Vital Signs Date Time Temp Pulse Resp B/P (MAP) Pulse Ox O2 Delivery O2 Flow Rate FiO2 08/21/18 16:27 97.5 08/21/18 16:00 97.5 64 20 134/85 (101) 94 08/21/18 13:55 97.4 08/21/18 13:10 97.2 64 20 130/91 (104) 95 08/21/18 13:08 97.4 63 17 111/64 98 Room Air 08/21/18 13:00 62 17 98/57 98 Room Air 08/21/18 12:55 59 18 97/64 100 Simple Mask 6 08/21/18 12:52 63 17 100 08/21/18 12:49 97.7 63 16 101/61 100 Simple Mask 6 08/21/18 12:01 97.0 70 18 120/70 (87) 96 6/26/19 09:05 Room Air 08/21/18 08:47 68 111/73 08/21/18 08:00 96.8 68 20 111/73 (86) 94 08/21/18 04:00 97.2 70 20 121/76 (91) 95 08/21/18 00:00 97.7 72 20 124/81 (95) 96 08/20/18 21:00 Room Air 08/20/18 20:00 97.3 77 20 128/83 (98) 97 Height (Feet): 6 Height (Inches): 1.00 Weight (Pounds): 280 Objective General Appearance: no apparent distress, alert Head: normocephalic, atraumatic Eyes: bilateral eye normal inspection, bilateral eye PERRL ENT: hearing grossly normal, normal pharynx, no angioedema, normal voice Neck: full range of motion, supple/symm/no masses Respiratory: chest non-tender, lungs clear, normal breath sounds, speaking full sentences Gastrointestinal: normal bowel sounds, soft, non-distended, no guarding, no rebound, tenderness Genitourinary: normal inspection, no CVA tenderness Musculoskeletal: back normal, gait/station normal, normal range of motion, non- tender Neurologic: alert, oriented x3, responsive, motor strength/tone normal, sensory intact, speech normal Psychiatric: judgement/insight normal, memory normal, mood/affect normal, no suicidal/homicidal ideation Skin: normal color, no rash, warm/dry, well hydrated Microbiology Date/Time Source Procedure Growth Status 08/19/18 17:45 Urine,Clean Catch Urine Culture - Preliminary NO GROWTH AFTER 24 HOURS Resulted 08/19/18 21:00 Rectum Received Laboratory Tests Test 08/21/18 06:39 White Blood Count 10.3 K/UL (4.8-10.8) Red Blood Count 4.58 M/UL (4.70-6.10) L Hemoglobin 14.5 G/DL (14.2-18.0) Hematocrit 40.9 % (42.0-52.0) L Mean Corpuscular Volume 89 FL (80-99) Mean Corpuscular Hemoglobin 31.8 PG (27.0-31.0) H Mean Corpuscular Hemoglobin Concent 35.6 G/DL (32.0-36.0) Red Cell Distribution Width 11.6 % (11.6-14.8) Platelet Count 267 K/UL (150-450) Mean Platelet Volume 6.8 FL (6.5-10.1) Neutrophils (%) (Auto) 56.3 % (45.0-75.0) Lymphocytes (%) (Auto) 33.4 % (20.0-45.0) Monocytes (%) (Auto) 8.1 % (1.0-10.0) Eosinophils (%) (Auto) 1.3 % (0.0-3.0) Basophils (%) (Auto) 0.9 % (0.0-2.0) Sodium Level 138 MMOL/L (136-145) Potassium Level 3.5 MMOL/L (3.5-5.1) Chloride Level 104 MMOL/L (98-107) Carbon Dioxide Level 24 MMOL/L (21-32) Anion Gap 10 mmol/L (5-15) Blood Urea Nitrogen 15 mg/dL (7-18) Creatinine 0.9 MG/DL (0.55-1.30) Estimat Glomerular Filtration Rate > 60 mL/min (>60) Glucose Level 97 MG/DL (74-106) Calcium Level 8.7 MG/DL (8.5-10.1) Current Medications Medications (Trade) Dose Ordered Sig/Paul Route PRN Reason Start Time Stop Time Status Last Admin Dose Admin Acetaminophen (Tylenol) 650 mg Q4H PRN ORAL fever 08/19/18 20:00 09/18/18 19:59 Acetaminophen/ Hydrocodone Bitart ([place] 10/325) 1 tab Q6H PRN ORAL Moderate Pain (Pain Scale 4-6) 08/20/18 14:15 08/27/18 14:14 08/21/18 15:57 Amlodipine Besylate (Norvasc) 5 mg DAILY ORAL 08/20/18 09:00 09/19/18 08:59 08/20/18 09:17 Baclofen (Lioresal) 15 mg THREE TIMES A DAY ORAL 08/20/18 09:00 09/19/18 08:59 08/21/18 13:25 Buspirone HCl (Buspar) 10 mg TWICE A DAY ORAL 08/20/18 09:00 09/19/18 08:59 08/20/18 17:28 Dextrose (Dextrose 50%) 25 ml Q30M PRN IV Hypoglycemia 08/19/18 20:00 09/18/18 19:59 Dextrose (Dextrose 50%) 50 ml Q30M PRN IV Hypoglycemia 08/19/18 20:00 09/18/18 19:59 Dextrose/ Electrolytes 1,000 ml @ 75 mls/hr [id number] IV 08/20/18 16:00 09/19/18 15:59 08/21/18 13:27 Diphenhydramine HCl (Benadryl) 25 mg Q6H PRN ORAL Itching/Pruritis 08/19/18 20:00 09/18/18 19:59 Famotidine (Pepcid) 20 mg BID ORAL 08/19/18 23:00 09/18/18 22:59 08/20/18 17:28 Fluoxetine HCl (PROzac) 20 mg DAILY ORAL 08/20/18 09:00 09/19/18 08:59 08/20/18 09:17 Heparin Sodium (Porcine) (Heparin 5000 units/ml) 5,000 units EVERY 12 HOURS SUBQ 08/19/18 21:00 09/18/18 20:59 08/20/18 21:29 Hydromorphone HCl (Dilaudid) 1 mg Q4H PRN IVP Severe Pain (Pain Scale 7-10) 08/20/18 16:30 08/27/18 12:29 08/21/18 13:25 Iopamidol (Isovue-300 100ml) 100 ml NOW PRN INJ Radiology Procedure 08/19/18 17:30 08/21/18 17:29 Naloxegol (Movantik) 25 mg ACBREAKFAST ORAL 08/20/18 16:00 09/19/18 15:59 08/21/18 06:04 Nitroglycerin (Ntg) 0.4 mg Q5M X 3 DOSES PRN SL Prn Chest Pain 08/19/18 20:00 09/18/18 19:59 Ondansetron HCl (Zofran) 4 mg Q6H PRN IVP Nausea & Vomiting 08/19/18 20:00 09/18/18 19:59 Polyethylene Glycol (Miralax) 17 gm HSPRN PRN ORAL Constipation 08/19/18 20:00 09/18/18 19:59 08/20/18 23:13 Sucralfate (Carafate) 1 gm Q6H PRN ORAL Burning Abdominal Pain 08/19/18 23:00 09/18/18 22:59 08/20/18 05:50 Temazepam (Restoril) 15 mg HSPRN PRN ORAL Insomnia 08/19/18 20:00 08/26/18 19:59 Lynette Nichole M.D. Aug 21, 2018 16:53
[2018-08-21] MEDS ORDERED: ATORVASTATIN CA20 MG ORAL (18:28)
[2018-08-21] MEDS ORDERED: LIDOCAINE 5% OINT TOPIC (18:34)
[2018-08-21] MEDS ORDERED: BENADRYL25 M3 PO (18:37)
[2018-08-21] MEDS ORDERED: FLUOXETINE HCL10 MG ORAL (18:38)
[2018-08-21] MEDS ORDERED: RISPERDAL0.5 MG ORAL (18:39)
--- NOTE | 2018-08-21 19:00 | NUR ---
NURSE NOTES: resting in bed. in no apparent distress.
--- NOTE | 2018-08-21 19:34 | NUR ---
HAND-OFF: Report given to Natalie PAUL RN.
--- NOTE | 2018-08-21 20:01 | NUR ---
CASE MANAGEMENT: REVIEW SI: ABDOMINAL PAIN . UTI COLONOSCOPY W/BIOPSY 4 POLYPS REMOVED 08/21 T 97.4 HR 63 RR 17 BP 98/57 SAT 98% ROOM AIR CXR: NO ACUTE DISEASE . MINIMAL LEFT BASAL ATELECTASIS IS: D5 1/2NS w/KCl 20MEQ IVF @75ML/HR NALOXEGOL PO QD CARAFATE PO PRN BACLOFEN PO TID [place] 10/325 PO QD NPO MED/SURG STATUS DCP: PATIENT IS FROM [facility]
--- NOTE | 2018-08-21 20:30 | NUR ---
NURSE NOTES: Pt is in bed, awake and verbal. No acute distress noted. Vitals stable. S/p Colonoscopy. Pt complains of pain, pain medication will be given as ordered PRN. Pt is instructed to call for assistance before getting out of bed. Bed alarm on. Bed locked low in position,side rails up and call light within reach. pt will be monitored.
[2018-08-21] MEDS: Sucralfate 1gm tab ORAL PRN (20:37)
--- NOTE | 2018-08-21 21:15 | Procedure Note ---
SURGEON: Camden Ramos M.D. PROCEDURE: Colonoscopy with biopsy. ANESTHESIA: Per Dr. Gann. INSTRUMENT: Olympus adult flexible colonoscope. INDICATION: Abdominal pain and screening. REASON FOR PROCEDURE: The procedure, risks, benefits, and possible consequences, including hemorrhage, aspiration, perforation and infection, and alternative treatments, were explained to the patient/legal guardian by Dr. Camden Ramos and the patient/legal guardian understood and accepted these risks. DESCRIPTION OF PROCEDURE: After informed consent was obtained and the patient was adequately sedated, first rectal exam was performed which was normal. Then, the scope was advanced from the rectum into the proximal ascending colon. We could see the cecal valve. After extensive bowel pressure, we could not get to the cecum. Quality of the prep was fair. There was, I would say maybe about 15% of the colonic mucosa was not examined given this prep. The patient had 4 total diminutive polyps, 2 in transverse colon and 2 in the ascending colon, all 4 of them removed with the cold biopsy forceps technique. The patient had scattered diverticulosis. No obvious diverticulitis. No obvious mass or source of bleeding. Retroflexion of rectum showed evidence of internal hemorrhoids. SUMMARY OF FINDINGS: 1. Fair colonic prep. 2. Four colonic polyps removed. 3. Scattered diverticulosis. 4. Internal hemorrhoids. RECOMMENDATIONS: 1. Follow up pathology. 2. Recommend repeat colonoscopy in 3 years. I want to thank, Dr. Miguel Patino, for this kind referral. Camden Ramos M.D. DR: MOLLY JOB#: [id number] CC: Miguel Patino D.O.
[2018-08-22] VITALS: BP 129/83
--- NOTE | 2018-08-22 03:04 | NUR ---
NURSE NOTES: Pt is in bed, asleep. No acute distress noted.
[2018-08-22 04:00] VITALS: BP 105/73
[2018-08-22] MEDS ORDERED: LORazepam 1mg tab ORAL PRN (05:30)
[2018-08-22] MEDS: Naloxegol Oxalate 25mg tab ORAL SCH (05:53)
[2018-08-22] MEDS: D5 1/2NS w/KCl 20mEq 1,000 ML IV SCH ×2 (05:53→20:20)
--- NOTE | 2018-08-22 07:18 | NUR ---
HAND-OFF: Report given to CARMEN Tay.
--- NOTE | 2018-08-22 07:30 | NUR ---
NURSE NOTES: Received pt from RN LI. Pt is alert and orient x4. pt is in RA, No SOB or acute respiratory distress noted. pt has intact iv access LAC 20G is running well. Pt is eating breakfast independently. pt is still in pain. all needs attended, bed is locked and is in the lowest position. call light within easy reach. will continue to monitor.
[2018-08-22 07:37] LABS: EOSINOPHILS % (AUTO) 1.3 % (0.0-3.0); HEMATOCRIT 42.2 % (42.0-52.0); HEMOGLOBIN 15.1 G/DL (14.2-18.0); LYMPHOCYTES % (AUTO) 29.9 % (20.0-45.0); MEAN CORPUSCULAR VOLUME 89 FL (80-99); MONOCYTES % (AUTO) 7.5 % (1.0-10.0); NEUTROPHILS % (AUTO) 60.2 % (45.0-75.0); PLATELET COUNT 268 K/UL (150-450); RED BLOOD COUNT 4.76 M/UL (4.70-6.10); RED CELL DISTRIBUTION WIDTH 11.2 % (11.6-14.8); WHITE BLOOD COUNT 10.9 K/UL (4.8-10.8)
[2018-08-22 07:53] LABS: ANION GAP 12 mmol/L (5-15); BLOOD UREA NITROGEN 13 mg/dL (7-18); CARBON DIOXIDE 24 MMOL/L (21-32); CHLORIDE 101 MMOL/L (98-107); CREATININE 0.9 MG/DL (0.55-1.30); POTASSIUM 3.5 MMOL/L (3.5-5.1); SODIUM 136 MMOL/L (136-145)
[2018-08-22 08:00] VITALS: BP 116/75
--- NOTE | 2018-08-22 08:30 | General Progress Note ---
Assessment/Plan Problem List: (1) Nausea & vomiting ICD Codes: R11.2 - Nausea with vomiting, unspecified SNOMED: 30971860 (2) Abdominal pain ICD Codes: R10.9 - Unspecified abdominal pain SNOMED: 45049411 Qualifiers: Qualified Codes: R10.9 - Unspecified abdominal pain (3) Constipation ICD Codes: K59.00 - Constipation, unspecified SNOMED: 66268719 (4) COPD (chronic obstructive pulmonary disease) ICD Codes: J44.9 - Chronic obstructive pulmonary disease, unspecified SNOMED: 14333268 (5) Psychiatric disorder ICD Codes: F99 - Mental disorder, not otherwise specified SNOMED: 83641107, 743051588 Status: unchanged Assessment/Plan: colonoscopy: SUMMARY OF FINDINGS: 1. Fair colonic prep. 2. Four colonic polyps removed. 3. Scattered diverticulosis. 4. Internal hemorrhoids. RECOMMENDATIONS: 1. Follow up pathology. 2. Recommend repeat colonoscopy in 3 years. ok to dc GI stand point Subjective ROS Limited/Unobtainable: Yes Allergies: Coded Allergies: FENTANYL (Unverified Allergy, Unknown, 08/20/17) KETOROLAC (Unverified Allergy, Unknown, 08/20/17) NAPROXEN (Unverified Allergy, Unknown, 08/20/17) PENICILLINS (Unverified Allergy, Unknown, 08/20/17) Objective Last 24 Hour Vital Signs Date Time Temp Pulse Resp B/P (MAP) Pulse Ox O2 Delivery O2 Flow Rate FiO2 08/22/18 04:00 97.0 81 18 105/73 (84) 95 08/22/18 00:00 97.1 69 18 129/83 (98) 95 08/21/18 21:00 Room Air 08/21/18 20:00 97.0 64 18 121/80 (94) 98 08/21/18 18:05 97.5 08/21/18 16:27 97.5 08/21/18 16:00 97.5 64 20 134/85 (101) 94 08/21/18 13:10 97.2 64 20 130/91 (104) 95 08/21/18 13:08 97.4 63 17 111/64 98 Room Air 08/21/18 13:00 62 17 98/57 98 Room Air 08/21/18 12:55 59 18 97/64 100 Simple Mask 6 08/21/18 12:52 63 17 100 08/21/18 12:49 97.7 63 16 101/61 100 Simple Mask 6 08/21/18 12:01 97.0 70 18 120/70 (87) 96 08/21/18 09:05 Room Air 08/21/18 08:47 68 111/73 Intake and Output 08/21/18 08/22/18 18:59 06:59 Intake Total 1577.5 ml 675 ml Output Total 850 ml 250 ml Balance 727.5 ml 425 ml Intake Oral 440 ml IV Total 1137.5 ml 675 ml Output Urine Total 850 ml 250 ml Estimated Blood Loss 0 ml # Voids 3 Laboratory Tests 08/22/18 05:51: White Blood Count 10.9H, Red Blood Count 4.76, Hemoglobin 15.1, Hematocrit 42.2 , Mean Corpuscular Volume 89, Mean Corpuscular Hemoglobin 31.8H, Mean Corpuscular Hemoglobin Concent 35.8, Red Cell Distribution Width 11.2L, Platelet Count 268, Mean Platelet Volume 7.2, Neutrophils (%) (Auto) 60.2, Lymphocytes (%) (Auto) 29.9, Monocytes (%) (Auto) 7.5, Eosinophils (%) (Auto) 1.3, Basophils (%) (Auto) 1.0, Sodium Level 136, Potassium Level 3.5, Chloride Level 101, Carbon Dioxide Level 24, Anion Gap 12, Blood Urea Nitrogen 13, Creatinine 0.9, Estimat Glomerular Filtration Rate > 60, Glucose Level 87, Calcium Level 9.0 Height (Feet): 6 Height (Inches): 1.00 Weight (Pounds): 280 General Appearance: alert EENT: normal ENT inspection Neck: supple Cardiovascular: normal rate Respiratory/Chest: lungs clear Abdomen: normal bowel sounds, non tender, soft Extremities: non-tender Camden Ramos MD Aug 22, 2018 08:30
--- NOTE | 2018-08-22 08:56 | General Progress Note ---
Assessment/Plan Status: unchanged Assessment/Plan: (1) Lumbar DDD (2) Lumbar Spondylosis (3) Lumbar Radiculopathy (4) Lumbar Herniated disc (5) H/O Lumbar fusion (6) Paraparesis Patient to be continued on Dilaudid and [place]. D/w Dr. Swift and he concurred Subjective Date patient seen: Aug 22, 2018 Time patient seen: 08:00 - am Allergies: Coded Allergies: FENTANYL (Unverified Allergy, Unknown, 08/20/17) KETOROLAC (Unverified Allergy, Unknown, 08/20/17) NAPROXEN (Unverified Allergy, Unknown, 08/20/17) PENICILLINS (Unverified Allergy, Unknown, 08/20/17) Subjective Constitutional: Reports: weakness HEENT: Reports: no symptoms Cardiovascular: Reports: no symptoms Respiratory: Reports: no symptoms Gastrointestinal/Abdominal: Reports: abdominal pain Genitourinary: Reports: no symptoms Neurologic/Psychiatric: Reports: weakness Endocrine: Reports: no symptoms Subjective Patient has been doing better. Continues to c/o pain which has been tolerated on the [place] and Dilaudid. S/p colonoscopy. No new complaints at this time. Objective Last 24 Hour Vital Signs Date Time Temp Pulse Resp B/P (MAP) Pulse Ox O2 Delivery O2 Flow Rate FiO2 08/22/18 04:00 97.0 81 18 105/73 (84) 95 08/22/18 00:00 97.1 69 18 129/83 (98) 95 08/21/18 21:00 Room Air 08/21/18 20:00 97.0 64 18 121/80 (94) 98 08/21/18 18:05 97.5 08/21/18 16:27 97.5 08/21/18 16:00 97.5 64 20 134/85 (101) 94 08/21/18 13:10 97.2 64 20 130/91 (104) 95 08/21/18 13:08 97.4 63 17 111/64 98 Room Air 08/21/18 13:00 62 17 98/57 98 Room Air 08/21/18 12:55 59 18 97/64 100 Simple Mask 6 08/21/18 12:52 63 17 100 08/21/18 12:49 97.7 63 16 101/61 100 Simple Mask 6 08/21/18 12:01 97.0 70 18 120/70 (87) 96 08/21/18 09:05 Room Air Intake and Output 08/21/18 08/22/18 19:00 07:00 Intake Total 1577.5 ml 675 ml Output Total 850 ml 250 ml Balance 727.5 ml 425 ml Intake Oral 440 ml IV Total 1137.5 ml 675 ml Output Urine Total 850 ml 250 ml Estimated Blood Loss 0 ml # Voids 3 Laboratory Tests 08/22/18 05:51: White Blood Count 10.9H, Red Blood Count 4.76, Hemoglobin 15.1, Hematocrit 42.2 , Mean Corpuscular Volume 89, Mean Corpuscular Hemoglobin 31.8H, Mean Corpuscular Hemoglobin Concent 35.8, Red Cell Distribution Width 11.2L, Platelet Count 268, Mean Platelet Volume 7.2, Neutrophils (%) (Auto) 60.2, Lymphocytes (%) (Auto) 29.9, Monocytes (%) (Auto) 7.5, Eosinophils (%) (Auto) 1.3, Basophils (%) (Auto) 1.0, Sodium Level 136, Potassium Level 3.5, Chloride Level 101, Carbon Dioxide Level 24, Anion Gap 12, Blood Urea Nitrogen 13, Creatinine 0.9, Estimat Glomerular Filtration Rate > 60, Glucose Level 87, Calcium Level 9.0 Height (Feet): 6 Height (Inches): 1.00 Weight (Pounds): 280 Objective General Appearance: no apparent distress, alert EENT: PERRL/EOMI, normal ENT inspection Neck: non-tender, normal alignment Cardiovascular: normal rate, regular rhythm Abdomen: non tender, soft Extremities: non-tender Edema: trace edema Neurologic: alert, responsive Skin: normal pigmentation Khari Harrison Aug 22, 2018 08:56
[2018-08-22] MEDS: BusPIRone 5mg Tab ORAL SCH ×2 (09:04→17:21)
[2018-08-22] MEDS: HYDROcodone/Acetamin 10/325 tab ORAL PRN (09:04)
[2018-08-22] MEDS: Heparin 5000 units/ml inj SUBQ SCH ×2 (09:08→20:21)
--- NOTE | 2018-08-22 10:33 | Infectious Diseases Prog Note ---
Assessment/Plan Assessment/Plan Assessment: Abd pain- likely 2ry to GERD/gastritis -CT abd/p w/: No acute findings appreciated. -s/p colonoscopy: 4 polyps removed Afebrile Mild leukocytosis, resolved- likely reactive -u/a no pyuria; ucx <10k Diptheroids(colonizers) -CXR: No acute disease. Minimal left basal atelectasis HTN HLD gastritis/GERD -07/2017 SP -EGD: Diffuse bile-induced gastropathy versus gastritis, status post biopsy, otherwise, normal upper endoscopic examination. --path: mild chronic gastritis with healing erosion and reactive changes. No H. pylori paraplegia chronic back pain 2ry to Lumbar DDD/spondylosis/herniated disc w/ radiculopathy -- s/p lumbar fusion, schizoaffective disorder FTT polyneuropathy SNF resident Plan: -Continue to monitor off abx unless febrile, increasing WBC or HD unstability. -08/19 SP Ceftriaxone x1 -f/u cx -Monitor CBC/CMP, temperatures Thank you for this consultation. Will continue to follow along with you. Discussed with RN. Subjective Allergies: Coded Allergies: FENTANYL (Unverified Allergy, Unknown, 08/20/17) KETOROLAC (Unverified Allergy, Unknown, 08/20/17) NAPROXEN (Unverified Allergy, Unknown, 08/20/17) PENICILLINS (Unverified Allergy, Unknown, 08/20/17) Subjective afebrile mild leukocytosis Objective Vital Signs Last 24 Hour Vital Signs Date Time Temp Pulse Resp B/P (MAP) Pulse Ox O2 Delivery O2 Flow Rate FiO2 08/22/18 09:34 97.7 08/22/18 09:05 85 116/75 08/22/18 09:00 Room Air 08/22/18 08:00 97.7 85 20 116/75 (89) 96 08/22/18 04:00 97.0 81 18 105/73 (84) 95 08/22/18 00:00 97.1 69 18 129/83 (98) 95 08/21/18 21:00 Room Air 08/21/18 20:00 97.0 64 18 121/80 (94) 98 08/21/18 18:05 97.5 08/21/18 16:00 97.5 64 20 134/85 (101) 94 08/21/18 13:10 97.2 64 20 130/91 (104) 95 08/21/18 13:08 97.4 63 17 111/64 98 Room Air 08/21/18 13:00 62 17 98/57 98 Room Air 08/21/18 12:55 59 18 97/64 100 Simple Mask 6 08/21/18 12:52 63 17 100 08/21/18 12:49 97.7 63 16 101/61 100 Simple Mask 6 08/21/18 12:01 97.0 70 18 120/70 (87) 96 Height (Feet): 6 Height (Inches): 1.00 Weight (Pounds): 280 Objective General Appearance: no apparent distress, alert Head: normocephalic, atraumatic Eyes: bilateral eye normal inspection, bilateral eye PERRL ENT: hearing grossly normal, normal pharynx, no angioedema, normal voice Neck: full range of motion, supple/symm/no masses Respiratory: chest non-tender, lungs clear, normal breath sounds, speaking full sentences Gastrointestinal: normal bowel sounds, soft, non-distended, no guarding, no rebound, tenderness Genitourinary: normal inspection, no CVA tenderness Musculoskeletal: back normal, gait/station normal, normal range of motion, non- tender Neurologic: alert, oriented x3, responsive, motor strength/tone normal, sensory intact, speech normal Psychiatric: judgement/insight normal, memory normal, mood/affect normal, no suicidal/homicidal ideation Skin: normal color, no rash, warm/dry, well hydrated Microbiology Date/Time Source Procedure Growth Status 08/19/18 21:00 Nasal Nares MRSA Culture - Final Staphylococcus Aureus - Mrsa Complete 08/19/18 17:45 Urine,Clean Catch Urine Culture - Final Diphtheroids Complete 08/20/18 06:00 Rectum VRE Culture - Final Enterococcus Faecium - Vre Complete 08/19/18 21:00 Rectum Received Laboratory Tests Test 08/22/18 05:51 White Blood Count 10.9 K/UL (4.8-10.8) H Red Blood Count 4.76 M/UL (4.70-6.10) Hemoglobin 15.1 G/DL (14.2-18.0) Hematocrit 42.2 % (42.0-52.0) Mean Corpuscular Volume 89 FL (80-99) Mean Corpuscular Hemoglobin 31.8 PG (27.0-31.0) H Mean Corpuscular Hemoglobin Concent 35.8 G/DL (32.0-36.0) Red Cell Distribution Width 11.2 % (11.6-14.8) L Platelet Count 268 K/UL (150-450) Mean Platelet Volume 7.2 FL (6.5-10.1) Neutrophils (%) (Auto) 60.2 % (45.0-75.0) Lymphocytes (%) (Auto) 29.9 % (20.0-45.0) Monocytes (%) (Auto) 7.5 % (1.0-10.0) Eosinophils (%) (Auto) 1.3 % (0.0-3.0) Basophils (%) (Auto) 1.0 % (0.0-2.0) Sodium Level 136 MMOL/L (136-145) Potassium Level 3.5 MMOL/L (3.5-5.1) Chloride Level 101 MMOL/L (98-107) Carbon Dioxide Level 24 MMOL/L (21-32) Anion Gap 12 mmol/L (5-15) Blood Urea Nitrogen 13 mg/dL (7-18) Creatinine 0.9 MG/DL (0.55-1.30) Estimat Glomerular Filtration Rate > 60 mL/min (>60) Glucose Level 87 MG/DL (74-106) Calcium Level 9.0 MG/DL (8.5-10.1) Current Medications Medications (Trade) Dose Ordered Sig/Paul Route PRN Reason Start Time Stop Time Status Last Admin Dose Admin Acetaminophen (Tylenol) 650 mg Q4H PRN ORAL fever 08/19/18 20:00 09/18/18 19:59 Acetaminophen/ Hydrocodone Bitart ([place] 10/325) 1 tab Q6H PRN ORAL Moderate Pain (Pain Scale 4-6) 08/20/18 14:15 08/27/18 14:14 08/22/18 09:04 Amlodipine Besylate (Norvasc) 5 mg DAILY ORAL 08/20/18 09:00 09/19/18 08:59 08/22/18 09:05 Baclofen (Lioresal) 15 mg THREE TIMES A DAY ORAL 08/20/18 09:00 09/19/18 08:59 08/22/18 09:04 Buspirone HCl (Buspar) 10 mg TWICE A DAY ORAL 08/20/18 09:00 09/19/18 08:59 08/22/18 09:04 Dextrose (Dextrose 50%) 25 ml Q30M PRN IV Hypoglycemia 08/19/18 20:00 09/18/18 19:59 Dextrose (Dextrose 50%) 50 ml Q30M PRN IV Hypoglycemia 08/19/18 20:00 09/18/18 19:59 Dextrose/ Electrolytes 1,000 ml @ 75 mls/hr [id number] IV 08/20/18 16:00 09/19/18 15:59 08/22/18 05:53 Diphenhydramine HCl (Benadryl) 25 mg Q6H PRN ORAL Itching/Pruritis 08/19/18 20:00 09/18/18 19:59 08/22/18 01:41 Famotidine (Pepcid) 20 mg BID ORAL 08/19/18 23:00 09/18/18 22:59 08/22/18 09:04 Fluoxetine HCl (PROzac) 20 mg DAILY ORAL 08/20/18 09:00 09/19/18 08:59 08/22/18 09:05 Gabapentin (Neurontin) 300 mg THREE TIMES A DAY ORAL 08/22/18 09:00 09/21/18 08:59 08/22/18 09:04 Heparin Sodium (Porcine) (Heparin 5000 units/ml) 5,000 units EVERY 12 HOURS SUBQ 08/19/18 21:00 09/18/18 20:59 08/22/18 09:08 Hydromorphone HCl (Dilaudid) 1 mg Q4H PRN IVP Severe Pain (Pain Scale 7-10) 08/20/18 16:30 08/27/18 12:29 08/22/18 10:08 Lorazepam (Ativan) 1 mg Q6H PRN ORAL For Anxiety 08/22/18 05:30 08/29/18 05:29 Naloxegol (Movantik) 25 mg ACBREAKFAST ORAL 08/20/18 16:00 09/19/18 15:59 08/22/18 05:53 Nitroglycerin (Ntg) 0.4 mg Q5M X 3 DOSES PRN SL Prn Chest Pain 08/19/18 20:00 09/18/18 19:59 Ondansetron HCl (Zofran) 4 mg Q6H PRN IVP Nausea & Vomiting 08/19/18 20:00 09/18/18 19:59 Polyethylene Glycol (Miralax) 17 gm HSPRN PRN ORAL Constipation 08/19/18 20:00 09/18/18 19:59 08/20/18 23:13 Risperidone (RisperDAL) 0.5 mg BID ORAL 08/22/18 09:00 09/21/18 08:59 08/22/18 09:05 Sucralfate (Carafate) 1 gm Q6H PRN ORAL Burning Abdominal Pain 08/19/18 23:00 09/18/18 22:59 08/21/18 20:37 Temazepam (Restoril) 15 mg HSPRN PRN ORAL Insomnia 08/19/18 20:00 08/26/18 19:59 08/21/18 20:37 Lynette Nichole M.D. Aug 22, 2018 10:33
[2018-08-22 12:00] VITALS: BP 102/64
--- NOTE | 2018-08-22 13:39 | NUR ---
P.T Note: P.T evaluation completed and treatment initiated. Please refer to P.T evaluation for current functional status and POC. Pt is alert, O to self and place but not to time and cooperative. Pt reports c/o abdominal pain and feeling of generalized weakness affecting overall mobility independence and safety. Pt currently require SBA x 1 for bed mobilities, MIN A X 1 for transfers and gait/ambulation activities using the FWW. Pt will benefit from skilled P.T services to increase his strength , balance and activity tolerance to increase his mobility independence and safety. Recommend return to prior living arrangement ( SNF ) with continued skilled P.T. Pt is cleared for OOB activities with nursing.
--- NOTE | 2018-08-22 13:44 | Pulmonology Progress Note ---
Assessment/Plan Problems: (1) Abdominal pain (2) UTI (urinary tract infection) (3) Psychiatric disorder (4) COPD (chronic obstructive pulmonary disease) (5) Diverticulosis Assessment/Plan iv fluids npo GI evaluation for endoscopy today check urine cultures symptomatic treatment check cbc and bmp in am Subjective ROS Limited/Unobtainable: No Constitutional: Reports: no symptoms HEENT: Repors: no symptoms Respiratory: Reports: no symptoms Allergies: Coded Allergies: FENTANYL (Unverified Allergy, Unknown, 08/20/17) KETOROLAC (Unverified Allergy, Unknown, 08/20/17) NAPROXEN (Unverified Allergy, Unknown, 08/20/17) PENICILLINS (Unverified Allergy, Unknown, 08/20/17) Objective Last 24 Hour Vital Signs Date Time Temp Pulse Resp B/P (MAP) Pulse Ox O2 Delivery O2 Flow Rate FiO2 08/22/18 12:00 97.4 68 20 102/64 (77) 93 08/22/18 10:38 97.7 08/22/18 09:34 97.7 08/22/18 09:05 85 116/75 08/22/18 09:00 Room Air 08/22/18 08:00 97.7 85 20 116/75 (89) 96 08/22/18 04:00 97.0 81 18 105/73 (84) 95 08/22/18 00:00 97.1 69 18 129/83 (98) 95 08/21/18 21:00 Room Air 08/21/18 20:00 97.0 64 18 121/80 (94) 98 08/21/18 16:00 97.5 64 20 134/85 (101) 94 Intake and Output 08/21/18 08/22/18 18:59 06:59 Intake Total 1577.5 ml 675 ml Output Total 850 ml 250 ml Balance 727.5 ml 425 ml Intake Oral 440 ml IV Total 1137.5 ml 675 ml Output Urine Total 850 ml 250 ml Estimated Blood Loss 0 ml # Voids 3 General Appearance: WD/WN HEENT: normocephalic, anicteric Respiratory/Chest: chest wall non-tender, lungs clear Cardiovascular: normal peripheral pulses, normal rate Abdomen: normal bowel sounds, soft, non tender, no organomegaly Genitourinary: normal external genitalia Skin: no rash Microbiology Date/Time Source Procedure Growth Status 08/19/18 21:00 Nasal Nares MRSA Culture - Final Staphylococcus Aureus - [place]sa Complete 08/19/18 17:45 Urine,Clean Catch Urine Culture - Final Diphtheroids Complete 08/20/18 06:00 Rectum VRE Culture - Final Enterococcus Faecium - Vre Complete 08/19/18 21:00 Rectum Received Laboratory Tests 08/22/18 05:51: White Blood Count 10.9H, Red Blood Count 4.76, Hemoglobin 15.1, Hematocrit 42.2 , Mean Corpuscular Volume 89, Mean Corpuscular Hemoglobin 31.8H, Mean Corpuscular Hemoglobin Concent 35.8, Red Cell Distribution Width 11.2L, Platelet Count 268, Mean Platelet Volume 7.2, Neutrophils (%) (Auto) 60.2, Lymphocytes (%) (Auto) 29.9, Monocytes (%) (Auto) 7.5, Eosinophils (%) (Auto) 1.3, Basophils (%) (Auto) 1.0, Sodium Level 136, Potassium Level 3.5, Chloride Level 101, Carbon Dioxide Level 24, Anion Gap 12, Blood Urea Nitrogen 13, Creatinine 0.9, Estimat Glomerular Filtration Rate > 60, Glucose Level 87, Calcium Level 9.0 Current Medications Medications (Trade) Dose Ordered Sig/Paul Route PRN Reason Start Time Stop Time Status Last Admin Dose Admin Acetaminophen (Tylenol) 650 mg Q4H PRN ORAL fever 08/19/18 20:00 09/18/18 19:59 Acetaminophen/ Hydrocodone Bitart ([place] 10/325) 1 tab Q6H PRN ORAL Moderate Pain (Pain Scale 4-6) 08/20/18 14:15 08/27/18 14:14 08/22/18 09:04 Amlodipine Besylate (Norvasc) 5 mg DAILY ORAL 08/20/18 09:00 09/19/18 08:59 08/22/18 09:05 Baclofen (Lioresal) 15 mg THREE TIMES A DAY ORAL 08/20/18 09:00 09/19/18 08:59 08/22/18 12:08 Buspirone HCl (Buspar) 10 mg TWICE A DAY ORAL 08/20/18 09:00 09/19/18 08:59 08/22/18 09:04 Dextrose (Dextrose 50%) 25 ml Q30M PRN IV Hypoglycemia 08/19/18 20:00 09/18/18 19:59 Dextrose (Dextrose 50%) 50 ml Q30M PRN IV Hypoglycemia 08/19/18 20:00 09/18/18 19:59 Dextrose/ Electrolytes 1,000 ml @ 75 mls/hr [id number] IV 08/20/18 16:00 09/19/18 15:59 08/22/18 05:53 Diphenhydramine HCl (Benadryl) 25 mg Q6H PRN ORAL Itching/Pruritis 08/19/18 20:00 09/18/18 19:59 08/22/18 01:41 Famotidine (Pepcid) 20 mg BID ORAL 08/19/18 23:00 09/18/18 22:59 08/22/18 09:04 Fluoxetine HCl (PROzac) 20 mg DAILY ORAL 08/20/18 09:00 09/19/18 08:59 08/22/18 09:05 Gabapentin (Neurontin) 300 mg THREE TIMES A DAY ORAL 08/22/18 09:00 09/21/18 08:59 08/22/18 12:08 Heparin Sodium (Porcine) (Heparin 5000 units/ml) 5,000 units EVERY 12 HOURS SUBQ 08/19/18 21:00 09/18/18 20:59 08/22/18 09:08 Hydromorphone HCl (Dilaudid) 1 mg Q4H PRN IVP Severe Pain (Pain Scale 7-10) 08/20/18 16:30 08/27/18 12:29 08/22/18 10:08 Lorazepam (Ativan) 1 mg Q6H PRN ORAL For Anxiety 08/22/18 05:30 08/29/18 05:29 Naloxegol (Movantik) 25 mg ACBREAKFAST ORAL 08/20/18 16:00 09/19/18 15:59 08/22/18 05:53 Nitroglycerin (Ntg) 0.4 mg Q5M X 3 DOSES PRN SL Prn Chest Pain 08/19/18 20:00 09/18/18 19:59 Ondansetron HCl (Zofran) 4 mg Q6H PRN IVP Nausea & Vomiting 08/19/18 20:00 09/18/18 19:59 Polyethylene Glycol (Miralax) 17 gm HSPRN PRN ORAL Constipation 08/19/18 20:00 09/18/18 19:59 08/20/18 23:13 Risperidone (RisperDAL) 0.5 mg BID ORAL 08/22/18 09:00 09/21/18 08:59 08/22/18 09:05 Sucralfate (Carafate) 1 gm Q6H PRN ORAL Burning Abdominal Pain 08/19/18 23:00 09/18/18 22:59 08/21/18 20:37 Temazepam (Restoril) 15 mg HSPRN PRN ORAL Insomnia 08/19/18 20:00 08/26/18 19:59 08/21/18 20:37 Javi Viveros MD Aug 22, 2018 13:44
--- NOTE | 2018-08-22 14:38 | General Progress Note ---
Assessment/Plan Problem List: (1) Diverticulosis ICD Codes: K57.90 - Diverticulosis of intestine, part unspecified, without perforation or abscess without bleeding SNOMED: 290425114 (2) UTI (urinary tract infection) ICD Codes: N39.0 - Urinary tract infection, site not specified SNOMED: 90875608 Qualifiers: Qualified Codes: N39.0 - Urinary tract infection, site not specified (3) COPD (chronic obstructive pulmonary disease) ICD Codes: J44.9 - Chronic obstructive pulmonary disease, unspecified SNOMED: 91049691 (4) Abdominal pain ICD Codes: R10.9 - Unspecified abdominal pain SNOMED: 91060707 Qualifiers: Qualified Codes: R10.9 - Unspecified abdominal pain Status: stable, progressing Assessment/Plan: pt diet abx pain control cbc bmp am dc plan Subjective Constitutional: Reports: weakness Allergies: Coded Allergies: FENTANYL (Unverified Allergy, Unknown, 08/20/17) KETOROLAC (Unverified Allergy, Unknown, 08/20/17) NAPROXEN (Unverified Allergy, Unknown, 08/20/17) PENICILLINS (Unverified Allergy, Unknown, 08/20/17) All Systems: reviewed and negative except above Subjective sleepy calm Objective Last 24 Hour Vital Signs Date Time Temp Pulse Resp B/P (MAP) Pulse Ox O2 Delivery O2 Flow Rate FiO2 08/22/18 12:00 97.4 68 20 102/64 (77) 93 08/22/18 10:38 97.7 08/22/18 09:34 97.7 08/22/18 09:05 85 116/75 08/22/18 09:00 Room Air 08/22/18 08:00 97.7 85 20 116/75 (89) 96 08/22/18 04:00 97.0 81 18 105/73 (84) 95 08/22/18 00:00 97.1 69 18 129/83 (98) 95 08/21/18 21:00 Room Air 08/21/18 20:00 97.0 64 18 121/80 (94) 98 08/21/18 16:00 97.5 64 20 134/85 (101) 94 Intake and Output 08/21/18 08/22/18 19:00 07:00 Intake Total 1577.5 ml 675 ml Output Total 850 ml 250 ml Balance 727.5 ml 425 ml Intake Oral 440 ml IV Total 1137.5 ml 675 ml Output Urine Total 850 ml 250 ml Estimated Blood Loss 0 ml # Voids 3 Laboratory Tests 08/22/18 05:51: White Blood Count 10.9H, Red Blood Count 4.76, Hemoglobin 15.1, Hematocrit 42.2 , Mean Corpuscular Volume 89, Mean Corpuscular Hemoglobin 31.8H, Mean Corpuscular Hemoglobin Concent 35.8, Red Cell Distribution Width 11.2L, Platelet Count 268, Mean Platelet Volume 7.2, Neutrophils (%) (Auto) 60.2, Lymphocytes (%) (Auto) 29.9, Monocytes (%) (Auto) 7.5, Eosinophils (%) (Auto) 1.3, Basophils (%) (Auto) 1.0, Sodium Level 136, Potassium Level 3.5, Chloride Level 101, Carbon Dioxide Level 24, Anion Gap 12, Blood Urea Nitrogen 13, Creatinine 0.9, Estimat Glomerular Filtration Rate > 60, Glucose Level 87, Calcium Level 9.0 Height (Feet): 6 Height (Inches): 1.00 Weight (Pounds): 280 General Appearance: lethargic EENT: normal ENT inspection Neck: normal alignment Cardiovascular: normal peripheral pulses, normal rate, regular rhythm Respiratory/Chest: chest wall non-tender, lungs clear, normal breath sounds Abdomen: normal bowel sounds, non tender, soft Extremities: normal inspection Edema: no edema noted Arm (L), no edema noted Arm (R), no edema noted Leg (L), no edema noted Leg (R), no edema noted Pedal (L), no edema noted Pedal (R), no edema noted Generalized Neurologic: motor weakness Skin: normal pigmentation, warm/dry Miguel Patino DO Aug 22, 2018 14:38
--- NOTE | 2018-08-22 14:58 | Surgery Progress Note ---
Surgery Progress Note Subjective Additional Comments no acute events. stable. comfortable. Objective Last 24 Hour Vital Signs Date Time Temp Pulse Resp B/P (MAP) Pulse Ox O2 Delivery O2 Flow Rate FiO2 08/22/18 12:00 97.4 68 20 102/64 (77) 93 08/22/18 10:38 97.7 08/22/18 09:34 97.7 08/22/18 09:05 85 116/75 08/22/18 09:00 Room Air 08/22/18 08:00 97.7 85 20 116/75 (89) 96 08/22/18 04:00 97.0 81 18 105/73 (84) 95 08/22/18 00:00 97.1 69 18 129/83 (98) 95 08/21/18 21:00 Room Air 08/21/18 20:00 97.0 64 18 121/80 (94) 98 08/21/18 16:00 97.5 64 20 134/85 (101) 94 I&O Intake and Output 08/21/18 08/22/18 19:00 07:00 Intake Total 1577.5 ml 675 ml Output Total 850 ml 250 ml Balance 727.5 ml 425 ml Intake Oral 440 ml IV Total 1137.5 ml 675 ml Output Urine Total 850 ml 250 ml Estimated Blood Loss 0 ml # Voids 3 Cardiovascular: RSR Respiratory: clear Abdomen: soft, non-tender, present bowel sounds, non-distended Extremities: no tenderness, no cyanosis Laboratory Tests Test 08/22/18 05:51 White Blood Count 10.9 K/UL (4.8-10.8) H Red Blood Count 4.76 M/UL (4.70-6.10) Hemoglobin 15.1 G/DL (14.2-18.0) Hematocrit 42.2 % (42.0-52.0) Mean Corpuscular Volume 89 FL (80-99) Mean Corpuscular Hemoglobin 31.8 PG (27.0-31.0) H Mean Corpuscular Hemoglobin Concent 35.8 G/DL (32.0-36.0) Red Cell Distribution Width 11.2 % (11.6-14.8) L Platelet Count 268 K/UL (150-450) Mean Platelet Volume 7.2 FL (6.5-10.1) Neutrophils (%) (Auto) 60.2 % (45.0-75.0) Lymphocytes (%) (Auto) 29.9 % (20.0-45.0) Monocytes (%) (Auto) 7.5 % (1.0-10.0) Eosinophils (%) (Auto) 1.3 % (0.0-3.0) Basophils (%) (Auto) 1.0 % (0.0-2.0) Sodium Level 136 MMOL/L (136-145) Potassium Level 3.5 MMOL/L (3.5-5.1) Chloride Level 101 MMOL/L (98-107) Carbon Dioxide Level 24 MMOL/L (21-32) Anion Gap 12 mmol/L (5-15) Blood Urea Nitrogen 13 mg/dL (7-18) Creatinine 0.9 MG/DL (0.55-1.30) Estimat Glomerular Filtration Rate > 60 mL/min (>60) Glucose Level 87 MG/DL (74-106) Calcium Level 9.0 MG/DL (8.5-10.1) Plan Problems: (1) Diverticulosis (2) Periumbilical hernia (3) Psychiatric disorder (4) UTI (urinary tract infection) (5) COPD (chronic obstructive pulmonary disease) (6) Odynophagia (7) Constipation (8) Abdominal pain Assessment & Plan: 68 year old male with 2 weeks of cramping abdominal pain. no n/v/f/c leukocytosis UTI CT w/ Findings: The lung bases are clear. Cholecystectomy clips noted. There is a small hypodensity in the right kidney measuring about 1 cm likely cystic. There is no hydronephrosis. The patient has had extensive hardware and multilevel laminectomy within the lumbar spine. Resultant streak artifact limits evaluation. There is an umbilical hernia containing fat and some small bowel. Appendix is not definitely seen but there are no secondary signs of acute appendicitis. Bowel gas pattern is nonobstructive. Aortoiliac calcifications are present. Small cystic focus noted within the spleen. The liver is unremarkable. The pancreas and adrenal glands are unremarkable. exam benign. abd soft, nt/nd, bs+ hx of gastric ulcers? - no acute surgical intervention planned -IV abx as per ID -okay for diet -PPI -IV fluids -trend labs okay to d/c from surgical standpoint will follow with recs thank you (9) Severe malnutrition (10) Nausea & vomiting Balwinder Marc Aug 22, 2018 14:58
[2018-08-22 16:00] VITALS: BP 116/75
--- NOTE | 2018-08-22 16:00 | Consultation ---
DATE OF CONSULTATION: 08/22/2018 CONSULTING PHYSICIAN: Hudson Ribeiro M.D. HISTORY OF PRESENT ILLNESS: This is a 68-year-old male patient has urinary tract infection. The patient came in to the hospital. He was confused and disorganized. He actually states he came in because he had abdominal pain from [facility], so he had a three-day history of abdominal pain, urinary tract infection, and lot of other problems, so came in very confused, disorganized, altered mental status, and that is why he was admitted to the hospital. I saw and assessed him in his room. The patient was complaining that he is in a lot of pain. His chief complaint was "I want higher pain meds. This [place] is not doing for me. I am in excruciating pain. It is making me depressed and highly anxious." So because of increasing depression, anxiety, and mood lability, worsened by the pain, there was a daily psychiatric consultation, but the patient seemed to be med-seeking for Dilaudid based on what he was stating. He seemed to be fixated on it, he did state that is the main reason why he has anxiety and depression at this point. MEDICAL HISTORY: He has COPD, gastric ulcer, paraumbilical hernia. ALLERGIES: He has allergies to Naprosyn, ketorolac, fentanyl, and penicillin. PSYCHOTROPIC MEDICATIONS ON ADMISSION: Risperdal 0.5 twice a day for agitation and mood lability, placed on Ativan 1 every 6, Prozac 20 mg daily, and BuSpar 10 mg twice a day. SUBSTANCE ABUSE HISTORY: Denies. PAIN ASSESSMENT: He is in 10/10 pain. FAMILY PSYCHIATRIC HISTORY: Denies. DEVELOPMENTAL PROBLEMS: Denies. SOCIAL HISTORY: The patient lives in a [facility]. Financially supported by [employer] and Medicare. PSYCHIATRIC HISTORY: Bipolar 2 versus schizoaffective bipolar type. He has been admitted to psychiatric units before. STRENGTHS: He is motivated to get better and has a place to live. WEAKNESSES: He is impulsive. Minimal support system. MENTAL STATUS EXAMINATION: This is a 68-year-old male patient. His appearance is disheveled. His attitude, irritable and agitated. His affect is labile. Intellect poor because he does not know current events, does not know the last four presidents. Mood, depressed and anxious. Motor activity, psychomotor agitation. Attention span is poor because he cannot do serial 7's or spell world backwards. Orientation x2. He is oriented to person and place, not time, situation. Speech is pressured, nonsensical. Thought process, disorganized and illogical. Insight and judgment is poor. Short-term memory, 3/3 word recall 5-minute delay with good short-term memory. Long-term memory is intact based on his knowledge of long-term events in his life such as high school that he went to. Perception is poor because he has perceptual disturbance such as paranoid delusions. DIAGNOSES: 1. Paranoid schizophrenia with acute exacerbation. 2. Medical includes COPD, gastric ulcer, paraumbilical hernia. 3. Psychosocial stressors, financial. Function impairment is moderate. PLAN: I am going to restart this patient's Risperdal 0.5 mg twice a day and I am also going to continue his Prozac at 20 mg daily and I am also going to continue Ativan 1 mg every 6 hours p.r.n. anxiety, agitation and continue on BuSpar at a dose of 10 mg twice a day. A 20 minutes of cognitive behavioral therapy was provided to help him identify automatic negative thoughts to help him convert his negative thoughts to more positive thoughts to reduce depression, anxiety, and mood lability. Chart reviewed. Discussed with staff. Seen and assessed at bedside. Hudson Ribeiro M.D. DR: NELSON JOB#: [id number] CC:
--- NOTE | 2018-08-22 19:30 | NUR ---
HAND-OFF: Report given to CARMEN CROOK.
--- NOTE | 2018-08-22 19:39 | NUR ---
NURSE NOTES: Received patient in bed, alert and oriented x4, no acute distress noted, on room air, patient is able to ambulate with a walker, call light is within reach, bed is in low position, locked and alarm is on. Will continue to monitor for comfort and safety.
[2018-08-22 20:00] VITALS: BP 115/77
[2018-08-23] VITALS (7 sets, daily range): BP systolic 95–124; BP diastolic 60–76
[2018-08-23] MEDS: Naloxegol Oxalate 25mg tab ORAL SCH (06:06)
--- NOTE | 2018-08-23 07:09 | NUR ---
HAND-OFF: Report given to Maggi MORALES.
--- NOTE | 2018-08-23 07:12 | NUR ---
NURSE NOTES: Received pt from CARMEN CROOK. Pt is alert and orient x4. pt is in RA, No SOB or acute respiratory distress noted. pt has intact iv access LAC 20G is running well. Pt is eating breakfast independently. pt is still in pain. all needs attended, bed is locked and is in the lowest position. call light within easy reach. will continue to monitor.
[2018-08-23] MEDS: Heparin 5000 units/ml inj SUBQ SCH ×2 (08:11→20:42)
[2018-08-23] MEDS: BusPIRone 5mg Tab ORAL SCH ×2 (08:11→17:13)
--- NOTE | 2018-08-23 08:35 | General Progress Note ---
Assessment/Plan Problem List: (1) Diverticulosis ICD Codes: K57.90 - Diverticulosis of intestine, part unspecified, without perforation or abscess without bleeding SNOMED: 520291772 (2) UTI (urinary tract infection) ICD Codes: N39.0 - Urinary tract infection, site not specified SNOMED: 47589423 Qualifiers: Qualified Codes: N39.0 - Urinary tract infection, site not specified (3) COPD (chronic obstructive pulmonary disease) ICD Codes: J44.9 - Chronic obstructive pulmonary disease, unspecified SNOMED: 42178696 (4) Abdominal pain ICD Codes: R10.9 - Unspecified abdominal pain SNOMED: 64812733 Qualifiers: Qualified Codes: R10.9 - Unspecified abdominal pain Status: stable, progressing Assessment/Plan: pt diet abx pain control gi f/u cbc bmp am dc plan Subjective Constitutional: Reports: weakness Allergies: Coded Allergies: FENTANYL (Unverified Allergy, Unknown, 08/20/17) KETOROLAC (Unverified Allergy, Unknown, 08/20/17) NAPROXEN (Unverified Allergy, Unknown, 08/20/17) PENICILLINS (Unverified Allergy, Unknown, 08/20/17) All Systems: reviewed and negative except above Subjective sleepy c/o moderate abd pain Objective Last 24 Hour Vital Signs Date Time Temp Pulse Resp B/P (MAP) Pulse Ox O2 Delivery O2 Flow Rate FiO2 08/23/18 08:12 77 124/70 08/23/18 08:00 98.0 77 16 124/70 (88) 100 08/23/18 04:51 97.0 62 20 117/65 (82) 08/23/18 00:00 98.5 71 20 117/76 (90) 08/22/18 21:00 Room Air 08/22/18 20:00 98.0 85 20 115/77 (90) 85 08/22/18 18:58 98.6 08/22/18 16:00 98.6 65 19 116/75 (89) 97 08/22/18 12:00 97.4 68 20 102/64 (77) 93 08/22/18 09:34 97.7 08/22/18 09:05 85 116/75 08/22/18 09:00 Room Air Intake and Output 08/22/18 08/23/18 19:00 07:00 Intake Total 1420 ml 450 ml Output Total 1100 ml Balance 320 ml 450 ml Intake Oral 520 ml IV Total 900 ml 450 ml Output Urine Total 1100 ml Height (Feet): 6 Height (Inches): 1.00 Weight (Pounds): 280 General Appearance: alert EENT: normal ENT inspection Neck: normal alignment Cardiovascular: normal peripheral pulses, normal rate, regular rhythm Respiratory/Chest: chest wall non-tender, lungs clear, normal breath sounds Abdomen: normal bowel sounds, non tender, soft Extremities: normal inspection Edema: no edema noted Arm (L), no edema noted Arm (R), no edema noted Leg (L), no edema noted Leg (R), no edema noted Pedal (L), no edema noted Pedal (R), no edema noted Generalized Neurologic: responsive, motor weakness Skin: normal pigmentation, warm/dry Miguel Patino DO Aug 23, 2018 08:35
--- NOTE | 2018-08-23 08:53 | General Progress Note ---
Assessment/Plan Problem List: (1) Nausea & vomiting ICD Codes: R11.2 - Nausea with vomiting, unspecified SNOMED: 00713290 (2) Abdominal pain ICD Codes: R10.9 - Unspecified abdominal pain SNOMED: 20298935 Qualifiers: Qualified Codes: R10.9 - Unspecified abdominal pain (3) Constipation ICD Codes: K59.00 - Constipation, unspecified SNOMED: 39060594 (4) COPD (chronic obstructive pulmonary disease) ICD Codes: J44.9 - Chronic obstructive pulmonary disease, unspecified SNOMED: 23249327 (5) Psychiatric disorder ICD Codes: F99 - Mental disorder, not otherwise specified SNOMED: 63680327, 135429117 Status: stable, progressing Assessment/Plan: colonoscopy: SUMMARY OF FINDINGS: 1. Fair colonic prep. 2. Four colonic polyps removed. 3. Scattered diverticulosis. 4. Internal hemorrhoids. RECOMMENDATIONS: 1. Follow up pathology. 2. Recommend repeat colonoscopy in 3 years. ok to dc GI stand point Subjective ROS Limited/Unobtainable: Yes Allergies: Coded Allergies: FENTANYL (Unverified Allergy, Unknown, 08/20/17) KETOROLAC (Unverified Allergy, Unknown, 08/20/17) NAPROXEN (Unverified Allergy, Unknown, 08/20/17) PENICILLINS (Unverified Allergy, Unknown, 08/20/17) Objective Last 24 Hour Vital Signs Date Time Temp Pulse Resp B/P (MAP) Pulse Ox O2 Delivery O2 Flow Rate FiO2 08/23/18 08:12 77 124/70 08/23/18 08:00 98.0 77 16 124/70 (88) 100 08/23/18 04:51 97.0 62 20 117/65 (82) 08/23/18 00:00 98.5 71 20 117/76 (90) 08/22/18 21:00 Room Air 08/22/18 20:00 98.0 85 20 115/77 (90) 85 08/22/18 18:58 98.6 08/22/18 16:00 98.6 65 19 116/75 (89) 97 08/22/18 12:00 97.4 68 20 102/64 (77) 93 08/22/18 09:34 97.7 08/22/18 09:05 85 116/75 08/22/18 09:00 Room Air Intake and Output 08/22/18 08/23/18 19:00 07:00 Intake Total 1420 ml 450 ml Output Total 1100 ml Balance 320 ml 450 ml Intake Oral 520 ml IV Total 900 ml 450 ml Output Urine Total 1100 ml Height (Feet): 6 Height (Inches): 1.00 Weight (Pounds): 280 General Appearance: alert EENT: normal ENT inspection Neck: supple Cardiovascular: normal rate Respiratory/Chest: lungs clear Abdomen: normal bowel sounds, non tender, soft Extremities: non-tender Camden Ramos MD Aug 23, 2018 08:52
[2018-08-23] MEDS: D5 1/2NS w/KCl 20mEq 1,000 ML IV SCH ×2 (10:40→15:12)
--- NOTE | 2018-08-23 11:41 | Infectious Diseases Prog Note ---
Assessment/Plan Assessment/Plan Assessment: Abd pain- likely 2ry to GERD/gastritis -CT abd/p w/: No acute findings appreciated. -s/p colonoscopy: 4 polyps removed Afebrile Mild leukocytosis, resolved- likely reactive -u/a no pyuria; ucx <10k Diptheroids(colonizers) -CXR: No acute disease. Minimal left basal atelectasis HTN HLD gastritis/GERD -07/2017 SP -EGD: Diffuse bile-induced gastropathy versus gastritis, status post biopsy, otherwise, normal upper endoscopic examination. --path: mild chronic gastritis with healing erosion and reactive changes. No H. pylori paraplegia chronic back pain 2ry to Lumbar DDD/spondylosis/herniated disc w/ radiculopathy -- s/p lumbar fusion, schizoaffective disorder FTT polyneuropathy SNF resident VRE, MRSA, CRE colonized Plan: -Continue to monitor off abx unless febrile, increasing WBC or HD unstability. -08/19 SP Ceftriaxone x1 -f/u cx -Monitor CBC/CMP, temperatures Thank you for this consultation. Will continue to follow along with you. Discussed with RN. Subjective Allergies: Coded Allergies: FENTANYL (Unverified Allergy, Unknown, 08/20/17) KETOROLAC (Unverified Allergy, Unknown, 08/20/17) NAPROXEN (Unverified Allergy, Unknown, 08/20/17) PENICILLINS (Unverified Allergy, Unknown, 08/20/17) Subjective afebrile mild leukocytosis Objective Vital Signs Last 24 Hour Vital Signs Date Time Temp Pulse Resp B/P (MAP) Pulse Ox O2 Delivery O2 Flow Rate FiO2 08/23/18 09:00 Room Air 08/23/18 08:42 98.0 08/23/18 08:12 77 124/70 08/23/18 08:00 98.0 77 16 124/70 (88) 100 08/23/18 04:51 97.0 62 20 117/65 (82) 08/23/18 00:00 98.5 71 20 117/76 (90) 08/22/18 21:00 Room Air 08/22/18 20:00 98.0 85 20 115/77 (90) 85 08/22/18 16:00 98.6 65 19 116/75 (89) 97 08/22/18 12:00 97.4 68 20 102/64 (77) 93 Height (Feet): 6 Height (Inches): 1.00 Weight (Pounds): 280 Objective General Appearance: no apparent distress, alert Head: normocephalic, atraumatic Eyes: bilateral eye normal inspection, bilateral eye PERRL ENT: hearing grossly normal, normal pharynx, no angioedema, normal voice Neck: full range of motion, supple/symm/no masses Respiratory: chest non-tender, lungs clear, normal breath sounds, speaking full sentences Gastrointestinal: normal bowel sounds, soft, non-distended, no guarding, no rebound, tenderness Genitourinary: normal inspection, no CVA tenderness Musculoskeletal: back normal, gait/station normal, normal range of motion, non- tender Neurologic: alert, oriented x3, responsive, motor strength/tone normal, sensory intact, speech normal Psychiatric: judgement/insight normal, memory normal, mood/affect normal, no suicidal/homicidal ideation Skin: normal color, no rash, warm/dry, well hydrated Current Medications Medications (Trade) Dose Ordered Sig/Paul Route PRN Reason Start Time Stop Time Status Last Admin Dose Admin Acetaminophen (Tylenol) 650 mg Q4H PRN ORAL fever 08/19/18 20:00 09/18/18 19:59 Acetaminophen/ Hydrocodone Bitart ([place] 10/325) 1 tab Q6H PRN ORAL Moderate Pain (Pain Scale 4-6) 08/20/18 14:15 08/27/18 14:14 08/22/18 09:04 Amlodipine Besylate (Norvasc) 5 mg DAILY ORAL 08/20/18 09:00 09/19/18 08:59 08/23/18 08:12 Baclofen (Lioresal) 15 mg THREE TIMES A DAY ORAL 08/20/18 09:00 09/19/18 08:59 08/23/18 08:12 Buspirone HCl (Buspar) 10 mg TWICE A DAY ORAL 08/20/18 09:00 09/19/18 08:59 08/23/18 08:11 Dextrose (Dextrose 50%) 25 ml Q30M PRN IV Hypoglycemia 08/19/18 20:00 09/18/18 19:59 Dextrose (Dextrose 50%) 50 ml Q30M PRN IV Hypoglycemia 08/19/18 20:00 09/18/18 19:59 Dextrose/ Electrolytes 1,000 ml @ 75 mls/hr [id number] IV 08/20/18 16:00 09/19/18 15:59 08/22/18 20:20 Diphenhydramine HCl (Benadryl) 25 mg Q6H PRN ORAL Itching/Pruritis 08/19/18 20:00 09/18/18 19:59 08/22/18 01:41 Famotidine (Pepcid) 20 mg BID ORAL 08/19/18 23:00 09/18/18 22:59 08/23/18 08:12 Fluoxetine HCl (PROzac) 20 mg DAILY ORAL 08/20/18 09:00 09/19/18 08:59 08/23/18 08:11 Gabapentin (Neurontin) 300 mg THREE TIMES A DAY ORAL 08/22/18 09:00 09/21/18 08:59 08/23/18 08:11 Heparin Sodium (Porcine) (Heparin 5000 units/ml) 5,000 units EVERY 12 HOURS SUBQ 08/19/18 21:00 09/18/18 20:59 08/23/18 08:11 Hydromorphone HCl (Dilaudid) 1 mg Q4H PRN IVP Severe Pain (Pain Scale 7-10) 08/20/18 16:30 08/27/18 12:29 08/23/18 08:12 Lorazepam (Ativan) 1 mg Q6H PRN ORAL For Anxiety 08/22/18 05:30 08/29/18 05:29 Naloxegol (Movantik) 25 mg ACBREAKFAST ORAL 08/20/18 16:00 09/19/18 15:59 08/23/18 06:06 Nitroglycerin (Ntg) 0.4 mg Q5M X 3 DOSES PRN SL Prn Chest Pain 08/19/18 20:00 09/18/18 19:59 Ondansetron HCl (Zofran) 4 mg Q6H PRN IVP Nausea & Vomiting 08/19/18 20:00 09/18/18 19:59 Polyethylene Glycol (Miralax) 17 gm HSPRN PRN ORAL Constipation 08/19/18 20:00 09/18/18 19:59 08/20/18 23:13 Risperidone (RisperDAL) 0.5 mg BID ORAL 08/22/18 09:00 09/21/18 08:59 08/23/18 08:12 Sucralfate (Carafate) 1 gm Q6H PRN ORAL Burning Abdominal Pain 08/19/18 23:00 09/18/18 22:59 08/21/18 20:37 Temazepam (Restoril) 15 mg HSPRN PRN ORAL Insomnia 08/19/18 20:00 08/26/18 19:59 08/22/18 23:11 Lynette Nichole M.D. Aug 23, 2018 11:41
--- NOTE | 2018-08-23 12:09 | Surgery Progress Note ---
Surgery Progress Note Subjective Additional Comments no acute events. improving exam stable. labs okay Objective Last 24 Hour Vital Signs Date Time Temp Pulse Resp B/P (MAP) Pulse Ox O2 Delivery O2 Flow Rate FiO2 08/23/18 09:00 Room Air 08/23/18 08:42 98.0 08/23/18 08:12 77 124/70 08/23/18 08:00 98.0 77 16 124/70 (88) 100 08/23/18 04:51 97.0 62 20 117/65 (82) 08/23/18 00:00 98.5 71 20 117/76 (90) 08/22/18 21:00 Room Air 08/22/18 20:00 98.0 85 20 115/77 (90) 85 08/22/18 16:00 98.6 65 19 116/75 (89) 97 I&O Intake and Output 08/22/18 08/23/18 19:00 07:00 Intake Total 1420 ml 450 ml Output Total 1100 ml Balance 320 ml 450 ml Intake Oral 520 ml IV Total 900 ml 450 ml Output Urine Total 1100 ml Drains: none Cardiovascular: RSR Respiratory: clear Abdomen: soft, flat, non-tender, present bowel sounds, non-distended Extremities: no edema, no tenderness, no cyanosis Plan Problems: (1) Diverticulosis (2) Periumbilical hernia (3) Psychiatric disorder (4) UTI (urinary tract infection) (5) COPD (chronic obstructive pulmonary disease) (6) Odynophagia (7) Constipation (8) Abdominal pain Assessment & Plan: 68 year old male with 2 weeks of cramping abdominal pain. no n/v/f/c leukocytosis UTI CT w/ Findings: The lung bases are clear. Cholecystectomy clips noted. There is a small hypodensity in the right kidney measuring about 1 cm likely cystic. There is no hydronephrosis. The patient has had extensive hardware and multilevel laminectomy within the lumbar spine. Resultant streak artifact limits evaluation. There is an umbilical hernia containing fat and some small bowel. Appendix is not definitely seen but there are no secondary signs of acute appendicitis. Bowel gas pattern is nonobstructive. Aortoiliac calcifications are present. Small cystic focus noted within the spleen. The liver is unremarkable. The pancreas and adrenal glands are unremarkable. exam benign. abd soft, nt/nd, bs+ hx of gastric ulcers? - no acute surgical intervention planned -IV abx as per ID -okay for diet -PPI -IV fluids -trend labs okay to d/c from surgical standpoint will follow with recs thank you (9) Severe malnutrition (10) Nausea & vomiting Balwinder Marc Aug 23, 2018 12:09
--- NOTE | 2018-08-23 12:52 | Pulmonology Progress Note ---
Assessment/Plan Problems: (1) Abdominal pain (2) UTI (urinary tract infection) (3) Psychiatric disorder (4) COPD (chronic obstructive pulmonary disease) (5) Diverticulosis Assessment/Plan iv fluids advance diet as tolerated GI evaluation for endoscopy today check urine cultures symptomatic treatment check cbc and bmp in am Subjective ROS Limited/Unobtainable: No Constitutional: Reports: no symptoms HEENT: Repors: no symptoms Allergies: Coded Allergies: FENTANYL (Unverified Allergy, Unknown, 08/20/17) KETOROLAC (Unverified Allergy, Unknown, 08/20/17) NAPROXEN (Unverified Allergy, Unknown, 08/20/17) PENICILLINS (Unverified Allergy, Unknown, 08/20/17) Objective Last 24 Hour Vital Signs Date Time Temp Pulse Resp B/P (MAP) Pulse Ox O2 Delivery O2 Flow Rate FiO2 08/23/18 12:00 98.5 75 19 100/68 (79) 99 08/23/18 09:00 Room Air 08/23/18 08:42 98.0 08/23/18 08:12 77 124/70 08/23/18 08:00 98.0 77 16 124/70 (88) 100 08/23/18 04:51 97.0 62 20 117/65 (82) 08/23/18 00:00 98.5 71 20 117/76 (90) 08/22/18 21:00 Room Air 08/22/18 20:00 98.0 85 20 115/77 (90) 85 08/22/18 16:00 98.6 65 19 116/75 (89) 97 Intake and Output 08/22/18 08/23/18 18:59 06:59 Intake Total 1420 ml 525 ml Output Total 1100 ml Balance 320 ml 525 ml Intake Oral 520 ml IV Total 900 ml 525 ml Output Urine Total 1100 ml HEENT: normocephalic, atraumatic Cardiovascular: normal peripheral pulses, normal rate, no JVD Abdomen: soft, non tender, no scars Extremities: no clubbing Skin: no lesions Current Medications Medications (Trade) Dose Ordered Sig/Paul Route PRN Reason Start Time Stop Time Status Last Admin Dose Admin Acetaminophen (Tylenol) 650 mg Q4H PRN ORAL fever 08/19/18 20:00 09/18/18 19:59 Acetaminophen/ Hydrocodone Bitart ([place] 10/325) 1 tab Q6H PRN ORAL Moderate Pain (Pain Scale 4-6) 08/20/18 14:15 08/27/18 14:14 08/22/18 09:04 Amlodipine Besylate (Norvasc) 5 mg DAILY ORAL 08/20/18 09:00 09/19/18 08:59 08/23/18 08:12 Baclofen (Lioresal) 15 mg THREE TIMES A DAY ORAL 08/20/18 09:00 09/19/18 08:59 08/23/18 12:42 Buspirone HCl (Buspar) 10 mg TWICE A DAY ORAL 08/20/18 09:00 09/19/18 08:59 08/23/18 08:11 Dextrose (Dextrose 50%) 25 ml Q30M PRN IV Hypoglycemia 08/19/18 20:00 09/18/18 19:59 Dextrose (Dextrose 50%) 50 ml Q30M PRN IV Hypoglycemia 08/19/18 20:00 09/18/18 19:59 Dextrose/ Electrolytes 1,000 ml @ 75 mls/hr [id number] IV 08/20/18 16:00 09/19/18 15:59 08/22/18 20:20 Diphenhydramine HCl (Benadryl) 25 mg Q6H PRN ORAL Itching/Pruritis 08/19/18 20:00 09/18/18 19:59 08/22/18 01:41 Famotidine (Pepcid) 20 mg BID ORAL 08/19/18 23:00 09/18/18 22:59 08/23/18 08:12 Fluoxetine HCl (PROzac) 20 mg DAILY ORAL 08/20/18 09:00 09/19/18 08:59 08/23/18 08:11 Gabapentin (Neurontin) 300 mg THREE TIMES A DAY ORAL 08/22/18 09:00 09/21/18 08:59 08/23/18 12:42 Heparin Sodium (Porcine) (Heparin 5000 units/ml) 5,000 units EVERY 12 HOURS SUBQ 08/19/18 21:00 09/18/18 20:59 08/23/18 08:11 Hydromorphone HCl (Dilaudid) 1 mg Q4H PRN IVP Severe Pain (Pain Scale 7-10) 08/20/18 16:30 08/27/18 12:29 08/23/18 12:42 Lorazepam (Ativan) 1 mg Q6H PRN ORAL For Anxiety 08/22/18 05:30 08/29/18 05:29 Naloxegol (Movantik) 25 mg ACBREAKFAST ORAL 08/20/18 16:00 09/19/18 15:59 08/23/18 06:06 Nitroglycerin (Ntg) 0.4 mg Q5M X 3 DOSES PRN SL Prn Chest Pain 08/19/18 20:00 09/18/18 19:59 Ondansetron HCl (Zofran) 4 mg Q6H PRN IVP Nausea & Vomiting 08/19/18 20:00 09/18/18 19:59 Polyethylene Glycol (Miralax) 17 gm HSPRN PRN ORAL Constipation 08/19/18 20:00 09/18/18 19:59 08/20/18 23:13 Risperidone (RisperDAL) 0.5 mg BID ORAL 08/22/18 09:00 09/21/18 08:59 08/23/18 08:12 Sucralfate (Carafate) 1 gm Q6H PRN ORAL Burning Abdominal Pain 08/19/18 23:00 09/18/18 22:59 08/21/18 20:37 Temazepam (Restoril) 15 mg HSPRN PRN ORAL Insomnia 08/19/18 20:00 08/26/18 19:59 08/22/18 23:11 Javi Viveros MD Aug 23, 2018 12:52
--- NOTE | 2018-08-23 14:17 | General Progress Note ---
Assessment/Plan Assessment/Plan: (1) Lumbar DDD (2) Lumbar Spondylosis (3) Lumbar Radiculopathy (4) Lumbar Herniated disc (5) H/O Lumbar fusion (6) Paraparesis Patient to be continued on Dilaudid and [place]. D/w Dr. Swift and he concurred Subjective Date patient seen: Aug 23, 2018 Time patient seen: 02:00 - pm Allergies: Coded Allergies: FENTANYL (Unverified Allergy, Unknown, 08/20/17) KETOROLAC (Unverified Allergy, Unknown, 08/20/17) NAPROXEN (Unverified Allergy, Unknown, 08/20/17) PENICILLINS (Unverified Allergy, Unknown, 08/20/17) Subjective Constitutional: Reports: weakness HEENT: Reports: no symptoms Cardiovascular: Reports: no symptoms Respiratory: Reports: no symptoms Gastrointestinal/Abdominal: Reports: abdominal pain Genitourinary: Reports: no symptoms Neurologic/Psychiatric: Reports: weakness Endocrine: Reports: no symptoms Subjective Patient continues to c/o pain which has been tolerated on the Dilaudid 5 doses and [place] 1 dose in the last 24hrs. Has no new complaints at this time. Objective Last 24 Hour Vital Signs Date Time Temp Pulse Resp B/P (MAP) Pulse Ox O2 Delivery O2 Flow Rate FiO2 08/23/18 13:12 98.5 08/23/18 12:00 98.5 75 19 100/68 (79) 99 08/23/18 09:00 Room Air 08/23/18 08:12 77 124/70 08/23/18 08:00 98.0 77 16 124/70 (88) 100 08/23/18 04:51 97.0 62 20 117/65 (82) 08/23/18 00:00 98.5 71 20 117/76 (90) 08/22/18 21:00 Room Air 08/22/18 20:00 98.0 85 20 115/77 (90) 85 08/22/18 16:00 98.6 65 19 116/75 (89) 97 Intake and Output 08/22/18 08/23/18 18:59 06:59 Intake Total 1420 ml 525 ml Output Total 1100 ml Balance 320 ml 525 ml Intake Oral 520 ml IV Total 900 ml 525 ml Output Urine Total 1100 ml Height (Feet): 6 Height (Inches): 1.00 Weight (Pounds): 280 Objective General Appearance: no apparent distress, alert EENT: PERRL/EOMI, normal ENT inspection Neck: non-tender, normal alignment Cardiovascular: normal rate, regular rhythm Abdomen: non tender, soft Extremities: non-tender Edema: trace edema Neurologic: alert, responsive Skin: normal pigmentation Khrai Harrison Aug 23, 2018 14:17
--- NOTE | 2018-08-23 14:51 | NUR ---
NURSE NOTES: pt has discharge order. MANJEET TOUSSAINT stated pt is un steady and isn't safe to D/C pt to home. Dr LOWRY notified but he stated it's ok to D/C pt to home. SONIA KAT is notified. charge nurse ANABELL spoke with also about the condition of pt and she is fall risk. but Dr lowry again ordered to D/C pt. all discharge assessments and instructions done. jason MACEDO is aware. 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 will continue to monitor. Addendum: 08/23/18 at 1458 by Maggi Garay RN ERROR: WRONG PT.
[2018-08-23] MEDS: HYDROcodone/Acetamin 10/325 tab ORAL PRN (15:12)
--- NOTE | 2018-08-23 18:15 | Progress Note ---
DATE: 08/23/2018 SUBJECTIVE: The patient is a 68-year-old male patient with urinary tract infection. He has got some confusion, some disorganized thought process, and decline in cognition below his baseline. MENTAL STATUS EXAMINATION: The patient is a 68-year-old male. Appearance is disheveled. Attitude, irritable and agitated. Affect, guarded and restricted. Intellect poor. Mood depressed and anxious. Motor activity, psychomotor agitation. Attention span is poor. Orientation x2. Speech is low volume, slurred. Thought process, disorganized and illogical. Insight and judgement poor. DIAGNOSIS: Paranoid schizophrenia with acute exacerbation. PLAN: Treat him with Risperdal 0.5 mg twice a day, Prozac 10 mg a day, BuSpar 10 , and Ativan as needed. Provide him with 20 minutes of cognitive behavioral therapy to help him identify his automatic negative thoughts and help convert those negative thoughts to more positive thoughts to reduce depression, anxiety, mood lability. Chart reviewed and discussed with staff. Seen and assessed in his room. Hudson Ribeiro M.D. DR: Sanjeev JOB#: [id number] CC:
--- NOTE | 2018-08-23 19:17 | NUR ---
HAND-OFF: Report given to CARMEN RAMIREZ.
--- NOTE | 2018-08-23 19:32 | NUR ---
NURSE NOTES: PATIENT IN BED, AWAKE, ALERT. IV IN PLACE. NO COMPLAINTS OF PAIN AT THIS TIME. NO S/S DISTRESS NOTED. BED IN LOWEST POSITION, CALL LIGHT WITHIN REACH, BED ALARM ON. WILL CONTINUE TO MONITOR.
[2018-08-24 00:12] VITALS: BP 109/73
--- NOTE | 2018-08-24 04:16 | Consultation ---
DATE OF CONSULTATION: 08/22/2018 PSYCHOTHERAPY CONSULTATION PROGRESS NOTE CONSULTING PHYSICIAN: Cameron Kathleen PsyD. TREATING ATTENDING PHYSICIAN: Miguel Patino D.O. HISTORY OF PRESENT ILLNESS: This is a 68-year-old male patient. He was brought to the hospital for UTI and abdominal pain. The patient has been extremely anxious, agitated, and for these reasons, he was also referred for psychotherapeutic services. This clinician assessed the patient. The patient states that he is in severe amounts of pain. He states that he has had abdominal pain for about two weeks and he states that nobody knows what to do and what is the cause for it. At this time, the patient is very helpless, hopeless, depressed. He states that he feels very desperate because of the pain that he is experiencing; however, he denies suicidal or homicidal thoughts of ideation. He states that the pain is causing him emotional distress and anxiety. He states that he cannot sleep due to the pain and he feels very helpless. The patient . PAST MEDICAL HISTORY: History of COPD, gastric ulcer, hernia. ALLERGIES: The patient is allergic to Fentanyl, ketorolac, Naprosyn, and penicillin. SUBSTANCE ABUSE HISTORY: The patient has history of smoking cigarettes; however, denies history of alcohol use or illicit substance use. PSYCHIATRIC HISTORY: The patient has a history of mental illness including schizophrenia and anxiety. He has been treated with psychotropic medications in the past. SOCIAL HISTORY: The patient is a 68-year-old single male patient. He is from [facility]. Financially sustained through [facility]. MENTAL STATUS EXAMINATION: Alert and oriented to person, place, time. Mood is severely anxious. Affect is labile. Thought process, disorganized. Thought content, is very negative and catastrophic. The patient states that he wants more pain medication and he was yelling. He has poor frustration tolerance and poor insight into behaviors. He is alert oriented to person and place. Mood is irritable. Affect is labile. Thought process, disorganized. TODAY, I ASSESSED THIS PATIENT, PROVIDED THE PATIENT WITH: 1. Reality orientation, which is focused on improving cognitive function of the patient who is confused and disorganized. Oriented to person, place, time, and situation. 2. Provided the patient with supportive psychotherapy, which would provide the patient means to express his thoughts and emotions the patient's insight into mental illness and providing him with psychoeducation on his mental health symptoms. 3. Also providing him cognitive behavioral therapy, which is focused on techniques to assist emotional ability reducing mood lability, addressing his cognitive with rationale and reality-based thoughts. Plan is to maintain medication compliance with positive coping skills and stabilizing the thoughts and behavior. Psychotherapy provided to this patient, 15 minutes. Cameron Kathleen PsyD. DR: Lorenzo JOB#: [id number] CC:
[2018-08-24 04:41] VITALS: BP 119/71
[2018-08-24] MEDS: Naloxegol Oxalate 25mg tab ORAL SCH (05:44)
--- NOTE | 2018-08-24 06:30 | NUR ---
NURSE NOTES: Patient's IV reddened, but patient denied feeling any pain. IV removed. 2 nurses attempted but were unsuccessful. Will endorse.
[2018-08-24 06:42] LABS: BASOPHILS % (AUTO) 1.5 % (0.0-2.0); EOSINOPHILS % (AUTO) 1.8 % (0.0-3.0); HEMATOCRIT 41.8 % (42.0-52.0); HEMOGLOBIN 14.6 G/DL (14.2-18.0); LYMPHOCYTES % (AUTO) 29.7 % (20.0-45.0); MEAN CORPUSCULAR VOLUME 93 FL (80-99); MONOCYTES % (AUTO) 8.8 % (1.0-10.0); NEUTROPHILS % (AUTO) 58.3 % (45.0-75.0); PLATELET COUNT 258 K/UL (150-450); RED BLOOD COUNT 4.49 M/UL (4.70-6.10); RED CELL DISTRIBUTION WIDTH 11.8 % (11.6-14.8); WHITE BLOOD COUNT 11.1 K/UL (4.8-10.8)
[2018-08-24 07:12] LABS: ANION GAP 11 mmol/L (5-15); BLOOD UREA NITROGEN 22 mg/dL (7-18); CALCIUM 9.2 MG/DL (8.5-10.1); CARBON DIOXIDE 21 MMOL/L (21-32); CHLORIDE 104 MMOL/L (98-107); CREATININE 1.1 MG/DL (0.55-1.30); POTASSIUM 4.2 MMOL/L (3.5-5.1); SODIUM 136 MMOL/L (136-145)
--- NOTE | 2018-08-24 07:22 | NUR ---
HAND-OFF: Report given to FERCHO KIRAN RN.
--- NOTE | 2018-08-24 07:27 | NUR ---
NURSE NOTES: Patient received resting in bed. Breathing unlabored on room air. Denies pain or SOB at this time. Denies SOB or pain at this time. Patient is waiting for new IV insertion. Bed is locked in lowest position, call light placed within reach. Will continue to monitor.
--- NOTE | 2018-08-24 07:50 | Pulmonology Progress Note ---
Assessment/Plan Problems: (1) Abdominal pain (2) UTI (urinary tract infection) (3) Psychiatric disorder (4) COPD (chronic obstructive pulmonary disease) (5) Diverticulosis Assessment/Plan iv fluids advance diet as tolerated increase analgesics check urine cultures symptomatic treatment check cbc and bmp in am Subjective ROS Limited/Unobtainable: No Constitutional: Reports: no symptoms HEENT: Repors: no symptoms Respiratory: Reports: no symptoms Allergies: Coded Allergies: FENTANYL (Unverified Allergy, Unknown, 08/20/17) KETOROLAC (Unverified Allergy, Unknown, 08/20/17) NAPROXEN (Unverified Allergy, Unknown, 08/20/17) PENICILLINS (Unverified Allergy, Unknown, 08/20/17) Objective Last 24 Hour Vital Signs Date Time Temp Pulse Resp B/P (MAP) Pulse Ox O2 Delivery O2 Flow Rate FiO2 08/24/18 06:14 97.3 08/24/18 04:41 97.3 68 18 119/71 (87) 93 08/24/18 00:12 97.7 70 18 109/73 (85) 93 08/23/18 21:00 Room Air 08/23/18 20:00 98.2 71 18 105/67 (80) 97 08/23/18 17:19 67 110/67 (81) 08/23/18 16:00 97.4 63 18 95/60 (72) 97 08/23/18 15:42 98.5 08/23/18 12:00 98.5 75 19 100/68 (79) 99 08/23/18 09:00 Room Air 08/23/18 08:12 77 124/70 08/23/18 08:00 98.0 77 16 124/70 (88) 100 Intake and Output 08/23/18 08/24/18 19:00 07:00 Intake Total 1500 ml 885 ml Output Total 100 ml Balance 1500 ml 785 ml Intake Oral 600 ml 360 ml IV Total 900 ml 525 ml Output Urine Total 100 ml General Appearance: WD/WN, no acute distress HEENT: atraumatic Respiratory/Chest: chest wall non-tender, normal breath sounds Cardiovascular: normal peripheral pulses, regularly irregular Abdomen: normal bowel sounds, no mass Extremities: no cyanosis Laboratory Tests 08/24/18 06:00: White Blood Count 11.1H, Red Blood Count 4.49L, Hemoglobin 14.6, Hematocrit 41.8L, Mean Corpuscular Volume 93, Mean Corpuscular Hemoglobin 32.6H, Mean Corpuscular Hemoglobin Concent 35.0, Red Cell Distribution Width 11.8, Platelet Count 258, Mean Platelet Volume 7.2, Neutrophils (%) (Auto) 58.3, Lymphocytes (% ) (Auto) 29.7, Monocytes (%) (Auto) 8.8, Eosinophils (%) (Auto) 1.8, Basophils ( %) (Auto) 1.5, Sodium Level 136, Potassium Level 4.2, Chloride Level 104, Carbon Dioxide Level 21, Anion Gap 11, Blood Urea Nitrogen 22H, Creatinine 1.1, Estimat Glomerular Filtration Rate > 60, Glucose Level 104, Calcium Level 9.2 Current Medications Medications (Trade) Dose Ordered Sig/Paul Route PRN Reason Start Time Stop Time Status Last Admin Dose Admin Acetaminophen (Tylenol) 650 mg Q4H PRN ORAL fever 08/19/18 20:00 09/18/18 19:59 Acetaminophen/ Hydrocodone Bitart ([place] 10/325) 1 tab Q6H PRN ORAL Moderate Pain (Pain Scale 4-6) 08/20/18 14:15 08/27/18 14:14 08/23/18 15:12 Amlodipine Besylate (Norvasc) 5 mg DAILY ORAL 08/20/18 09:00 09/19/18 08:59 08/23/18 08:12 Baclofen (Lioresal) 15 mg THREE TIMES A DAY ORAL 08/20/18 09:00 09/19/18 08:59 08/23/18 17:13 Buspirone HCl (Buspar) 10 mg TWICE A DAY ORAL 08/20/18 09:00 09/19/18 08:59 08/23/18 17:13 Dextrose (Dextrose 50%) 25 ml Q30M PRN IV Hypoglycemia 08/19/18 20:00 09/18/18 19:59 Dextrose (Dextrose 50%) 50 ml Q30M PRN IV Hypoglycemia 08/19/18 20:00 09/18/18 19:59 Dextrose/ Electrolytes 1,000 ml @ 75 mls/hr [id number] IV 08/20/18 16:00 09/19/18 15:59 08/23/18 15:12 Diphenhydramine HCl (Benadryl) 25 mg Q6H PRN ORAL Itching/Pruritis 08/19/18 20:00 09/18/18 19:59 08/22/18 01:41 Famotidine (Pepcid) 20 mg BID ORAL 08/19/18 23:00 09/18/18 22:59 08/23/18 17:12 Fluoxetine HCl (PROzac) 20 mg DAILY ORAL 08/20/18 09:00 09/19/18 08:59 08/23/18 08:11 Gabapentin (Neurontin) 300 mg THREE TIMES A DAY ORAL 08/22/18 09:00 09/21/18 08:59 08/23/18 17:13 Heparin Sodium (Porcine) (Heparin 5000 units/ml) 5,000 units EVERY 12 HOURS SUBQ 08/19/18 21:00 09/18/18 20:59 08/23/18 20:42 Hydromorphone HCl (Dilaudid) 1 mg Q4H PRN IVP Severe Pain (Pain Scale 7-10) 08/20/18 16:30 08/27/18 12:29 08/24/18 05:44 Lorazepam (Ativan) 1 mg Q6H PRN ORAL For Anxiety 08/22/18 05:30 08/29/18 05:29 Naloxegol (Movantik) 25 mg ACBREAKFAST ORAL 08/20/18 16:00 09/19/18 15:59 08/24/18 05:44 Nitroglycerin (Ntg) 0.4 mg Q5M X 3 DOSES PRN SL Prn Chest Pain 08/19/18 20:00 09/18/18 19:59 Ondansetron HCl (Zofran) 4 mg Q6H PRN IVP Nausea & Vomiting 08/19/18 20:00 09/18/18 19:59 Polyethylene Glycol (Miralax) 17 gm HSPRN PRN ORAL Constipation 08/19/18 20:00 09/18/18 19:59 08/20/18 23:13 Risperidone (RisperDAL) 0.5 mg BID ORAL 08/22/18 09:00 09/21/18 08:59 08/23/18 17:13 Sucralfate (Carafate) 1 gm Q6H PRN ORAL Burning Abdominal Pain 08/19/18 23:00 09/18/18 22:59 08/21/18 20:37 Temazepam (Restoril) 15 mg HSPRN PRN ORAL Insomnia 08/19/18 20:00 08/26/18 19:59 08/22/18 23:11 Javi Viveros MD Aug 24, 2018 07:50
[2018-08-24 08:00] VITALS: BP 120/80
[2018-08-24] MEDS: BusPIRone 5mg Tab ORAL SCH ×2 (08:09→16:56)
[2018-08-24] MEDS: Heparin 5000 units/ml inj SUBQ SCH ×2 (08:20→20:15)
--- NOTE | 2018-08-24 09:54 | General Progress Note ---
Assessment/Plan Problem List: (1) Diverticulosis ICD Codes: K57.90 - Diverticulosis of intestine, part unspecified, without perforation or abscess without bleeding SNOMED: 032978672 (2) UTI (urinary tract infection) ICD Codes: N39.0 - Urinary tract infection, site not specified SNOMED: 21258285 Qualifiers: Qualified Codes: N39.0 - Urinary tract infection, site not specified (3) COPD (chronic obstructive pulmonary disease) ICD Codes: J44.9 - Chronic obstructive pulmonary disease, unspecified SNOMED: 95885609 (4) Abdominal pain ICD Codes: R10.9 - Unspecified abdominal pain SNOMED: 77113571 Qualifiers: Qualified Codes: R10.9 - Unspecified abdominal pain Status: stable, progressing Assessment/Plan: pt diet abx pain control gi f/u cbc bmp am dc plan aru eval Subjective Constitutional: Reports: weakness Allergies: Coded Allergies: FENTANYL (Unverified Allergy, Unknown, 08/20/17) KETOROLAC (Unverified Allergy, Unknown, 08/20/17) NAPROXEN (Unverified Allergy, Unknown, 08/20/17) PENICILLINS (Unverified Allergy, Unknown, 08/20/17) All Systems: reviewed and negative except above Subjective sleepy c/o moderate abd pain Objective Last 24 Hour Vital Signs Date Time Temp Pulse Resp B/P (MAP) Pulse Ox O2 Delivery O2 Flow Rate FiO2 08/24/18 09:00 Room Air 08/24/18 08:09 68 119/71 08/24/18 08:00 97.2 79 20 120/80 (93) 94 08/24/18 06:14 97.3 08/24/18 04:41 97.3 68 18 119/71 (87) 93 08/24/18 00:12 97.7 70 18 109/73 (85) 93 08/23/18 21:00 Room Air 08/23/18 20:00 98.2 71 18 105/67 (80) 97 08/23/18 17:19 67 110/67 (81) 08/23/18 16:00 97.4 63 18 95/60 (72) 97 08/23/18 15:42 98.5 08/23/18 12:00 98.5 75 19 100/68 (79) 99 Intake and Output 08/23/18 08/24/18 19:00 07:00 Intake Total 1500 ml 885 ml Output Total 100 ml Balance 1500 ml 785 ml Intake Oral 600 ml 360 ml IV Total 900 ml 525 ml Output Urine Total 100 ml Laboratory Tests 08/24/18 06:00: White Blood Count 11.1H, Red Blood Count 4.49L, Hemoglobin 14.6, Hematocrit 41.8L, Mean Corpuscular Volume 93, Mean Corpuscular Hemoglobin 32.6H, Mean Corpuscular Hemoglobin Concent 35.0, Red Cell Distribution Width 11.8, Platelet Count 258, Mean Platelet Volume 7.2, Neutrophils (%) (Auto) 58.3, Lymphocytes (% ) (Auto) 29.7, Monocytes (%) (Auto) 8.8, Eosinophils (%) (Auto) 1.8, Basophils ( %) (Auto) 1.5, Sodium Level 136, Potassium Level 4.2, Chloride Level 104, Carbon Dioxide Level 21, Anion Gap 11, Blood Urea Nitrogen 22H, Creatinine 1.1, Estimat Glomerular Filtration Rate > 60, Glucose Level 104, Calcium Level 9.2 Height (Feet): 6 Height (Inches): 1.00 Weight (Pounds): 280 General Appearance: lethargic EENT: normal ENT inspection Neck: normal alignment Cardiovascular: normal peripheral pulses, normal rate, regular rhythm Respiratory/Chest: chest wall non-tender, lungs clear, normal breath sounds Abdomen: normal bowel sounds, non tender, soft Extremities: normal inspection Edema: no edema noted Arm (L), no edema noted Arm (R), no edema noted Leg (L), no edema noted Leg (R), no edema noted Pedal (L), no edema noted Pedal (R), no edema noted Generalized Neurologic: responsive, motor weakness Skin: normal pigmentation, warm/dry Miguel Patino DO Aug 24, 2018 09:54
[2018-08-24 12:00] VITALS: BP 125/76
--- NOTE | 2018-08-24 12:41 | Infectious Diseases Prog Note ---
Assessment/Plan Assessment/Plan Assessment: Abd pain- likely 2ry to GERD/gastritis -CT abd/p w/: No acute findings appreciated. -s/p colonoscopy: 4 polyps removed Afebrile Mild leukocytosis, resolved- likely reactive -u/a no pyuria; ucx <10k Diptheroids(colonizers) -CXR: No acute disease. Minimal left basal atelectasis HTN HLD gastritis/GERD -07/2017 SP -EGD: Diffuse bile-induced gastropathy versus gastritis, status post biopsy, otherwise, normal upper endoscopic examination. --path: mild chronic gastritis with healing erosion and reactive changes. No H. pylori paraplegia chronic back pain 2ry to Lumbar DDD/spondylosis/herniated disc w/ radiculopathy -- s/p lumbar fusion, schizoaffective disorder FTT polyneuropathy SNF resident VRE, MRSA, CRE colonized Plan: -Continue to monitor off abx unless febrile, increasing WBC or HD unstability. -08/19 SP Ceftriaxone x1 -f/u cx -Monitor CBC/CMP, temperatures Thank you for this consultation. Will continue to follow along with you. Discussed with RN. Subjective Allergies: Coded Allergies: FENTANYL (Unverified Allergy, Unknown, 08/20/17) KETOROLAC (Unverified Allergy, Unknown, 08/20/17) NAPROXEN (Unverified Allergy, Unknown, 08/20/17) PENICILLINS (Unverified Allergy, Unknown, 08/20/17) Subjective afebrile mild leukocytosis Objective Vital Signs Last 24 Hour Vital Signs Date Time Temp Pulse Resp B/P (MAP) Pulse Ox O2 Delivery O2 Flow Rate FiO2 08/24/18 12:00 97.6 82 20 125/76 (92) 98 08/24/18 09:00 Room Air 08/24/18 08:09 68 119/71 08/24/18 08:00 97.2 79 20 120/80 (93) 94 08/24/18 06:14 97.3 08/24/18 04:41 97.3 68 18 119/71 (87) 93 08/24/18 00:12 97.7 70 18 109/73 (85) 93 08/23/18 21:00 Room Air 08/23/18 20:00 98.2 71 18 105/67 (80) 97 08/23/18 17:19 67 110/67 (81) 08/23/18 16:00 97.4 63 18 95/60 (72) 97 08/23/18 15:42 98.5 Height (Feet): 6 Height (Inches): 1.00 Weight (Pounds): 280 Objective General Appearance: no apparent distress, alert Head: normocephalic, atraumatic Eyes: bilateral eye normal inspection, bilateral eye PERRL ENT: hearing grossly normal, normal pharynx, no angioedema, normal voice Neck: full range of motion, supple/symm/no masses Respiratory: chest non-tender, lungs clear, normal breath sounds, speaking full sentences Gastrointestinal: normal bowel sounds, soft, non-distended, no guarding, no rebound, tenderness Genitourinary: normal inspection, no CVA tenderness Musculoskeletal: back normal, gait/station normal, normal range of motion, non- tender Neurologic: alert, oriented x3, responsive, motor strength/tone normal, sensory intact, speech normal Psychiatric: judgement/insight normal, memory normal, mood/affect normal, no suicidal/homicidal ideation Skin: normal color, no rash, warm/dry, well hydrated Laboratory Tests Test 08/24/18 06:00 White Blood Count 11.1 K/UL (4.8-10.8) H Red Blood Count 4.49 M/UL (4.70-6.10) L Hemoglobin 14.6 G/DL (14.2-18.0) Hematocrit 41.8 % (42.0-52.0) L Mean Corpuscular Volume 93 FL (80-99) Mean Corpuscular Hemoglobin 32.6 PG (27.0-31.0) H Mean Corpuscular Hemoglobin Concent 35.0 G/DL (32.0-36.0) Red Cell Distribution Width 11.8 % (11.6-14.8) Platelet Count 258 K/UL (150-450) Mean Platelet Volume 7.2 FL (6.5-10.1) Neutrophils (%) (Auto) 58.3 % (45.0-75.0) Lymphocytes (%) (Auto) 29.7 % (20.0-45.0) Monocytes (%) (Auto) 8.8 % (1.0-10.0) Eosinophils (%) (Auto) 1.8 % (0.0-3.0) Basophils (%) (Auto) 1.5 % (0.0-2.0) Sodium Level 136 MMOL/L (136-145) Potassium Level 4.2 MMOL/L (3.5-5.1) Chloride Level 104 MMOL/L (98-107) Carbon Dioxide Level 21 MMOL/L (21-32) Anion Gap 11 mmol/L (5-15) Blood Urea Nitrogen 22 mg/dL (7-18) H Creatinine 1.1 MG/DL (0.55-1.30) Estimat Glomerular Filtration Rate > 60 mL/min (>60) Glucose Level 104 MG/DL (74-106) Calcium Level 9.2 MG/DL (8.5-10.1) Current Medications Medications (Trade) Dose Ordered Sig/Paul Route PRN Reason Start Time Stop Time Status Last Admin Dose Admin Acetaminophen (Tylenol) 650 mg Q4H PRN ORAL fever 08/19/18 20:00 09/18/18 19:59 Acetaminophen/ Hydrocodone Bitart ([place] 10/325) 1 tab Q6H PRN ORAL Moderate Pain (Pain Scale 4-6) 08/20/18 14:15 08/27/18 14:14 08/23/18 15:12 Amlodipine Besylate (Norvasc) 5 mg DAILY ORAL 08/20/18 09:00 09/19/18 08:59 08/24/18 08:09 Baclofen (Lioresal) 15 mg THREE TIMES A DAY ORAL 08/20/18 09:00 09/19/18 08:59 08/24/18 12:07 Buspirone HCl (Buspar) 10 mg TWICE A DAY ORAL 08/20/18 09:00 09/19/18 08:59 08/24/18 08:09 Dextrose (Dextrose 50%) 25 ml Q30M PRN IV Hypoglycemia 08/19/18 20:00 09/18/18 19:59 Dextrose (Dextrose 50%) 50 ml Q30M PRN IV Hypoglycemia 08/19/18 20:00 09/18/18 19:59 Diphenhydramine HCl (Benadryl) 25 mg Q6H PRN ORAL Itching/Pruritis 08/19/18 20:00 09/18/18 19:59 08/22/18 01:41 Famotidine (Pepcid) 20 mg BID ORAL 08/19/18 23:00 09/18/18 22:59 08/24/18 08:08 Fluoxetine HCl (PROzac) 20 mg DAILY ORAL 08/20/18 09:00 09/19/18 08:59 08/24/18 08:09 Gabapentin (Neurontin) 300 mg THREE TIMES A DAY ORAL 08/22/18 09:00 09/21/18 08:59 08/24/18 12:07 Heparin Sodium (Porcine) (Heparin 5000 units/ml) 5,000 units EVERY 12 HOURS SUBQ 08/19/18 21:00 09/18/18 20:59 08/24/18 08:20 Hydromorphone HCl (Dilaudid) 1.5 mg Q3H PRN IVP Severe Pain (Pain Scale 7-10) 08/24/18 08:00 08/31/18 07:59 08/24/18 09:44 Lorazepam (Ativan) 1 mg Q6H PRN ORAL For Anxiety 08/22/18 05:30 08/29/18 05:29 Naloxegol (Movantik) 25 mg ACBREAKFAST ORAL 08/20/18 16:00 09/19/18 15:59 08/24/18 05:44 Nitroglycerin (Ntg) 0.4 mg Q5M X 3 DOSES PRN SL Prn Chest Pain 08/19/18 20:00 09/18/18 19:59 Ondansetron HCl (Zofran) 4 mg Q6H PRN IVP Nausea & Vomiting 08/19/18 20:00 09/18/18 19:59 Polyethylene Glycol (Miralax) 17 gm HSPRN PRN ORAL Constipation 08/19/18 20:00 09/18/18 19:59 08/20/18 23:13 Risperidone (RisperDAL) 0.5 mg BID ORAL 08/22/18 09:00 09/21/18 08:59 08/24/18 08:08 Sucralfate (Carafate) 1 gm Q6H PRN ORAL Burning Abdominal Pain 08/19/18 23:00 09/18/18 22:59 08/21/18 20:37 Temazepam (Restoril) 15 mg HSPRN PRN ORAL Insomnia 08/19/18 20:00 08/26/18 19:59 08/22/18 23:11 Lynette Nichole M.D. Aug 24, 2018 12:41
--- NOTE | 2018-08-24 13:52 | Surgery Progress Note ---
Surgery Progress Note Subjective Additional Comments No acute events Afebrile States mild abdominal discomfort with diet Passing flatus and bowel movement Labs noted Objective Last 24 Hour Vital Signs Date Time Temp Pulse Resp B/P (MAP) Pulse Ox O2 Delivery O2 Flow Rate FiO2 08/24/18 12:00 97.6 82 20 125/76 (92) 98 08/24/18 09:00 Room Air 08/24/18 08:09 68 119/71 08/24/18 08:00 97.2 79 20 120/80 (93) 94 08/24/18 06:14 97.3 08/24/18 04:41 97.3 68 18 119/71 (87) 93 08/24/18 00:12 97.7 70 18 109/73 (85) 93 08/23/18 21:00 Room Air 08/23/18 20:00 98.2 71 18 105/67 (80) 97 08/23/18 17:19 67 110/67 (81) 08/23/18 16:00 97.4 63 18 95/60 (72) 97 08/23/18 15:42 98.5 I&O Intake and Output 08/23/18 08/24/18 18:59 06:59 Intake Total 1425 ml 960 ml Output Total 100 ml Balance 1425 ml 860 ml Intake Oral 600 ml 360 ml IV Total 825 ml 600 ml Output Urine Total 100 ml Cardiovascular: RSR Respiratory: clear Abdomen: soft, distended, non-tender, present bowel sounds Extremities: no edema, no tenderness, no cyanosis Laboratory Tests Test 08/24/18 06:00 White Blood Count 11.1 K/UL (4.8-10.8) H Red Blood Count 4.49 M/UL (4.70-6.10) L Hemoglobin 14.6 G/DL (14.2-18.0) Hematocrit 41.8 % (42.0-52.0) L Mean Corpuscular Volume 93 FL (80-99) Mean Corpuscular Hemoglobin 32.6 PG (27.0-31.0) H Mean Corpuscular Hemoglobin Concent 35.0 G/DL (32.0-36.0) Red Cell Distribution Width 11.8 % (11.6-14.8) Platelet Count 258 K/UL (150-450) Mean Platelet Volume 7.2 FL (6.5-10.1) Neutrophils (%) (Auto) 58.3 % (45.0-75.0) Lymphocytes (%) (Auto) 29.7 % (20.0-45.0) Monocytes (%) (Auto) 8.8 % (1.0-10.0) Eosinophils (%) (Auto) 1.8 % (0.0-3.0) Basophils (%) (Auto) 1.5 % (0.0-2.0) Sodium Level 136 MMOL/L (136-145) Potassium Level 4.2 MMOL/L (3.5-5.1) Chloride Level 104 MMOL/L (98-107) Carbon Dioxide Level 21 MMOL/L (21-32) Anion Gap 11 mmol/L (5-15) Blood Urea Nitrogen 22 mg/dL (7-18) H Creatinine 1.1 MG/DL (0.55-1.30) Estimat Glomerular Filtration Rate > 60 mL/min (>60) Glucose Level 104 MG/DL (74-106) Calcium Level 9.2 MG/DL (8.5-10.1) Plan Problems: (1) Diverticulosis (2) Periumbilical hernia (3) Psychiatric disorder (4) UTI (urinary tract infection) (5) COPD (chronic obstructive pulmonary disease) (6) Odynophagia (7) Constipation (8) Abdominal pain Assessment & Plan: 68 year old male with 2 weeks of cramping abdominal pain. no n/v/f/c leukocytosis UTI CT w/ Findings: The lung bases are clear. Cholecystectomy clips noted. There is a small hypodensity in the right kidney measuring about 1 cm likely cystic. There is no hydronephrosis. The patient has had extensive hardware and multilevel laminectomy within the lumbar spine. Resultant streak artifact limits evaluation. There is an umbilical hernia containing fat and some small bowel. Appendix is not definitely seen but there are no secondary signs of acute appendicitis. Bowel gas pattern is nonobstructive. Aortoiliac calcifications are present. Small cystic focus noted within the spleen. The liver is unremarkable. The pancreas and adrenal glands are unremarkable. exam benign. abd soft, nt/nd, bs+ hx of gastric ulcers? - no acute surgical intervention planned -IV abx as per ID -okay for diet -PPI -IV fluids -trend labs okay to d/c from surgical standpoint will follow with recs thank you (9) Severe malnutrition (10) Nausea & vomiting Balwinder Marc Aug 24, 2018 13:52
[2018-08-24 15:44] VITALS: BP 115/76
--- NOTE | 2018-08-24 17:32 | NUR ---
CASE MANAGEMENT: REVIEW 08/24/2018 SI: ABDOMINAL PAIN . UTI COLONOSCOPY W/BIOPSY 4 POLYPS REMOVED 08/21 T 97.5 HR 73 RR 20 B/P 115/76 SATS 96% ON RA WBC 11.1 BUN 22 IS: D5 1/2NS w/KCl 20MEQ IVF @75ML/HR NALOXEGOL PO QD CARAFATE PO PRN BACLOFEN PO TID NORCO 10/325 PO QD NPO MED/SURG STATUS DCP: PATIENT IS FROM [facility]
--- NOTE | 2018-08-24 17:33 | NUR ---
DISCHARGE PLANNING: NOTE CLINICALS FAXED TO [facility] FOR REVIEW
--- NOTE | 2018-08-24 19:32 | NUR ---
NURSE NOTES: PATIENT IN BED, AWAKE, MAKES NEEDS ALL NEEDS KNOWN. IV IN PLACE. NO COMPLAINTS OF PAIN AT THIS TIME. NO S/S DISTRESS NOTED. BED IN LOWEST POSITION, CALL LIGHT WITHIN REACH, BED ALARM ON. WILL CONTINUE TO MONITOR.
--- NOTE | 2018-08-24 19:36 | NUR ---
HAND-OFF: Report given to La MORALES.
--- NOTE | 2018-08-24 19:49 | NUR ---
AUTOMOTIVE PRODUCT SPECIALIST Co-Signature Notes: Patient's chart reviewed. AUTOMOTIVE PRODUCT SPECIALIST notes reviewed and approved Addendum: 08/24/18 at 1949 by MG LACKEY PT Amended: Links added.
[2018-08-24 20:01] VITALS: BP 124/75
[2018-08-25 00:36] VITALS: BP 139/85
[2018-08-25 04:41] VITALS: BP 128/94
[2018-08-25] MEDS: Naloxegol Oxalate 25mg tab ORAL SCH (05:47)
--- NOTE | 2018-08-25 06:00 | NUR ---
NURSE NOTES: PATIENT IV ACCESS LEFT FOREARM 20 GAUGE BECAME INFILTRATED AND RED IN COLOR. IV ACCESS WAS REMOVED CENTRAL SUPPLY TECHNICIAN ON 08/24/18. WHEN SAFETY LEADER NURSE CAME ON SHIFT, OLD IV SITE WAS STILL RED SO COLD COMPRESS WAS PUT ON THE SITE AND EXTREMITY ELEVATED WITH PILLOW. NO DRAINAGE OR PUS WAS NOTED. CHARGE NURSE, RAFA, MADE AWARE. OVER NIGHT WHEN NURSE ASSSESSED THE SITE, NO CHANGE WAS NOTED SO COLD COMPRESS REMAINED ON THE SITE. THEN IN THE MORNING OF 08/25/18, WHEN NURSE ASSESSED AGAIN, THE SITE LOOKED MORE RED AND THERE WAS A WHITE COLORED CENTER. CHARGE NURSE MADE AWARE. PICTURE WAS TAKEN DUE TO CHANGE IN CONDITION. NURSE CALLED DR. WEST ANSWERING SERIVE, AWAITING RESPONSE.
--- NOTE | 2018-08-25 07:14 | NUR ---
HAND-OFF: Report given to MARQIUTA MENG RN. ENDORSED TO AM NURSE TO FOLLOW UP WITH MD REGARDING OLD IV SITE.
[2018-08-25 07:21] LABS: BASOPHILS % (AUTO) 0.9 % (0.0-2.0); EOSINOPHILS % (AUTO) 1.2 % (0.0-3.0); HEMATOCRIT 44.2 % (42.0-52.0); HEMOGLOBIN 15.3 G/DL (14.2-18.0); LYMPHOCYTES % (AUTO) 26.6 % (20.0-45.0); MEAN CORPUSCULAR VOLUME 93 FL (80-99); MONOCYTES % (AUTO) 7.5 % (1.0-10.0); NEUTROPHILS % (AUTO) 63.8 % (45.0-75.0); PLATELET COUNT 273 K/UL (150-450); RED BLOOD COUNT 4.74 M/UL (4.70-6.10); RED CELL DISTRIBUTION WIDTH 11.6 % (11.6-14.8); WHITE BLOOD COUNT 11.3 K/UL (4.8-10.8)
[2018-08-25 07:35] LABS: ANION GAP 10 mmol/L (5-15); BLOOD UREA NITROGEN 20 mg/dL (7-18); CALCIUM 9.6 MG/DL (8.5-10.1); CARBON DIOXIDE 25 MMOL/L (21-32); CHLORIDE 105 MMOL/L (98-107); CREATININE 1.1 MG/DL (0.55-1.30); POTASSIUM 4.1 MMOL/L (3.5-5.1); SODIUM 140 MMOL/L (136-145)
--- NOTE | 2018-08-25 07:51 | General Progress Note ---
Assessment/Plan Problem List: (1) Diverticulosis ICD Codes: K57.90 - Diverticulosis of intestine, part unspecified, without perforation or abscess without bleeding SNOMED: 363792175 (2) UTI (urinary tract infection) ICD Codes: N39.0 - Urinary tract infection, site not specified SNOMED: 57513263 Qualifiers: Qualified Codes: N39.0 - Urinary tract infection, site not specified (3) COPD (chronic obstructive pulmonary disease) ICD Codes: J44.9 - Chronic obstructive pulmonary disease, unspecified SNOMED: 18475729 (4) Abdominal pain ICD Codes: R10.9 - Unspecified abdominal pain SNOMED: 98657432 Qualifiers: Qualified Codes: R10.9 - Unspecified abdominal pain Status: stable, progressing Assessment/Plan: pt diet abx pain control gi f/u cbc bmp am dc plan aru eval Subjective Constitutional: Reports: weakness Allergies: Coded Allergies: FENTANYL (Unverified Allergy, Unknown, 08/20/17) KETOROLAC (Unverified Allergy, Unknown, 08/20/17) NAPROXEN (Unverified Allergy, Unknown, 08/20/17) PENICILLINS (Unverified Allergy, Unknown, 08/20/17) All Systems: reviewed and negative except above Subjective sleepy c/o moderate abd pain Objective Last 24 Hour Vital Signs Date Time Temp Pulse Resp B/P (MAP) Pulse Ox O2 Delivery O2 Flow Rate FiO2 08/25/18 04:45 97.3 08/25/18 04:41 97.3 76 20 128/94 (105) 97 08/25/18 00:36 97.3 67 20 139/85 (103) 93 08/24/18 21:00 Room Air 08/24/18 20:01 97.3 63 20 124/75 (91) 94 08/24/18 15:44 97.5 73 20 115/76 (89) 96 08/24/18 12:00 97.6 82 20 125/76 (92) 98 08/24/18 09:00 Room Air 08/24/18 08:09 68 119/71 08/24/18 08:00 97.2 79 20 120/80 (93) 94 Intake and Output 08/24/18 08/25/18 19:00 07:00 Intake Total 1080 ml Output Total 3000 ml Balance -1920 ml Intake Oral 1080 ml Output Urine Total 3000 ml Laboratory Tests 08/25/18 05:50: White Blood Count 11.3H, Red Blood Count 4.74, Hemoglobin 15.3, Hematocrit 44.2 , Mean Corpuscular Volume 93, Mean Corpuscular Hemoglobin 32.4H, Mean Corpuscular Hemoglobin Concent 34.7, Red Cell Distribution Width 11.6, Platelet Count 273, Mean Platelet Volume 7.1, Neutrophils (%) (Auto) 63.8, Lymphocytes (% ) (Auto) 26.6, Monocytes (%) (Auto) 7.5, Eosinophils (%) (Auto) 1.2, Basophils ( %) (Auto) 0.9, Sodium Level 140, Potassium Level 4.1, Chloride Level 105, Carbon Dioxide Level 25, Anion Gap 10, Blood Urea Nitrogen 20H, Creatinine 1.1, Estimat Glomerular Filtration Rate > 60, Glucose Level 104, Calcium Level 9.6 Height (Feet): 6 Height (Inches): 1.00 Weight (Pounds): 280 General Appearance: lethargic EENT: normal ENT inspection Neck: normal alignment Cardiovascular: normal peripheral pulses, normal rate, regular rhythm Respiratory/Chest: chest wall non-tender, lungs clear, normal breath sounds Abdomen: normal bowel sounds, non tender, soft Extremities: normal inspection Edema: no edema noted Arm (L), no edema noted Arm (R), no edema noted Leg (L), no edema noted Leg (R), no edema noted Pedal (L), no edema noted Pedal (R), no edema noted Generalized Neurologic: responsive, motor weakness Skin: normal pigmentation, warm/dry Miguel Patino DO Aug 25, 2018 07:51
[2018-08-25 08:00] VITALS: BP 121/74
[2018-08-25] MEDS: BusPIRone 5mg Tab ORAL SCH ×2 (08:45→17:10)
[2018-08-25] MEDS: Heparin 5000 units/ml inj SUBQ SCH ×2 (08:49→20:22)
[2018-08-25 12:00] VITALS: BP 115/72
--- NOTE | 2018-08-25 12:53 | Surgery Progress Note ---
Surgery Progress Note Subjective Additional Comments no acute events. exam stable. labs noted comfortable Objective Last 24 Hour Vital Signs Date Time Temp Pulse Resp B/P (MAP) Pulse Ox O2 Delivery O2 Flow Rate FiO2 08/25/18 09:00 Room Air 08/25/18 08:45 77 121/74 08/25/18 08:00 98.2 77 18 121/74 (90) 97 08/25/18 04:45 97.3 08/25/18 04:41 97.3 76 20 128/94 (105) 97 08/25/18 00:36 97.3 67 20 139/85 (103) 93 08/24/18 21:00 Room Air 08/24/18 20:01 97.3 63 20 124/75 (91) 94 08/24/18 15:44 97.5 73 20 115/76 (89) 96 I&O Intake and Output 08/24/18 08/25/18 19:00 07:00 Intake Total 1080 ml Output Total 3000 ml Balance -1920 ml Intake Oral 1080 ml Output Urine Total 3000 ml Cardiovascular: RSR Respiratory: clear Abdomen: soft, distended, non-tender, present bowel sounds Extremities: no edema, no tenderness, no cyanosis Laboratory Tests Test 08/25/18 05:50 White Blood Count 11.3 K/UL (4.8-10.8) H Red Blood Count 4.74 M/UL (4.70-6.10) Hemoglobin 15.3 G/DL (14.2-18.0) Hematocrit 44.2 % (42.0-52.0) Mean Corpuscular Volume 93 FL (80-99) Mean Corpuscular Hemoglobin 32.4 PG (27.0-31.0) H Mean Corpuscular Hemoglobin Concent 34.7 G/DL (32.0-36.0) Red Cell Distribution Width 11.6 % (11.6-14.8) Platelet Count 273 K/UL (150-450) Mean Platelet Volume 7.1 FL (6.5-10.1) Neutrophils (%) (Auto) 63.8 % (45.0-75.0) Lymphocytes (%) (Auto) 26.6 % (20.0-45.0) Monocytes (%) (Auto) 7.5 % (1.0-10.0) Eosinophils (%) (Auto) 1.2 % (0.0-3.0) Basophils (%) (Auto) 0.9 % (0.0-2.0) Sodium Level 140 MMOL/L (136-145) Potassium Level 4.1 MMOL/L (3.5-5.1) Chloride Level 105 MMOL/L (98-107) Carbon Dioxide Level 25 MMOL/L (21-32) Anion Gap 10 mmol/L (5-15) Blood Urea Nitrogen 20 mg/dL (7-18) H Creatinine 1.1 MG/DL (0.55-1.30) Estimat Glomerular Filtration Rate > 60 mL/min (>60) Glucose Level 104 MG/DL (74-106) Calcium Level 9.6 MG/DL (8.5-10.1) Plan Problems: (1) Diverticulosis (2) Periumbilical hernia (3) Psychiatric disorder (4) UTI (urinary tract infection) (5) COPD (chronic obstructive pulmonary disease) (6) Odynophagia (7) Constipation (8) Abdominal pain Assessment & Plan: 68 year old male with 2 weeks of cramping abdominal pain. no n/v/f/c leukocytosis UTI CT w/ Findings: The lung bases are clear. Cholecystectomy clips noted. There is a small hypodensity in the right kidney measuring about 1 cm likely cystic. There is no hydronephrosis. The patient has had extensive hardware and multilevel laminectomy within the lumbar spine. Resultant streak artifact limits evaluation. There is an umbilical hernia containing fat and some small bowel. Appendix is not definitely seen but there are no secondary signs of acute appendicitis. Bowel gas pattern is nonobstructive. Aortoiliac calcifications are present. Small cystic focus noted within the spleen. The liver is unremarkable. The pancreas and adrenal glands are unremarkable. exam benign. abd soft, nt/nd, bs+ hx of gastric ulcers? - no acute surgical intervention planned -IV abx as per ID -okay for diet -PPI -IV fluids -trend labs okay to d/c from surgical standpoint will follow with recs thank you (9) Severe malnutrition (10) Nausea & vomiting Balwinder Marc Aug 25, 2018 12:53
--- NOTE | 2018-08-25 13:05 | General Progress Note ---
Assessment/Plan Assessment/Plan: (1) Lumbar DDD (2) Lumbar Spondylosis (3) Lumbar Radiculopathy (4) Lumbar Herniated disc (5) H/O Lumbar fusion (6) Paraparesis Patient to be continued on Dilaudid and [place]. D/w Dr. Swift and he concurred Subjective Date patient seen: Aug 25, 2018 Time patient seen: 12:15 - pm Allergies: Coded Allergies: FENTANYL (Unverified Allergy, Unknown, 08/20/17) KETOROLAC (Unverified Allergy, Unknown, 08/20/17) NAPROXEN (Unverified Allergy, Unknown, 08/20/17) PENICILLINS (Unverified Allergy, Unknown, 08/20/17) Subjective Constitutional: Reports: weakness HEENT: Reports: no symptoms Cardiovascular: Reports: no symptoms Respiratory: Reports: no symptoms Gastrointestinal/Abdominal: Reports: abdominal pain Genitourinary: Reports: no symptoms Neurologic/Psychiatric: Reports: weakness Endocrine: Reports: no symptoms Subjective Patient is in bed continues to c/o pain which has been unchanged. His pain has been tolerated on the Dilaudid which was to 1.5mg IV Q3H PRN. He was advised to use [place] as needed. Objective Last 24 Hour Vital Signs Date Time Temp Pulse Resp B/P (MAP) Pulse Ox O2 Delivery O2 Flow Rate FiO2 08/25/18 09:00 Room Air 08/25/18 08:45 77 121/74 08/25/18 08:00 98.2 77 18 121/74 (90) 97 08/25/18 04:45 97.3 08/25/18 04:41 97.3 76 20 128/94 (105) 97 08/25/18 00:36 97.3 67 20 139/85 (103) 93 08/24/18 21:00 Room Air 08/24/18 20:01 97.3 63 20 124/75 (91) 94 08/24/18 15:44 97.5 73 20 115/76 (89) 96 Intake and Output 08/24/18 08/25/18 19:00 07:00 Intake Total 1080 ml Output Total 3000 ml Balance -1920 ml Intake Oral 1080 ml Output Urine Total 3000 ml Laboratory Tests 08/25/18 05:50: White Blood Count 11.3H, Red Blood Count 4.74, Hemoglobin 15.3, Hematocrit 44.2 , Mean Corpuscular Volume 93, Mean Corpuscular Hemoglobin 32.4H, Mean Corpuscular Hemoglobin Concent 34.7, Red Cell Distribution Width 11.6, Platelet Count 273, Mean Platelet Volume 7.1, Neutrophils (%) (Auto) 63.8, Lymphocytes (% ) (Auto) 26.6, Monocytes (%) (Auto) 7.5, Eosinophils (%) (Auto) 1.2, Basophils ( %) (Auto) 0.9, Sodium Level 140, Potassium Level 4.1, Chloride Level 105, Carbon Dioxide Level 25, Anion Gap 10, Blood Urea Nitrogen 20H, Creatinine 1.1, Estimat Glomerular Filtration Rate > 60, Glucose Level 104, Calcium Level 9.6 Height (Feet): 6 Height (Inches): 1.00 Weight (Pounds): 280 Objective General Appearance: no apparent distress, alert EENT: PERRL/EOMI, normal ENT inspection Neck: non-tender, normal alignment Cardiovascular: normal rate, regular rhythm Abdomen: non tender, soft Extremities: non-tender Edema: trace edema Neurologic: alert, responsive Skin: normal pigmentation Khari Harrison Aug 25, 2018 13:05
[2018-08-25] MEDS: Sucralfate 1gm tab ORAL PRN (13:53)
[2018-08-25 15:58] VITALS: BP 118/73
--- NOTE | 2018-08-25 16:32 | NUR ---
NURSE NOTES: RN SPOKE TO DR SINGH AND MADE AWARE OF PREVIOUS IV ACCESS. NO NEW ORDERS FROM DR SINGH.
[2018-08-25] MEDS: Miralax 17gm pkt ORAL PRN (18:33)
--- NOTE | 2018-08-25 19:02 | NUR ---
HAND-OFF: Report given to Joyce RAMIREZ RN.
--- NOTE | 2018-08-25 19:40 | NUR ---
NURSE NOTES: Received report from CRAMEN Denis. Patient is sitting on the bed with HOB elevated. Patient is alert, awake, and verbally responsive to let his needs known. Patient is breathing evenly without signs of distress, discomfort, or SOB noted. No signs of pain noted at this time. Be dis placed at the lowest level with alarm and brakes on. Side rails are up x 2 for safety. Call light is placed within reach. Will continue to monitor and provide care as ordered.
[2018-08-25 20:00] VITALS: BP 130/82
--- NOTE | 2018-08-25 23:45 | NUR ---
NURSE NOTES: Patient verbalized 10/10 pain at 2220. Prescribed pain management was given with non-pharmacological measures such as rest, distraction, positional change, and talk therapy. When went into reassess the pain, patient was asleep, breathing unlabored and evenly without signs of distress or SOB. Reassessed pain with FLACC, showing 0/10. Patient's bed is placed at the lowest and call light was placed near within reach for any assistance needed. Will continue to monitor and provide care as ordered. Addendum: 08/25/18 at 2349 by Baudilio Thacker RN NURSE NOTES: Patient verbalized 10/10 pain at 2220. Prescribed pain management was given with non-pharmacological measures such as rest, distraction, positional change, and talk therapy. When went into reassess the pain at 2257, patient was asleep, breathing unlabored and evenly without signs of distress or SOB. Reassessed pain with FLACC, showing 0/10. Patient's bed is placed at the lowest and call light was placed near within reach for any assistance needed. Will continue to monitor and provide care as ordered.
[2018-08-26] VITALS: BP 127/71
--- NOTE | 2018-08-26 01:30 | Progress Note ---
DATE: 08/24/2018 NOTE: POOR AUDIO SUBJECTIVE: This is a 68-year-old male patient. The patient has a history of apparently abdominal pain. He continues to have severe pain in the stomach. He states "nobody can help me." The patient states that they have not been able to identify a particular cause for his abdominal pain and he was constantly asked not to use as much pain medications. He states that he is in severe pain. The patient is alert and oriented to person and place. His mood is anxious. Affect is congruent. Thought process, poverty of thought . Poor insight, judgment, and impulse control. I assessed this patient. I PROVIDED THE PATIENT WITH: Cognitive behavioral therapy, which is focused on . He is very liable and irritable today coping skills positive strategies to maintain his mood and facility. He supportive psychotherapy, which is focused on identifying . Plan is to maintain medication compliance with positive coping skills, and stabilizing the thoughts and behavior. Psychotherapy provided to this patient is 20 minutes. This clinician has reviewed the patient's chart and discussed treatment with treatment team. Cameron Kathleen PsyD. DR: JEWEL JOB#: [id number] CC:
[2018-08-26 04:00] VITALS: BP 119/77
[2018-08-26] MEDS: Naloxegol Oxalate 25mg tab ORAL SCH (06:19)
--- NOTE | 2018-08-26 07:29 | NUR ---
HAND-OFF: Report given to ALYSA Rehman RN.
--- NOTE | 2018-08-26 07:30 | NUR ---
NURSE NOTES: Received pt from CARMEN HEAD/AUGUSTIN. Pt is alert and orient x4. pt is in RA, No SOB or acute respiratory distress noted. pt has intact iv access LH 24G SL. All needs attended, bed is locked and is in the lowest position. call light within easy reach. will continue to monitor.
[2018-08-26 07:33] LABS: BASOPHILS % (AUTO) 1.2 % (0.0-2.0); EOSINOPHILS % (AUTO) 1.8 % (0.0-3.0); HEMATOCRIT 42.4 % (42.0-52.0); HEMOGLOBIN 14.8 G/DL (14.2-18.0); LYMPHOCYTES % (AUTO) 35.7 % (20.0-45.0); MEAN CORPUSCULAR VOLUME 93 FL (80-99); MONOCYTES % (AUTO) 8.6 % (1.0-10.0); NEUTROPHILS % (AUTO) 52.7 % (45.0-75.0); PLATELET COUNT 274 K/UL (150-450); RED BLOOD COUNT 4.56 M/UL (4.70-6.10); RED CELL DISTRIBUTION WIDTH 11.8 % (11.6-14.8); WHITE BLOOD COUNT 10.8 K/UL (4.8-10.8)
[2018-08-26 08:00] VITALS: BP 113/74
[2018-08-26 08:00] LABS: ANION GAP 11 mmol/L (5-15); BLOOD UREA NITROGEN 20 mg/dL (7-18); CALCIUM 9.4 MG/DL (8.5-10.1); CARBON DIOXIDE 24 MMOL/L (21-32); CHLORIDE 102 MMOL/L (98-107); CREATININE 1.1 MG/DL (0.55-1.30); POTASSIUM 3.9 MMOL/L (3.5-5.1); SODIUM 137 MMOL/L (136-145)
--- NOTE | 2018-08-26 08:30 | General Progress Note ---
Assessment/Plan Assessment/Plan: (1) Lumbar DDD (2) Lumbar Spondylosis (3) Lumbar Radiculopathy (4) Lumbar Herniated disc (5) H/O Lumbar fusion (6) Paraparesis Patient to be continued on Dilaudid and [place]. D/w Dr. Swift and he concurred Subjective Date patient seen: Aug 26, 2018 Time patient seen: 07:00 - am Allergies: Coded Allergies: FENTANYL (Unverified Allergy, Unknown, 08/20/17) KETOROLAC (Unverified Allergy, Unknown, 08/20/17) NAPROXEN (Unverified Allergy, Unknown, 08/20/17) PENICILLINS (Unverified Allergy, Unknown, 08/20/17) Subjective Constitutional: Reports: weakness HEENT: Reports: no symptoms Cardiovascular: Reports: no symptoms Respiratory: Reports: no symptoms Gastrointestinal/Abdominal: Reports: abdominal pain Genitourinary: Reports: no symptoms Neurologic/Psychiatric: Reports: weakness Endocrine: Reports: no symptoms Subjective Patient is in bed continued to c/o pain which has been severe at times. However has been tolerating the pain on the Dilaudid 6 doses in the last 24hrs. Was advised to continue therapy, he seems to understand. Objective Last 24 Hour Vital Signs Date Time Temp Pulse Resp B/P (MAP) Pulse Ox O2 Delivery O2 Flow Rate FiO2 08/26/18 04:00 98.2 67 18 119/77 (91) 94 08/26/18 00:00 98.1 68 17 127/71 (89) 94 08/25/18 21:00 Room Air 08/25/18 20:00 97.8 79 18 130/82 (98) 95 08/25/18 15:58 98.0 78 18 118/73 (88) 98 08/25/18 12:00 98.0 75 17 115/72 (86) 98 08/25/18 09:00 Room Air 08/25/18 08:45 77 121/74 Intake and Output 08/25/18 08/26/18 19:00 07:00 Intake Total 2360 ml 2000 ml Output Total 100 ml 1850 ml Balance 2260 ml 150 ml Intake Oral 2360 ml 2000 ml Output Urine Total 100 ml 1850 ml # Voids 3 Laboratory Tests 08/26/18 05:33: White Blood Count 10.8, Red Blood Count 4.56L, Hemoglobin 14.8, Hematocrit 42.4 , Mean Corpuscular Volume 93, Mean Corpuscular Hemoglobin 32.4H, Mean Corpuscular Hemoglobin Concent 34.8, Red Cell Distribution Width 11.8, Platelet Count 274, Mean Platelet Volume 7.1, Neutrophils (%) (Auto) 52.7, Lymphocytes (% ) (Auto) 35.7, Monocytes (%) (Auto) 8.6, Eosinophils (%) (Auto) 1.8, Basophils ( %) (Auto) 1.2, Sodium Level 137, Potassium Level 3.9, Chloride Level 102, Carbon Dioxide Level 24, Anion Gap 11, Blood Urea Nitrogen 20H, Creatinine 1.1, Estimat Glomerular Filtration Rate > 60, Glucose Level 88, Calcium Level 9.4 Height (Feet): 6 Height (Inches): 1.00 Weight (Pounds): 280 Objective General Appearance: no apparent distress, alert EENT: PERRL/EOMI, normal ENT inspection Neck: non-tender, normal alignment Cardiovascular: normal rate, regular rhythm Abdomen: non tender, soft Extremities: non-tender Edema: trace edema Neurologic: alert, responsive Skin: normal pigmentation Khari Harrison Aug 26, 2018 08:30
--- NOTE | 2018-08-26 08:31 | General Progress Note ---
Assessment/Plan Problem List: (1) Diverticulosis ICD Codes: K57.90 - Diverticulosis of intestine, part unspecified, without perforation or abscess without bleeding SNOMED: 493507481 (2) UTI (urinary tract infection) ICD Codes: N39.0 - Urinary tract infection, site not specified SNOMED: 92731548 Qualifiers: Qualified Codes: N39.0 - Urinary tract infection, site not specified (3) COPD (chronic obstructive pulmonary disease) ICD Codes: J44.9 - Chronic obstructive pulmonary disease, unspecified SNOMED: 65500105 (4) Abdominal pain ICD Codes: R10.9 - Unspecified abdominal pain SNOMED: 99540868 Qualifiers: Qualified Codes: R10.9 - Unspecified abdominal pain Status: stable, progressing Assessment/Plan: pt diet abx pain control gi f/u cbc bmp am dc plan aru eval Subjective Constitutional: Reports: weakness Allergies: Coded Allergies: FENTANYL (Unverified Allergy, Unknown, 08/20/17) KETOROLAC (Unverified Allergy, Unknown, 08/20/17) NAPROXEN (Unverified Allergy, Unknown, 08/20/17) PENICILLINS (Unverified Allergy, Unknown, 08/20/17) All Systems: reviewed and negative except above Subjective sleepy c/o moderate abd pain Objective Last 24 Hour Vital Signs Date Time Temp Pulse Resp B/P (MAP) Pulse Ox O2 Delivery O2 Flow Rate FiO2 08/26/18 04:00 98.2 67 18 119/77 (91) 94 08/26/18 00:00 98.1 68 17 127/71 (89) 94 08/25/18 21:00 Room Air 08/25/18 20:00 97.8 79 18 130/82 (98) 95 08/25/18 15:58 98.0 78 18 118/73 (88) 98 08/25/18 12:00 98.0 75 17 115/72 (86) 98 08/25/18 09:00 Room Air 08/25/18 08:45 77 121/74 Intake and Output 08/25/18 08/26/18 19:00 07:00 Intake Total 2360 ml 2000 ml Output Total 100 ml 1850 ml Balance 2260 ml 150 ml Intake Oral 2360 ml 2000 ml Output Urine Total 100 ml 1850 ml # Voids 3 Laboratory Tests 08/26/18 05:33: White Blood Count 10.8, Red Blood Count 4.56L, Hemoglobin 14.8, Hematocrit 42.4 , Mean Corpuscular Volume 93, Mean Corpuscular Hemoglobin 32.4H, Mean Corpuscular Hemoglobin Concent 34.8, Red Cell Distribution Width 11.8, Platelet Count 274, Mean Platelet Volume 7.1, Neutrophils (%) (Auto) 52.7, Lymphocytes (% ) (Auto) 35.7, Monocytes (%) (Auto) 8.6, Eosinophils (%) (Auto) 1.8, Basophils ( %) (Auto) 1.2, Sodium Level 137, Potassium Level 3.9, Chloride Level 102, Carbon Dioxide Level 24, Anion Gap 11, Blood Urea Nitrogen 20H, Creatinine 1.1, Estimat Glomerular Filtration Rate > 60, Glucose Level 88, Calcium Level 9.4 Height (Feet): 6 Height (Inches): 1.00 Weight (Pounds): 280 General Appearance: alert EENT: normal ENT inspection Neck: normal alignment Cardiovascular: normal peripheral pulses, normal rate, regular rhythm Respiratory/Chest: chest wall non-tender, lungs clear, normal breath sounds Abdomen: normal bowel sounds, non tender, soft Extremities: normal inspection Edema: no edema noted Arm (L), no edema noted Arm (R), no edema noted Leg (L), no edema noted Leg (R), no edema noted Pedal (L), no edema noted Pedal (R), no edema noted Generalized Neurologic: responsive, motor weakness Miguel Patino DO Aug 26, 2018 08:31
[2018-08-26] MEDS: BusPIRone 5mg Tab ORAL SCH (09:32)
[2018-08-26] MEDS: Heparin 5000 units/ml inj SUBQ SCH (09:40)
--- NOTE | 2018-08-26 11:48 | GI Progress Note ---
Assessment/Plan Problems: (1) Nausea & vomiting ICD Codes: R11.2 - Nausea with vomiting, unspecified SNOMED: 40264629 (2) Severe malnutrition ICD Codes: E43 - Unspecified severe protein-calorie malnutrition SNOMED: 35702106 (3) Abdominal pain ICD Codes: R10.9 - Unspecified abdominal pain SNOMED: 72702446 Qualifiers: Qualified Codes: R10.9 - Unspecified abdominal pain (4) Constipation ICD Codes: K59.00 - Constipation, unspecified SNOMED: 81905699 (5) Odynophagia ICD Codes: R13.10 - Dysphagia, unspecified SNOMED: 14516980 (6) Diverticulosis ICD Codes: K57.90 - Diverticulosis of intestine, part unspecified, without perforation or abscess without bleeding SNOMED: 026140197 Status: stable Status Narrative Discussed with Dr. Ramso. Assessment/Plan SUMMARY OF FINDINGS: 1. Fair colonic prep. 2. Four colonic polyps removed. 3. Scattered diverticulosis. 4. Internal hemorrhoids. RECOMMENDATIONS: 1. Follow up pathology. 2. Recommend repeat colonoscopy in 3 years. ok to dc GI stand point The patient was seen and examined at bedside and all new and available data was reviewed in the patients chart. I agree with the above findings, impression and plan. (Patient seen earlier today. Signature stamp does not reflect patient encounter time.). - Camden Ramos MD Subjective Gastrointestinal/Abdominal: Reports: no symptoms Objective Last 24 Hour Vital Signs Date Time Temp Pulse Resp B/P (MAP) Pulse Ox O2 Delivery O2 Flow Rate FiO2 08/26/18 10:03 98.8 08/26/18 09:33 72 113/74 08/26/18 09:00 Room Air 08/26/18 08:00 98.8 72 18 113/74 (87) 93 08/26/18 04:00 98.2 67 18 119/77 (91) 94 08/26/18 00:00 98.1 68 17 127/71 (89) 94 08/25/18 21:00 Room Air 08/25/18 20:00 97.8 79 18 130/82 (98) 95 08/25/18 15:58 98.0 78 18 118/73 (88) 98 08/25/18 12:00 98.0 75 17 115/72 (86) 98 Intake and Output 08/25/18 08/26/18 19:00 07:00 Intake Total 2360 ml 2000 ml Output Total 100 ml 1850 ml Balance 2260 ml 150 ml Intake Oral 2360 ml 2000 ml Output Urine Total 100 ml 1850 ml # Voids 3 Laboratory Tests Test 08/26/18 05:33 White Blood Count 10.8 K/UL (4.8-10.8) Red Blood Count 4.56 M/UL (4.70-6.10) L Hemoglobin 14.8 G/DL (14.2-18.0) Hematocrit 42.4 % (42.0-52.0) Mean Corpuscular Volume 93 FL (80-99) Mean Corpuscular Hemoglobin 32.4 PG (27.0-31.0) H Mean Corpuscular Hemoglobin Concent 34.8 G/DL (32.0-36.0) Red Cell Distribution Width 11.8 % (11.6-14.8) Platelet Count 274 K/UL (150-450) Mean Platelet Volume 7.1 FL (6.5-10.1) Neutrophils (%) (Auto) 52.7 % (45.0-75.0) Lymphocytes (%) (Auto) 35.7 % (20.0-45.0) Monocytes (%) (Auto) 8.6 % (1.0-10.0) Eosinophils (%) (Auto) 1.8 % (0.0-3.0) Basophils (%) (Auto) 1.2 % (0.0-2.0) Sodium Level 137 MMOL/L (136-145) Potassium Level 3.9 MMOL/L (3.5-5.1) Chloride Level 102 MMOL/L (98-107) Carbon Dioxide Level 24 MMOL/L (21-32) Anion Gap 11 mmol/L (5-15) Blood Urea Nitrogen 20 mg/dL (7-18) H Creatinine 1.1 MG/DL (0.55-1.30) Estimat Glomerular Filtration Rate > 60 mL/min (>60) Glucose Level 88 MG/DL (74-106) Calcium Level 9.4 MG/DL (8.5-10.1) Height (Feet): 6 Height (Inches): 1.00 Weight (Pounds): 280 General Appearance: WD/WN, no apparent distress, alert Cardiovascular: normal rate Respiratory/Chest: normal breath sounds, no respiratory distress Abdominal Exam: normal bowel sounds, non tender, soft Extremities: normal range of motion, non-tender Chandler Bravo NP Aug 26, 2018 11:48
[2018-08-26 11:55] VITALS: BP 115/76
--- NOTE | 2018-08-26 13:14 | NUR ---
DISCHARGE PLANNED [facility] ROOM TO BE GIVEN WHEN NURSE GIVES REPORT T [phone] FOR NURSE TO NURSE REPORT [facility] WILL PRICING MANAGER AT [phone]
[2018-08-26] MEDS ORDERED: RISPERDAL0.25 MG ORAL (14:07)
[2018-08-26] MEDS ORDERED: CARAFATE1 G1 ORAL (14:07)
[2018-08-26] MEDS ORDERED: TEMAZEPAM15 MG ORAL (14:07)
[2018-08-26] MEDS ORDERED: ZOFRAN 4 MG4 MG/2 ML IV (14:08)
[2018-08-26] MEDS ORDERED: ATIVAN1 MG ORAL (14:09)
[2018-08-26] MEDS ORDERED: GABAPENTIN300 MG ORAL (14:09)
[2018-08-26] MEDS ORDERED: AMLODIPINE BESYL5 MG ORAL (14:10)
[2018-08-26] MEDS ORDERED: BACLOFEN10 MG ORAL (14:11)
[2018-08-26] MEDS ORDERED: BUSPIRONE HCL5 M1 ORAL (14:11)
[2018-08-26] MEDS ORDERED: NORCO 10-325 T1 EACH ORAL (14:31)
[2018-08-26] MEDS ORDERED: HYDROMORPHO2 MG/1 M8 IJ (14:32)
--- NOTE | 2018-08-26 14:53 | Infectious Diseases Prog Note ---
Assessment/Plan Assessment/Plan Assessment: Abd pain- likely 2ry to GERD/gastritis -CT abd/p w/: No acute findings appreciated. -s/p colonoscopy: 4 polyps removed Afebrile Mild leukocytosis, resolved- likely reactive -u/a no pyuria; ucx <10k Diptheroids(colonizers) -CXR: No acute disease. Minimal left basal atelectasis IV site infiltrated HTN HLD gastritis/GERD -07/2017 SP -EGD: Diffuse bile-induced gastropathy versus gastritis, status post biopsy, otherwise, normal upper endoscopic examination. --path: mild chronic gastritis with healing erosion and reactive changes. No H. pylori paraplegia chronic back pain 2ry to Lumbar DDD/spondylosis/herniated disc w/ radiculopathy -- s/p lumbar fusion, schizoaffective disorder FTT polyneuropathy SNF resident VRE, MRSA, CRE colonized Plan: -Continue to monitor off abx unless febrile, increasing WBC or HD unstability. -08/19 SP Ceftriaxone x1 -f/u cx -Monitor CBC/CMP, temperatures -warm compresses to prior iv site Thank you for this consultation. Will continue to follow along with you. Discussed with RN. Subjective Allergies: Coded Allergies: FENTANYL (Unverified Allergy, Unknown, 08/20/17) KETOROLAC (Unverified Allergy, Unknown, 08/20/17) NAPROXEN (Unverified Allergy, Unknown, 08/20/17) PENICILLINS (Unverified Allergy, Unknown, 08/20/17) Subjective afebrile mild leukocytosis Objective Vital Signs Last 24 Hour Vital Signs Date Time Temp Pulse Resp B/P (MAP) Pulse Ox O2 Delivery O2 Flow Rate FiO2 08/26/18 13:04 97.5 08/26/18 11:55 97.5 74 19 115/76 (89) 95 08/26/18 09:33 72 113/74 08/26/18 09:00 Room Air 08/26/18 08:00 98.8 72 18 113/74 (87) 93 08/26/18 04:00 98.2 67 18 119/77 (91) 94 08/26/18 00:00 98.1 68 17 127/71 (89) 94 08/25/18 21:00 Room Air 08/25/18 20:00 97.8 79 18 130/82 (98) 95 08/25/18 15:58 98.0 78 18 118/73 (88) 98 Height (Feet): 6 Height (Inches): 1.00 Weight (Pounds): 280 Objective General Appearance: no apparent distress, alert Head: normocephalic, atraumatic Eyes: bilateral eye normal inspection, bilateral eye PERRL ENT: hearing grossly normal, normal pharynx, no angioedema, normal voice Neck: full range of motion, supple/symm/no masses Respiratory: chest non-tender, lungs clear, normal breath sounds, speaking full sentences Gastrointestinal: normal bowel sounds, soft, non-distended, no guarding, no rebound, tenderness Genitourinary: normal inspection, no CVA tenderness Musculoskeletal: back normal, gait/station normal, normal range of motion, non- tender Neurologic: alert, oriented x3, responsive, motor strength/tone normal, sensory intact, speech normal Psychiatric: judgement/insight normal, memory normal, mood/affect normal, no suicidal/homicidal ideation Skin: normal color, no rash, warm/dry, well hydrated Laboratory Tests Test 08/26/18 05:33 White Blood Count 10.8 K/UL (4.8-10.8) Red Blood Count 4.56 M/UL (4.70-6.10) L Hemoglobin 14.8 G/DL (14.2-18.0) Hematocrit 42.4 % (42.0-52.0) Mean Corpuscular Volume 93 FL (80-99) Mean Corpuscular Hemoglobin 32.4 PG (27.0-31.0) H Mean Corpuscular Hemoglobin Concent 34.8 G/DL (32.0-36.0) Red Cell Distribution Width 11.8 % (11.6-14.8) Platelet Count 274 K/UL (150-450) Mean Platelet Volume 7.1 FL (6.5-10.1) Neutrophils (%) (Auto) 52.7 % (45.0-75.0) Lymphocytes (%) (Auto) 35.7 % (20.0-45.0) Monocytes (%) (Auto) 8.6 % (1.0-10.0) Eosinophils (%) (Auto) 1.8 % (0.0-3.0) Basophils (%) (Auto) 1.2 % (0.0-2.0) Sodium Level 137 MMOL/L (136-145) Potassium Level 3.9 MMOL/L (3.5-5.1) Chloride Level 102 MMOL/L (98-107) Carbon Dioxide Level 24 MMOL/L (21-32) Anion Gap 11 mmol/L (5-15) Blood Urea Nitrogen 20 mg/dL (7-18) H Creatinine 1.1 MG/DL (0.55-1.30) Estimat Glomerular Filtration Rate > 60 mL/min (>60) Glucose Level 88 MG/DL (74-106) Calcium Level 9.4 MG/DL (8.5-10.1) Current Medications Medications (Trade) Dose Ordered Sig/Paul Route PRN Reason Start Time Stop Time Status Last Admin Dose Admin Acetaminophen (Tylenol) 650 mg Q4H PRN ORAL fever 08/19/18 20:00 09/18/18 19:59 Acetaminophen/ Hydrocodone Bitart ([place]ague 10/325) 1 tab Q6H PRN ORAL Moderate Pain (Pain Scale 4-6) 08/20/18 14:15 08/27/18 14:14 08/23/18 15:12 Amlodipine Besylate (Norvasc) 5 mg DAILY ORAL 08/20/18 09:00 09/19/18 08:59 08/26/18 09:33 Baclofen (Lioresal) 15 mg THREE TIMES A DAY ORAL 08/20/18 09:00 09/19/18 08:59 08/26/18 12:34 Buspirone HCl (Buspar) 10 mg TWICE A DAY ORAL 08/20/18 09:00 09/19/18 08:59 08/26/18 09:32 Dextrose (Dextrose 50%) 25 ml Q30M PRN IV Hypoglycemia 08/19/18 20:00 09/18/18 19:59 Dextrose (Dextrose 50%) 50 ml Q30M PRN IV Hypoglycemia 08/19/18 20:00 09/18/18 19:59 Diphenhydramine HCl (Benadryl) 25 mg Q6H PRN ORAL Itching/Pruritis 08/19/18 20:00 09/18/18 19:59 08/22/18 01:41 Famotidine (Pepcid) 20 mg BID ORAL 08/19/18 23:00 09/18/18 22:59 08/26/18 09:32 Fluoxetine HCl (PROzac) 20 mg DAILY ORAL 08/20/18 09:00 09/19/18 08:59 08/26/18 09:33 Gabapentin (Neurontin) 300 mg THREE TIMES A DAY ORAL 08/22/18 09:00 09/21/18 08:59 08/26/18 12:33 Heparin Sodium (Porcine) (Heparin 5000 units/ml) 5,000 units EVERY 12 HOURS SUBQ 08/19/18 21:00 09/18/18 20:59 08/26/18 09:40 Hydromorphone HCl (Dilaudid) 1.5 mg Q3H PRN IVP Severe Pain (Pain Scale 7-10) 08/24/18 08:00 08/31/18 07:59 08/26/18 12:34 Lorazepam (Ativan) 1 mg Q6H PRN ORAL For Anxiety 08/22/18 05:30 08/29/18 05:29 Naloxegol (Movantik) 25 mg ACBREAKFAST ORAL 08/20/18 16:00 09/19/18 15:59 08/26/18 06:19 Nitroglycerin (Ntg) 0.4 mg Q5M X 3 DOSES PRN SL Prn Chest Pain 08/19/18 20:00 09/18/18 19:59 Ondansetron HCl (Zofran) 4 mg Q6H PRN IVP Nausea & Vomiting 08/19/18 20:00 09/18/18 19:59 Polyethylene Glycol (Miralax) 17 gm HSPRN PRN ORAL Constipation 08/19/18 20:00 09/18/18 19:59 08/25/18 18:33 Risperidone (RisperDAL) 0.5 mg BID ORAL 08/22/18 09:00 09/21/18 08:59 08/26/18 09:33 Sucralfate (Carafate) 1 gm Q6H PRN ORAL Burning Abdominal Pain 08/19/18 23:00 09/18/18 22:59 08/25/18 13:53 Temazepam (Restoril) 15 mg HSPRN PRN ORAL Insomnia 08/19/18 20:00 08/26/18 19:59 08/22/18 23:11 Lynette Nichole M.D. Aug 26, 2018 14:53
--- NOTE | 2018-08-26 14:56 | NUR ---
NURSE NOTES: pt has discharge order. all D/C assessments and instructions done and pt verbally confirmed to understand all. pt is stable. V/S stable. given report to STEPHANIE DUMAS in [facility]. CN asked me to keep iv access. pt has 24G SL. RN called MR BROTHER in the contact list in chart and left massage regarding discharging but pt stated no family is involved for him. pt left hospital with accompany of ambulance personnel.
--- NOTE | 2018-08-26 15:28 | Surgery Progress Note ---
Surgery Progress Note Subjective Symptoms: improved, tolerating diet, passing flatus, BM, pain decreased Objective Last 24 Hour Vital Signs Date Time Temp Pulse Resp B/P (MAP) Pulse Ox O2 Delivery O2 Flow Rate FiO2 08/26/18 13:04 97.5 08/26/18 11:55 97.5 74 19 115/76 (89) 95 08/26/18 09:33 72 113/74 08/26/18 09:00 Room Air 08/26/18 08:00 98.8 72 18 113/74 (87) 93 08/26/18 04:00 98.2 67 18 119/77 (91) 94 08/26/18 00:00 98.1 68 17 127/71 (89) 94 08/25/18 21:00 Room Air 08/25/18 20:00 97.8 79 18 130/82 (98) 95 08/25/18 15:58 98.0 78 18 118/73 (88) 98 I&O Intake and Output 08/25/18 08/26/18 19:00 07:00 Intake Total 2360 ml 2000 ml Output Total 100 ml 1850 ml Balance 2260 ml 150 ml Intake Oral 2360 ml 2000 ml Output Urine Total 100 ml 1850 ml # Voids 3 Cardiovascular: RSR Respiratory: clear Abdomen: soft, distended, non-tender, present bowel sounds Extremities: no tenderness, no cyanosis Laboratory Tests Test 08/26/18 05:33 White Blood Count 10.8 K/UL (4.8-10.8) Red Blood Count 4.56 M/UL (4.70-6.10) L Hemoglobin 14.8 G/DL (14.2-18.0) Hematocrit 42.4 % (42.0-52.0) Mean Corpuscular Volume 93 FL (80-99) Mean Corpuscular Hemoglobin 32.4 PG (27.0-31.0) H Mean Corpuscular Hemoglobin Concent 34.8 G/DL (32.0-36.0) Red Cell Distribution Width 11.8 % (11.6-14.8) Platelet Count 274 K/UL (150-450) Mean Platelet Volume 7.1 FL (6.5-10.1) Neutrophils (%) (Auto) 52.7 % (45.0-75.0) Lymphocytes (%) (Auto) 35.7 % (20.0-45.0) Monocytes (%) (Auto) 8.6 % (1.0-10.0) Eosinophils (%) (Auto) 1.8 % (0.0-3.0) Basophils (%) (Auto) 1.2 % (0.0-2.0) Sodium Level 137 MMOL/L (136-145) Potassium Level 3.9 MMOL/L (3.5-5.1) Chloride Level 102 MMOL/L (98-107) Carbon Dioxide Level 24 MMOL/L (21-32) Anion Gap 11 mmol/L (5-15) Blood Urea Nitrogen 20 mg/dL (7-18) H Creatinine 1.1 MG/DL (0.55-1.30) Estimat Glomerular Filtration Rate > 60 mL/min (>60) Glucose Level 88 MG/DL (74-106) Calcium Level 9.4 MG/DL (8.5-10.1) Plan Problems: (1) Diverticulosis (2) Periumbilical hernia (3) Psychiatric disorder (4) UTI (urinary tract infection) (5) COPD (chronic obstructive pulmonary disease) (6) Odynophagia (7) Constipation (8) Abdominal pain Assessment & Plan: 68 year old male with 2 weeks of cramping abdominal pain. no n/v/f/c leukocytosis UTI CT w/ Findings: The lung bases are clear. Cholecystectomy clips noted. There is a small hypodensity in the right kidney measuring about 1 cm likely cystic. There is no hydronephrosis. The patient has had extensive hardware and multilevel laminectomy within the lumbar spine. Resultant streak artifact limits evaluation. There is an umbilical hernia containing fat and some small bowel. Appendix is not definitely seen but there are no secondary signs of acute appendicitis. Bowel gas pattern is nonobstructive. Aortoiliac calcifications are present. Small cystic focus noted within the spleen. The liver is unremarkable. The pancreas and adrenal glands are unremarkable. exam benign. abd soft, nt/nd, bs+ hx of gastric ulcers? - no acute surgical intervention planned -IV abx as per ID -okay for diet -PPI -IV fluids -trend labs okay to d/c from surgical standpoint will follow with recs thank you (9) Severe malnutrition (10) Nausea & vomiting Balwinder Marc Aug 26, 2018 15:28
--- NOTE | 2018-08-26 16:00 | Progress Note ---
DATE: 08/26/2018 SUBJECTIVE: The patient is 68-year-old male patient with urinary tract infection. The patient continues to have lot of mood lability, agitation, irritability worsened by stress of medical illness that is why his attending has requested daily psychiatric consultation. MENTAL STATUS EXAMINATION: The patient is a 68-year-old male. Appearance is disheveled. Attitude, irritable and agitated. Affect, guarded and restricted. Intellect poor. Mood is depressed and anxious. Motor activity, psychomotor agitation. Attention span is poor. Orientation x2. Speech is pressured. Thought process, disorganized and illlogical. Insight and judgement poor. DIAGNOSIS: Paranoid schizophrenia with acute exacerbation. PLAN: Treat with Risperdal 0.5 mg twice a day, Prozac 10 mg a day, BuSpar 10 twice a day. Provided him with 20 minutes of cognitive behavioral therapy to help him identify his automatic negative thoughts and help convert negative thoughts to more positive thoughts to reduce depression, anxiety, and mood lability. Chart reviewed. Discussed with staff. Seen and assessed in his room. Hudson Ribeiro M.D. DR: Sanjeev JOB#: [id number] CC:
--- NOTE | 2018-08-27 12:13 | Discharge Summary ---
Discharge Summary Discharge Summary _ DATE OF ADMISSION: 08/19/2018 DATE OF DISCHARGE: 08/26/2018 DISCHARGED BY: Dr Patino REASON FOR ADMISSION: 68 years old male with past medical history of hypertension, GERD, gastritis, polyneuropathy, schizophrenia, brought from the group home facility by EMS as for evaluation. Patient complained of abdominal pain for few weeks. Patient thought it may be his ulcer. Pain reported as sharp, 7 out of 10, radiating to lower abdomen. No fever or chills. No nausea or vomiting. No chest pain or shortness of breath. Upon evaluation blood pressure was 140/90 otherwise vital signs were stable. Laboratory work-up revealed leukocytosis 15.5, stable hemoglobin and hematocrit. Stable renal parameters and electrolytes. Urinalysis with evidence of bacteria. CT of the abdomen and pelvis revealed umbilical hernia, without obstruction and evidence of diverticulosis without diverticulitis. Patient received empiric antibiotic , started on IV fluids and admitted to medical surgical floor for further management. CONSULTANTS: pulmonary Dr. Viveros ID specialist Dr. Neville GI specialist Dr. Ramos surgery Dr. Marc psychiatrist Dr. Ribeiro pain specialist Dr. Swift HOSPITAL COURSE: Patient admitted to medical surgical floor Patient was continued on IV fluids and empiric antibiotics. Patient was kept n.p.o. GI consult was requested. GI specialist seen and evaluated patient. Patient subsequently undergone colonoscopy with biopsy , which revealed four colonic polyps, status post removal , scattered diverticulosis and internal hemorrhoids. Repeat colonoscopy in 3 years. Pathology results revealed tubular adenoma of the transverse colon polyp x2 and mixed hyperplastic and adenomatous polyp in descending colon polyp. Patient started on proton pump inhibitors and Carafate. Bowel regimen instituted. Abdominal pain was likely secondary to GERD/gastritis. ID specialist closely followed. Urine culture revealed less than 10K diphtheroids, which was a colonizer. 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 Mild leukocytosis was likely reactive and resolved. ID specialist recommended to monitor patient off antibiotic unless febrile, leukocytosis or hemodynamically unstable. Surgeon followed for periumbilical hernia. Abdominal exam was benign . CT of the abdomen and pelvis was personally reviewed by surgeon. No evidence of hernia obstruction. No acute surgical intervention was required. Pain management was addressed as per pain specialist recommendation. Pain was controlled. Blood pressure was managed with calcium channel praful. DVT prophylaxis provided. Psychiatrist seen and evaluated patient. Per psychiatrist, patient had paranoid schizophrenia with acute exacerbation. Psychiatric medication regimen was optimized. Patient was provided with cognitive behavioral therapy. Patient clinically stabilized and was ready for transfer back to group home facility for continuation of care. FINAL DIAGNOSES: Abdominal pain ,likely secondary to GERD/gastritis Status post colonoscopy: 4 colonic polyps, s/p removal , scattered diverticulosis, internal hemorrhoids. Leukocytosis ,likely reactive -resolved Hypertension Hyperlipidemia Polyneuropathy Constipation COPD Paranoid schizophrenia with acute exacerbation Lumbar DDD Lumbar spondylosis Lumbar radiculopathy History of lumbar fusion Lumbar herniated disc Paraparesis DISCHARGE MEDICATIONS: See Medication Reconciliation list. DISCHARGE INSTRUCTIONS: Patient was discharged to the group home facility. Follow up with medical doctor at the facility. I have been assigned to dictate discharge summary for this account. I was not involved in the patient's management. Analy Stoner NP Aug 27, 2018 12:13
== END 2018-08-26 14:53 | disposition short-term general hospital (02) | DRG 391 ==
LOC: EDBD 16:54 → EMR 17:29 → EDBEDREQ 18:58 → 4E 18:59 → EDBEDREQ 19:45
PROC: 0DBK8ZZ Excision of Ascending Colon, Via Natural or Artificial Opening Endoscopic (ICD-10-PCS; principal; 2018-08-19)
PROC: 0DBL8ZZ Excision of Transverse Colon, Via Natural or Artificial Opening Endoscopic (ICD-10-PCS; principal; 2018-08-19)
DX: K29.70 Gastritis, unspecified, without bleeding (principal); E43 Unspecified severe protein-calorie malnutrition; N39.0 Urinary tract infection, site not specified; G82.20 Paraplegia, unspecified; F20.0 Paranoid schizophrenia; R13.10 Dysphagia, unspecified; K21.9 Gastro-esophageal reflux disease without esophagitis; I10 Essential (primary) hypertension; E78.5 Hyperlipidemia, unspecified; G62.9 Polyneuropathy, unspecified; K59.00 Constipation, unspecified; J44.9 Chronic obstructive pulmonary disease, unspecified; M51.16 Intervertebral disc disorders with radiculopathy, lumbar region; M47.896 Other spondylosis, lumbar region; Z88.6 Allergy status to analgesic agent; Z88.4 Allergy status to anesthetic agent; Z88.0 Allergy status to penicillin; Z88.8 Allergy status to other drugs, medicaments and biological substances; K57.90 Diverticulosis of intestine, part unspecified, without perforation or abscess without bleeding; K64.8 Other hemorrhoids; K63.5 Polyp of colon; K42.9 Umbilical hernia without obstruction or gangrene; Z98.1 Arthrodesis status; Z22.322 Carrier or suspected carrier of Methicillin resistant Staphylococcus aureus
CPT/HCPCS: 36415; 71045; 74177; 80048; 80053; 81003; 82150; 83690; 85025; 85730; 87081; 87086; 94003; 94150; 96365; 96375; 99285

== ENCOUNTER 2018-09-13 15:45 | Emergency (ER) | payer MEDICARE, OTHER ==
[~2018-09-13] VITALS: Ht 180.3 cm; Wt 117.9 kg
[~2018-09-13 15:45] MED LIST changes: +AMLODIPINE BESYL5 MG ORAL; +ATIVAN1 MG ORAL; +ATORVASTATIN CA20 MG ORAL; +BENADRYL25 M3 PO; +BUSPIRONE HCL5 M1 ORAL; +CARAFATE1 G1 ORAL; +CATAPRES0.1 MG ORAL; +CRANBERRY450 M4 PO; +FLUOXETINE HCL10 MG ORAL; +HYDROMORPHO2 MG/1 M8 IJ; +LIDOCAINE 5% OINT TOPIC; +MELATONIN5 M5 ORAL; +NORCO 10-325 T1 EACH ORAL; +RISPERDAL0.25 MG ORAL; +RISPERDAL0.5 MG ORAL; +TEMAZEPAM15 MG ORAL; +ZOFRAN 4 MG4 MG/2 ML IV
[2018-09-13 16:00] VITALS: BP 119/95
--- NOTE | 2018-09-13 16:00 | NUR ---
ED Nurse Note: pt brought by [facility] from [facility] due to abdominal pain for last 3 weeks. pt denies n/v. also c/o watery stool, 2 episodes today. per pt, "it is my ulcer." AAO x4. respirations even and non-labored noted. on cardiac cath technician. will wait for the further order.
[2018-09-13] MEDS ORDERED: HYDROmorphone 1mg/ml Carpuject IVP ONE (16:30)
[2018-09-13 16:55] LABS: BASOPHILS % (AUTO) 1.8 % (0.0-2.0); EOSINOPHILS % (AUTO) 1.5 % (0.0-3.0); HEMATOCRIT 43.6 % (42.0-52.0); HEMOGLOBIN 15.5 G/DL (14.2-18.0); LYMPHOCYTES % (AUTO) 32.2 % (20.0-45.0); MEAN CORPUSCULAR VOLUME 90 FL (80-99); MONOCYTES % (AUTO) 8.8 % (1.0-10.0); NEUTROPHILS % (AUTO) 55.6 % (45.0-75.0); PLATELET COUNT 261 K/UL (150-450); RED BLOOD COUNT 4.82 M/UL (4.70-6.10); RED CELL DISTRIBUTION WIDTH 11.1 % (11.6-14.8); WHITE BLOOD COUNT 12.5 K/UL (4.8-10.8)
[2018-09-13 17:07] LABS: ANION GAP 9 mmol/L (5-15); BLOOD UREA NITROGEN 15 mg/dL (7-18); CALCIUM 9.1 MG/DL (8.5-10.1); CARBON DIOXIDE 28 MMOL/L (21-32); CHLORIDE 102 MMOL/L (98-107); CREATININE 1.1 MG/DL (0.55-1.30); POTASSIUM 3.6 MMOL/L (3.5-5.1); SODIUM 139 MMOL/L (136-145)
[2018-09-13 17:09] LABS: ALANINE AMINOTRANSFERASE 17 U/L (12-78); ALBUMIN 3.7 G/DL (3.4-5.0); ALKALINE PHOSPHATASE 95 U/L (46-116); ASPARTATE AMINO TRANSFERASE 16 U/L (15-37); BILIRUBIN,TOTAL 0.3 MG/DL (0.2-1.0)
--- NOTE | 2018-09-13 19:00 | NUR ---
Call from [facility]- transport delayed for another [phone]
[2018-09-13 19:05] VITALS: BP 124/90
--- NOTE | 2018-09-13 19:11 | NUR ---
ED Nurse Note: Reports given to CARMEN Mcclelland at the [facility].
--- NOTE | 2018-09-13 19:12 | NUR ---
HAND-OFF: Report given to CARMEN Santana.
[2018-09-13] MEDS ORDERED: PEPCID AC20 M2 PO (19:35)
--- NOTE | 2018-09-13 20:43 | Emergency Room Report ---
History of Present Illness General Chief Complaint: Abdominal Pain Source: Patient Present Illness HPI Patient presents with complaints of epigastric abdominal pain reports that his abdominal ulcer feels irritated Denies any vomiting or diarrhea denies any fevers or chills Denies any chest pain or shortness of breath Patient reports that he is only getting Tylenol for the discomfort and it does not appear to be helping his stomach Patient has been having bowel movements and passing gas denies any recent trauma Allergies: Coded Allergies: FENTANYL (Unverified Allergy, Unknown, 08/20/17) KETOROLAC (Unverified Allergy, Unknown, 08/20/17) NAPROXEN (Unverified Allergy, Unknown, 08/20/17) PENICILLINS (Unverified Allergy, Unknown, 08/20/17) Patient History Past Medical History: see triage record Pertinent Family History: none Reviewed Nursing Documentation: PMH: Agreed; PSxH: Agreed Nursing Documentation-PMH Past Medical History: No History, Except For Hx Cardiac Problems: Yes - HYPERLIPIDEMIA Hx Hypertension: Yes - R HIP PAIN, DIZZINESS LOW BACK PAIN Hx Cancer: No Hx Gastrointestinal Problems: Yes - GASTRITIS Hx Neurological Problems: Yes - polyneuropathy Hx Dizziness: Yes Hx Weakness: Yes Review of Systems All Other Systems: negative except mentioned in HPI Physical Exam Vital Signs Date Time Temp Pulse Resp B/P (MAP) Pulse Ox O2 Delivery O2 Flow Rate FiO2 09/13/18 15:46 98.1 94 18 113/84 (94) 97 Room Air Sp02 EP Interpretation: reviewed, normal General Appearance: no apparent distress Head: normocephalic, atraumatic Eyes: bilateral eye PERRL, bilateral eye EOMI ENT: normal pharynx, no angioedema Neck: supple Respiratory: lungs clear, no respiratory distress, no retraction Cardiovascular #1: regular rate, rhythm Gastrointestinal: non tender - Subjectively points to epigastric area, soft Genitourinary: no CVA tenderness Musculoskeletal: other - Equal community marketing coordinator bilateral upper extremity Neurologic: alert, oriented x3, responsive Skin: no rash Lymphatic: no adenopathy Medical Decision Making Diagnostic Impression: Primary Impression: Abdominal pain ER Course With the history exam and presentation, multiple differentials considered, including but not limited to appendicitis, gastritis, cholecystitis, diverticulitis Patient has had fairly extensive evaluation and work-up recently in the hospital on different occasions Initial blood work is appropriate Patient remains calm and improved After repeat evaluations I felt the patient is a candidate for initial conservative outpatient trial Labs Test 09/13/18 16:10 White Blood Count 12.5 K/UL (4.8-10.8) Red Blood Count 4.82 M/UL (4.70-6.10) Hemoglobin 15.5 G/DL (14.2-18.0) Hematocrit 43.6 % (42.0-52.0) Mean Corpuscular Volume 90 FL (80-99) Mean Corpuscular Hemoglobin 32.2 PG (27.0-31.0) Mean Corpuscular Hemoglobin Concent 35.6 G/DL (32.0-36.0) Red Cell Distribution Width 11.1 % (11.6-14.8) Platelet Count 261 K/UL (150-450) Mean Platelet Volume 6.9 FL (6.5-10.1) Neutrophils (%) (Auto) 55.6 % (45.0-75.0) Lymphocytes (%) (Auto) 32.2 % (20.0-45.0) Monocytes (%) (Auto) 8.8 % (1.0-10.0) Eosinophils (%) (Auto) 1.5 % (0.0-3.0) Basophils (%) (Auto) 1.8 % (0.0-2.0) Sodium Level 139 MMOL/L (136-145) Potassium Level 3.6 MMOL/L (3.5-5.1) Chloride Level 102 MMOL/L (98-107) Carbon Dioxide Level 28 MMOL/L (21-32) Anion Gap 9 mmol/L (5-15) Blood Urea Nitrogen 15 mg/dL (7-18) Creatinine 1.1 MG/DL (0.55-1.30) Estimat Glomerular Filtration Rate > 60 mL/min (>60) Glucose Level 99 MG/DL (74-106) Calcium Level 9.1 MG/DL (8.5-10.1) Total Bilirubin 0.3 MG/DL (0.2-1.0) Aspartate Amino Transf (AST/SGOT) 16 U/L (15-37) Alanine Aminotransferase (ALT/SGPT) 17 U/L (12-78) Alkaline Phosphatase 95 U/L (46-116) Total Protein 7.4 G/DL (6.4-8.2) Albumin 3.7 G/DL (3.4-5.0) Globulin 3.7 g/dL Albumin/Globulin Ratio 1.0 (1.0-2.7) Lipase 130 U/L (73-393) CT/MRI/US Diagnostic Results CT/MRI/US Diagnostic Results : Impression CT abdomen pelvis from 08/19/2018:IMPRESSION: No acute findings appreciated. Multiple incidental findings as discussed above. Last Vital Signs Date Time Temp Pulse Resp B/P (MAP) Pulse Ox O2 Delivery O2 Flow Rate FiO2 09/13/18 16:00 98.0 88 15 119/95 95 Room Air Status: improved Disposition: XFER SNF Condition: Improved Scripts Famotidine (PEPCID AC) 20 Mg Tablet 20 MG PO DAILY, #12 TAB Prov: Reynaldo Sierra DO 09/13/18 Referrals: Miguel Patino DO (PCP) Camden Ramos MD Patient Instructions: Abdominal Pain, Adult Additional Instructions: Patient is provided with the discharge instructions notified to follow up with primary doctor in the next 2-3 days otherwise return to the er with any worsening symptoms. Please note that this report is being documented using [employer] technology. This can lead to erroneous entry secondary to incorrect interpretation by the dictating instrument. Reynaldo Sierra DO Sep 13, 2018 20:43
--- NOTE | 2018-09-13 21:14 | NUR ---
Tiffanie contacted, aware of patient going back.
--- NOTE | 2018-09-13 21:15 | NUR ---
[facility] just arrived.
[2018-09-13 21:27] VITALS: BP_SYST 124; BP_SYST 134; BP_DIAS 87; BP_DIAS 90
--- NOTE | 2018-09-13 21:27 | NUR ---
ER DISCHARGE NOTE: Patient is cleared to be discharged per ERMD, pt is aox4, on room air, with stable vital signs. pt was given dc and prescription instructions, pt was able to verbalize understanding, pt id band and iv site removed without complications. pt being transported back to facility via [facility], report given to CARMEN Mcclelland. pt took all belongings. VSS
== END 2018-09-13 21:27 ==
LOC: EDBD 15:45 → EMR 16:27
DX: R10.13 Epigastric pain (principal); Z88.0 Allergy status to penicillin; Z88.8 Allergy status to other drugs, medicaments and biological substances; G62.9 Polyneuropathy, unspecified
CPT/HCPCS: 36415; 80053; 83690; 85025; 96374; 96375; 99284; J1170; J2405

== ENCOUNTER 2018-10-24 13:50 | Outpatient (CLI) | payer MEDICARE, OTHER ==
[~2018-10-24 13:50] MED LIST changes: +PEPCID AC20 M2 PO
--- NOTE | 2018-10-31 13:21 | General Progress Note ---
Assessment/Plan Assessment/Plan: (1) Nausea & vomiting ICD Codes: R11.2 - Nausea with vomiting, unspecified SNOMED: 23124173 (2) Severe malnutrition ICD Codes: E43 - Unspecified severe protein-calorie malnutrition SNOMED: 18819548 (3) Abdominal pain ICD Codes: R10.9 - Unspecified abdominal pain SNOMED: 30281299 Qualifiers: Qualified Codes: R10.9 - Unspecified abdominal pain (4) Constipation ICD Codes: K59.00 - Constipation, unspecified SNOMED: 36074628 (5) Odynophagia ICD Codes: R13.10 - Dysphagia, unspecified SNOMED: 93992770 (6) Diverticulosis ICD Codes: K57.90 - Diverticulosis of intestine, part unspecified, without perforation or abscess without bleeding SNOMED: 193961500 Status: stable Status Narrative Discussed with Dr. Ramos. Assessment/Plan SUMMARY OF FINDINGS: 1. Fair colonic prep. 2. Four colonic polyps removed. 3. Scattered diverticulosis. 4. Internal hemorrhoids. add movantic Subjective ROS Limited/Unobtainable: Yes Allergies: Coded Allergies: FENTANYL (Unverified Allergy, Unknown, 08/20/17) KETOROLAC (Unverified Allergy, Unknown, 08/20/17) NAPROXEN (Unverified Allergy, Unknown, 08/20/17) PENICILLINS (Unverified Allergy, Unknown, 08/20/17) Objective General Appearance: alert EENT: normal ENT inspection Neck: supple Cardiovascular: normal rate Respiratory/Chest: lungs clear Abdomen: normal bowel sounds, non tender, soft Extremities: non-tender Camden Ramos MD Oct 31, 2018 13:21
== END 2018-10-24 15:50 | disposition home or self-care (01) ==
LOC: PAN 13:50
DX: R11.2 Nausea with vomiting, unspecified (principal); E43 Unspecified severe protein-calorie malnutrition; R10.9 Unspecified abdominal pain; K59.00 Constipation, unspecified; R13.10 Dysphagia, unspecified; K57.90 Diverticulosis of intestine, part unspecified, without perforation or abscess without bleeding; K63.5 Polyp of colon; K64.8 Other hemorrhoids; Z88.0 Allergy status to penicillin; Z88.8 Allergy status to other drugs, medicaments and biological substances
CPT/HCPCS: 99212

== ENCOUNTER 2018-12-09 13:52 | Outpatient (CLI) | payer MEDICARE, OTHER ==
[2018-12-09 14:05] VITALS: BP 133/83
--- NOTE | 2018-12-09 15:28 | General Progress Note ---
Assessment/Plan Problem List: (1) Nausea & vomiting ICD Codes: R11.2 - Nausea with vomiting, unspecified SNOMED: 03266806 (2) Severe malnutrition ICD Codes: E43 - Unspecified severe protein-calorie malnutrition SNOMED: 02599102 (3) Abdominal pain ICD Codes: R10.9 - Unspecified abdominal pain SNOMED: 43955956 (4) Constipation ICD Codes: K59.00 - Constipation, unspecified SNOMED: 28987889 (5) COPD (chronic obstructive pulmonary disease) ICD Codes: J44.9 - Chronic obstructive pulmonary disease, unspecified SNOMED: 17750619 (6) Psychiatric disorder ICD Codes: F99 - Mental disorder, not otherwise specified SNOMED: 70477496, 541772026 Assessment/Plan: plan CT add bentyl RTC after above repeat colon i 3 years from the last one Subjective ROS Limited/Unobtainable: Yes Allergies: Coded Allergies: FENTANYL (Unverified Allergy, Unknown, 08/20/17) KETOROLAC (Unverified Allergy, Unknown, 08/20/17) NAPROXEN (Unverified Allergy, Unknown, 08/20/17) PENICILLINS (Unverified Allergy, Unknown, 08/20/17) Objective General Appearance: alert EENT: normal ENT inspection Neck: supple Cardiovascular: normal rate Respiratory/Chest: decreased breath sounds Abdomen: normal bowel sounds, non tender, soft Extremities: non-tender Camden Ramos MD Dec 09, 2018 15:28
[2018-12-10] MEDS ORDERED: nitroglycerin SUBQ (09:28)
[2018-12-10] MEDS ORDERED: ACETAMINOPHEN325 M1 ORAL (09:28)
[2018-12-10] MEDS ORDERED: ACETAMINOPHEN500 M3 ORAL (09:28)
[2018-12-10] MEDS ORDERED: MOVANTIK25 MG PO (09:28)
[2018-12-10] MEDS ORDERED: MIRALAX17 G2 ORAL (09:28)
[2018-12-10] MEDS ORDERED: FLEET ENEMA133 ML RECTAL (09:28)
[2018-12-10] MEDS ORDERED: DOCUSATE SODIU250 MG ORAL (09:28)
[2018-12-10] MEDS ORDERED: DULCOLAX10 MG RC (09:28)
[2018-12-10] MEDS ORDERED: OMEPRAZOLE40 M1 ORAL (09:28)
[2018-12-10] MEDS ORDERED: ZANTAC150 MG ORAL (09:28)
[2018-12-10] MEDS ORDERED: FAMOTIDINE20 MG ORAL (09:28)
== END 2018-12-09 15:53 | disposition home or self-care (01) ==
LOC: PAN 13:52
DX: R11.2 Nausea with vomiting, unspecified (principal); E43 Unspecified severe protein-calorie malnutrition; R10.9 Unspecified abdominal pain; K59.00 Constipation, unspecified; J44.9 Chronic obstructive pulmonary disease, unspecified; F99 Mental disorder, not otherwise specified; Z88.0 Allergy status to penicillin; Z88.8 Allergy status to other drugs, medicaments and biological substances

== ENCOUNTER 2018-12-18 09:07 | Outpatient (CLI) | payer MEDICARE, OTHER ==
[~2018-12-18 09:07] MED LIST changes: +ACETAMINOPHEN500 M3 ORAL; +DOCUSATE SODIU250 MG ORAL; +DULCOLAX10 MG RC; +FAMOTIDINE20 MG ORAL; +FLEET ENEMA133 ML RECTAL; +MOVANTIK25 MG PO; +OMEPRAZOLE40 M1 ORAL; +ZANTAC150 MG ORAL; +nitroglycerin SUBQ
--- NOTE | 2018-12-18 20:17 | Diagnostic Imaging Report ---
CT ABDOMEN AND PELVIS WITH CONTRAST INDICATION: Abdominal pain TECHNIQUE: Continuous helical transaxial imaging of the abdomen and pelvis was obtained from the lung bases to the pubic symphysis during intravenous contrast administration. Coronal 2-D reformats were also obtained. Study obtained in a Siemens sensation [address] Automatic Exposure Control was utilized. Total Dose length Product (DLP): 1414.[address] Dose Index Volume (CTDIvol): 23.6 mGy COMPARISON: CT abdomen pelvis dated 08/19/2018 FINDINGS: Lower chest:: Unchanged solid 2 mm right lower lobe nodule (2:17). Aortic valve is calcified. Hepatobiliary:: Liver parenchyma is unremarkable. Status post cholecystectomy. Genitourinary:: Bilateral renal cysts. Prostate is mildly enlarged and coarsely calcified. Adrenals:: Unremarkable. Pancreas:: Unremarkable. Gastrointestinal:: No evidence of obstruction. Appendix is not clearly identified but there are no secondary signs to suggest acute appendicitis. Small umbilical hernia containing nonobstructed loops of bowel. There is visualization of the terminal ileum, a nonspecific finding. Spleen: : Unremarkable. Peritoneum:: Unremarkable. Bones and soft tissues:: There are multilevel discogenic degenerative changes of the visualized spine. Status post posterior instrumentation of L1-S1 with resulting straightening of the normal lumbar lordosis.. Vasculature: Mild aortoiliac atherosclerotic calcification. IMPRESSION: No acute findings in the abdomen or pelvis. The CT scanner at [facility] is accredited by the [employer] and the scans are performed using protocols designed to limit radiation exposure to as low as reasonably achievable to attain images of sufficient resolution adequate for diagnostic evaluation.
== END 2018-12-18 11:07 | disposition home or self-care (01) ==
LOC: CAT 09:07
DX: R10.9 Unspecified abdominal pain (principal); N20.0 Calculus of kidney; K42.9 Umbilical hernia without obstruction or gangrene
CPT/HCPCS: 74177; Q9967

== ENCOUNTER 2019-04-25 13:45 | Inpatient (IN) | payer MEDICARE, OTHER ==
[~2019-04-25] VITALS: Ht 195.6 cm; Wt 107.5 kg
[~2019-04-25 13:45] MED LIST changes: +DiphenhydrAMINE 50mg/ml Inj IVP ONE; +Metoclopramide 10mg/2ml Inj IVP ONE; +Omnipaque-300 100ml vial INJ PRN
--- NOTE | 2019-04-25 13:45 | NUR ---
ED Nurse Note: patient brought into ED from [facility], c/o abdominal pain since last night, patient c/o nausea and vomiting, patient is alert awake x4 ambulatory, breathing unlabored and even, on a monitoring specialist.
[2019-04-25] MEDS ORDERED: Morphine Sulfate 4mg/ml Inj (IV USE ONLY) IVP ONE (14:00)
[2019-04-25 14:25] LABS: BASOPHILS % (AUTO) 1.2 % (0.0-2.0); EOSINOPHILS % (AUTO) 0.8 % (0.0-3.0); HEMATOCRIT 45.5 % (42.0-52.0); HEMOGLOBIN 16.1 G/DL (14.2-18.0); MEAN CORPUSCULAR VOLUME 90 FL (80-99); MONOCYTES % (AUTO) 7.1 % (1.0-10.0); NEUTROPHILS % (AUTO) 68.8 % (45.0-75.0); PLATELET COUNT 302 K/UL (150-450); RED BLOOD COUNT 5.06 M/UL (4.70-6.10); RED CELL DISTRIBUTION WIDTH 11.7 % (11.6-14.8); WHITE BLOOD COUNT 14.3 K/UL (4.8-10.8)
[2019-04-25 14:32] VITALS: BP 145/82
--- NOTE | 2019-04-25 14:36 | Emergency Room Report ---
History of Present Illness General Chief Complaint: Abdominal Pain Source: Patient, EMS Present Illness HPI Patient has been ill for about 5 days. Yesterday the pain became worse. Anytime he ate during the 5 days he started feeling ill and that he wanted to vomit. The pain is 10/10 in the epigastric region radiating somewhat into the chest and also into the back. He felt it was like his ulcer in the past. He denies any vomiting of blood or grounds. No melena. No fevers, chills, sore throat, palpitations, diarrhea, dysuria, shortness of breath, rashes, depression, anxiety, visual changes, dizziness, headache. Patient suffers from chronic back pain. Patient admitted last year with these discharge diagnoses: Abdominal pain ,likely secondary to GERD/gastritis Status post colonoscopy: 4 colonic polyps, s/p removal , scattered diverticulosis, internal hemorrhoids. Leukocytosis ,likely reactive -resolved Hypertension Hyperlipidemia Polyneuropathy Constipation COPD Paranoid schizophrenia with acute exacerbation Lumbar DDD Lumbar spondylosis Lumbar radiculopathy History of lumbar fusion Lumbar herniated disc Paraparesis Allergies: Coded Allergies: FENTANYL (Unverified Allergy, Unknown, 08/20/17) KETOROLAC (Unverified Allergy, Unknown, 08/20/17) NAPROXEN (Unverified Allergy, Unknown, 08/20/17) PENICILLINS (Unverified Allergy, Unknown, 08/20/17) Patient History Past Medical History: see triage record, old chart reviewed Social History Narrative Hiro moreno Reviewed Nursing Documentation: PMH: Agreed; PSxH: Agreed Nursing Documentation-PMH Hx Cardiac Problems: Yes - HYPERLIPIDEMIA Hx Hypertension: Yes Hx Cancer: No Hx Neurological Problems: Yes - polyneuropathy Hx Dizziness: Yes Hx Weakness: Yes Review of Systems All Other Systems: negative except mentioned in HPI Physical Exam Vital Signs Date Time Temp Pulse Resp B/P (MAP) Pulse Ox O2 Delivery O2 Flow Rate FiO2 04/25/19 13:34 97.5 88 20 141/90 (107) 94 Room Air Sp02 EP Interpretation: reviewed, normal General Appearance: no apparent distress, GCS 15, obese Head: normocephalic Eyes: bilateral eye normal inspection, bilateral eye PERRL, bilateral eye EOMI ENT: moist mucus membranes Neck: supple Respiratory: lungs clear, normal breath sounds Cardiovascular #1: regular rate, rhythm Cardiovascular #2: 2+ radial (R) Gastrointestinal: soft, no guarding, no rebound, tenderness - ., overweight Genitourinary: no CVA tenderness Musculoskeletal: back normal, normal range of motion Neurologic: alert, oriented x3, grossly normal Psychiatric: mood/affect normal Skin: no rash, warm/dry Medical Decision Making Diagnostic Impression: Primary Impression: Abdominal pain Qualified Codes: R10.13 - Epigastric pain Additional Impression: Leukocytosis Qualified Codes: D72.828 - Other elevated white blood cell count ER Course Presents with epigastric pain that is developed over the last 5 days. Differential includes gastritis, cryptitis, cholecystitis, peptic ulcer disease , diverticulitis amongst others. Evaluation with EKG, chest x-ray, CT abdomen and pelvis and labs. With IV hydration and Reglan, Benadryl and morphine. After first dose of morphine pain still severe. He rates it though 7/10. Dilaudid ordered. EKG without injury. Chest x-ray x-ray no infiltrates. White count elevated without left shift. CMP otherwise unremarkable. Urinalysis negative. Patient pain is improved but still present. Patient signed out to Dr. Perez for CT results. Admit inpatient Dr. Gaffney. Laboratory Tests Test 04/25/19 14:15 04/25/19 14:50 White Blood Count 14.3 K/UL (4.8-10.8) H Red Blood Count 5.06 M/UL (4.70-6.10) Hemoglobin 16.1 G/DL (14.2-18.0) Hematocrit 45.5 % (42.0-52.0) Mean Corpuscular Volume 90 FL (80-99) Mean Corpuscular Hemoglobin 31.9 PG (27.0-31.0) H Mean Corpuscular Hemoglobin Concent 35.5 G/DL (32.0-36.0) Red Cell Distribution Width 11.7 % (11.6-14.8) Platelet Count 302 K/UL (150-450) Mean Platelet Volume 7.0 FL (6.5-10.1) Neutrophils (%) (Auto) 68.8 % (45.0-75.0) Lymphocytes (%) (Auto) 22.0 % (20.0-45.0) Monocytes (%) (Auto) 7.1 % (1.0-10.0) Eosinophils (%) (Auto) 0.8 % (0.0-3.0) Basophils (%) (Auto) 1.2 % (0.0-2.0) Prothrombin Time 9.8 SEC (9.30-11.50) Prothrombin Time INR 0.9 (0.9-1.1) Activated Partial Thromboplast Time 28 SEC (23-33) Sodium Level 141 MMOL/L (136-145) Potassium Level 4.1 MMOL/L (3.5-5.1) Chloride Level 104 MMOL/L (98-107) Carbon Dioxide Level 26 MMOL/L (21-32) Anion Gap 11 mmol/L (5-15) Blood Urea Nitrogen 15 mg/dL (7-18) Creatinine 1.0 MG/DL (0.55-1.30) Estimate Glomerular Filtration Rate > 60 mL/min (>60) Glucose Level 104 MG/DL (74-106) Calcium Level 9.2 MG/DL (8.5-10.1) Total Bilirubin 0.3 MG/DL (0.2-1.0) Aspartate Amino Transferase (AST) 17 U/L (15-37) Alanine Aminotransferase (ALT) 20 U/L (12-78) Alkaline Phosphatase 89 U/L (46-116) Total Creatine Kinase 128 U/L (26-308) Troponin I 0.001 ng/mL (0.000-0.056) Total Protein 7.8 G/DL (6.4-8.2) Albumin 3.4 G/DL (3.4-5.0) Globulin 4.4 g/dL Albumin/Globulin Ratio 0.8 (1.0-2.7) L Lipase 153 U/L (73-393) Urine Color Pale yellow Urine Appearance Clear Urine pH 7 (4.5-8.0) Urine Specific [place] 1.010 (1.005-1.035) Urine Protein Negative (NEGATIVE) Urine Glucose (UA) Negative (NEGATIVE) Urine Ketones Negative (NEGATIVE) Urine Blood 3+ (NEGATIVE) H Urine Nitrite Negative (NEGATIVE) Urine Bilirubin Negative (NEGATIVE) Urine Urobilinogen Normal MG/DL (0.0-1.0) Urine Leukocyte Esterase 1+ (NEGATIVE) H Urine RBC 5-10 /HPF (0 - 0) H Urine WBC 2-4 /HPF (0 - 0) Urine Squamous Epithelial Cells None /LPF (NONE/OCC) Urine Bacteria Few /HPF (NONE) EKG Diagnostic Results Rate: normal Rhythm: NSR ST Segments: no acute changes - Left axis deviation Rhythm Strip Diag. Results EP Interpretation: yes Rhythm: NSR, no PVC's, no ectopy Chest X-Ray Diagnostic Results Chest X-Ray Diagnostic Results : Chest X-Ray Ordered: Yes # of Views/Limited/Complete: 1 View Indication: Other EP Interpretation: Yes Interpretation: no consolidation, no effusion, no pneumothorax Impression: No acute disease Electronically Signed by: Electronically signed by Marc Garcia MD CT/MRI/US Diagnostic Results CT/MRI/US Diagnostic Results : Imaging Test Ordered: abd/pelvis Impression Impression: Equivocal focal wall thickening of the ascending colon, if real could indicate colitis, nonspecific as regards etiology No other acute abnormality demonstrated Nonobstructive umbilical hernia, containing a knuckle of small bowel, also previously demonstrated Postsurgical changes as described, including prior cholecystectomy, lumbosacral spine fusion Stable presumed benign 2 mm right lower lobe lung nodule Incidental finding bilateral renal cysts Last Vital Signs Date Time Temp Pulse Resp B/P (MAP) Pulse Ox O2 Delivery O2 Flow Rate FiO2 04/25/19 18:36 Room Air 04/25/19 18:00 98.0 77 19 139/81 (100) 95 Status: improved Disposition: ADMITTED INPATIENT Condition: Serious Marc Garcia MD Apr 25, 2019 14:36
[2019-04-25 14:44] LABS: INR 0.9 (0.9-1.1)
[2019-04-25] MEDS ORDERED: HYDROmorphone 1mg/ml Carpuject IVP ONE (14:45)
[2019-04-25 14:48] LABS: ANION GAP 11 mmol/L (5-15); BLOOD UREA NITROGEN 15 mg/dL (7-18); CALCIUM 9.2 MG/DL (8.5-10.1); CARBON DIOXIDE 26 MMOL/L (21-32); CHLORIDE 104 MMOL/L (98-107); POTASSIUM 4.1 MMOL/L (3.5-5.1); SODIUM 141 MMOL/L (136-145)
[2019-04-25 14:51] LABS: ALANINE AMINOTRANSFERASE 20 U/L (12-78); ALBUMIN 3.4 G/DL (3.4-5.0); ALBUMIN/GLOBULIN RATIO 0.8 (1.0-2.7); ALKALINE PHOSPHATASE 89 U/L (46-116); ASPARTATE AMINO TRANSFERASE 17 U/L (15-37); BILIRUBIN,TOTAL 0.3 MG/DL (0.2-1.0); CREATINE KINASE 128 U/L (26-308)
[2019-04-25 15:02] LABS: APPEARANCE,URINE CLEAR; BILIRUBIN, URINE NEGATIVE (NEGATIVE); COLOR,URINE PALE YELLOW; GLUCOSE, URINE (UA) NEGATIVE (NEGATIVE); KETONES,URINE NEGATIVE (NEGATIVE); LEUKOCYTE ESTERASE ,URINE 1+ (NEGATIVE); NITRITE,URINE NEGATIVE (NEGATIVE); PH,URINE 7 (4.5-8.0); PROTEIN,URINE NEGATIVE (NEGATIVE); UROBILINOGEN,URINE NORMAL MG/DL (0.0-1.0)
--- NOTE | 2019-04-25 16:37 | NUR ---
ED Nurse Note: patient taken to CT scan
[2019-04-25 17:20] VITALS: BP 136/73
--- NOTE | 2019-04-25 17:35 | Diagnostic Imaging Report ---
Clinical Indication: Abdominal pain, patient feeling ill for about 5 days. Pain became worse yesterday, up to 10 out of 10 in the epigastric region Technique: Patient given oral contrast. IV administration nonionic contrast. Venous phase spiral acquisition obtained through the abdomen and pelvis. Multiplanar reconstructions were generated. Total dose length product 1544 mGycm. CTDIvol(s) 28 mGy. Dose reduction achieved using automated exposure control Comparison: 12/18/2018 Findings: No evidence of colonic diverticulosis or diverticulitis. There is equivocally mild wall thickening of the ascending colon. Contrast has traversed the entirety of the small bowel and reached the ascending colon. The appendix is not visualized. No small bowel distention or small bowel wall thickening. There is an umbilical hernia which contains a knuckle of small bowel. There is no evidence of obstruction or strangulation related to this. This is also evident previously. The distal esophagus, stomach, duodenum are unremarkable. The gallbladder has been removed. The liver, bile ducts, pancreas, spleen, adrenals are unremarkable. The kidneys again demonstrate cysts bilaterally. No retroperitoneal or mesenteric mass or adenopathy. No pelvic mass or adenopathy. There is again demonstrated lumbosacral spine fusion hardware. The included lung bases demonstrate some compressive atelectatic changes. A 2 mm nodule, likely calcified, is seen in the posterior right lung base, also evident previously.. Impression: Equivocal focal wall thickening of the ascending colon, if real could indicate colitis, nonspecific as regards etiology No other acute abnormality demonstrated Nonobstructive umbilical hernia, containing a knuckle of small bowel, also previously demonstrated Postsurgical changes as described, including prior cholecystectomy, lumbosacral spine fusion Stable presumed benign 2 mm right lower lobe lung nodule Incidental finding bilateral renal cysts The CT scanner at [facility] is accredited by the [employer] and the scans are performed using protocols designed to limit radiation exposure to as low as reasonably achievable to attain images of sufficient resolution adequate for diagnostic evaluation.
--- NOTE | 2019-04-25 17:46 | Diagnostic Imaging Report ---
Indication: Chest pain Technique: One view of the chest Comparison: 08/20/2018 Findings: There is minimal atelectasis at the left lung base. Lungs and pleural spaces are otherwise clear. The heart size is normal. Findings are unchanged Impression: No acute process
--- NOTE | 2019-04-25 17:50 | NUR ---
NURSE NOTES: patient admitted to room 402-[address] Yeimy banks, dx of abd pain. A&Ox4, verbally responsive. no respiratory distress noted on room air. c/o pain on upper abd 10/10. IV on LAC 20g saline lock. intact. no skin issues except both heels redness. edema on both lower extremities. using urinal for bladder. checked and counted belongings with patient. bed in the lowest position and locked. call light within reach. will continue to provide plan of care.
[2019-04-25 18:00] VITALS: BP 139/81
[2019-04-25] MEDS ORDERED: Morphine Sulfate 2mg/ml Inj(IV/IM USE ONLY) IVP PRN (18:15)
--- NOTE | 2019-04-25 19:25 | NUR ---
HAND-OFF: Report given to CARMEN Naik.
--- NOTE | 2019-04-25 19:36 | NUR ---
NURSE NOTES: Received report from CARMEN Kapadia. Patient in bed, awake and alert x4.On room air with no respiratory distress noted. Patient reports pain as 10/10. Will administer pain medication as ordered. IV on LAC 20g saline lock. Skin intact - bilat heels redness noted - will follow wound protocol. Bed locked and in the lowest position. Call light within reach. Will continue to monitor.
[2019-04-25] MEDS: Morphine Sulfate 4mg/ml Inj (IV USE ONLY) IVP PRN (19:50)
[2019-04-25 20:00] VITALS: BP 158/106
[2019-04-25] MEDS ORDERED: Milk of Magnesia 30ml Ud ORAL PRN (20:00)
[2019-04-25] MEDS ORDERED: Acetaminophen 500mg (ES) tab ORAL PRN (20:00)
[2019-04-25] MEDS ORDERED: Dicyclomine HCl 10mg/5ml oral soln ORAL PRN (20:00)
[2019-04-25] MEDS ORDERED: HYDROcodone/Acetamin 10/325 tab ORAL PRN (20:00)
[2019-04-25] MEDS ORDERED: DiphenhydrAMINE 25mg Tab ORAL PRN (20:00)
[2019-04-25] MEDS ORDERED: Nitroglycerin Subl 0.4mg tab SL PRN (20:00)
[2019-04-25] MEDS: Sucralfate 1gm tab ORAL SCH (22:04)
[2019-04-25] MEDS: BusPIRone 5mg Tab ORAL SCH (22:04)
[2019-04-26] VITALS: BP 140/90
[2019-04-26] MEDS: Morphine Sulfate 4mg/ml Inj (IV USE ONLY) IVP PRN ×6 (00:32→23:12)
[2019-04-26 04:00] VITALS: BP 132/89
[2019-04-26] MEDS: Sucralfate 1gm tab ORAL SCH ×4 (06:36→20:34)
[2019-04-26 07:16] LABS: BASOPHILS % (AUTO) 1.3 % (0.0-2.0); EOSINOPHILS % (AUTO) 1.6 % (0.0-3.0); HEMATOCRIT 41.3 % (42.0-52.0); HEMOGLOBIN 14.6 G/DL (14.2-18.0); LYMPHOCYTES % (AUTO) 28.1 % (20.0-45.0); MEAN CORPUSCULAR VOLUME 91 FL (80-99); NEUTROPHILS % (AUTO) 59.9 % (45.0-75.0); PLATELET COUNT 257 K/UL (150-450); RED BLOOD COUNT 4.55 M/UL (4.70-6.10); RED CELL DISTRIBUTION WIDTH 11.5 % (11.6-14.8); WHITE BLOOD COUNT 12.3 K/UL (4.8-10.8)
[2019-04-26 07:29] LABS: ALANINE AMINOTRANSFERASE 18 U/L (12-78); ALBUMIN/GLOBULIN RATIO 0.8 (1.0-2.7); ALKALINE PHOSPHATASE 79 U/L (46-116); ANION GAP 9 mmol/L (5-15); ASPARTATE AMINO TRANSFERASE 15 U/L (15-37); BILIRUBIN,TOTAL 0.4 MG/DL (0.2-1.0); BLOOD UREA NITROGEN 13 mg/dL (7-18); CALCIUM 8.9 MG/DL (8.5-10.1); CARBON DIOXIDE 27 MMOL/L (21-32); CHLORIDE 104 MMOL/L (98-107); POTASSIUM 3.4 MMOL/L (3.5-5.1); SODIUM 140 MMOL/L (136-145)
--- NOTE | 2019-04-26 07:43 | NUR ---
HAND-OFF: Report given to CARMEN Munoz.
--- NOTE | 2019-04-26 07:57 | NUR ---
NURSE NOTES: patient is in the bed alert and awake. respiration is even and unlabored on room air. SCD inplace for dvt prevention. denies any n/v at this time. verbalized moderate abdominal pain to bilateral lower quadrant, will administer pain medication as prescribed. left AC saline lock 20 g is in-place, and patent. no redness, swelling and warmth noted on IV site. placed call light is within reach, will continue to follow plan fo care.
[2019-04-26 08:00] VITALS: BP 126/80
--- NOTE | 2019-04-26 08:50 | NUR ---
NURSE NOTES: Patient complains of nausea after he ate breakfast. No vomiting. Patient was seen by Dr. RodriguezRN received new orders to change diet to clear liquid diet and give zofran IVP PRN. RN verified orders. Will continue to monitor. Patient denies diarrhea but stomach pain, patient can wait until it is due.
[2019-04-26] MEDS: BusPIRone 5mg Tab ORAL SCH ×2 (09:20→17:25)
[2019-04-26] MEDS: Docusate 250mg cap ORAL SCH (09:21)
--- NOTE | 2019-04-26 09:41 | NUR ---
NURSE NOTES: patient's potassium level is 3.4, creatinine is 1.0. RN spoke to Dr. Rodriguez and received order to give KCL 10MEQ IVPB x2 bags and D5 1/2 NS 275cc/hr.Verified orders.
[2019-04-26] MEDS: Naloxegol Oxalate 25mg tab ORAL SCH (11:03)
[2019-04-26] MEDS: D5 1/2NS 1,000 ML IV SCH ×2 (11:04→23:13)
[2019-04-26 12:00] VITALS: BP 127/70
--- NOTE | 2019-04-26 15:51 | General Progress Note ---
Assessment/Plan Assessment/Plan: GI CONSULT Assessment - epigastric pain - h/o PUD - (R) colonic thickening on CT, ? underdistention artifact - Psych history Recommendations - PPI - PO as tolerated - EGD Sunday Subjective Allergies: Coded Allergies: FENTANYL (Unverified Allergy, Unknown, 08/20/17) KETOROLAC (Unverified Allergy, Unknown, 08/20/17) NAPROXEN (Unverified Allergy, Unknown, 08/20/17) PENICILLINS (Unverified Allergy, Unknown, 08/20/17) Objective Last 24 Hour Vital Signs Date Time Temp Pulse Resp B/P (MAP) Pulse Ox O2 Delivery O2 Flow Rate FiO2 04/26/19 12:00 97.6 79 18 127/70 (89) 96 04/26/19 09:21 86 126/80 04/26/19 09:00 Room Air 04/26/19 08:00 97.6 86 19 126/80 (95) 94 04/26/19 04:00 97.9 70 18 132/89 (103) 98 04/26/19 00:00 98.2 90 18 140/90 (107) 96 04/25/19 21:00 Room Air 04/25/19 20:00 98.0 83 18 158/106 (123) 95 04/25/19 18:36 Room Air 04/25/19 18:00 98.0 77 19 139/81 (100) 95 04/25/19 17:40 97.5 73 14 136/73 96 Room Air 04/25/19 17:20 97.5 73 14 136/73 96 Room Air Laboratory Tests 04/26/19 05:40: White Blood Count 12.3H, Red Blood Count 4.55L, Hemoglobin 14.6, Hematocrit 41.3L, Mean Corpuscular Volume 91, Mean Corpuscular Hemoglobin 32.1H, Mean Corpuscular Hemoglobin Concent 35.3, Red Cell Distribution Width 11.5L, Platelet Count 257, Mean Platelet Volume 6.8, Neutrophils (%) (Auto) 59.9, Lymphocytes (%) (Auto) 28.1, Monocytes (%) (Auto) 9.0, Eosinophils (%) (Auto) 1.6, Basophils (%) (Auto) 1.3, Sodium Level 140, Potassium Level 3.4L, Chloride Level 104, Carbon Dioxide Level 27, Anion Gap 9, Blood Urea Nitrogen 13, Creatinine 1.0, Estimat Glomerular Filtration Rate > 60, Glucose Level 90, Calcium Level 8.9, Total Bilirubin 0.4, Aspartate Amino Transf (AST/SGOT) 15, Alanine Aminotransferase (ALT/SGPT) 18, Alkaline Phosphatase 79, Total Protein 6.8, Albumin 3.0L, Globulin 3.8, Albumin/Globulin Ratio 0.8L Height (Feet): 6 Height (Inches): 1.00 Weight (Pounds): 240 Yuan Rodriguez MD Apr 26, 2019 15:51
[2019-04-26 16:00] VITALS: BP 128/83
[2019-04-26] MEDS: Pantoprazole Inj IVP SCH (16:06)
--- NOTE | 2019-04-26 18:30 | NUR ---
NURSE NOTES: Patient consented to endoscopy for Sunday. Patient is fully aware about the procedure.
--- NOTE | 2019-04-26 19:17 | NUR ---
HAND-OFF: Report given to Heena MORALES.
--- NOTE | 2019-04-26 19:49 | NUR ---
NURSE NOTES: Patient in bed, awake, able to make needs known. On room air with no respiratory distress noted.IV on LAC 20g running IVF as ordered. Bed locked and in the lowest position. bed alarm on. Call light within reach. Will continue to monitor.
[2019-04-26 20:00] VITALS: BP 115/67
--- NOTE | 2019-04-26 20:30 | Consultation ---
DATE OF CONSULTATION: 04/26/2019 CHIEF COMPLAINT: I was asked to see this patient by Dr. Reynaldo Gaffney for evaluation of abdominal pain. HISTORY OF PRESENT ILLNESS: The patient is a 69-year-old white man who complains of three days of epigastric abdominal pain with no nausea, vomiting, or diarrhea. He has had bowel movements last day and today. He has no ill contacts. No trips and no pets. He had similar episode of pain 5 years ago. At that time, he was diagnosed with peptic ulcer disease. At this time, he is not taking nonsteroidal anti-inflammatory drugs. He has had a colonoscopy in just less than a year ago. PAST MEDICAL HISTORY: History of low back pain, neuropathy, peptic ulcer disease, chronic paranoid schizophrenia. MEDICATIONS: See chart list for details. FAMILY HISTORY: Positive for leukemia in the father. SOCIAL HISTORY: The patient is single with no children. He previously drink alcohol. REVIEW OF SYSTEMS: Otherwise negative. PHYSICAL EXAMINATION: GENERAL: Pleasant white man seen in his room. HEENT: Normocephalic and atraumatic. Sclerae anicteric. Oropharynx clear. NECK: Supple. CHEST: Clear to auscultation. CARDIAC: Revealed regular rate. ABDOMEN: Soft with epigastric abdominal tenderness EXTREMITIES: Revealed no edema. LABORATORY DATA: Noted. ASSESSMENT: This patient presents with epigastric abdominal pain and tenderness which resembles previous episodes of peptic ulcer disease. He should be treated for this presumptively until further evaluation is complete. There is a comment on the right-sided colonic abnormality seen on imaging, but this may be due to nonischemic colon. He has had a recent colonoscopy within a year which can be obtained and reviewed. Should the upper GI evaluation be nonproductive, then repeat colonoscopy can be considered. RECOMMENDATIONS: Per above discussion and per orders written in the chart. Thank you for asking me to participate in the care of this patient. Yuan Rodriguez M.D. DR: Gilbert JOB#: [id number] CC: ANTONETTE
[2019-04-27] VITALS (7 sets, daily range): BP systolic 113–136; BP diastolic 65–80
[2019-04-27] MEDS: Morphine Sulfate 4mg/ml Inj (IV USE ONLY) IVP PRN ×6 (03:09→23:59)
[2019-04-27] MEDS: Sucralfate 1gm tab ORAL SCH ×4 (06:22→20:43)
--- NOTE | 2019-04-27 07:00 | NUR ---
NURSE NOTES: received patient in bed, patient awake, alert oriented x4, no sign of distress , on going IVF infusing well, c/o abdominal pain ,will give prn meds as ordered ,on fall and aspiration precaution, . Bed locked and in the lowest position. bed alarm on. Call light within reach. Will continue to monitor arleen parker
--- NOTE | 2019-04-27 07:23 | NUR ---
HAND-OFF: Report given to CARMEN Oneill.
[2019-04-27 07:26] LABS: BASOPHILS % (AUTO) 1.1 % (0.0-2.0); EOSINOPHILS % (AUTO) 1.3 % (0.0-3.0); HEMATOCRIT 40.7 % (42.0-52.0); HEMOGLOBIN 14.5 G/DL (14.2-18.0); LYMPHOCYTES % (AUTO) 25.7 % (20.0-45.0); MEAN CORPUSCULAR VOLUME 91 FL (80-99); MONOCYTES % (AUTO) 10.3 % (1.0-10.0); NEUTROPHILS % (AUTO) 61.6 % (45.0-75.0); PLATELET COUNT 243 K/UL (150-450); RED BLOOD COUNT 4.49 M/UL (4.70-6.10); RED CELL DISTRIBUTION WIDTH 11.4 % (11.6-14.8); WHITE BLOOD COUNT 11.8 K/UL (4.8-10.8)
--- NOTE | 2019-04-27 07:29 | General Progress Note ---
Assessment/Plan Assessment/Plan: Assessment - epigastric pain - h/o PUD - (R) colonic thickening on CT, ? underdistention artifact - Psych history Recommendations - PPI - PO as tolerated - EGD Sunday Subjective Allergies: Coded Allergies: FENTANYL (Unverified Allergy, Unknown, 08/20/17) KETOROLAC (Unverified Allergy, Unknown, 08/20/17) NAPROXEN (Unverified Allergy, Unknown, 08/20/17) PENICILLINS (Unverified Allergy, Unknown, 08/20/17) Subjective Feels same still with abd pain today's labs pending Objective Last 24 Hour Vital Signs Date Time Temp Pulse Resp B/P (MAP) Pulse Ox O2 Delivery O2 Flow Rate FiO2 04/27/19 04:00 97.9 68 18 121/72 (88) 91 04/27/19 00:00 98.0 79 18 118/78 (91) 94 04/26/19 20:05 Room Air 04/26/19 20:00 98.3 76 18 115/67 (83) 94 04/26/19 16:00 98.8 89 18 128/83 (98) 95 04/26/19 12:00 97.6 79 18 127/70 (89) 96 04/26/19 09:21 86 126/80 04/26/19 09:00 Room Air 04/26/19 08:00 97.6 86 19 126/80 (95) 94 Intake and Output 04/26/19 04/27/19 19:00 07:00 Intake Total 1625 ml 600 ml Output Total 700 ml 1400 ml Balance 925 ml -800 ml Intake IV Total 725 ml Other 900 ml 600 ml Output Urine Total 700 ml 1400 ml # Voids 5 5 Laboratory Tests 04/27/19 05:40: White Blood Count [Pending], Red Blood Count [Pending], Hemoglobin [Pending], Hematocrit [Pending], Mean Corpuscular Volume [Pending], Mean Corpuscular Hemoglobin [Pending], Mean Corpuscular Hemoglobin Concent [Pending], Red Cell Distribution Width [Pending], Platelet Count [Pending], Mean Platelet Volume [ Pending], Neutrophils (%) (Auto) [Pending], Lymphocytes (%) (Auto) [Pending], Monocytes (%) (Auto) [Pending], Eosinophils (%) (Auto) [Pending], Basophils (%) (Auto) [Pending] Height (Feet): 6 Height (Inches): 1.00 Weight (Pounds): 240 Objective Obese WM NCAT supple CTA RR Abd soft, epigastric TTP no edema non focal Yuan Rodriguez MD Apr 27, 2019 07:29
[2019-04-27] MEDS: Naloxegol Oxalate 25mg tab ORAL SCH (08:23)
[2019-04-27] MEDS: Docusate 250mg cap ORAL SCH (08:23)
[2019-04-27] MEDS: BusPIRone 5mg Tab ORAL SCH ×2 (08:23→17:10)
[2019-04-27] MEDS: Pantoprazole Inj IVP SCH (08:24)
[2019-04-27] MEDS ORDERED: NS 275ml ONE (09:18)
[2019-04-27] MEDS ORDERED: D5 1/2NS 1000ml IV ONE (09:18)
[2019-04-27] MEDS ORDERED: Tubing IV Secondary IV ONE (09:18)
[2019-04-27] MEDS: D5 1/2NS 1,000 ML IV SCH (11:30)
--- NOTE | 2019-04-27 13:20 | General Progress Note ---
Assessment/Plan Problem List: (1) Psychiatric disorder ICD Codes: F99 - Mental disorder, not otherwise specified SNOMED: 07716318, [id number] (2) Abdominal pain ICD Codes: R10.9 - Unspecified abdominal pain SNOMED: 84514573 Qualifiers: Qualified Codes: R10.13 - Epigastric pain (3) Severe malnutrition ICD Codes: E43 - Unspecified severe protein-calorie malnutrition SNOMED: 71784455 (4) Nausea & vomiting ICD Codes: R11.2 - Nausea with vomiting, unspecified SNOMED: 75323041 Status: progressing Assessment/Plan: abdominal pain gi on the case constipation abd pain improving afebrile reviewed chart and labs Subjective Constitutional: Reports: no symptoms Cardiovascular: Reports: no symptoms Gastrointestinal/Abdominal: Reports: abdominal pain Allergies: Coded Allergies: FENTANYL (Unverified Allergy, Unknown, 08/20/17) KETOROLAC (Unverified Allergy, Unknown, 08/20/17) NAPROXEN (Unverified Allergy, Unknown, 08/20/17) PENICILLINS (Unverified Allergy, Unknown, 08/20/17) Objective Last 24 Hour Vital Signs Date Time Temp Pulse Resp B/P (MAP) Pulse Ox O2 Delivery O2 Flow Rate FiO2 04/27/19 12:00 96.2 77 18 114/73 (87) 98 04/27/19 08:24 75 113/70 04/27/19 08:15 Room Air 04/27/19 08:00 97.4 75 18 113/70 (84) 98 04/27/19 04:00 97.9 68 18 121/72 (88) 91 04/27/19 00:00 98.0 79 18 118/78 (91) 94 04/26/19 20:05 Room Air 04/26/19 20:00 98.3 76 18 115/67 (83) 94 04/26/19 16:00 98.8 89 18 128/83 (98) 95 Intake and Output 04/26/19 04/27/19 19:00 07:00 Intake Total 1625 ml 675 ml Output Total 700 ml 1400 ml Balance 925 ml -725 ml Intake IV Total 725 ml 75 ml Other 900 ml 600 ml Output Urine Total 700 ml 1400 ml # Voids 5 5 Laboratory Tests 04/27/19 05:40: White Blood Count 11.8H, Red Blood Count 4.49L, Hemoglobin 14.5, Hematocrit 40.7L, Mean Corpuscular Volume 91, Mean Corpuscular Hemoglobin 32.3H, Mean Corpuscular Hemoglobin Concent 35.6, Red Cell Distribution Width 11.4L, Platelet Count 243, Mean Platelet Volume 6.4L, Neutrophils (%) (Auto) 61.6, Lymphocytes (%) (Auto) 25.7, Monocytes (%) (Auto) 10.3H, Eosinophils (%) (Auto) 1.3, Basophils (%) (Auto) 1.1 Height (Feet): 6 Height (Inches): 1.00 Weight (Pounds): 240 Cardiovascular: normal rate Respiratory/Chest: lungs clear Abdomen: tender Reynaldo Gaffney MD Apr 27, 2019 13:19
--- NOTE | 2019-04-27 13:21 | General Progress Note ---
Progress Note Progress Note abdominal pain is present egd on sunday consitpation psych patient reviewed chart and labs and meds afebrile nac Reynaldo Gaffney MD Apr 27, 2019 13:21
--- NOTE | 2019-04-27 13:35 | Consultation ---
History of Present Illness General Date patient seen: Apr 27, 2019 Time patient seen: 01:30 - pm Chief Complaint: Low back pain Referring physician: Yeimy Reason for Consultation: Pain Management Present Illness HPI Subjective Patient is in bed and is a known patient from previous hospital admissions Has been admitted due to abdominal pain waiting for EGD with GI, He continues to have back pain and is on [place] 10/325mg Q4H PRN as out patient in SNF. Was started on Morphine 2-4mg IV Q4H PRN Mod- severe pain. Now he is comfortable with no signs of pain or distress at this time. Allergies: Coded Allergies: FENTANYL (Unverified Allergy, Unknown, 08/20/17) KETOROLAC (Unverified Allergy, Unknown, 08/20/17) NAPROXEN (Unverified Allergy, Unknown, 08/20/17) PENICILLINS (Unverified Allergy, Unknown, 08/20/17) Medication History Scheduled Acetaminophen* (Acetaminophen Extra Strength*), 1,000 MG ORAL Q6H, (Reported) Amlodipine Besylate* (Amlodipine Besylate*), 5 MG ORAL DAILY, (Reported) Bisacodyl (Dulcolax), 10 MG RC PRN, (Reported) Buspirone Hcl* (Buspirone Hcl*), 5 MG ORAL TWICE A DAY, (Reported) Clonidine Hcl* (Catapres*), 0.1 MG ORAL EVERY 6 HOURS, (Reported) Cranberry Fruit Concentrate (Cranberry), 2 CAP PO BID, (Reported) Docusate Sodium* (Docusate Sodium*), 250 MG ORAL DAILY, (Reported) Famotidine (Pepcid Ac), 20 MG PO DAILY Famotidine* (Pepcid 20mg tablet*), 20 MG ORAL TWICE A DAY, (Reported) Fluoxetine Hcl* (Fluoxetine Hcl*), 40 MG ORAL DAILY, (Reported) Gabapentin* (Gabapentin*), 300 MG ORAL THREE TIMES A DAY, (Reported) Na Phos,M-B/Na Phos,Di-Ba* (Fleet Enema*), 133 ML RECTAL PRN, (Reported) Naloxegol Oxalate (Movantik), 25 MG PO DAILY, (Reported) Omeprazole (Omeprazole), 40 MG ORAL DAILY, (Reported) Polyethylene Glycol 3350* (Miralax*), 17 GM ORAL DAILY, (Reported) Ranitidine Hcl* (Zantac*), 150 MG ORAL DAILY, (Reported) Risperidone* (Risperdal*), 0.5 MG ORAL QHS, (Reported) Sucralfate* (Carafate*), 1 GM ORAL FOUR TIMES A DAY, (Reported) [nitroglycerin], 0.4 MG SUBQ PRN, (Reported) Scheduled PRN Acetaminophen* (Acetaminophen 325MG Tablet*), 650 MG ORAL Q4H PRN for Pain Scale (3-5), (Reported) Diphenhydramine HCl (Benadryl), 25 MG PO QHS PRN for Itching, (Reported) Hydrocodone Bit/Acetaminophen 10-325* ([place] 10-325*), 1 TAB ORAL Q6H PRN for For Pain, (Reported) Patient History Healthcare decision maker N Resuscitation status Advanced Directive on File Past Medical/Surgical History Past Medical/Surgical History: (1) COPD (chronic obstructive pulmonary disease) (2) Psychiatric disorder Review of Systems ROS Narrative Constitutional: Reports: weakness HEENT: Reports: no symptoms Cardiovascular: Reports: no symptoms Respiratory: Reports: no symptoms Gastrointestinal/Abdominal: Reports: abdominal pain Genitourinary: Reports: no symptoms Neurologic/Psychiatric: Reports: weakness Endocrine: Reports: no symptoms Physical Exam Physical Exam Narrative General Appearance: no apparent distress, alert EENT: PERRL/EOMI, normal ENT inspection Neck: non-tender, normal alignment Cardiovascular: normal rate, regular rhythm Abdomen: non tender, soft Extremities: non-tender Edema: trace edema Neurologic: alert, responsive Skin: normal pigmentation Last 24 Hour Vital Signs Date Time Temp Pulse Resp B/P (MAP) Pulse Ox O2 Delivery O2 Flow Rate FiO2 04/27/19 12:00 96.2 77 18 114/73 (87) 98 04/27/19 08:24 75 113/70 04/27/19 08:15 Room Air 04/27/19 08:00 97.4 75 18 113/70 (84) 98 04/27/19 04:00 97.9 68 18 121/72 (88) 91 04/27/19 00:00 98.0 79 18 118/78 (91) 94 04/26/19 20:05 Room Air 04/26/19 20:00 98.3 76 18 115/67 (83) 94 04/26/19 16:00 98.8 89 18 128/83 (98) 95 Intake and Output 04/26/19 04/27/19 19:00 07:00 Intake Total 1625 ml 675 ml Output Total 700 ml 1400 ml Balance 925 ml -725 ml Intake IV Total 725 ml 75 ml Other 900 ml 600 ml Output Urine Total 700 ml 1400 ml # Voids 5 5 Laboratory Tests Test 04/27/19 05:40 White Blood Count 11.8 K/UL (4.8-10.8) H Red Blood Count 4.49 M/UL (4.70-6.10) L Hemoglobin 14.5 G/DL (14.2-18.0) Hematocrit 40.7 % (42.0-52.0) L Mean Corpuscular Volume 91 FL (80-99) Mean Corpuscular Hemoglobin 32.3 PG (27.0-31.0) H Mean Corpuscular Hemoglobin Concent 35.6 G/DL (32.0-36.0) Red Cell Distribution Width 11.4 % (11.6-14.8) L Platelet Count 243 K/UL (150-450) Mean Platelet Volume 6.4 FL (6.5-10.1) L Neutrophils (%) (Auto) 61.6 % (45.0-75.0) Lymphocytes (%) (Auto) 25.7 % (20.0-45.0) Monocytes (%) (Auto) 10.3 % (1.0-10.0) H Eosinophils (%) (Auto) 1.3 % (0.0-3.0) Basophils (%) (Auto) 1.1 % (0.0-2.0) Height (Feet): 6 Height (Inches): 1.00 Weight (Pounds): 240 Medications Current Medications Medications (Trade) Dose Ordered Sig/Paul Route PRN Reason Start Time Stop Time Status Last Admin Dose Admin Acetaminophen (Tylenol) 500 mg Q4H PRN ORAL Moderate Pain (Pain Scale 4-6) 04/25/19 20:00 05/25/19 19:59 Acetaminophen/ Hydrocodone Bitart ([place] 10/325) 1 tab Q6H PRN ORAL Severe Pain (Pain Scale 7-10) 04/25/19 20:00 05/02/19 19:59 Amlodipine Besylate (Norvasc) 5 mg DAILY ORAL 04/26/19 09:00 05/26/19 08:59 04/27/19 08:24 Barium Sulfate (Readi-Cat 2) 450 ml NOW PRN ORAL Radiology Procedure 04/25/19 13:45 04/27/19 13:38 Bisacodyl (Dulcolax) 10 mg DAILY PRN RECTAL Constipation 04/25/19 20:00 05/25/19 19:59 Buspirone HCl (Buspar) 10 mg BID ORAL 04/25/19 21:30 05/25/19 21:29 04/27/19 08:23 Clonidine HCl (Catapres Tab) 0.1 mg Q12H PRN ORAL For High Blood Pressure 04/25/19 20:30 05/25/19 20:29 Dextrose/Sodium Chloride 1,000 ml @ 75 mls/hr [id number] IV 04/26/19 09:30 05/26/19 09:29 04/27/19 11:30 Dicyclomine HCl (Bentyl) 20 mg Q8H PRN ORAL Abdominal cramps 04/25/19 20:00 05/25/19 19:59 Diphenhydramine HCl (Benadryl) 25 mg ONCE PRN ORAL Itching 04/25/19 20:00 05/25/19 19:59 Docusate Sodium (Colace) 250 mg DAILY ORAL 04/26/19 09:00 05/26/19 08:59 04/27/19 08:23 Famotidine (Pepcid) 20 mg DAILY ORAL 04/26/19 09:00 05/26/19 08:59 04/27/19 08:22 Fluoxetine HCl (PROzac) 40 mg DAILY ORAL 04/26/19 09:00 05/26/19 08:59 04/27/19 08:23 Gabapentin (Neurontin) 300 mg THREE TIMES A DAY ORAL 04/25/19 21:30 05/25/19 21:29 04/27/19 12:44 Iohexol (OMNIPAQUE-300 100ml) 100 ml NOW PRN INJ Radiology Procedure 04/25/19 13:45 04/27/19 13:38 Magnesium Hydroxide (Mom) 30 ml HSPRN PRN ORAL Constipation 04/25/19 20:00 05/25/19 19:59 Morphine Sulfate (Morphine Sulfate) 2 mg Q4H PRN IVP For Moderate Pain 04/25/19 18:15 05/02/19 18:14 Morphine Sulfate (Morphine Sulfate) 4 mg Q4H PRN IVP For Severe Pain 04/25/19 18:16 05/02/19 18:15 04/27/19 11:29 Naloxegol (Movantik) 25 mg DAILY ORAL 04/26/19 09:00 05/26/19 08:59 04/27/19 08:23 Nitroglycerin (Ntg) 0.4 mg Q5M PRN SL Prn Chest Pain 04/25/19 20:00 05/25/19 19:59 Ondansetron HCl (Zofran) 4 mg Q6H PRN IVP Nausea & Vomiting 04/26/19 09:00 05/26/19 08:59 04/26/19 09:19 Pantoprazole (Protonix) 40 mg DAILY IVP 04/26/19 15:00 05/26/19 14:59 04/27/19 08:24 Risperidone (RisperDAL) 0.5 mg QHS ORAL 04/25/19 22:00 05/25/19 21:59 04/26/19 20:34 Sucralfate (Carafate) 1 gm BEDTIME ORAL 04/25/19 21:30 05/25/19 21:29 04/26/19 20:34 Sucralfate (Carafate) 1 gm TIAC ORAL 04/26/19 06:30 05/26/19 06:29 04/27/19 11:28 Assessment/Plan Assessment/Plan: (1) Lumbar DDD (2) Lumbar Spondylosis (3) Lumbar Radiculopathy (4) Lumbar Herniated disc (5) FBSS (6) Paraparesis Patient to be continued on Morphine and [place]. D/w Dr. Swift and he concurred Khari Harrison Apr 27, 2019 13:35
--- NOTE | 2019-04-27 19:19 | NUR ---
NURSE NOTES: Patient in bed, awake, able to make needs known. C/O of pain 10/10. Will provide pain medications ordered. On room air with no respiratory distress noted. IV intact. Bed locked and in the lowest position. Bed alarm on. Call light within reach. Will continue to monitor.
--- NOTE | 2019-04-27 19:22 | NUR ---
HAND-OFF: Report given to Ms. GutierrezRN Resting comfortably in bed, needs met and anticipated arleen parker.
[2019-04-28] VITALS (8 sets, daily range): BP systolic 110–150; BP diastolic 57–96
[2019-04-28] MEDS: D5 1/2NS 1,000 ML IV SCH ×2 (01:48→16:40)
[2019-04-28] MEDS: Morphine Sulfate 4mg/ml Inj (IV USE ONLY) IVP PRN ×5 (04:34→20:33)
[2019-04-28] MEDS: Sucralfate 1gm tab ORAL SCH ×5 (06:13→20:32)
[2019-04-28] MEDS ORDERED: Propofol 200mg/20ml IV ONE (06:45)
[2019-04-28] MEDS ORDERED: NS 275ml ONE (06:45)
[2019-04-28] MEDS ORDERED: Lidocaine 1% MPF 10mg/ml 5ml ONE (06:45)
--- NOTE | 2019-04-28 07:00 | NUR ---
NURSE NOTES: Patient picked up and transported to GI lab.
--- NOTE | 2019-04-28 07:10 | NUR ---
NURSE NOTES: Handoff received from CARMEN Naik. Patient is off the floor for procedure.
--- NOTE | 2019-04-28 07:12 | Pre-Procedure Note/Attestation ---
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 I attest that I re-evaluated the patient just prior to the surgery and that there has been no change in the patient's H&P, except as documented below: Yuan Rodriguez MD Apr 28, 2019 07:12
--- NOTE | 2019-04-28 07:12 | General Progress Note ---
Assessment/Plan Status: progressing Assessment/Plan: Assessment - Constipation - epigastric pain - h/o PUD - (R) colonic thickening on CT, ? underdistention artifact - Psych history Recommendations - Laxative - PPI - EGD today Subjective Allergies: Coded Allergies: FENTANYL (Unverified Allergy, Unknown, 08/20/17) KETOROLAC (Unverified Allergy, Unknown, 08/20/17) NAPROXEN (Unverified Allergy, Unknown, 08/20/17) PENICILLINS (Unverified Allergy, Unknown, 08/20/17) Subjective feels constipated no BM x 2 days still with epigastric pain NPO for EGD today Objective Last 24 Hour Vital Signs Date Time Temp Pulse Resp B/P (MAP) Pulse Ox O2 Delivery O2 Flow Rate FiO2 04/28/19 04:00 97.2 75 19 140/85 (103) 94 04/27/19 23:58 97.9 74 19 136/65 (88) 94 04/27/19 20:08 Room Air 04/27/19 19:49 97.8 80 19 123/80 (94) 97 04/27/19 15:51 97.9 83 18 121/74 (90) 97 04/27/19 12:00 96.2 77 18 114/73 (87) 98 04/27/19 08:24 75 113/70 04/27/19 08:15 Room Air 04/27/19 08:00 97.4 75 18 113/70 (84) 98 Intake and Output 04/27/19 04/28/19 19:00 07:00 Intake Total 2055 ml Output Total 1500 ml Balance 2055 ml -1500 ml Intake IV Total 855 ml Other 1200 ml Output Urine Total 1500 ml # Voids 5 Height (Feet): 6 Height (Inches): 6.00 Weight (Pounds): 240 Objective Obese WM NCAT supple CTA RR Abd soft, epigastric/LUQ TTP no edema non focal Yuan Rodriguez MD Apr 28, 2019 07:12
[2019-04-28] MEDS ORDERED: Sorbitol Solution UD 30ml ORAL SCH (07:15)
[2019-04-28] MEDS ORDERED: NS 500ML IVPB ONE (07:16)
--- NOTE | 2019-04-28 07:19 | NUR ---
HAND-OFF: Report given to CARMEN Gonzalez.
--- NOTE | 2019-04-28 07:28 | Anethesia Preoperative Eval ---
Anesthesia Pre-op PMH/ROS General Date of Evaluation: Apr 28, 2019 Time of Evaluation: 06:45 Anesthesiologist: rigoberto ASA Score: ASA 3 Mallampati Score Class I : Soft palate, uvula, fauces, pillars visible Class II: Soft palate, uvula, fauces visible Class III: Soft palate, base of uvula visible Class IV: Only hard plate visible Mallampati Classification: Class II Surgeon: kings Diagnosis: abdominal pain, dysphagia Surgical Procedure: egd Anesthesia History: none Social History: current smoker, alcohol use Family History: no anesthesia problems Allergies: Coded Allergies: FENTANYL (Unverified Allergy, Unknown, 08/20/17) KETOROLAC (Unverified Allergy, Unknown, 08/20/17) NAPROXEN (Unverified Allergy, Unknown, 08/20/17) PENICILLINS (Unverified Allergy, Unknown, 08/20/17) Medications: see eMAR Patient NPO?: Yes Past Medical History Cardiovascular: Reports: HTN, other - hypercholesterolemia Pulmonary: Reports: COPD, other - acute bronchitis Gastrointestinal/Genitourinary: Reports: other - dysphagia, diverticulitis, gastric ulcer, colitis, Neurologic/Psychiatric: Reports: other - polyneuropathy, foot drop Musculoskeletal/Integumentary: Reports: other - back pain Anesthesia Pre-op Phys. Exam Physician Exam Last Vital Signs Date Time Temp Pulse Resp B/P (MAP) Pulse Ox O2 Delivery O2 Flow Rate FiO2 04/28/19 04:00 97.2 75 19 140/85 (103) 94 04/27/19 20:08 Room Air Constitutional: NAD Neurologic: CN 2-12 intact Cardiovascular: RRR Respiratory: CTA Gastrointestinal: S/NT/ND Airway Exam Mallampati Score: Class II MO: limited Neck: flexible TMD: 2fb ROM: limited Anesthesia Pre-op A/P Labs Labs Test 04/25/19 14:15 04/25/19 14:50 04/26/19 05:40 04/27/19 05:40 White Blood Count 14.3 K/UL (4.8-10.8) 12.3 K/UL (4.8-10.8) 11.8 K/UL (4.8-10.8) Red Blood Count 5.06 M/UL (4.70-6.10) 4.55 M/UL (4.70-6.10) 4.49 M/UL (4.70-6.10) Hemoglobin 16.1 G/DL (14.2-18.0) 14.6 G/DL (14.2-18.0) 14.5 G/DL (14.2-18.0) Hematocrit 45.5 % (42.0-52.0) 41.3 % (42.0-52.0) 40.7 % (42.0-52.0) Mean Corpuscular Volume 90 FL (80-99) 91 FL (80-99) 91 FL (80-99) Mean Corpuscular Hemoglobin 31.9 PG (27.0-31.0) 32.1 PG (27.0-31.0) 32.3 PG (27.0-31.0) Mean Corpuscular Hemoglobin Concent 35.5 G/DL (32.0-36.0) 35.3 G/DL (32.0-36.0) 35.6 G/DL (32.0-36.0) Red Cell Distribution Width 11.7 % (11.6-14.8) 11.5 % (11.6-14.8) 11.4 % (11.6-14.8) Platelet Count 302 K/UL (150-450) 257 K/UL (150-450) 243 K/UL (150-450) Mean Platelet Volume 7.0 FL (6.5-10.1) 6.8 FL (6.5-10.1) 6.4 FL (6.5-10.1) Neutrophils (%) (Auto) 68.8 % (45.0-75.0) 59.9 % (45.0-75.0) 61.6 % (45.0-75.0) Lymphocytes (%) (Auto) 22.0 % (20.0-45.0) 28.1 % (20.0-45.0) 25.7 % (20.0-45.0) Monocytes (%) (Auto) 7.1 % (1.0-10.0) 9.0 % (1.0-10.0) 10.3 % (1.0-10.0) Eosinophils (%) (Auto) 0.8 % (0.0-3.0) 1.6 % (0.0-3.0) 1.3 % (0.0-3.0) Basophils (%) (Auto) 1.2 % (0.0-2.0) 1.3 % (0.0-2.0) 1.1 % (0.0-2.0) Prothrombin Time 9.8 SEC (9.30-11.50) Prothromb Time International Ratio 0.9 (0.9-1.1) Activated Partial Thromboplast Time 28 SEC (23-33) Sodium Level 141 MMOL/L (136-145) 140 MMOL/L (136-145) Potassium Level 4.1 MMOL/L (3.5-5.1) 3.4 MMOL/L (3.5-5.1) Chloride Level 104 MMOL/L (98-107) 104 MMOL/L (98-107) Carbon Dioxide Level 26 MMOL/L (21-32) 27 MMOL/L (21-32) Anion Gap 11 mmol/L (5-15) 9 mmol/L (5-15) Blood Urea Nitrogen 15 mg/dL (7-18) 13 mg/dL (7-18) Creatinine 1.0 MG/DL (0.55-1.30) 1.0 MG/DL (0.55-1.30) Estimat Glomerular Filtration Rate > 60 mL/min (>60) > 60 mL/min (>60) Glucose Level 104 MG/DL (74-106) 90 MG/DL (74-106) Calcium Level 9.2 MG/DL (8.5-10.1) 8.9 MG/DL (8.5-10.1) Total Bilirubin 0.3 MG/DL (0.2-1.0) 0.4 MG/DL (0.2-1.0) Aspartate Amino Transf (AST/SGOT) 17 U/L (15-37) 15 U/L (15-37) Alanine Aminotransferase (ALT/SGPT) 20 U/L (12-78) 18 U/L (12-78) Alkaline Phosphatase 89 U/L (46-116) 79 U/L (46-116) Total Creatine Kinase 128 U/L (26-308) Troponin I 0.001 ng/mL (0.000-0.056) Total Protein 7.8 G/DL (6.4-8.2) 6.8 G/DL (6.4-8.2) Albumin 3.4 G/DL (3.4-5.0) 3.0 G/DL (3.4-5.0) Globulin 4.4 g/dL 3.8 g/dL Albumin/Globulin Ratio 0.8 (1.0-2.7) 0.8 (1.0-2.7) Lipase 153 U/L (73-393) Urine Color Pale yellow Urine Appearance Clear Urine pH 7 (4.5-8.0) Urine Specific [place] 1.010 (1.005-1.035) Urine Protein Negative (NEGATIVE) Urine Glucose (UA) Negative (NEGATIVE) Urine Ketones Negative (NEGATIVE) Urine Blood 3+ (NEGATIVE) Urine Nitrite Negative (NEGATIVE) Urine Bilirubin Negative (NEGATIVE) Urine Urobilinogen Normal MG/DL (0.0-1.0) Urine Leukocyte Esterase 1+ (NEGATIVE) Urine RBC 5-10 /HPF (0 - 0) Urine WBC 2-4 /HPF (0 - 0) Urine Squamous Epithelial Cells None /LPF (NONE/OCC) Urine Bacteria Few /HPF (NONE) Risk Assessment & Plan Assessment: asa3 Plan: mac Status Change Before Surgery: No Pre-Antibiotics Drug: La Mcnair MD Apr 28, 2019 07:28
[2019-04-28] MEDS ORDERED: HYDROcodone/Acetamin 7.5/325 tab ORAL PRN (07:30)
[2019-04-28] MEDS ORDERED: DiphenhydrAMINE 50mg/ml Inj IVP PRN (07:30)
[2019-04-28] MEDS ORDERED: Midazolam 2mg/2ml Inj IVP PRN (07:30)
[2019-04-28] MEDS ORDERED: oxyCODONE HCL/Acetaminophen 5/325mg ORAL PRN (07:30)
[2019-04-28] MEDS ORDERED: Atropine Inj 1mg/10ml Syr IV PRN (07:30)
--- NOTE | 2019-04-28 07:30 | Consultation ---
DATE OF CONSULTATION: 04/26/2019 INFECTIOUS DISEASE CONSULTATION CONSULTING PHYSICIAN: Beau Virgen M.D. PRIMARY ATTENDING PHYSICIAN: Reynaldo Gaffney M.D. REASON FOR CONSULTATION: Leukocytosis and colitis. HISTORY OF PRESENT ILLNESS: This is a 69-year-old white male who is a resident of the nursing facility, admitted yesterday complaining of not feeling well for about five days and abdominal pain that is diffuse. At the time of admission, it was 10/10. The patient had no diarrhea and no bleeding. PAST MEDICAL HISTORY: Significant for hypertension, hyperlipidemia, constipation, COPD, neuropathy, schizophrenia, degenerative disk disease, history of three back surgeries with lumbar fusion, paraparesis. Last year, he had a colonoscopy and removal of colonic polyps. He had diverticulosis and internal hemorrhoids. ALLERGIES: Allergic to fentanyl, ketorolac, naproxen, and penicillin. SOCIAL HISTORY: Single. Recently quit smoking. According to chart, he had a history of alcohol abuse. CURRENT MEDICATIONS: Amlodipine, Colace, fluoxetine, Pepcid, Zofran, sucralfate, risperidone, BuSpar, gabapentin, dicyclomine, diphenhydramine, magnesium hydroxide, [place], and nitroglycerin. REVIEW OF SYSTEMS: No fever. No chills. No vomiting. The patient currently is in clear liquid diet and has diffuse abdominal pain. No coughing. No problem passing urine. PHYSICAL EXAMINATION: VITAL SIGNS: Temperature 97.1, pulse 79, and blood pressure is 127/70. GENERAL APPEARANCE: Seems to be obese. HEAD AND NECK: Poor dentition, has lost all of the teeth except few. [place] conjunctivae. No oral lesion. HEART: Normal rate. LUNGS: Clear. ABDOMEN: Mildly distended, soft. EXTREMITIES: No edema. NEUROLOGIC: Awake, alert, and oriented. LABORATORY AND DIAGNOSTIC DATA: WBC today is 12.3, yesterday at the time of admission was 14.3; hemoglobin 14.6; hematocrit 44.3; and platelets are 257,000. Sodium 140, potassium 3.4, chloride 104, bicarbonate 27, BUN 13, creatinine 1, and glucose 90. Albumen 3. The patient had a CT scan of the abdomen and pelvis, no evidence of diverticulitis or diverticulosis, mild thickening of ascending colon, may indicate colitis, nonobstructive umbilical hernia, 2 mm lung nodules, and bilateral renal cysts. IMPRESSION: 1. Leukocytosis, improving without antibiotics. 2. Possibility of colitis. 3. Constipation. 4. COPD. 5. Paraparesis. 6. Hypertension. 7. Psychiatric problem. RECOMMENDATIONS: Observe off antibiotic. We will follow recommendation by GI specialist. At the end of my exam, I thank Dr. Gaffney for involving me in the care of this patient. Beau Virgen M.D. DR: PIETRO JOB#: [id number] CC: ANTONETTE
--- NOTE | 2019-04-28 07:30 | History and Physical Report ---
DATE OF ADMISSION: 04/25/2019 HISTORY OF PRESENT ILLNESS: The patient is admitted for abdominal pain. The patient complains of severe abdominal pain. The patient does have some nausea, but no vomiting. Denies rectal bleeding. Denies shortness of breath. Denies cough. Denies cold-like symptoms. Denies myalgias. PAST MEDICAL HISTORY: History of colon polyps, history of abdominal pain, hypertension, hyperlipidemia, polyneuropathy, constipation, COPD, schizophrenia, degenerative joint spine , GERD, as well as constipation, and hypertension. PAST SURGICAL HISTORY: Cholecystectomy. ALLERGIES: The patient is allergic to fentanyl, ketorolac, naproxen, and penicillin. MEDICATIONS: Amlodipine, bisacodyl, Colace, omeprazole, risperidone, and Carafate. FAMILY HISTORY: Noncontributory. SOCIAL HISTORY: He has history of smoking. Denies history of alcohol or illicit drugs. Comes from a senior living. REVIEW OF SYSTEMS: HEENT: Denies headaches. RESPIRATORY: Denies shortness of breath. Denies cough. CARDIOVASCULAR: Denies chest pain. GASTROINTESTINAL: Does have nausea. No vomiting. Does have abdominal pain that is severe, is diffuse. Denies constipation. Denies rectal bleeding. EXTREMITIES: Denies pain in the lower extremities. CENTRAL NERVOUS SYSTEM: Denies change in vision or speech pattern. PHYSICAL EXAMINATION: VITAL SIGNS: Temperature is 97.6, pulse is 79, and blood pressure is 127/70. HEENT: PERRLA. NECK: Supple. No lymphadenopathy. CHEST: Clear to auscultation. CARDIOVASCULAR: Regular rate and rhythm. No murmurs or extra sounds. GASTROINTESTINAL: Soft. Positive bowel sounds. Diffuse tenderness. However, abdomen is soft and nontender is not in acute distress. No organomegaly. EXTREMITIES: No edema. Reflexes equal on both sides. Moves all four extremities. Sensory intact to light touch. LABORATORY DATA: WBC of 14.2, hemoglobin 16.1, and platelets 302,000. Sodium 141, potassium 4.1, BUN of 15, and creatinine 1. ASSESSMENT AND PLAN: Leukocytosis. I have asked Dr. Beau Virgen to see the patient for abdominal pain as well as Dr. Rodriguez and Dr. Swift for pain management as well as for the workup of the abdominal pain. The CT scan was done of the abdomen, and it did not show anything acute. The patient basically has nonspecific findings basically from degenerative spine as well as equivocal focal wall thickening of the ascending colon and nonobstructive umbilical hernia, postsurgical changes, and stable 2 mm right lung lobe nodule. Dr. Rodriguez has been consulted the workup of the abdominal pain. Dr. Beau Virgen for the leukocytosis and to rule out any diverticulitis and rule out diverticulosis. Reynaldo Gaffney M.D. DR: Edin JOB#: [id number] CC:
--- NOTE | 2019-04-28 08:56 | General Progress Note ---
Assessment/Plan Assessment/Plan: (1) Lumbar DDD (2) Lumbar Spondylosis (3) Lumbar Radiculopathy (4) Lumbar Herniated disc (5) FBSS (6) Paraparesis Patient to be continued on Morphine and [place]. D/w Dr. Swift and he concurred Subjective Date patient seen: Apr 28, 2019 Time patient seen: 08:30 - am Allergies: Coded Allergies: FENTANYL (Unverified Allergy, Unknown, 08/20/17) KETOROLAC (Unverified Allergy, Unknown, 08/20/17) NAPROXEN (Unverified Allergy, Unknown, 08/20/17) PENICILLINS (Unverified Allergy, Unknown, 08/20/17) Subjective Constitutional: Reports: weakness HEENT: Reports: no symptoms Cardiovascular: Reports: no symptoms Respiratory: Reports: no symptoms Gastrointestinal/Abdominal: Reports: abdominal pain Genitourinary: Reports: no symptoms Neurologic/Psychiatric: Reports: weakness Endocrine: Reports: no symptoms SUBJECTIVE: Patient is in bed s/p EGD. No pain at this time. Has requested 5 doses of Morphine in the last 24hrs. Objective Last 24 Hour Vital Signs Date Time Temp Pulse Resp B/P (MAP) Pulse Ox O2 Delivery O2 Flow Rate FiO2 04/28/19 07:57 97.8 68 13 123/58 99 Nasal Cannula 3 04/28/19 07:47 68 13 118/66 97 Nasal Cannula 3 04/28/19 07:42 66 15 115/57 98 Nasal Cannula 3 04/28/19 07:37 97.1 68 18 110/64 97 Nasal Cannula 3 04/28/19 04:00 97.2 75 19 140/85 (103) 94 04/27/19 23:58 97.9 74 19 136/65 (88) 94 04/27/19 20:08 Room Air 04/27/19 19:49 97.8 80 19 123/80 (94) 97 04/27/19 15:51 97.9 83 18 121/74 (90) 97 04/27/19 12:00 96.2 77 18 114/73 (87) 98 Intake and Output 04/27/19 04/28/19 19:00 07:00 Intake Total 2055 ml Output Total 1500 ml Balance 2055 ml -1500 ml Intake IV Total 855 ml Other 1200 ml Output Urine Total 1500 ml # Voids 5 Height (Feet): 6 Height (Inches): 6.00 Weight (Pounds): 240 Objective General Appearance: no apparent distress, alert EENT: PERRL/EOMI, normal ENT inspection Neck: non-tender, normal alignment Cardiovascular: normal rate, regular rhythm Abdomen: non tender, soft Extremities: non-tender Edema: trace edema Neurologic: alert, responsive Skin: normal pigmentation Khari Harrison Apr 28, 2019 08:56
--- NOTE | 2019-04-28 09:04 | 48 Hour Post Anesthesia Eval ---
Post Anesthesia Evaluation Procedure: egd w/bx Date of Evaluation: Apr 28, 2019 Time of Evaluation: 07:51 Blood Pressure Systolic: 118 0: 66 Pulse Rate: 68 Respiratory Rate: 18 Temperature (Fahrenheit): 97.1 O2 Sat by Pulse Oximetry: 98 Airway: patent Nausea: No Vomiting: No Pain Intensity: 0 Hydration Status: adequate Cardiopulmonary Status: stable Mental Status/LOC: patient returned to baseline Post-Anesthesia Complications: none Follow-up care needed: N/A [place] MD Apr 28, 2019 09:04
--- NOTE | 2019-04-28 09:04 | Immediate Post-Op Evaluation ---
Immediate Post-Op Evalulation Immediate Post-Op Evalulation Procedure: egd w/bx Date of Evaluation: Apr 28, 2019 Time of Evaluation: 07:49 IV Fluids: 200ml 0.9ns Blood Products: none Estimated Blood Loss: negligible Blood Pressure Systolic: 110 Blood Pressure Diastolic: 64 Pulse Rate: 68 Respiratory Rate: 18 O2 Sat by Pulse Oximetry: 97 Temperature (Fahrenheit): 97.1 Pain Score (1-10): 0 Nausea: No Vomiting: No Complications none Patient Status: awake, reacts, patent Hydration Status: adequate Drug: La Mcnair MD Apr 28, 2019 09:04
[2019-04-28] MEDS: Naloxegol Oxalate 25mg tab ORAL SCH (09:44)
[2019-04-28] MEDS: BusPIRone 5mg Tab ORAL SCH ×2 (09:45→18:24)
[2019-04-28] MEDS: Docusate 250mg cap ORAL SCH (09:46)
[2019-04-28] MEDS: Pantoprazole Inj IVP SCH (09:47)
--- NOTE | 2019-04-28 12:05 | NUR ---
NURSE NOTES: Patient refusing medications, stating he cannot swallow medications or his food because he is in too much pain. Patient pain medication is not due at this time. will make MD aware of patient's pain.
--- NOTE | 2019-04-28 12:06 | Infectious Diseases Prog Note ---
Assessment/Plan Assessment/Plan IMPRESSION: 1. Leukocytosis, improving without antibiotics. 2. Possibility of colitis. 3. Constipation. 4. COPD. 5. Paraparesis. 6. Hypertension. 7. Psychiatric problem. RECOMMENDATIONS: Observe off antibiotic. We will follow EGD report. Subjective ROS Limited/Unobtainable: Yes Constitutional: Reports: no symptoms Respiratory: Reports: no symptoms Gastrointestinal/Abdominal: Reports: other - epigastric pain, had EGD today Genitourinary: Reports: no symptoms Allergies: Coded Allergies: FENTANYL (Unverified Allergy, Unknown, 08/20/17) KETOROLAC (Unverified Allergy, Unknown, 08/20/17) NAPROXEN (Unverified Allergy, Unknown, 08/20/17) PENICILLINS (Unverified Allergy, Unknown, 08/20/17) Objective Vital Signs Last 24 Hour Vital Signs Date Time Temp Pulse Resp B/P (MAP) Pulse Ox O2 Delivery O2 Flow Rate FiO2 04/28/19 09:46 68 123/58 04/28/19 09:00 Room Air Room Air 04/28/19 07:57 97.8 68 13 123/58 99 Nasal Cannula 3 04/28/19 07:47 68 13 118/66 97 Nasal Cannula 3 04/28/19 07:42 66 15 115/57 98 Nasal Cannula 3 04/28/19 07:37 97.1 68 18 110/64 97 Nasal Cannula 3 04/28/19 04:00 97.2 75 19 140/85 (103) 94 04/27/19 23:58 97.9 74 19 136/65 (88) 94 04/27/19 20:08 Room Air 04/27/19 19:49 97.8 80 19 123/80 (94) 97 04/27/19 15:51 97.9 83 18 121/74 (90) 97 Height (Feet): 6 Height (Inches): 6.00 Weight (Pounds): 240 General Appearance: no acute distress HEENT: mucous membranes moist Respiratory/Chest: lungs clear Cardiovascular: normal rate Abdomen: other - soft Extremities: no edema Neurologic/Psychiatric: alert, oriented x 3, responsive Microbiology Date/Time Source Procedure Growth Status 04/25/19 16:00 Nasal Nares MRSA Culture - Final NO METHICILLIN RESISTANT STAPH AUREUS... Complete 04/25/19 16:00 Rectum - Final NO CARBAPENEM-RESISTANT ENTEROBACTERI... Complete 04/25/19 16:00 Rectum VRE Culture - Final NO VANCOMYCIN RESISTANT ENTEROCOCCUS ... Complete Current Medications Medications (Trade) Dose Ordered Sig/Paul Route PRN Reason Start Time Stop Time Status Last Admin Dose Admin Acetaminophen (Tylenol) 500 mg Q4H PRN ORAL Moderate Pain (Pain Scale 4-6) 04/25/19 20:00 05/25/19 19:59 Acetaminophen/ Hydrocodone Bitart ([place] 10/325) 1 tab Q6H PRN ORAL Severe Pain (Pain Scale 7-10) 04/25/19 20:00 05/02/19 19:59 Amlodipine Besylate (Norvasc) 5 mg DAILY ORAL 04/26/19 09:00 05/26/19 08:59 04/28/19 09:46 Bisacodyl (Dulcolax) 10 mg DAILY PRN RECTAL Constipation 04/25/19 20:00 05/25/19 19:59 Buspirone HCl (Buspar) 10 mg BID ORAL 04/25/19 21:30 05/25/19 21:29 04/28/19 09:45 Clonidine HCl (Catapres Tab) 0.1 mg Q12H PRN ORAL For High Blood Pressure 04/25/19 20:30 05/25/19 20:29 Dextrose/Sodium Chloride 1,000 ml @ 75 mls/hr [id number] IV 04/26/19 09:30 05/26/19 09:29 04/28/19 01:48 Dicyclomine HCl (Bentyl) 20 mg Q8H PRN ORAL Abdominal cramps 04/25/19 20:00 05/25/19 19:59 Diphenhydramine HCl (Benadryl) 25 mg ONCE PRN ORAL Itching 04/25/19 20:00 05/25/19 19:59 Docusate Sodium (Colace) 250 mg DAILY ORAL 04/26/19 09:00 05/26/19 08:59 04/28/19 09:46 Famotidine (Pepcid) 20 mg DAILY ORAL 04/26/19 09:00 05/26/19 08:59 04/28/19 09:45 Fluoxetine HCl (PROzac) 40 mg DAILY ORAL 04/26/19 09:00 05/26/19 08:59 04/28/19 09:46 Gabapentin (Neurontin) 300 mg THREE TIMES A DAY ORAL 04/25/19 21:30 05/25/19 21:29 04/28/19 09:45 Magnesium Hydroxide (Mom) 30 ml HSPRN PRN ORAL Constipation 04/25/19 20:00 05/25/19 19:59 Morphine Sulfate (Morphine Sulfate) 2 mg Q4H PRN IVP For Moderate Pain 04/25/19 18:15 05/02/19 18:14 Morphine Sulfate (Morphine Sulfate) 4 mg Q4H PRN IVP For Severe Pain 04/25/19 18:16 05/02/19 18:15 04/28/19 08:27 Naloxegol (Movantik) 25 mg DAILY ORAL 04/26/19 09:00 05/26/19 08:59 04/28/19 09:44 Nitroglycerin (Ntg) 0.4 mg Q5M PRN SL Prn Chest Pain 04/25/19 20:00 05/25/19 19:59 Ondansetron HCl (Zofran) 4 mg Q6H PRN IVP Nausea & Vomiting 04/26/19 09:00 05/26/19 08:59 04/26/19 09:19 Pantoprazole (Protonix) 40 mg DAILY IVP 04/26/19 15:00 05/26/19 14:59 04/28/19 09:47 Risperidone (RisperDAL) 0.5 mg QHS ORAL 04/25/19 22:00 05/25/19 21:59 04/27/19 20:43 Sucralfate (Carafate) 1 gm BEDTIME ORAL 04/25/19 21:30 05/25/19 21:29 04/27/19 20:43 Sucralfate (Carafate) 1 gm TIAC ORAL 04/26/19 06:30 05/26/19 06:29 04/27/19 17:10 Beau Virgen MD Apr 28, 2019 12:06
--- NOTE | 2019-04-28 13:28 | NUR ---
CASE MANAGEMENT:INITIAL REVIEW 04/26/2019 69 YR OLD MALE BIBA FROM [facility] CONV CC;ABDOMINAL PAIN SI;ABDOMINAL PAIN, LEUKOCYTOSIS. 97.5 83 14 158/106 95% ON RA WBC 14.3 CXR - NEGATIVE ABD/PELVIS CT=Equivocal focal wall thickening of the ascending colon, if real could indicate colitis, nonspecific as regards etiology IS;REGLAN IV ONCE PEPCID IV ONCE BENADRYL IV ONCE IVF NS BOLUS ONCE MORPHINE IV ONCE DILAUDID IV ONCE ADMITTED TO MED SURG MED SURG STATUS DCP;FROM [facility] CASE MANAGEMENT:REVIEW 04/28/2019 SI;S/P EGD W/BIOPSY 98.2 74 13 123/58 94% ON RA IS;PROTONIX IV QD IVF D5W @ 75 ML/HR MED SURG STATUS DCP;FROM [facility]
--- NOTE | 2019-04-28 14:10 | NUR ---
NURSE NOTES: Contacted Hunter WILSON to let him know that patient's pain control is not being met per patient.
--- NOTE | 2019-04-28 14:37 | NUR ---
NURSE NOTES: Hunter WILSON stated no new orders for pain medication for this patient at this time.
--- NOTE | 2019-04-28 15:17 | NUR ---
NURSE NOTES: Patient threw dinner tray against the wall, exclaiming " I am in so much pain, why is the doctor torturing me" cleaned up the tray and asked patient to refrain from throwing things in the room.
--- NOTE | 2019-04-28 16:52 | NUR ---
NURSE NOTES: Patient requesting to call primary MD to see if he will increase the pain medication dose. Called Dr Gaffney number but did not get a reply
--- NOTE | 2019-04-28 17:01 | NUR ---
NURSE NOTES: called Dr Gaffney's office and left a message with Mary office assistant receptionist per patient request to ask primary MD for increased pain med or change of pain medication from morphine to dilaudid.
[2019-04-28] MEDS ORDERED: Nulytely 4L ORAL SCH (18:30)
--- NOTE | 2019-04-28 19:34 | NUR ---
HAND-OFF: Report given to CARMEN Zavala.
--- NOTE | 2019-04-28 20:03 | NUR ---
NURSE NOTES: Received report from CARMEN Gonzalez. AAO x 4, on room air. Pt is taking bowel prep. IV intact and running IVF. Colonoscopy scheduled 04/29/19. Pt will be on NPO midnight. Bed locked, lowest position, alarm on, side rails up, call light within reach. Will continue to monitor.
--- NOTE | 2019-04-28 20:27 | General Progress Note ---
Assessment/Plan Problem List: (1) Psychiatric disorder ICD Codes: F99 - Mental disorder, not otherwise specified SNOMED: 53445692, 859154253 (2) Abdominal pain ICD Codes: R10.9 - Unspecified abdominal pain SNOMED: 41982455 Qualifiers: Qualified Codes: R10.13 - Epigastric pain (3) Severe malnutrition ICD Codes: E43 - Unspecified severe protein-calorie malnutrition SNOMED: 29692723 (4) Nausea & vomiting ICD Codes: R11.2 - Nausea with vomiting, unspecified SNOMED: 04634587 Status: progressing Assessment/Plan: abdominal pain constipation will discuss w gi re finding afebrile psych history afebrile Subjective ROS Limited/Unobtainable: Yes Allergies: Coded Allergies: FENTANYL (Unverified Allergy, Unknown, 08/20/17) KETOROLAC (Unverified Allergy, Unknown, 08/20/17) NAPROXEN (Unverified Allergy, Unknown, 08/20/17) PENICILLINS (Unverified Allergy, Unknown, 08/20/17) Objective Last 24 Hour Vital Signs Date Time Temp Pulse Resp B/P (MAP) Pulse Ox O2 Delivery O2 Flow Rate FiO2 04/28/19 20:00 98.1 78 17 150/96 (114) 96 04/28/19 16:00 97.2 95 20 120/87 (98) 97 04/28/19 13:13 68 18 98 04/28/19 13:12 68 18 97 04/28/19 12:00 98.2 74 19 119/70 (86) 94 04/28/19 09:46 68 123/58 04/28/19 09:00 Room Air Room Air 04/28/19 07:57 97.8 68 13 123/58 99 Nasal Cannula 3 04/28/19 07:47 68 13 118/66 97 Nasal Cannula 3 04/28/19 07:42 66 15 115/57 98 Nasal Cannula 3 04/28/19 07:37 97.1 68 18 110/64 97 Nasal Cannula 3 04/28/19 04:00 97.2 75 19 140/85 (103) 94 04/27/19 23:58 97.9 74 19 136/65 (88) 94 Intake and Output 04/27/19 04/28/19 19:00 07:00 Intake Total 2055 ml Output Total 1500 ml Balance 2055 ml -1500 ml Intake IV Total 855 ml Other 1200 ml Output Urine Total 1500 ml # Voids 5 Height (Feet): 6 Height (Inches): 6.00 Weight (Pounds): 240 Respiratory/Chest: lungs clear Abdomen: tender Reynaldo Gaffney MD Apr 28, 2019 20:27
--- NOTE | 2019-04-28 21:01 | NUR ---
NURSE NOTES: Pt finished 2/3 of bowel prep. Pt stated abd pain is not controlled with morphine 4mg and can't finish bowel prep due to abd pain. Pt wants to change pain med from morphine to dilaudid. Left the message to Dr. Gaffney. Addendum: 04/28/19 at 2109 by JENNIFER AYOUB RN RN NURSE NOTES: Left message Dr. Swift regarding pain. Waiting for call back. Addendum: 04/28/19 at 2330 by JENNIFER AYOUB RN RN NURSE NOTES: Received order from Dr. Swift, dilaudid 1mg IV q4hr prn severe pain.
--- NOTE | 2019-04-28 22:03 | Endoscopy Procedure Note ---
Endoscopy Procedure Note General Indication for Procedure: pain Procedures Performed: EGD Operative Findings/Diagnosis: nl Specimen: yes Pt Tolerated Procedure Well: Yes Estimated Blood Loss: none Anesthesia Anesthesiologist: Steven cummings Anesthesia: MAC Medications Medication Given: see anesthesia record Inserted Devices Implant(s) used?: No GI Core Measures 50 yrs or older w/o bx or poly: Not Applicable 10yrs. F/U recommended: Not Applicable Yuan Rodriguez MD Apr 28, 2019 22:03
--- NOTE | 2019-04-28 22:05 | Brief Operative Note ---
Immediate Post Operative Note Operative Note Chief Complaint: pain Pre-op Diagnosis: abd pain Procedure: egd Post-op Diagnosis: nl Surgeon: kings Anesthesiologist: caitlin cummings Specimen: yes Complications: none Condition: stable Fluids: recorded Implant(s) used?: No Yuan Rodriguez MD Apr 28, 2019 22:05
[2019-04-28] MEDS ORDERED: Fleet's Enema 133ml RECTAL SCH (22:15)
--- NOTE | 2019-04-28 22:45 | Operative Note - Dictated ---
DATE OF OPERATION: 04/28/2019 GASTROENTEROLOGY PROCEDURE PROCEDURE: Upper gastrointestinal endoscopy with biopsy. SURGEON: Yuan Rodriguez M.D. ANESTHESIA: Please see the separate anesthesiologist notes for details. PRE-ENDOSCOPIC DIAGNOSIS: Abdominal pain. POST-ENDOSCOPIC DIAGNOSIS: Normal upper endoscopy. DESCRIPTION OF PROCEDURE: The procedure, its risks, indications, alternatives, and possible complications including but not limited to bleeding, infection, perforation, , and anesthesia complications were explained to the patient and informed consent was obtained. The patient was then sedated in the left lateral decubitus position. A diagnostic upper endoscope was introduced through the oropharynx and advanced to the duodenum without difficulty. The endoscope was then gradually withdrawn and the mucosa examined carefully. Examination of the upper gastrointestinal mucosa revealed no significant findings. Biopsies were sent to pathology for review. The endoscope was removed. The patient was sent to recovery in good condition. COMPLICATIONS: None. RECOMMENDATIONS: 1. Follow up biopsy results. 2. Proceed with colonoscopy tomorrow. Yuan Rodriguez M.D. DR: STACY JOB#: [id number] CC:
[2019-04-29] VITALS (8 sets, daily range): BP systolic 130–158; BP diastolic 76–96
[2019-04-29] MEDS: HYDROmorphone 1mg/ml Carpuject IVP PRN ×3 (00:42→08:44)
[2019-04-29] MEDS ORDERED: Fleet's Enema 133ml RECTAL SCH (01:15)
[2019-04-29] MEDS ORDERED: Haloperidol 5mg/ml Inj IM SCH (03:45)
[2019-04-29] MEDS: D5 1/2NS 1,000 ML IV SCH (04:46)
[2019-04-29] MEDS: Sucralfate 1gm tab ORAL SCH (05:31)
--- NOTE | 2019-04-29 05:38 | NUR ---
NURSE NOTES: Fleet enema given x 2 and tap water enema given x 1. Pt had light brown clear liquid BM x 5. Stated pain is getting better with dilaudid than morphine.
--- NOTE | 2019-04-29 06:41 | Anethesia Preoperative Eval ---
Anesthesia Pre-op PMH/ROS General Date of Evaluation: Apr 29, 2019 Time of Evaluation: 06:35 Anesthesiologist: rigoberto ASA Score: ASA 3 Mallampati Score Class I : Soft palate, uvula, fauces, pillars visible Class II: Soft palate, uvula, fauces visible Class III: Soft palate, base of uvula visible Class IV: Only hard plate visible Mallampati Classification: Class II Surgeon: kings Diagnosis: abdominal pain Surgical Procedure: colonoscopy Anesthesia History: none Social History: current smoker, alcohol use Allergies: Coded Allergies: FENTANYL (Unverified Allergy, Unknown, 08/20/17) KETOROLAC (Unverified Allergy, Unknown, 08/20/17) NAPROXEN (Unverified Allergy, Unknown, 08/20/17) PENICILLINS (Unverified Allergy, Unknown, 08/20/17) Medications: see eMAR Patient NPO?: Yes Past Medical History Cardiovascular: Reports: HTN, other - hyperlipidemia, hypercholesterolemia Pulmonary: Reports: COPD, other - acute bronchitis Gastrointestinal/Genitourinary: Reports: other - gastric ulcer, diverticulitis , abdominal pain, dysphagia Neurologic/Psychiatric: Reports: depression/anxiety, other - foot drop, polyneuropathy, dizziness, weakness, schizophrenia Musculoskeletal/Integumentary: Reports: other - back pain Anesthesia Pre-op Phys. Exam Physician Exam Last Vital Signs Date Time Temp Pulse Resp B/P (MAP) Pulse Ox O2 Delivery O2 Flow Rate FiO2 04/29/19 04:00 98.1 90 18 135/90 (105) 95 04/28/19 20:49 Room Air Room Air 04/28/19 07:57 3 Constitutional: NAD Neurologic: CN 2-12 intact Cardiovascular: RRR Respiratory: CTA Gastrointestinal: S/NT/ND Airway Exam Mallampati Score: Class II MO: limited Neck: flexible TMD: 2fb ROM: limited Teeth: missing, broken Anesthesia Pre-op A/P Labs Labs Test 04/27/19 05:40 White Blood Count 11.8 K/UL (4.8-10.8) Red Blood Count 4.49 M/UL (4.70-6.10) Hemoglobin 14.5 G/DL (14.2-18.0) Hematocrit 40.7 % (42.0-52.0) Mean Corpuscular Volume 91 FL (80-99) Mean Corpuscular Hemoglobin 32.3 PG (27.0-31.0) Mean Corpuscular Hemoglobin Concent 35.6 G/DL (32.0-36.0) Red Cell Distribution Width 11.4 % (11.6-14.8) Platelet Count 243 K/UL (150-450) Mean Platelet Volume 6.4 FL (6.5-10.1) Neutrophils (%) (Auto) 61.6 % (45.0-75.0) Lymphocytes (%) (Auto) 25.7 % (20.0-45.0) Monocytes (%) (Auto) 10.3 % (1.0-10.0) Eosinophils (%) (Auto) 1.3 % (0.0-3.0) Basophils (%) (Auto) 1.1 % (0.0-2.0) Risk Assessment & Plan Assessment: asa3 Plan: mac Status Change Before Surgery: No Pre-Antibiotics Drug: La Mcnair MD Apr 29, 2019 06:41
[2019-04-29] MEDS ORDERED: DiphenhydrAMINE 50mg/ml Inj IVP PRN (06:45)
[2019-04-29] MEDS ORDERED: Morphine Sulfate 2mg/ml Inj(IV/IM USE ONLY) IVP PRN (06:45)
[2019-04-29] MEDS ORDERED: Midazolam 2mg/2ml Inj IVP PRN (06:45)
[2019-04-29] MEDS ORDERED: Atropine Inj 1mg/10ml Syr IV PRN (06:45)
[2019-04-29] MEDS ORDERED: oxyCODONE HCL/Acetaminophen 5/325mg ORAL PRN (06:45)
--- NOTE | 2019-04-29 06:56 | NUR ---
NURSE NOTES: GI lab picked up the pt with stable condition. Chart and consent sign form sent with pt. GI lab check list done.
[2019-04-29] MEDS ORDERED: Propofol 200mg/20ml IV ONE (07:00)
[2019-04-29] MEDS ORDERED: Lidocaine 1% MPF 10mg/ml 5ml ONE (07:00)
[2019-04-29] MEDS ORDERED: NS 500ML IVPB ONE (07:05)
--- NOTE | 2019-04-29 07:08 | Pre-Procedure Note/Attestation ---
Pre-Procedure Note/Attestation Complete Prior to Procedure Planned Procedure: not applicable Procedure Narrative: colon Indications for Procedure Pre-Operative Diagnosis: abd pain Attestation I attest that I discussed the nature of the procedure; its benefits; risks and complications; and alternatives (and the risks and benefits of such alternatives ), prior to the procedure, with the patient (or the patient's legal dental detail representative). I attest that, if there was a reasonable possibility of needing a blood transfusion, the patient (or the patient's legal dental detail representative) was given the [facility] standardized written summary, pursuant to the [place] Blood Safety Act ([place] Health and Safety Code # 1645, as amended). I attest that I re-evaluated the patient just prior to the surgery and that there has been no change in the patient's H&P, except as documented below: Yuan Rodriguez MD Apr 29, 2019 07:08
--- NOTE | 2019-04-29 07:08 | General Progress Note ---
Assessment/Plan Status: progressing Assessment/Plan: Assessment - Constipation - epigastric pain - h/o PUD - (R) colonic thickening on CT, ? underdistention artifact - Psych history Recommendations - Laxative - PPI - EGD today Subjective Allergies: Coded Allergies: FENTANYL (Unverified Allergy, Unknown, 08/20/17) KETOROLAC (Unverified Allergy, Unknown, 08/20/17) NAPROXEN (Unverified Allergy, Unknown, 08/20/17) PENICILLINS (Unverified Allergy, Unknown, 08/20/17) Subjective feels constipated no BM x 2 days still with epigastric pain NPO for EGD today Objective Last 24 Hour Vital Signs Date Time Temp Pulse Resp B/P (MAP) Pulse Ox O2 Delivery O2 Flow Rate FiO2 04/29/19 04:00 98.1 90 18 135/90 (105) 95 04/29/19 00:00 97.9 73 17 130/96 (107) 92 04/28/19 20:49 Room Air Room Air 04/28/19 20:00 98.1 78 17 150/96 (114) 96 04/28/19 16:00 97.2 95 20 120/87 (98) 97 04/28/19 13:13 68 18 98 04/28/19 13:12 68 18 97 04/28/19 12:00 98.2 74 19 119/70 (86) 94 04/28/19 09:46 68 123/58 04/28/19 09:00 Room Air Room Air 04/28/19 07:57 97.8 68 13 123/58 99 Nasal Cannula 3 04/28/19 07:47 68 13 118/66 97 Nasal Cannula 3 04/28/19 07:42 66 15 115/57 98 Nasal Cannula 3 04/28/19 07:37 97.1 68 18 110/64 97 Nasal Cannula 3 Intake and Output 04/28/19 04/29/19 19:00 07:00 Intake Total 250 ml Output Total 1100 ml 600 ml Balance -850 ml -600 ml Intake IV Total 250 ml Output Urine Total 1100 ml 600 ml # Voids 4 # Bowel Movements 3 4 Height (Feet): 6 Height (Inches): 5.00 Weight (Pounds): 237 Objective Obese WM NCAT supple CTA RR Abd soft, epigastric/LUQ TTP no edema non focal Yuan Rodriguez MD 3, 2020 07:07
--- NOTE | 2019-04-29 07:10 | NUR ---
HAND-OFF: Report given to CARMEN Gonzalez.
--- NOTE | 2019-04-29 07:30 | NUR ---
NURSE NOTES:Handoff received from CARMEN Zavala. Patient is not in room as is currently undergoing colonoscopy procedure.
--- NOTE | 2019-04-29 07:36 | General Progress Note ---
Assessment/Plan Status: progressing Assessment/Plan: Assessment - Constipation - resolved - epigastric pain - ? etiology - h/o PUD - (R) colonic thickening on CT, ? underdistention artifact - Psych history Recommendations - Laxative - PPI - [facility]entiary bowel regimen - Colonoscopy today Subjective Allergies: Coded Allergies: FENTANYL (Unverified Allergy, Unknown, 08/20/17) KETOROLAC (Unverified Allergy, Unknown, 08/20/17) NAPROXEN (Unverified Allergy, Unknown, 08/20/17) PENICILLINS (Unverified Allergy, Unknown, 08/20/17) Subjective (+) BM with prep still with abdominal pain d/w pt re negative EGD for colonoscopy today Objective Last 24 Hour Vital Signs Date Time Temp Pulse Resp B/P (MAP) Pulse Ox O2 Delivery O2 Flow Rate FiO2 04/29/19 04:00 98.1 90 18 135/90 (105) 95 04/29/19 00:00 97.9 73 17 130/96 (107) 92 04/28/19 20:49 Room Air Room Air 04/28/19 20:00 98.1 78 17 150/96 (114) 96 04/28/19 16:00 97.2 95 20 120/87 (98) 97 04/28/19 13:13 68 18 98 04/28/19 13:12 68 18 97 04/28/19 12:00 98.2 74 19 119/70 (86) 94 04/28/19 09:46 68 123/58 04/28/19 09:00 Room Air Room Air 04/28/19 07:57 97.8 68 13 123/58 99 Nasal Cannula 3 04/28/19 07:47 68 13 118/66 97 Nasal Cannula 3 04/28/19 07:42 66 15 115/57 98 Nasal Cannula 3 04/28/19 07:37 97.1 68 18 110/64 97 Nasal Cannula 3 Intake and Output 04/28/19 04/29/19 19:00 07:00 Intake Total 250 ml Output Total 1100 ml 600 ml Balance -850 ml -600 ml Intake IV Total 250 ml Output Urine Total 1100 ml 600 ml # Voids 4 # Bowel Movements 3 4 Height (Feet): 6 Height (Inches): 5.00 Weight (Pounds): 237 Objective Obese WM NCAT supple CTA RR Abd soft, epigastric/LUQ TTP no edema non focal Yuan Rodriguez MD Apr 29, 2019 07:36
--- NOTE | 2019-04-29 07:43 | Endoscopy Procedure Note ---
Endoscopy Procedure Note General Indication for Procedure: abnormal CT Operative Findings/Diagnosis: polyps removed, RND Left Bx Specimen: yes Pt Tolerated Procedure Well: Yes Estimated Blood Loss: none Anesthesia Anesthesiologist: Steven Mccullough Anesthesia: MAC Inserted Devices Implant(s) used?: No GI Core Measures 50 yrs or older w/o bx or poly: Not Applicable 10yrs. F/U recommended: Not Applicable Yuan Rodriguez MD Apr 29, 2019 07:43
--- NOTE | 2019-04-29 07:44 | Brief Operative Note ---
Immediate Post Operative Note Operative Note Chief Complaint: abnormal CT Pre-op Diagnosis: abd pain Procedure: colon Post-op Diagnosis: polyps removed, Normal R colon Surgeon: kings Anesthesiologist: Steven Mccullough Anesthesia: MAC Specimen: yes Complications: none Condition: stable Fluids: Recorded Implant(s) used?: No Yuan Rodriguez MD Apr 29, 2019 07:44
--- NOTE | 2019-04-29 07:57 | Immediate Post-Op Evaluation ---
Immediate Post-Op Evalulation Immediate Post-Op Evalulation Procedure: colonoscopy w/bx Date of Evaluation: Apr 29, 2019 Time of Evaluation: 07:57 IV Fluids: 400ml 0.9ns Blood Products: none Estimated Blood Loss: negligible Blood Pressure Systolic: 135 Blood Pressure Diastolic: 78 Pulse Rate: 71 Respiratory Rate: 18 O2 Sat by Pulse Oximetry: 99 Temperature (Fahrenheit): 97.4 Pain Score (1-10): 0 Nausea: No Vomiting: No Complications none Patient Status: awake, reacts, patent Hydration Status: adequate Drug: La Mcnair MD Apr 29, 2019 07:57
--- NOTE | 2019-04-29 08:02 | 48 Hour Post Anesthesia Eval ---
Post Anesthesia Evaluation Procedure: colonoscopy w/bx Date of Evaluation: Apr 29, 2019 Time of Evaluation: 07:59 Blood Pressure Systolic: 152 0: 82 Pulse Rate: 67 Respiratory Rate: 18 Temperature (Fahrenheit): 97.4 O2 Sat by Pulse Oximetry: 99 Airway: patent Nausea: No Vomiting: No Pain Intensity: 0 Hydration Status: adequate Cardiopulmonary Status: stable Mental Status/LOC: patient returned to baseline Post-Anesthesia Complications: none Follow-up care needed: N/A [place] MD Apr 29, 2019 08:02
[2019-04-29] MEDS: Docusate 250mg cap ORAL SCH (08:42)
[2019-04-29] MEDS: Pantoprazole Inj IVP SCH (08:43)
[2019-04-29] MEDS: BusPIRone 5mg Tab ORAL SCH (08:43)
[2019-04-29] MEDS: Naloxegol Oxalate 25mg tab ORAL SCH (08:45)
--- NOTE | 2019-04-29 09:03 | NUR ---
*-* DISCHARGE PLANNING *-* PATIENT HAS BEEN REFERRED BACK TO: [facility] P: [phone] F: [phone] EFAX: [phone]
--- NOTE | 2019-04-29 09:08 | General Progress Note ---
Assessment/Plan Assessment/Plan: (1) Lumbar DDD (2) Lumbar Spondylosis (3) Lumbar Radiculopathy (4) Lumbar Herniated disc (5) FBSS (6) Paraparesis Patient to be continued on [place] We will discontinue the Dilaudid. D/w Dr. Swift and he concurred Subjective Date patient seen: Apr 29, 2019 Time patient seen: 08:00 - am Allergies: Coded Allergies: FENTANYL (Unverified Allergy, Unknown, 08/20/17) KETOROLAC (Unverified Allergy, Unknown, 08/20/17) NAPROXEN (Unverified Allergy, Unknown, 08/20/17) PENICILLINS (Unverified Allergy, Unknown, 08/20/17) Subjective Constitutional: Reports: weakness HEENT: Reports: no symptoms Cardiovascular: Reports: no symptoms Respiratory: Reports: no symptoms Gastrointestinal/Abdominal: Reports: abdominal pain Genitourinary: Reports: no symptoms Neurologic/Psychiatric: Reports: weakness Endocrine: Reports: no symptoms SUBJECTIVE: Patient is in bed no signs of pain or distress. Morphine was changed to Dilaudid 1mg IV Q4h PRN. At this time patient will be transferred to SNF as per manager unit. Objective Last 24 Hour Vital Signs Date Time Temp Pulse Resp B/P (MAP) Pulse Ox O2 Delivery O2 Flow Rate FiO2 04/29/19 08:57 Room Air Room Air 04/29/19 08:43 71 152/76 04/29/19 08:41 97.7 71 17 152/76 (101) 96 04/29/19 08:08 97.8 72 12 158/85 100 Room Air 04/29/19 08:02 67 18 99 04/29/19 07:57 71 18 99 04/29/19 07:55 67 15 152/82 100 Simple Mask 6 04/29/19 07:50 68 13 148/86 100 Simple Mask 6 04/29/19 07:45 97.4 71 18 135/78 99 Simple Mask 6 04/29/19 04:00 98.1 90 18 135/90 (105) 95 04/29/19 00:00 97.9 73 17 130/96 (107) 92 04/28/19 20:49 Room Air Room Air 04/28/19 20:00 98.1 78 17 150/96 (114) 96 04/28/19 16:00 97.2 95 20 120/87 (98) 97 04/28/19 13:13 68 18 98 04/28/19 13:12 68 18 97 04/28/19 12:00 98.2 74 19 119/70 (86) 94 04/28/19 09:46 68 123/58 Intake and Output 04/28/19 04/29/19 19:00 07:00 Intake Total 250 ml Output Total 1100 ml 600 ml Balance -850 ml -600 ml Intake IV Total 250 ml Output Urine Total 1100 ml 600 ml # Voids 4 # Bowel Movements 3 4 Height (Feet): 6 Height (Inches): 5.00 Weight (Pounds): 237 Objective General Appearance: no apparent distress, alert EENT: PERRL/EOMI, normal ENT inspection Neck: non-tender, normal alignment Cardiovascular: normal rate, regular rhythm Abdomen: non tender, soft Extremities: non-tender Edema: trace edema Neurologic: alert, responsive Skin: normal pigmentation Khari Harrison Apr 29, 2019 09:08
[2019-04-29] MEDS ORDERED: HYDROcodone/Acetamin 10/325 tab ORAL PRN (09:15)
--- NOTE | 2019-04-29 10:48 | NUR ---
NURSE NOTES:Handoff given to Pao at [facility]. Transport arrived for 11:30am. Attempted to call brother and family friend to notify of discharge but did not get an answer from either.
[2019-04-29 11:35] LABS: BASOPHILS % (AUTO) 1.5 % (0.0-2.0); EOSINOPHILS % (AUTO) 1.2 % (0.0-3.0); HEMATOCRIT 42.8 % (42.0-52.0); HEMOGLOBIN 15.3 G/DL (14.2-18.0); LYMPHOCYTES % (AUTO) 18.4 % (20.0-45.0); MEAN CORPUSCULAR VOLUME 90 FL (80-99); MONOCYTES % (AUTO) 7.4 % (1.0-10.0); NEUTROPHILS % (AUTO) 71.6 % (45.0-75.0); PLATELET COUNT 243 K/UL (150-450); RED BLOOD COUNT 4.76 M/UL (4.70-6.10); RED CELL DISTRIBUTION WIDTH 11.4 % (11.6-14.8); WHITE BLOOD COUNT 12.3 K/UL (4.8-10.8)
--- NOTE | 2019-04-29 11:50 | NUR ---
NURSE NOTES:Patient left stable via gurney with EMS personnel, IV site removed, no bleeding or hematoma noted. Patient signed belongings list, IV bracelet removed. Patient left alert and oriented to person,time, place and situation. No acute signs of distress noted.
--- NOTE | 2019-04-29 12:00 | Operative Note - Dictated ---
DATE OF OPERATION: 04/29/2019 GASTROENTEROLOGY PROCEDURE REPORT PROCEDURE: Colonoscopy with biopsy and polypectomy. SURGEON: Yuan Rodriguez M.D. ANESTHESIA: Please see the separate anesthesiologist notes for details. PRE-ENDOSCOPIC DIAGNOSES: Abnormal CT scan and abdominal pain. POST-ENDOSCOPIC DIAGNOSES: 1. Normal ascending colon. 2. Diminutive polyp in the proximal transverse colon at 70 cm, status post cold snare polypectomy as well as biopsy. 3. Status post random biopsies of the proximal descending colon. 4. Diminutive polyp in the descending colon at 40 cm, status post biopsy removal. 5. Semi-pedunculated 7 to 8 mm polyp in the sigmoid colon at 30 cm, status post hot snare polypectomy with a few adjacent polyps, which were biopsied and sent in the same bottle. 6. Diminutive rectal polyp, status post biopsy. DESCRIPTION OF PROCEDURE: The procedure, its risks, indications, alternatives, and possible complications were explained and informed consent was obtained. The patient was then sedated and a rectal exam was done. The colonoscope was introduced into the rectum and advanced to the cecum. The cecum was identified by the appearance of the ileocecal valve. The colonoscope was then gradually withdrawn. The mucosa examined carefully. Findings and procedures were as listed above. Retroflexed view of the rectum was unremarkable. The patient was sent to recovery in good condition. COMPLICATIONS: None. RECOMMENDATIONS: 1. Follow up biopsy results. 2. Resume oral diet. Yuan Rodriguez M.D. DR: DIANE JOB#: [id number] CC: ANTONETTE
--- NOTE | 2019-04-29 21:58 | CDS Physician Query ---
Clarification is required for compliance, coding accuracy, and to reflect severity of illness for this patient. Dear Dr. Gaffney Date: 04/29/19 A possible diagnosis of Colitis was made in the medical record by Dr. Virgen ( ID specialist) in his PNs. Upon review, it is difficult to determine whether this diagnosis has been ruled in, ruled out,or is still being worked up. Please indicate below the status of the aforementioned diagnosis. Patient is admitted with abdominal pain CT of abdomen: focal wall thickening of the ascending colon, if real could indicate colitis Rx: Pain medications, IV fluids [ ] Treated and resolve [ ] Presumed and treated [ ] Currently under treatment [ ] Still being worked-up [ ] Ruled out Present on Admission: [ ] Yes [ ] No [ ] Clinically Undetermined Physician signature Date Please also document in your Progress Notes and/or Discharge Summary and indicate if the condition was present on admission. ANTONETTE
--- NOTE | 2019-05-01 09:56 | Discharge Summary ---
Discharge Summary Discharge Summary _ DATE OF ADMISSION: 04/25/2019 DATE OF DISCHARGE: 04/29/2019 DISCHARGED BY: Dr. Gaffney REASON FOR ADMISSION: 69 years old male with past medical history of hypertension, hyperlipidemia, polyneuropathy, COPD, schizophrenia, lumbar DDD, was sent from the detention facility due to abdominal pain. Patient reported being ill for about 5 days. Pain described in epigastric region, radiating to the chest and the back, 10 out of 10 on a scale 1-10. He denied bloody emesis or melena. No fever or chills. No chest pain or shortness of breath. No diarrhea or dysuria. Upon evaluation vital signs were stable. Laboratory work-up revealed leukocytosis WBC 14.3, stable hemoglobin , hematocrit and platelet count. Stable electrolytes and renal parameters. Stable LFT and lipase. Urinalysis revealed no evidence of urinary tract infection. Troponin was negative. EKG revealed sinus rhythm with left axis deviation. Chest x-ray revealed no acute cardiopulmonary pathology. Chest CT of the abdomen and pelvis revealed at least focal wall thickening of the ascending colon, if real could indicate colitis, nonspecific as to regards of etiology. No other acute abnormality was demonstrated. Nonobstructive umbilical hernia, containing a knuckle of small bowel, previously demonstrated. In emergency department patient received analgesic and admitted for further management. CONSULTANTS: ID specialist Dr. Virgen Pain specialist Dr. Swift GI specialist Dr. Rodriguez HOSPITAL COURSE: Patient admitted and started on the IV fluids. Patient was kept n.p.o. GI specialist seen and evaluated patient . Patient subsequently undergone colonoscopy and EGD. Colonoscopy revealed polyps, which were removed and sent for biopsy. At the time of this dictation biopsy results still pending. EGD was unremarkable. Bowel regimen instituted . GI specialist recommended long-term bowel regimen. Patient started on PPI. Constipation resolved. Colitis was ruled out by GI specialist. ID specialist followed for leukocytosis. Leukocytosis was improving without antibiotics. Patient remained afebrile. ID specialist recommended to observe patient off antibiotics and monitor closely. Pain management was addressed as per pain specialist recommendation. Patient slowly started on diet and was able to tolerate diet; no nausea or vomiting. Patient clinically stabilized and was ready for transfer back to detention facility for continuation of care. FINAL DIAGNOSES: Leukocytosis improved Right colon thickening Constipation COPD Paraparesis Hypertension Epigastric pain History of peptic ulcer disease status post EGD status post colonoscopy with polyps removal with biopsy Lumbar DDD Lumbar spondylosis Lumbar radiculopathy Lumbar herniated disc DISCHARGE MEDICATIONS: See Medication Reconciliation list. DISCHARGE INSTRUCTIONS: Patient was discharged to the detention facility. Follow up with medical doctor at the facility. I have been assigned to dictate discharge summary for this account. I was not involved in the patient's management. Analy Stoner NP May 01, 2019 09:56
== END 2019-04-29 11:57 | DRG 391 ==
LOC: EDBD 13:45 → EDBEDREQ 13:54 → EMR 14:45 → 4E 14:50 → EDBEDREQ 16:48 → 4E 04-28 11:15
PROC: 0DBM8ZX Excision of Descending Colon, Via Natural or Artificial Opening Endoscopic, Diagnostic (ICD-10-PCS; principal; 2019-04-29 07:10)
PROC: 0DBP8ZZ Excision of Rectum, Via Natural or Artificial Opening Endoscopic (ICD-10-PCS; principal; 2019-04-29 07:10)
PROC: 0DB78ZX Excision of Stomach, Pylorus, Via Natural or Artificial Opening Endoscopic, Diagnostic (ICD-10-PCS; principal; 2019-04-29 07:10)
PROC: 0DBN8ZZ Excision of Sigmoid Colon, Via Natural or Artificial Opening Endoscopic (ICD-10-PCS; principal; 2019-04-29 07:10)
PROC: 0DBM8ZZ Excision of Descending Colon, Via Natural or Artificial Opening Endoscopic (ICD-10-PCS; principal; 2019-04-29 07:10)
DX: K52.9 Noninfective gastroenteritis and colitis, unspecified (principal); E43 Unspecified severe protein-calorie malnutrition; G82.20 Paraplegia, unspecified; R10.9 Unspecified abdominal pain; Z90.49 Acquired absence of other specified parts of digestive tract; Z88.6 Allergy status to analgesic agent; Z88.0 Allergy status to penicillin; Z87.891 Personal history of nicotine dependence; I10 Essential (primary) hypertension; E78.5 Hyperlipidemia, unspecified; J44.9 Chronic obstructive pulmonary disease, unspecified; G62.9 Polyneuropathy, unspecified; M51.16 Intervertebral disc disorders with radiculopathy, lumbar region; M47.896 Other spondylosis, lumbar region; F99 Mental disorder, not otherwise specified; K59.00 Constipation, unspecified
CPT/HCPCS: 36415; 71045; 74177; 80053; 81003; 82550; 82962; 83690; 84484; 85025; 85610; 85730; 87081; 93005; 94003; 94150; 96374; 96375; 99285; J2405; J2765; J7030

== ENCOUNTER 2020-01-13 18:57 | Inpatient (IN) | payer MEDICARE, OTHER ==
[~2020-01-13] VITALS: Ht 185.4 cm; Wt 122.5 kg
[~2020-01-13 18:57] MED LIST changes: -DiphenhydrAMINE 50mg/ml Inj IVP ONE; -Metoclopramide 10mg/2ml Inj IVP ONE; -Omnipaque-300 100ml vial INJ PRN
[2020-01-13 19:11] VITALS: BP 136/86
--- NOTE | 2020-01-13 19:11 | NUR ---
ED Nurse Note: Pt arrived with [facility] from SNF due to high WBC count. IV line established, patent and intact, urine and blood specimen sent to lab. COVID swab done
--- NOTE | 2020-01-13 19:13 | NUR ---
HAND-OFF: Report given to CARMEN Bey.
--- NOTE | 2020-01-13 19:15 | NUR ---
ED Nurse Note: Report received from CARMEN Tovar.
[2020-01-13 19:53] LABS: APPEARANCE,URINE CLEAR; BILIRUBIN, URINE NEGATIVE (NEGATIVE); COLOR,URINE PALE YELLOW; GLUCOSE, URINE (UA) NEGATIVE (NEGATIVE); KETONES,URINE NEGATIVE (NEGATIVE); LEUKOCYTE ESTERASE ,URINE 1+ (NEGATIVE); NITRITE,URINE NEGATIVE (NEGATIVE); PH,URINE 6.5 (4.5-8.0); PROTEIN,URINE NEGATIVE (NEGATIVE); UROBILINOGEN,URINE NORMAL MG/DL (0.0-1.0)
[2020-01-13 19:55] LABS: ANION GAP 8 mmol/L (5-15); BLOOD UREA NITROGEN 13 mg/dL (7-18); CALCIUM 8.9 MG/DL (8.5-10.1); CARBON DIOXIDE 27 MMOL/L (21-32); CHLORIDE 103 MMOL/L (98-107); CREATININE 1.2 MG/DL (0.55-1.30); EOSINOPHILS % (AUTO) 1.1 % (0.0-3.0); HEMATOCRIT 46.9 % (42.0-52.0); HEMOGLOBIN 16.2 G/DL (14.2-18.0); LYMPHOCYTES % (AUTO) 21.8 % (20.0-45.0); MEAN CORPUSCULAR VOLUME 94 FL (80-99); MONOCYTES % (AUTO) 6.9 % (1.0-10.0); NEUTROPHILS % (AUTO) 67.1 % (45.0-75.0); PLATELET COUNT 325 K/UL (150-450); POTASSIUM 3.4 MMOL/L (3.5-5.1); RED BLOOD COUNT 4.99 M/UL (4.70-6.10); RED CELL DISTRIBUTION WIDTH 12.4 % (11.6-14.8); SODIUM 138 MMOL/L (136-145); WHITE BLOOD COUNT 15.7 K/UL (4.8-10.8)
[2020-01-13 20:00] LABS: ALANINE AMINOTRANSFERASE 22 U/L (12-78); ALBUMIN 3.7 G/DL (3.4-5.0); ALBUMIN/GLOBULIN RATIO 0.8 (1.0-2.7); ALKALINE PHOSPHATASE 91 U/L (46-116); ASPARTATE AMINO TRANSFERASE 21 U/L (15-37); BILIRUBIN,TOTAL 0.4 MG/DL (0.2-1.0)
[2020-01-13] MEDS ORDERED: Morphine Sulfate 4mg/ml Inj (IV USE ONLY) IVP ONE (20:00)
--- NOTE | 2020-01-13 20:17 | Emergency Room Report ---
History of Present Illness General Chief Complaint: Abnormal Labs Source: Patient, Medical Record, PMD Present Illness HPI This patient is brought in from a care home facility. The patient is nonambulatory secondary to neuropathy. The patient has a history of low back surgery and has chronic pain. He also has high narcotic dependence per report from the care home facility. The patient states that he has worsening pain in his low back. He states this has been ongoing for the past 2 weeks and the pain management physician has been unable to control it. He states he also has swollen legs. He states this is not typical for him. He denies fever or chills. He denies any other new symptoms. The patient was also sent over from the care home facility secondary to abnormal labs that were obtained routinely. Specifically an elevated white blood cell count. There was no other information as to why the patient was transferred to the emergency department. The patient recently underwent MRI of the lumbar spine for the ongoing back pain. Allergies: Coded Allergies: FENTANYL (Unverified Allergy, Unknown, 08/20/17) KETOROLAC (Unverified Allergy, Unknown, 08/20/17) NAPROXEN (Unverified Allergy, Unknown, 08/20/17) PENICILLINS (Unverified Allergy, Unknown, 08/20/17) COVID-19 Screening Contact w/high risk pt: No Experienced COVID-19 symptoms?: No COVID-19 Testing performed BROTH MIXER: No Patient History Past Medical History: see triage record, HTN, MT, CAD, COPD, CVA/TIA, psych hx - schizophrenia, other - Severe polyneuropathy, functional paraplegia Past Surgical History: other - spinal fusion Social History: Reports: smoking - hx of tobacco; Denies: alcohol use, drug use Reviewed Nursing Documentation: PMH: Agreed; PSxH: Agreed Nursing Documentation-PMH Past Medical History: No History, Except For Hx Hypertension: Yes Hx Cancer: No Hx Gastrointestinal Problems: Yes - DIVERTICULITIS, GASTRIC ULCER, DYSPHASIA History Of Psychiatric Problem: Yes - depression Hx Dizziness: Yes Hx Weakness: Yes Review of Systems All Other Systems: negative except mentioned in HPI Physical Exam Vital Signs Date Time Temp Pulse Resp B/P (MAP) Pulse Ox O2 Delivery O2 Flow Rate FiO2 01/13/20 18:52 97.5 93 20 136/86 (103) 95 Room Air Sp02 EP Interpretation: reviewed, normal General Appearance: no apparent distress, alert, GCS 15, non-toxic Head: normocephalic, atraumatic Eyes: bilateral eye normal inspection, bilateral eye PERRL ENT: hearing grossly normal, normal pharynx, no angioedema, normal voice Neck: full range of motion, supple/symm/no masses Respiratory: chest non-tender, lungs clear, normal breath sounds, no respiratory distress, no retraction, no accessory muscle use, speaking full sentences Cardiovascular #1: regular rate, rhythm, no edema Gastrointestinal: normal bowel sounds, non tender, soft, non-distended, no guarding, no rebound Rectal: deferred Musculoskeletal: swelling - 3+pitting edema BLE. post-operative surgical scars over lumbar region. +ttp throughout entire L-spine. Neurologic: alert, motor strength/tone normal, oriented x3, sensory intact, responsive, speech normal Psychiatric: judgement/insight normal, memory normal, mood/affect normal, no suicidal/homicidal ideation Medical Decision Making Diagnostic Impression: Primary Impression: Intractable back pain Additional Impression: Leukocytosis ER Course This patient has a previous spinal fusion and has severe ongoing pain. His pain was unable to be controlled at the care home facility. He also has an elevated white blood cell count. I am unsure of the etiology of this leukocytosis. There is no evidence of infection. Urinalysis is negative and chest x-ray is clear. Patient will be admitted for intractable pain and further evaluation and treatment. This patient was evaluated in the context of the global COVID-19 pandemic, which necessitated consideration that the patient might be at risk for infection with the [id number] virus that causes COVID-19. Institutional protocols and algorithms that pertain to the evaluation of patients at risk for COVID-19 and the state of rapid change based on information released by multiple regulatory bodies including the CDC and federal and state organizations. These policies and algorithms were followed during the patient's care in the ED. Laboratory Tests Test 01/13/20 19:06 White Blood Count 15.7 K/UL (4.8-10.8) H Red Blood Count 4.99 M/UL (4.70-6.10) Hemoglobin 16.2 G/DL (14.2-18.0) Hematocrit 46.9 % (42.0-52.0) Mean Corpuscular Volume 94 FL (80-99) Mean Corpuscular Hemoglobin 32.5 PG (27.0-31.0) H Mean Corpuscular Hemoglobin Concent 34.5 G/DL (32.0-36.0) Red Cell Distribution Width 12.4 % (11.6-14.8) Platelet Count 325 K/UL (150-450) Mean Platelet Volume 8.1 FL (6.5-10.1) Neutrophils (%) (Auto) 67.1 % (45.0-75.0) Lymphocytes (%) (Auto) 21.8 % (20.0-45.0) Monocytes (%) (Auto) 6.9 % (1.0-10.0) Eosinophils (%) (Auto) 1.1 % (0.0-3.0) Basophils (%) (Auto) 3.0 % (0.0-2.0) H Urine Color Pale yellow Urine Appearance Clear Urine pH 6.5 (4.5-8.0) Urine Specific [place] 1.005 (1.005-1.035) Urine Protein Negative (NEGATIVE) Urine Glucose (UA) Negative (NEGATIVE) Urine Ketones Negative (NEGATIVE) Urine Blood 2+ (NEGATIVE) H Urine Nitrite Negative (NEGATIVE) Urine Bilirubin Negative (NEGATIVE) Urine Urobilinogen Normal MG/DL (0.0-1.0) Urine Leukocyte Esterase 1+ (NEGATIVE) H Urine RBC 5-10 /HPF (0 - 0) H Urine WBC 2-4 /HPF (0 - 0) Urine Squamous Epithelial Cells Occasional /LPF Urine Bacteria Few /HPF (NONE) Sodium Level 138 MMOL/L (136-145) Potassium Level 3.4 MMOL/L (3.5-5.1) L Chloride Level 103 MMOL/L (98-107) Carbon Dioxide Level 27 MMOL/L (21-32) Anion Gap 8 mmol/L (5-15) Blood Urea Nitrogen 13 mg/dL (7-18) Creatinine 1.2 MG/DL (0.55-1.30) Estimated Glomerular Filtration Rate > 60 mL/min (>60) Glucose Level 107 MG/DL (74-106) H Calcium Level 8.9 MG/DL (8.5-10.1) Total Bilirubin 0.4 MG/DL (0.2-1.0) Aspartate Amino Transferase (AST) 21 U/L (15-37) Alanine Aminotransferase (ALT) 22 U/L (12-78) Alkaline Phosphatase 91 U/L (46-116) Total Protein 8.2 G/DL (6.4-8.2) Albumin 3.7 G/DL (3.4-5.0) Globulin 4.5 g/dL Albumin/Globulin Ratio 0.8 (1.0-2.7) L Microbiology Date/Time Source Procedure Growth Status 01/13/20 19:06 Nasopharynx SARS-CoV-2 RdRp Gene Assay - Final Complete Last Vital Signs Date Time Temp Pulse Resp B/P (MAP) Pulse Ox O2 Delivery O2 Flow Rate FiO2 01/13/20 19:11 97.5 79 20 136/86 95 Room Air Disposition: ADMITTED INPATIENT Condition: Stable Referrals: Reynaldo Gaffney MD (PCP) Jamee Acosta DO Jan 13, 2020 20:17
[2020-01-13 21:55] VITALS: BP 146/91
--- NOTE | 2020-01-13 21:55 | NUR ---
ED Nurse Note: Patient states he is feeling better now after pain medication. He is awake and alert and playing on his cell phone in bed. NAD noted. VSS. Safety measures met.
--- NOTE | 2020-01-14 00:10 | NUR ---
ED Nurse Note: Report given to CARMEN Vo.
--- NOTE | 2020-01-14 00:20 | NUR ---
ED Nurse Note: Patient is stable for transfer to unit at this time. He is awake and alert, VSS. IV is patent and intact. Patient took all belongings with him. Patient taken to unit via gurney by tech.
[2020-01-14 00:30] VITALS: BP 138/75
--- NOTE | 2020-01-14 00:30 | NUR ---
NURSE NOTES: received patient from ED via wheelchair, able to transfer from wheelchair to bed with minimal assistance. Skin intact, old back surgery scar. Belongings checked, list signed. [place] chart reviewed. IV access patent, flushed with normal saline. No s/s of acute distress. Bed low and locked, patient wearing non slip socks. Patient refuses SCD at this time.
[2020-01-14] MEDS: HYDROcodone/Acetamin 10/325 tab ORAL PRN ×2 (00:45→04:54)
[2020-01-14 04:00] VITALS: BP 106/51
--- NOTE | 2020-01-14 07:13 | NUR ---
HAND-OFF: Report given to CARMEN Munoz.
--- NOTE | 2020-01-14 07:18 | NUR ---
NURSE NOTES: Received report from CARMEN Kay. Patient seen in bed, AAOx4, ambulatory and able to make needs known. Patient is on room air, breathing is even and unlabored with no SOB noted at this time. IV is patent and intact. Skin is intact, RN noted that patient has scar from old back surgery. RN instructed patient to use call light for assistance, Rn encourage to use urinal at bedside. Bed is locked and placed in lowest position. Call light within reach. Will continue to monitor
[2020-01-14 07:31] LABS: BASOPHILS % (AUTO) 2.3 % (0.0-2.0); EOSINOPHILS % (AUTO) 1.8 % (0.0-3.0); HEMATOCRIT 43.5 % (42.0-52.0); HEMOGLOBIN 14.6 G/DL (14.2-18.0); LYMPHOCYTES % (AUTO) 28.2 % (20.0-45.0); MEAN CORPUSCULAR VOLUME 97 FL (80-99); MONOCYTES % (AUTO) 8.4 % (1.0-10.0); NEUTROPHILS % (AUTO) 59.3 % (45.0-75.0); PLATELET COUNT 247 K/UL (150-450); RED BLOOD COUNT 4.48 M/UL (4.70-6.10); RED CELL DISTRIBUTION WIDTH 12.7 % (11.6-14.8)
[2020-01-14 07:48] LABS: ALANINE AMINOTRANSFERASE 19 U/L (12-78); ALBUMIN 3.2 G/DL (3.4-5.0); ALBUMIN/GLOBULIN RATIO 0.8 (1.0-2.7); ALKALINE PHOSPHATASE 88 U/L (46-116); ANION GAP 7 mmol/L (5-15); ASPARTATE AMINO TRANSFERASE 18 U/L (15-37); BILIRUBIN,TOTAL 0.2 MG/DL (0.2-1.0); BLOOD UREA NITROGEN 14 mg/dL (7-18); CALCIUM 8.6 MG/DL (8.5-10.1); CARBON DIOXIDE 28 MMOL/L (21-32); CHLORIDE 105 MMOL/L (98-107); CREATININE 1.2 MG/DL (0.55-1.30); POTASSIUM 3.4 MMOL/L (3.5-5.1); SODIUM 140 MMOL/L (136-145)
[2020-01-14 08:00] VITALS: BP 117/65
--- NOTE | 2020-01-14 08:31 | Consultation ---
History of Present Illness General Date patient seen: Jan 14, 2020 Time patient seen: 07:00 - am Chief Complaint: back pain Referring physician: Yeimy Reason for Consultation: Pain Managment Present Illness HPI Patient is in bed no signs of pain or distress. He is a known patient from previous hospital visit. Now admitted under the care of Dr. Gaffney. Started on Mcmillan 10/325mg PO 1 tab Q4H PRN severe pain stating no relief. Due to this we were consulted so patient has adequate pain control while here in the hospital. Allergies: Coded Allergies: FENTANYL (Unverified Allergy, Unknown, 08/20/17) KETOROLAC (Unverified Allergy, Unknown, 08/20/17) NAPROXEN (Unverified Allergy, Unknown, 08/20/17) PENICILLINS (Unverified Allergy, Unknown, 08/20/17) Medication History Scheduled Acetaminophen* (Acetaminophen Extra Strength*), 1,000 MG ORAL Q6H, (Reported) Amlodipine Besylate* (Amlodipine Besylate*), 5 MG ORAL DAILY, (Reported) Bisacodyl (Dulcolax), 10 MG RC PRN, (Reported) Clonidine Hcl* (Catapres*), 0.1 MG ORAL EVERY 6 HOURS, (Reported) Cranberry Fruit Concentrate (Cranberry), 2 CAP PO BID, (Reported) Docusate Sodium* (Docusate Sodium*), 250 MG ORAL DAILY, (Reported) Famotidine* (Pepcid 20mg tablet*), 20 MG ORAL TWICE A DAY, (Reported) Fluoxetine Hcl* (Fluoxetine Hcl*), 40 MG ORAL DAILY, (Reported) Gabapentin* (Gabapentin*), 300 MG ORAL THREE TIMES A DAY, (Reported) Naloxegol Oxalate (Movantik), 25 MG PO DAILY, (Reported) Omeprazole (Omeprazole), 40 MG ORAL DAILY, (Reported) Risperidone* (Risperdal*), 0.5 MG ORAL QHS, (Reported) Sucralfate* (Carafate*), 1 GM ORAL FOUR TIMES A DAY, (Reported) Scheduled PRN Acetaminophen* (Acetaminophen 325MG Tablet*), 650 MG ORAL Q4H PRN for Pain Scale (3-5), (Reported) Hydrocodone Bit/Acetaminophen 10-325* (Mcmillan 10-325*), 1 TAB ORAL Q6H PRN for For Pain, (Reported) Discontinued Medications Buspirone Hcl* (Buspirone Hcl*), 5 MG ORAL TWICE A DAY, (Reported) Discontinued Reason: Pt stopped taking med Diphenhydramine HCl (Benadryl), 25 MG PO QHS PRN for Itching, (Reported) Discontinued Reason: Pt stopped taking med Famotidine (Pepcid Ac), 20 MG PO DAILY Discontinued Reason: Pt stopped taking med Na Phos,M-B/Na Phos,Di-Ba* (Fleet Enema*), 133 ML RECTAL PRN, (Reported) Discontinued Reason: Pt stopped taking med Polyethylene Glycol 3350* (Miralax*), 17 GM ORAL DAILY, (Reported) Discontinued Reason: Pt stopped taking med Ranitidine Hcl* (Zantac*), 150 MG ORAL DAILY, (Reported) Discontinued Reason: Pt stopped taking med [nitroglycerin], 0.4 MG SUBQ PRN, (Reported) Discontinued Reason: Pt stopped taking med Patient History Healthcare decision maker Resuscitation status Advanced Directive on File Review of Systems ROS Narrative Constitutional: Reports: weakness HEENT: Reports: no symptoms Cardiovascular: Reports: no symptoms Respiratory: Reports: no symptoms Gastrointestinal/Abdominal: Reports: abdominal pain Genitourinary: Reports: no symptoms Neurologic/Psychiatric: Reports: weakness Endocrine: Reports: no symptoms Physical Exam Physical Exam Narrative General Appearance: no apparent distress, alert EENT: PERRL/EOMI, normal ENT inspection Neck: non-tender, normal alignment Cardiovascular: normal rate, regular rhythm Abdomen: non tender, soft Extremities: non-tender Edema: trace edema Neurologic: alert, responsive Skin: normal pigmentation Last 24 Hour Vital Signs Date Time Temp Pulse Resp B/P (MAP) Pulse Ox O2 Delivery O2 Flow Rate FiO2 01/14/20 05:24 98.2 01/14/20 04:00 98.2 81 20 106/51 (69) 96 01/14/20 01:15 97.5 01/14/20 00:57 Room Air 01/14/20 00:30 97.9 88 20 138/75 (96) 96 01/14/20 00:20 98.9 93 18 138/75 97 Room Air 01/14/20 00:20 82 14 Room Air 01/13/20 21:55 97.5 82 14 146/91 97 Room Air 01/13/20 20:43 97.5 01/13/20 19:11 97.5 79 20 136/86 95 Room Air 01/13/20 18:52 97.5 93 20 136/86 (103) 95 Room Air Intake and Output 01/13/20 01/14/20 19:00 07:00 Intake Total 250 ml Balance 250 ml Intake Oral 250 ml # Voids 3 Laboratory Tests Test 01/13/20 19:06 01/14/20 06:35 White Blood Count 15.7 K/UL (4.8-10.8) H 12.0 K/UL (4.8-10.8) H Red Blood Count 4.99 M/UL (4.70-6.10) 4.48 M/UL (4.70-6.10) L Hemoglobin 16.2 G/DL (14.2-18.0) 14.6 G/DL (14.2-18.0) Hematocrit 46.9 % (42.0-52.0) 43.5 % (42.0-52.0) Mean Corpuscular Volume 94 FL (80-99) 97 FL (80-99) Mean Corpuscular Hemoglobin 32.5 PG (27.0-31.0) H 32.7 PG (27.0-31.0) H Mean Corpuscular Hemoglobin Concent 34.5 G/DL (32.0-36.0) 33.6 G/DL (32.0-36.0) Red Cell Distribution Width 12.4 % (11.6-14.8) 12.7 % (11.6-14.8) Platelet Count 325 K/UL (150-450) 247 K/UL (150-450) Mean Platelet Volume 8.1 FL (6.5-10.1) 8.1 FL (6.5-10.1) Neutrophils (%) (Auto) 67.1 % (45.0-75.0) 59.3 % (45.0-75.0) Lymphocytes (%) (Auto) 21.8 % (20.0-45.0) 28.2 % (20.0-45.0) Monocytes (%) (Auto) 6.9 % (1.0-10.0) 8.4 % (1.0-10.0) Eosinophils (%) (Auto) 1.1 % (0.0-3.0) 1.8 % (0.0-3.0) Basophils (%) (Auto) 3.0 % (0.0-2.0) H 2.3 % (0.0-2.0) H Urine Color Pale yellow Urine Appearance Clear Urine pH 6.5 (4.5-8.0) Urine Specific [place] 1.005 (1.005-1.035) Urine Protein Negative (NEGATIVE) Urine Glucose (UA) Negative (NEGATIVE) Urine Ketones Negative (NEGATIVE) Urine Blood 2+ (NEGATIVE) H Urine Nitrite Negative (NEGATIVE) Urine Bilirubin Negative (NEGATIVE) Urine Urobilinogen Normal MG/DL (0.0-1.0) Urine Leukocyte Esterase 1+ (NEGATIVE) H Urine RBC 5-10 /HPF (0 - 0) H Urine WBC 2-4 /HPF (0 - 0) Urine Squamous Epithelial Cells Occasional /LPF Urine Bacteria Few /HPF (NONE) Sodium Level 138 MMOL/L (136-145) 140 MMOL/L (136-145) Potassium Level 3.4 MMOL/L (3.5-5.1) L 3.4 MMOL/L (3.5-5.1) L Chloride Level 103 MMOL/L (98-107) 105 MMOL/L (98-107) Carbon Dioxide Level 27 MMOL/L (21-32) 28 MMOL/L (21-32) Anion Gap 8 mmol/L (5-15) 7 mmol/L (5-15) Blood Urea Nitrogen 13 mg/dL (7-18) 14 mg/dL (7-18) Creatinine 1.2 MG/DL (0.55-1.30) 1.2 MG/DL (0.55-1.30) Estimat Glomerular Filtration Rate > 60 mL/min (>60) > 60 mL/min (>60) Glucose Level 107 MG/DL (74-106) H 96 MG/DL (74-106) Calcium Level 8.9 MG/DL (8.5-10.1) 8.6 MG/DL (8.5-10.1) Total Bilirubin 0.4 MG/DL (0.2-1.0) 0.2 MG/DL (0.2-1.0) Aspartate Amino Transf (AST/SGOT) 21 U/L (15-37) 18 U/L (15-37) Alanine Aminotransferase (ALT/SGPT) 22 U/L (12-78) 19 U/L (12-78) Alkaline Phosphatase 91 U/L (46-116) 88 U/L (46-116) Total Protein 8.2 G/DL (6.4-8.2) 7.1 G/DL (6.4-8.2) Albumin 3.7 G/DL (3.4-5.0) 3.2 G/DL (3.4-5.0) L Globulin 4.5 g/dL 3.9 g/dL Albumin/Globulin Ratio 0.8 (1.0-2.7) L 0.8 (1.0-2.7) L Microbiology Date/Time Source Procedure Growth Status 01/13/20 19:06 Nasopharynx SARS-CoV-2 RdRp Gene Assay - Final Complete Height (Feet): 6 Height (Inches): 1.00 Weight (Pounds): 270 Medications Current Medications Medications (Trade) Dose Ordered Sig/Paul Route PRN Reason Start Time Stop Time Status Last Admin Dose Admin Acetaminophen (Tylenol) 650 mg Q4H PRN ORAL Pain Scale (3-5) 01/14/20 01:45 02/13/20 01:44 Acetaminophen/ Hydrocodone Bitart (Mcmillan 10/325) 1 tab EVERY 4 HOURS PRN ORAL For Pain 01/14/20 00:30 01/21/20 00:29 01/14/20 04:54 Amlodipine Besylate (Norvasc) 5 mg DAILY ORAL 01/14/20 09:00 02/13/20 08:59 Bisacodyl (Dulcolax) 10 mg PRN RECTAL 01/14/20 01:45 04/13/20 01:44 Clonidine HCl (Catapres Tab) 0.1 mg EVERY 6 HOURS ORAL 01/14/20 12:00 04/13/20 11:59 Docusate Sodium (Colace) 250 mg DAILY ORAL 01/14/20 09:00 02/13/20 08:59 Famotidine (Pepcid) 20 mg TWICE A DAY ORAL 01/14/20 09:00 04/13/20 08:59 Fluoxetine HCl (PROzac) 40 mg DAILY ORAL 01/14/20 09:00 12/18/20 08:59 Gabapentin (Neurontin) 300 mg THREE TIMES A DAY ORAL 01/14/20 09:00 02/13/20 08:59 Risperidone (RisperDAL) 0.5 mg QHS ORAL 01/14/20 21:00 02/28/20 20:59 Sucralfate (Carafate) 1 gm FOUR TIMES A DAY ORAL 01/14/20 09:00 04/13/20 08:59 Assessment/Plan Assessment/Plan: (1) Lumbar DDD (2) Lumbar Spondylosis (3) Lumbar Radiculopathy (4) Lumbar Herniated disc (5) FBSS (6) Paraparesis Patient will be discontinued off Mcmillan We will started Dilaudid 2mg po 1 tab Q4H PRN D/w Dr. Swift and he concurred Khari Harrison Jan 14, 2020 08:31
[2020-01-14] MEDS: Docusate 250mg cap ORAL SCH (08:53)
[2020-01-14] MEDS: Sucralfate 1gm tab ORAL SCH ×4 (08:53→20:30)
[2020-01-14] MEDS: Lyrica 75mg cap ORAL SCH ×3 (09:40→17:06)
[2020-01-14] MEDS: HYDROmorphone 2mg tab ORAL PRN ×4 (10:38→22:39)
[2020-01-14 12:00] VITALS: BP 130/75
[2020-01-14 16:00] VITALS: BP 131/67
--- NOTE | 2020-01-14 16:41 | Diagnostic Imaging Report ---
Indication: Chest pain Technique: XRAY Chest 1v Comparison: 04/25/2019 Findings: Heart size and mediastinal contours are stable. There is no focal airspace consolidation, pneumothorax or pleural effusion. Spinal fixation hardware is partially visualized. Osseous structures demonstrate no acute abnormality. Impression: No radiographic evidence of acute cardiopulmonary disease.
--- NOTE | 2020-01-14 17:30 | Consultation ---
DATE OF CONSULTATION: 01/14/2020 INFECTIOUS DISEASE CONSULTATION CONSULTING PHYSICIAN: Beau Virgen MD PRIMARY DOCTOR: Reynaldo Gaffney MD REASON FOR CONSULTATION: Leukocytosis. HISTORY OF PRESENT ILLNESS: This is a 69-year-old white male admitted yesterday from a nursing home facility because of back pain, swelling in legs, abnormal laboratories. Patient had leukocytosis of 15.7 in hospital that decreased today to 12,000. PAST MEDICAL HISTORY: Significant for COPD, hypertension, polyneuropathy, coronary artery disease, [place], opiate dependence, major depression, chronic pain syndrome, hyperlipidemia, anemia. Patient has 3 back surgeries. Colonoscopy that showed colon polyps. History of internal hemorrhoids. ALLERGIES: Allergic to penicillin, naproxen, ketorolac, fentanyl. MEDICATIONS: Getting Risperdal, famotidine, clonidine, methocarbamol, hydromorphone, pregabalin, sucralfate, fluoxetine, Colace, amlodipine, Bisacodyl. SOCIAL HISTORY: [facility] resident. Had history of smoking and drinking alcohol in the past. REVIEW OF SYSTEMS: No fever. No chills. No coughing. No nausea. No vomiting. Has back pain. Has urinary frequency, swelling of the legs, and pain in the legs. PHYSICAL EXAMINATION: VITAL SIGNS: Temperature 98.2, pulse 85, blood pressure 130/65. GENERAL APPEARANCE: Well developed, obese, no acute distress. HEAD AND NECK: [place] conjunctivae. HEART: Normal rate. LUNGS: Clear. ABDOMEN: Soft, nontender. EXTREMITIES: Have bilateral edema of lower extremities. LABORATORY AND DIAGNOSTIC DATA: WBC 12, hemoglobin 14.6, hematocrit 43.5, platelets 247. Sodium 140, potassium 3.4, chloride 105, bicarbonate 28, BUN 14, creatinine 1.2. UA showed rbc's of 5 to 10, wbc's of 2 to 4. COVID test negative. IMPRESSION: Leukocytosis, source unknown. Patient had recent hospitalization in [facility]. Has COPD, hypertension, polyneuropathy, chronic back pain, hyperlipidemia, and opiate dependence. RECOMMENDATION: We will observe off antibiotic. We will try to obtain more information regarding past admission in [facility]. We will follow up the cultures. At the end of my exam, I thank Dr. Gaffney for involving me in the care of this patient. Beau Virgen M.D. DR: SANDY JOB#: [id number] CC:
--- NOTE | 2020-01-14 19:43 | NUR ---
NURSE HAND-OFF: Important Events on Shift: Urine culture Patient Status: stable Diet: regular Pending Orders: n/a Pending Results/Labs:urine culture Pending MD notification:n/a Latest Vital Signs: Temperature 97.2 , Pulse 79 , B/P 131 /67 , Respiratory Rate 20 , O2 SAT 96 , Room Air, O2 Flow Rate . Vital Sign Comment: stable Latest Dsouza Fall Score: 60 Fall Risk: High Risk Safety Measures: Call light Within Reach, Bed Alarm Zone 1, Side Rails Side Rails x2, Bed position Low and Locked. Fall Precautions: Yellow Socks Patient Fall Education Report given to CARMEN Escamilla.
--- NOTE | 2020-01-14 19:45 | NUR ---
NURSE NOTES: Patient seen in bed, AAOx4, ambulatory and able to make needs known. Patient is on room air, breathing is even and unlabored with no SOB noted at this time. IV is patent and intact. Skin is intact, RN noted that patient has scar from old back surgery. RN instructed patient to use call light for assistance, Rn encouraged to use urinal at bedside. Bed is locked and placed in lowest position. Call light within reach. Will continue to monitor
[2020-01-14 20:00] VITALS: BP 107/64
--- NOTE | 2020-01-14 21:00 | History and Physical Report ---
DATE OF ADMISSION: 01/13/2020 HISTORY OF PRESENT ILLNESS: Patient comes in with intractable back pain, leukocytosis. Patient admitted for pain control and also leukocytosis of unknown origin. Patient states the back pain has been getting really worse and is radiating to the right leg. Denies dysuria. Denies fever or chills. Denies shortness of breath. Denies cough. Denies abdominal pain. PAST MEDICAL HISTORY: Chronic pain syndrome, constipation, hypertension, GERD, depression, neuropathy. PAST SURGICAL HISTORY: Back surgery. ALLERGIES: To ketorolac, naproxen, penicillin, and fentanyl. FAMILY HISTORY: Noncontributory. SOCIAL HISTORY: He has history of marijuana use, history of smoking. No history of alcohol abuse. Comes from detention. MEDICATIONS: Amlodipine, bisacodyl, Colace, Pepcid, fluoxetine, gabapentin, omeprazole, risperidone, and Carafate. REVIEW OF SYSTEMS: HEENT: Denies headaches. RESPIRATORY: Denies shortness of breath. Denies cough. CARDIOVASCULAR: Denies chest pain. No orthopnea. GASTROINTESTINAL: Denies nausea, vomiting, or diarrhea. Denies abdominal pain. EXTREMITIES: Does have back pain radiates to the right leg, it is getting worse. CENTRAL NERVOUS SYSTEM: Denies change in speech pattern. PHYSICAL EXAMINATION: VITAL SIGNS: Temperature 98.2, pulse is 85, blood pressure 130/75. HEENT: PERRLA. NECK: Supple. No lymphadenopathy. CHEST: Clear to auscultation. CARDIOVASCULAR: Regular rate and rhythm. No murmurs or extra sounds. ABDOMEN: Soft, nontender, nondistended. No organomegaly. EXTREMITIES: No edema. He is able to move his extremities. NEUROLOGIC: Reflexes in both sides. Lower extremity weakness, which is chronic, nothing new. Sensory intact to light touch. LABORATORY DATA: WBC of 15.7, hemoglobin 16.2, platelets 325. Sodium 138, potassium 3.4, BUN of 13, creatinine 1.2, glucose of 107. ASSESSMENT AND PLAN: Intractable back pain, leukocytosis. No UTI. Also patient has severe leg edema. I have consulted Dr. Jennifer Kim, Dr. Beau Virgen, and Dr. Swift for pain management as well as for the workup of the abdominal pain as well as for the severe feet edema. Antibiotics if any per Dr. Beau Virgen. Reynaldo Gaffney M.D. DR: RADHA JOB#: [id number] CC:
[2020-01-14] MEDS ORDERED: Sorbitol Solution UD 30ml ORAL SCH (21:45)
--- NOTE | 2020-01-14 21:50 | General Progress Note ---
Subjective Allergies: Coded Allergies: FENTANYL (Unverified Allergy, Unknown, 08/20/17) KETOROLAC (Unverified Allergy, Unknown, 08/20/17) NAPROXEN (Unverified Allergy, Unknown, 08/20/17) PENICILLINS (Unverified Allergy, Unknown, 08/20/17) Objective Last 24 Hour Vital Signs Date Time Temp Pulse Resp B/P (MAP) Pulse Ox O2 Delivery O2 Flow Rate FiO2 01/14/20 20:00 99.1 77 17 107/64 (78) 96 01/14/20 17:06 131/67 01/14/20 16:00 97.2 79 20 131/67 (88) 96 01/14/20 13:00 Room Air 01/14/20 12:05 130/75 01/14/20 12:00 98.2 85 20 130/75 (93) 95 01/14/20 09:00 Room Air 01/14/20 08:52 77 117/65 01/14/20 08:00 97.5 77 20 117/65 (82) 95 01/14/20 05:24 98.2 01/14/20 04:00 98.2 81 20 106/51 (69) 96 01/14/20 01:15 97.5 01/14/20 00:57 Room Air 01/14/20 00:30 97.9 88 20 138/75 (96) 96 01/14/20 00:20 98.9 93 18 138/75 97 Room Air 01/14/20 00:20 82 14 Room Air 01/13/20 21:55 97.5 82 14 146/91 97 Room Air Intake and Output 01/13/20 01/14/20 19:00 07:00 Intake Total 250 ml Balance 250 ml Intake Oral 250 ml # Voids 3 Laboratory Tests 01/14/20 06:35: White Blood Count 12.0H, Red Blood Count 4.48L, Hemoglobin 14.6, Hematocrit 43.5, Mean Corpuscular Volume 97, Mean Corpuscular Hemoglobin 32.7H, Mean Corpuscular Hemoglobin Concent 33.6, Red Cell Distribution Width 12.7, Platelet Count 247, Mean Platelet Volume 8.1, Neutrophils (%) (Auto) 59.3, Lymphocytes (%) (Auto) 28.2, Monocytes (%) (Auto) 8.4, Eosinophils (%) (Auto) 1.8, Basophils (%) (Auto) 2.3H, Sodium Level 140, Potassium Level 3.4L, Chloride Level 105, Carbon Dioxide Level 28, Anion Gap 7, Blood Urea Nitrogen 14, Creatinine 1.2, Estimat Glomerular Filtration Rate > 60, Glucose Level 96, Calcium Level 8.6, Total Bilirubin 0.2, Aspartate Amino Transf (AST/SGOT) 18, Alanine Aminotransferase (ALT/SGPT) 19, Alkaline Phosphatase 88, Total Protein 7.1, Albumin 3.2L, Globulin 3.9, Albumin/Globulin Ratio 0.8L Height (Feet): 6 Height (Inches): 1.00 Weight (Pounds): 270 Assessment/Plan Assessment/Plan: Assessment - 2 days of lower abd pain, ? etiology - h/o abd pain earlier 2019 --> s/p EGD, Colon, CT scan - Hematuria - ? etiology Recommendations: - laxative trial - pu as tolerated - follow symptoms Yuan Rodriguez MD Jan 14, 2020 21:50
[2020-01-15] VITALS (7 sets, daily range): BP systolic 93–151; BP diastolic 54–105
--- NOTE | 2020-01-15 00:44 | Consultation ---
DATE OF CONSULTATION: 01/14/2020 CONSULTING PHYSICIAN: Reynaldo Gaffney MD REASON FOR CONSULTATION: Neuropathy to bilateral feet, painful. HISTORY OF PRESENT ILLNESS: This is a 69-year-old patient who is admitted to [facility] complaining of pain to bilateral legs and feet. The patient states that he has history of lower back surgery and states he does have pain shooting from his back to the leg with numbness and tingling sensation. PAST MEDICAL HISTORY: Per Dr. Gaffney. PODIATRY EXAMINATION: VASCULAR: Dorsalis pedis and posterior tibial artery are palpable 2/4. Capillary filling time is noted to be about 5 seconds. Edema is noted to bilateral legs, spongy in nature from distal to proximal just inferior to the knee joints bilaterally. NEUROLOGICAL: Sharp and dull proprioception protected threshold noted to be altered, consistent with peripheral neuropathy. MUSCULOSKELETAL: The patient has pain up on range of motion. He has shooting pain with leg elevations. Leg raise is consistent with low back radiculopathy. No other gross abnormalities identified. DERMATOLOGICAL: Bilateral foot nails noted to be dystrophic, , mycotic, thick discolored nails. No other gross deformity was identified. ASSESSMENT AND PLAN: Peripheral neuropathy/radiculopathy secondary to lower back surgical procedure. The patient was discussed with the nurse and we elected to have a neurological consultation which the patient already had. The patient will be discussed with primary in regard to further treatment. No further treatment is recommended by podiatry service since the patient manifestation is due to neurological pathology. Marc Sampson D.P.M DR: ROSEMARY JOB#: [id number] CC:
--- NOTE | 2020-01-15 00:59 | Consultation ---
DATE OF CONSULTATION: 01/14/2020 GASTROENTEROLOGY CONSULTATION CONSULTING PHYSICIAN: Yuan Rodriguez MD CHIEF COMPLAINT: I was asked to see this patient by Dr. Reynaldo Gaffney for evaluation of abdominal pain. HISTORY OF PRESENT ILLNESS: The patient is a 69-year-old man from a intermediate who was brought in and admitted to the hospital. He complains of a 2-day history of lower abdominal pain. He denies any nausea, vomiting, or diarrhea. His last bowel movement was about 2 days ago. Patient is bed-bound due to neuropathy and is on disability because of that as well. Patient had a set of complaints related to abdominal pain back in late March when he was admitted. At that time, he underwent an endoscopy and also colonoscopy as well as a CT scan of the abdomen and pelvis, which were unrevealing. PAST MEDICAL HISTORY: History of chronic pain syndrome, constipation, hypertension, gastroesophageal reflux, depression, neuropathy, bedbound state. FAMILY HISTORY: Noncontributory. PAST SURGICAL HISTORY: Status post back surgery. ALLERGIES: Ketorolac, Naprosyn, penicillin, and fentanyl. SOCIAL HISTORY: Patient has a history of marijuana use and smoking. No history of alcohol use. REVIEW OF SYSTEMS: Otherwise negative. PHYSICAL EXAMINATION: GENERAL: Well-developed, well-nourished man, seen in his room. HEENT: Normocephalic and atraumatic. Sclerae anicteric. Oropharynx clear. NECK: Supple. CHEST: Clear to auscultation. CARDIOVASCULAR: Revealed a regular rate. ABDOMEN: Soft, obese with good bowel sounds. There is no organomegaly or tenderness. EXTREMITIES: Revealed 1+ edema as well as weakness. LABORATORY DATA: Noted. ASSESSMENT: This patient presents with 2 days of lower abdominal pain of unclear etiology. Previous workup earlier this year has been unremarkable. There is some mild degree of constipation, which may be responsible for symptoms. Alternatively, his hematuria maybe a clue that abdominal pain is renal in origin. At the time being, I would give him laxative trial and follow his symptoms conservatively since he has already had extensive workup earlier this year. RECOMMENDATIONS: Per above discussion and per orders written in the chart. Thank you for asking me to participate in the care of this patient. Yuan Rodriguez M.D. DR: STACY JOB#: [id number] CC: ANTONETTE
[2020-01-15] MEDS: HYDROmorphone 2mg tab ORAL PRN ×5 (03:26→20:46)
--- NOTE | 2020-01-15 07:39 | NUR ---
NURSE HAND-OFF: Important Events on Shift: Urine culture pending Patient Status: stable Diet: regular Pending Orders: n/a Pending Results/Labs:urine culture Pending MD notification:n/a Latest Vital Signs: Temperature 97.2 , Pulse 79 , B/P 131 /67 , Respiratory Rate 20 , O2 SAT 96 , Room Air, O2 Flow Rate . Vital Sign Comment: stable Latest Dsouza Fall Score: 60 Fall Risk: High Risk Safety Measures: Call light Within Reach, Bed Alarm Zone 1, Side Rails Side Rails x2, Bed position Low and Locked. Fall Precautions: Yellow Socks Patient Fall Education Report given to Stephon MORALES
[2020-01-15] MEDS: Docusate 250mg cap ORAL SCH (08:07)
[2020-01-15] MEDS: Sucralfate 1gm tab ORAL SCH ×4 (08:07→20:45)
[2020-01-15] MEDS: Lyrica 75mg cap ORAL SCH ×3 (08:08→17:48)
--- NOTE | 2020-01-15 08:36 | General Progress Note ---
Subjective Date patient seen: Jan 15, 2020 Time patient seen: 07:00 - am Allergies: Coded Allergies: FENTANYL (Unverified Allergy, Unknown, 08/20/17) KETOROLAC (Unverified Allergy, Unknown, 08/20/17) NAPROXEN (Unverified Allergy, Unknown, 08/20/17) PENICILLINS (Unverified Allergy, Unknown, 08/20/17) Subjective Constitutional: Reports: weakness HEENT: Reports: no symptoms Cardiovascular: Reports: no symptoms Respiratory: Reports: no symptoms Gastrointestinal/Abdominal: Reports: abdominal pain Genitourinary: Reports: no symptoms Neurologic/Psychiatric: Reports: weakness Endocrine: Reports: no symptoms SUBJECTIVE: Patient is in bed and reports pain has been better tolerated on the Dilaudid. Now pain is at a moderate level. No new complaints at this time. Objective Last 24 Hour Vital Signs Date Time Temp Pulse Resp B/P (MAP) Pulse Ox O2 Delivery O2 Flow Rate FiO2 01/15/20 08:09 81 151/105 01/15/20 08:00 98.1 81 17 151/105 (120) 96 01/15/20 06:18 139/83 01/15/20 04:00 97.2 72 17 139/83 (101) 95 01/15/20 00:00 98.7 01/15/20 00:00 54 15 93/54 (67) 94 01/15/20 00:00 92/54 01/14/20 21:00 Room Air 01/14/20 20:00 99.1 77 17 107/64 (78) 96 01/14/20 17:06 131/67 01/14/20 16:00 97.2 79 20 131/67 (88) 96 01/14/20 13:00 Room Air 01/14/20 12:05 130/75 01/14/20 12:00 98.2 85 20 130/75 (93) 95 01/14/20 09:00 Room Air 01/14/20 08:52 77 117/65 Intake and Output 01/14/20 01/15/20 19:00 07:00 Intake Total 720 ml 600 ml Output Total 800 ml 400 ml Balance -80 ml 200 ml Intake Oral 720 ml 240 ml Other 360 ml Output Urine Total 800 ml 400 ml # Voids 2 3 Height (Feet): 6 Height (Inches): 1.00 Weight (Pounds): 270 Objective General Appearance: no apparent distress, alert EENT: PERRL/EOMI, normal ENT inspection Neck: non-tender, normal alignment Cardiovascular: normal rate, regular rhythm Abdomen: non tender, soft Extremities: non-tender Edema: trace edema Neurologic: alert, responsive Skin: normal pigmentation Assessment/Plan Assessment/Plan: (1) Lumbar DDD (2) Lumbar Spondylosis (3) Lumbar Radiculopathy (4) Lumbar Herniated disc (5) FBSS (6) Paraparesis Patient will be continued on Dilaudid D/w Dr. Swift and he concurred Khari Harrison Jan 15, 2020 08:36
--- NOTE | 2020-01-15 09:44 | NUR ---
Topper Press Operator Automatic: Educated patient to use call light for assistance before attempting to stand up and out of bed. Call light is with reach of patient, RN notified.
--- NOTE | 2020-01-15 10:28 | General Progress Note ---
Subjective Allergies: Coded Allergies: FENTANYL (Unverified Allergy, Unknown, 08/20/17) KETOROLAC (Unverified Allergy, Unknown, 08/20/17) NAPROXEN (Unverified Allergy, Unknown, 08/20/17) PENICILLINS (Unverified Allergy, Unknown, 08/20/17) Subjective feels better less abdominal complaints today perineal skin rash noted and discussed with RN Objective Last 24 Hour Vital Signs Date Time Temp Pulse Resp B/P (MAP) Pulse Ox O2 Delivery O2 Flow Rate FiO2 01/15/20 09:00 Room Air 01/15/20 08:09 81 151/105 01/15/20 08:00 98.1 81 17 151/105 (120) 96 01/15/20 06:18 139/83 01/15/20 04:00 97.2 72 17 139/83 (101) 95 01/15/20 00:00 98.7 01/15/20 00:00 54 15 93/54 (67) 94 01/15/20 00:00 92/54 01/14/20 21:00 Room Air 01/14/20 20:00 99.1 77 17 107/64 (78) 96 01/14/20 17:06 131/67 01/14/20 16:00 97.2 79 20 131/67 (88) 96 01/14/20 13:00 Room Air 01/14/20 12:05 130/75 01/14/20 12:00 98.2 85 20 130/75 (93) 95 Intake and Output 01/14/20 01/15/20 19:00 07:00 Intake Total 720 ml 600 ml Output Total 800 ml 400 ml Balance -80 ml 200 ml Intake Oral 720 ml 240 ml Other 360 ml Output Urine Total 800 ml 400 ml # Voids 2 3 Height (Feet): 6 Height (Inches): 1.00 Weight (Pounds): 270 Objective WDWN NCAT supple CTA RR abd soft ND (+) redness and erosion under pannus, c/w candidiasis trace edema Assessment/Plan Assessment/Plan: Assessment - 2 days of lower abd pain, ? etiology - better - h/o abd pain earlier 2019 --> s/p EGD, Colon, CT scan - Hematuria - ? etiology - Kitty intertrigo Recommendations: - laxative trial - po as tolerated - antifungal cream - follow symptoms Yuan Rodriguez MD Jan 15, 2020 10:27
--- NOTE | 2020-01-15 10:29 | NUR ---
NURSE NOTES: Left message with Akshat at Dr. Reynaldo Gaffney office reporting potassium=3.4.
[2020-01-15] MEDS ORDERED: Sorbitol Solution UD 30ml ORAL SCH (11:00)
[2020-01-15 11:33] LABS: BASOPHILS % (AUTO) 1.9 % (0.0-2.0); EOSINOPHILS % (AUTO) 0.7 % (0.0-3.0); HEMATOCRIT 43.8 % (42.0-52.0); HEMOGLOBIN 15.1 G/DL (14.2-18.0); LYMPHOCYTES % (AUTO) 21.2 % (20.0-45.0); MEAN CORPUSCULAR VOLUME 96 FL (80-99); MONOCYTES % (AUTO) 6.7 % (1.0-10.0); NEUTROPHILS % (AUTO) 69.5 % (45.0-75.0); PLATELET COUNT 262 K/UL (150-450); RED BLOOD COUNT 4.58 M/UL (4.70-6.10); RED CELL DISTRIBUTION WIDTH 12.5 % (11.6-14.8); WHITE BLOOD COUNT 13.8 K/UL (4.8-10.8)
[2020-01-15 11:50] LABS: ALANINE AMINOTRANSFERASE 19 U/L (12-78); ALBUMIN 3.2 G/DL (3.4-5.0); ALBUMIN/GLOBULIN RATIO 0.8 (1.0-2.7); ALKALINE PHOSPHATASE 78 U/L (46-116); ANION GAP 3 mmol/L (5-15); ASPARTATE AMINO TRANSFERASE 20 U/L (15-37); BILIRUBIN,TOTAL 0.4 MG/DL (0.2-1.0); BLOOD UREA NITROGEN 13 mg/dL (7-18); CALCIUM 8.4 MG/DL (8.5-10.1); CARBON DIOXIDE 28 MMOL/L (21-32); CHLORIDE 105 MMOL/L (98-107); CHOLESTEROL 176 MG/DL (< 200); CREATININE 1.1 MG/DL (0.55-1.30); HDL CHOLESTEROL 29 MG/DL (40-60); PHOSPHORUS 2.9 MG/DL (2.5-4.9); POTASSIUM 3.8 MMOL/L (3.5-5.1); SODIUM 136 MMOL/L (136-145); TRIGLYCERIDES 225 MG/DL (30-150)
--- NOTE | 2020-01-15 12:29 | Infectious Diseases Prog Note ---
Assessment/Plan Assessment/Plan IMPRESSION: Leukocytosis, source unknown. Dysuria. COPD, Hypertension, Peripheral neuropathy, chronic back pain, Hyperlipidemia, and Opiate dependence. RECOMMENDATION: Urine culture Start on PO Nitrofurantoin Subjective ROS Limited/Unobtainable: No Constitutional: Reports: no symptoms Respiratory: Reports: no symptoms Cardiovascular: Reports: no symptoms Gastrointestinal/Abdominal: Reports: no symptoms Genitourinary: Reports: dysuria Musculoskeletal: Reports: pain, other - in back Allergies: Coded Allergies: FENTANYL (Unverified Allergy, Unknown, 08/20/17) KETOROLAC (Unverified Allergy, Unknown, 08/20/17) NAPROXEN (Unverified Allergy, Unknown, 08/20/17) PENICILLINS (Unverified Allergy, Unknown, 08/20/17) Objective Last 24 Hour Vital Signs Date Time Temp Pulse Resp B/P (MAP) Pulse Ox O2 Delivery O2 Flow Rate FiO2 01/15/20 09:00 Room Air 01/15/20 08:38 98.1 01/15/20 08:38 98.1 01/15/20 08:09 81 151/105 01/15/20 08:00 98.1 81 17 151/105 (120) 96 01/15/20 06:18 139/83 01/15/20 04:00 97.2 72 17 139/83 (101) 95 01/15/20 00:00 98.7 01/15/20 00:00 54 15 93/54 (67) 94 01/15/20 00:00 92/54 01/14/20 21:00 Room Air 01/14/20 20:00 99.1 77 17 107/64 (78) 96 01/14/20 17:06 131/67 01/14/20 16:00 97.2 79 20 131/67 (88) 96 01/14/20 13:00 Room Air Height (Feet): 6 Height (Inches): 1.00 Weight (Pounds): 270 General Appearance: no acute distress HEENT: mucous membranes moist Respiratory/Chest: normal breath sounds Cardiovascular: normal rate Abdomen: soft, non tender Extremities: no edema Neurologic/Psychiatric: alert, responsive Microbiology Date/Time Source Procedure Growth Status 01/13/20 19:06 Nasopharynx SARS-CoV-2 RdRp Gene Assay - Final Complete Laboratory Tests Test 01/15/20 11:05 White Blood Count 13.8 K/UL (4.8-10.8) H Red Blood Count 4.58 M/UL (4.70-6.10) L Hemoglobin 15.1 G/DL (14.2-18.0) Hematocrit 43.8 % (42.0-52.0) Mean Corpuscular Volume 96 FL (80-99) Mean Corpuscular Hemoglobin 32.9 PG (27.0-31.0) H Mean Corpuscular Hemoglobin Concent 34.4 G/DL (32.0-36.0) Red Cell Distribution Width 12.5 % (11.6-14.8) Platelet Count 262 K/UL (150-450) Mean Platelet Volume 8.2 FL (6.5-10.1) Neutrophils (%) (Auto) 69.5 % (45.0-75.0) Lymphocytes (%) (Auto) 21.2 % (20.0-45.0) Monocytes (%) (Auto) 6.7 % (1.0-10.0) Eosinophils (%) (Auto) 0.7 % (0.0-3.0) Basophils (%) (Auto) 1.9 % (0.0-2.0) Sodium Level 136 MMOL/L (136-145) Potassium Level 3.8 MMOL/L (3.5-5.1) Chloride Level 105 MMOL/L (98-107) Carbon Dioxide Level 28 MMOL/L (21-32) Anion Gap 3 mmol/L (5-15) L Blood Urea Nitrogen 13 mg/dL (7-18) Creatinine 1.1 MG/DL (0.55-1.30) Estimat Glomerular Filtration Rate > 60 mL/min (>60) Glucose Level 106 MG/DL (74-106) Uric Acid 6.0 MG/DL (2.6-7.2) Calcium Level 8.4 MG/DL (8.5-10.1) L Phosphorus Level 2.9 MG/DL (2.5-4.9) Magnesium Level 2.1 MG/DL (1.8-2.4) Total Bilirubin 0.4 MG/DL (0.2-1.0) Aspartate Amino Transf (AST/SGOT) 20 U/L (15-37) Alanine Aminotransferase (ALT/SGPT) 19 U/L (12-78) Alkaline Phosphatase 78 U/L (46-116) C-Reactive Protein, Quantitative 2.8 mg/dL (0.00-0.90) H Total Protein 7.4 G/DL (6.4-8.2) Albumin 3.2 G/DL (3.4-5.0) L Globulin 4.2 g/dL Albumin/Globulin Ratio 0.8 (1.0-2.7) L Triglycerides Level 225 MG/DL (30-150) H Cholesterol Level 176 MG/DL (< 200) LDL Cholesterol 117 mg/dL (<100) H HDL Cholesterol 29 MG/DL (40-60) L Cholesterol/HDL Ratio 6.1 (3.3-4.4) H Lipase 141 U/L (73-393) Current Medications Medications (Trade) Dose Ordered Sig/Paul Route PRN Reason Start Time Stop Time Status Last Admin Dose Admin Acetaminophen (Tylenol) 650 mg Q4H PRN ORAL Pain Scale (3-5) 01/14/20 01:45 02/13/20 01:44 Amlodipine Besylate (Norvasc) 5 mg DAILY ORAL 01/14/20 09:00 02/13/20 08:59 01/15/20 08:09 Bisacodyl (Dulcolax) 10 mg PRN RECTAL 01/14/20 01:45 04/13/20 01:44 Clonidine HCl (Catapres Tab) 0.1 mg EVERY 6 HOURS ORAL 01/14/20 12:00 04/13/20 11:59 01/15/20 06:18 Clotrimazole (Lotrimin) 1 applic THREE TIMES A DAY TOPIC 01/15/20 13:00 04/14/20 12:59 Docusate Sodium (Colace) 250 mg DAILY ORAL 01/14/20 09:00 02/13/20 08:59 01/15/20 08:07 Famotidine (Pepcid) 20 mg BID@0800,1999 ORAL 01/14/20 20:00 04/13/20 08:59 01/15/20 08:07 Fluoxetine HCl (PROzac) 40 mg DAILY ORAL 01/14/20 09:00 02/13/20 08:59 01/15/20 08:07 Hydromorphone HCl (Dilaudid) 2 mg Q4H PRN ORAL Severe Pain (Pain Scale 7-10) 01/14/20 09:30 01/21/20 09:29 01/15/20 08:10 Methocarbamol (Robaxin) 500 mg Q8H PRN ORAL Muscle Spasm 01/14/20 09:30 02/13/20 09:29 Pregabalin (Lyrica) 75 mg THREE TIMES A DAY ORAL 01/14/20 09:30 02/13/20 09:29 01/15/20 08:08 Risperidone (RisperDAL) 0.5 mg QHS ORAL 01/14/20 21:00 02/28/20 20:59 01/14/20 20:31 Sorbitol (sorbitoL) 45 ml ONCE ORAL 01/15/20 11:00 01/15/20 14:00 Sucralfate (Carafate) 1 gm FOUR TIMES A DAY ORAL 01/14/20 09:00 04/13/20 08:59 01/15/20 08:07 Beau Virgen MD Jan 15, 2020 12:29
--- NOTE | 2020-01-15 13:08 | General Progress Note ---
Subjective ROS Limited/Unobtainable: Yes Allergies: Coded Allergies: FENTANYL (Unverified Allergy, Unknown, 08/20/17) KETOROLAC (Unverified Allergy, Unknown, 08/20/17) NAPROXEN (Unverified Allergy, Unknown, 08/20/17) PENICILLINS (Unverified Allergy, Unknown, 08/20/17) Objective Last 24 Hour Vital Signs Date Time Temp Pulse Resp B/P (MAP) Pulse Ox O2 Delivery O2 Flow Rate FiO2 01/15/20 12:43 127/77 01/15/20 12:00 97.7 81 17 127/77 (94) 96 01/15/20 09:00 Room Air 01/15/20 08:38 98.1 01/15/20 08:38 98.1 01/15/20 08:09 81 151/105 01/15/20 08:00 98.1 81 17 151/105 (120) 96 01/15/20 06:18 139/83 01/15/20 04:00 97.2 72 17 139/83 (101) 95 01/15/20 00:00 98.7 01/15/20 00:00 54 15 93/54 (67) 94 01/15/20 00:00 92/54 01/14/20 21:00 Room Air 01/14/20 20:00 99.1 77 17 107/64 (78) 96 01/14/20 17:06 131/67 01/14/20 16:00 97.2 79 20 131/67 (88) 96 Intake and Output 01/14/20 01/15/20 19:00 07:00 Intake Total 720 ml 600 ml Output Total 800 ml 400 ml Balance -80 ml 200 ml Intake Oral 720 ml 240 ml Other 360 ml Output Urine Total 800 ml 400 ml # Voids 2 3 Laboratory Tests 01/15/20 11:05: White Blood Count 13.8H, Red Blood Count 4.58L, Hemoglobin 15.1, Hematocrit 43.8, Mean Corpuscular Volume 96, Mean Corpuscular Hemoglobin 32.9H, Mean Corpuscular Hemoglobin Concent 34.4, Red Cell Distribution Width 12.5, Platelet Count 262, Mean Platelet Volume 8.2, Neutrophils (%) (Auto) 69.5, Lymphocytes (%) (Auto) 21.2, Monocytes (%) (Auto) 6.7, Eosinophils (%) (Auto) 0.7, Basophils (%) (Auto) 1.9, Sodium Level 136, Potassium Level 3.8, Chloride Level 105, Carbon Dioxide Level 28, Anion Gap 3L, Blood Urea Nitrogen 13, Creatinine 1.1, Estimat Glomerular Filtration Rate > 60, Glucose Level 106, Uric Acid 6.0, Calcium Level 8.4L, Phosphorus Level 2.9, Magnesium Level 2.1, Total Bilirubin 0.4, Aspartate Amino Transf (AST/SGOT) 20, Alanine Aminotransferase (ALT/SGPT) 19, Alkaline Phosphatase 78, C-Reactive Protein, Quantitative 2.8H, Total Protein 7.4, Albumin 3.2L, Globulin 4.2, Albumin/Globulin Ratio 0.8L, Triglycerides Level 225H, Cholesterol Level 176, LDL Cholesterol 117H, HDL Cholesterol 29L, Cholesterol/HDL Ratio 6.1H, Lipase 141 Height (Feet): 6 Height (Inches): 1.00 Weight (Pounds): 270 Assessment/Plan Problem List: (1) Intractable back pain ICD Codes: M54.9 - Dorsalgia, unspecified SNOMED: 674069151 (2) Leukocytosis ICD Codes: D72.829 - Elevated white blood cell count, unspecified SNOMED: 571212715, 365053566 (3) COPD (chronic obstructive pulmonary disease) ICD Codes: J44.9 - Chronic obstructive pulmonary disease, unspecified SNOMED: 38944664 (4) Constipation ICD Codes: K59.00 - Constipation, unspecified SNOMED: 05660534 Status: progressing Assessment/Plan: leukocytosis abx per id intractable back pain pain management per dr norton team no abdominal pain afebrile Reynaldo Gaffney MD Jan 15, 2020 13:08
--- NOTE | 2020-01-15 13:44 | NUR ---
Hand off report given to CARMEN Escobar.
--- NOTE | 2020-01-15 14:00 | NUR ---
NURSE NOTES: Received patient from Stephon RN. patient in stable condition. Will continue to monitor.
[2020-01-15] MEDS: Methocarbamol 500mg tab ORAL PRN ×2 (14:10→22:08)
--- NOTE | 2020-01-15 16:52 | NUR ---
NURSE NOTES: Spoke to Hunter WILSON regarding pain medication and No change at this time. Will continue to monitor.
--- NOTE | 2020-01-15 19:30 | NUR ---
NURSE HAND-OFF: Important Events on Shift:[] Patient Status: Stable Diet: Regular Pending Orders: N/A Pending Results/Labs: N/A Pending MD notification:N/A Latest Vital Signs: Temperature 97.3 , Pulse 72 , B/P 117 /79 , Respiratory Rate 16 , O2 SAT 96 , Room Air, O2 Flow Rate . Vital Sign Comment: Stable Latest Dsouza Fall Score: 45 Fall Risk: High Risk Safety Measures: Call light Within Reach, Bed Alarm Zone 1, Side Rails Side Rails x2, Bed position Low and Locked. Fall Precautions: Yellow Socks Patient Fall Education Report given to Alana MORALES. Patient in stable condition.
--- NOTE | 2020-01-15 20:00 | NUR ---
NURSE NOTES: Patient received in bed, awake, verbal, watching TV, c/o chronic pain; aware of pain management plan, verbalized understanding. Will continue with plan of care.
--- NOTE | 2020-01-15 22:20 | NUR ---
NURSE NOTES: Patient c/o excruciating pain on bilateral legs >10/10, sharp and burning sensation, not relieved by dilaudid or robaxin. Per patient it is more of a nerve pain vs. muscle pain. Spoke with STEVE Harrison, received order for 1x dose of 2mg dilaudid PO and increase lyrica to 100mg TID. Orders noted and carried out.
[2020-01-15] MEDS ORDERED: HYDROmorphone 2mg tab ORAL SCH (23:00)
[2020-01-16 04:00] VITALS: BP 131/89
[2020-01-16] MEDS: HYDROmorphone 2mg tab ORAL PRN ×4 (04:35→17:13)
--- NOTE | 2020-01-16 07:15 | NUR ---
NURSE NOTES: Received patient in bed, AAOx4, Patient is on room air, no sign of distress, HL is patent and intact. Skin is intact, noted that patient has scar from old back surgery. On fall precaution,instructed patient to use call light for assistance, encourage to use urinal at bedside. Bed is locked and placed in lowest position. Call light within reach. Will continue to monitor arleen parker
--- NOTE | 2020-01-16 07:17 | NUR ---
NURSE HAND-OFF: Important Events on Shift:[pain management; increased lyrica to 100mg tid] Patient Status: [stable] Diet: [Regular] Pending Orders: [] Pending Results/Labs:[] Pending MD notification:[] Latest Vital Signs: Temperature 97.8 , Pulse 72 , B/P 100 /72 , Respiratory Rate 18 , O2 SAT 99 , Room Air, O2 Flow Rate . Vital Sign Comment: [] Latest Dsouza Fall Score: 45 Fall Risk: High Risk Safety Measures: Call light Within Reach, Bed Alarm Zone 1, Side Rails Side Rails x2, Bed position Low and Locked. Fall Precautions: Yellow Socks Patient Fall Education Report given to [Kayden MORALES].
[2020-01-16 08:00] VITALS: BP 101/60
--- NOTE | 2020-01-16 08:37 | General Progress Note ---
Subjective Date patient seen: Jan 16, 2020 Time patient seen: 07:00 - am Allergies: Coded Allergies: FENTANYL (Unverified Allergy, Unknown, 08/20/17) KETOROLAC (Unverified Allergy, Unknown, 08/20/17) NAPROXEN (Unverified Allergy, Unknown, 08/20/17) PENICILLINS (Unverified Allergy, Unknown, 08/20/17) Subjective Constitutional: Reports: weakness HEENT: Reports: no symptoms Cardiovascular: Reports: no symptoms Respiratory: Reports: no symptoms Gastrointestinal/Abdominal: Reports: abdominal pain Genitourinary: Reports: no symptoms Neurologic/Psychiatric: Reports: weakness Endocrine: Reports: no symptoms SUBJECTIVE: Patient showing no signs of pain or distress. Over night patient c/o burning pain in his feet. One time dose of Dilaudid 2mg tab was given to patient with an increase in Lyrica to 100mg. At this time pain has been at a tolerable level Objective Last 24 Hour Vital Signs Date Time Temp Pulse Resp B/P (MAP) Pulse Ox O2 Delivery O2 Flow Rate FiO2 01/16/20 06:00 100/72 01/16/20 04:00 97.8 72 18 131/89 (103) 99 01/15/20 23:16 20 122/79 (93) 94 01/15/20 23:06 122/79 01/15/20 21:00 Room Air 01/15/20 20:00 97.8 72 18 107/68 (81) 96 01/15/20 17:47 117/79 01/15/20 16:00 97.3 72 16 117/79 (92) 96 01/15/20 14:13 97.7 01/15/20 14:13 97.7 01/15/20 12:43 127/77 01/15/20 12:00 97.7 81 17 127/77 (94) 96 01/15/20 09:00 Room Air 01/15/20 08:38 98.1 01/15/20 08:38 98.1 Intake and Output 01/15/20 01/16/20 19:00 07:00 Intake Total 400 ml 700 ml Output Total 725 ml 1280 ml Balance -325 ml -580 ml Intake Oral 400 ml 700 ml Output Urine Total 725 ml 1280 ml # Voids 2 # Bowel Movements 1 Laboratory Tests 01/15/20 11:05: White Blood Count 13.8H, Red Blood Count 4.58L, Hemoglobin 15.1, Hematocrit 43.8, Mean Corpuscular Volume 96, Mean Corpuscular Hemoglobin 32.9H, Mean Corpuscular Hemoglobin Concent 34.4, Red Cell Distribution Width 12.5, Platelet Count 262, Mean Platelet Volume 8.2, Neutrophils (%) (Auto) 69.5, Lymphocytes (%) (Auto) 21.2, Monocytes (%) (Auto) 6.7, Eosinophils (%) (Auto) 0.7, Basophils (%) (Auto) 1.9, Sodium Level 136, Potassium Level 3.8, Chloride Level 105, Carbon Dioxide Level 28, Anion Gap 3L, Blood Urea Nitrogen 13, Creatinine 1.1, Estimat Glomerular Filtration Rate > 60, Glucose Level 106, Uric Acid 6.0, Calcium Level 8.4L, Phosphorus Level 2.9, Magnesium Level 2.1, Total Bilirubin 0.4, Aspartate Amino Transf (AST/SGOT) 20, Alanine Aminotransferase (ALT/SGPT) 19, Alkaline Phosphatase 78, C-Reactive Protein, Quantitative 2.8H, Total Protein 7.4, Albumin 3.2L, Globulin 4.2, Albumin/Globulin Ratio 0.8L, Triglycerides Level 225H, Cholesterol Level 176, LDL Cholesterol 117H, HDL Cholesterol 29L, Cholesterol/HDL Ratio 6.1H, Lipase 141 Height (Feet): 6 Height (Inches): 1.00 Weight (Pounds): 270 Objective General Appearance: no apparent distress, alert EENT: PERRL/EOMI, normal ENT inspection Neck: non-tender, normal alignment Cardiovascular: normal rate, regular rhythm Abdomen: non tender, soft Extremities: non-tender Edema: trace edema Neurologic: alert, responsive Skin: normal pigmentation Assessment/Plan Assessment/Plan: (1) Lumbar DDD (2) Lumbar Spondylosis (3) Lumbar Radiculopathy (4) Lumbar Herniated disc (5) FBSS (6) Paraparesis Patient will be continued on Dilaudid, Lyrica and Robaxin D/w Dr. Swift and he concurred Khari Harrison Jan 16, 2020 08:37
[2020-01-16] MEDS: Lyrica 50mg cap ORAL SCH ×3 (08:46→17:12)
[2020-01-16] MEDS: Sucralfate 1gm tab ORAL SCH ×3 (08:46→17:13)
[2020-01-16] MEDS: Docusate 250mg cap ORAL SCH (08:46)
[2020-01-16] MEDS: Methocarbamol 500mg tab ORAL PRN (11:13)
--- NOTE | 2020-01-16 11:40 | Infectious Diseases Prog Note ---
Assessment/Plan Assessment/Plan IMPRESSION: Leukocytosis, source unknown. Dysuria. COPD, Hypertension, Peripheral neuropathy, chronic back pain, Hyperlipidemia, and Opiate dependence. RECOMMENDATION: Continue PO Nitrofurantoin X 4 days Subjective ROS Limited/Unobtainable: No Respiratory: Reports: no symptoms Cardiovascular: Reports: no symptoms Gastrointestinal/Abdominal: Reports: no symptoms Genitourinary: Reports: dysuria Musculoskeletal: Reports: pain, other - back Allergies: Coded Allergies: FENTANYL (Unverified Allergy, Unknown, 08/20/17) KETOROLAC (Unverified Allergy, Unknown, 08/20/17) NAPROXEN (Unverified Allergy, Unknown, 08/20/17) PENICILLINS (Unverified Allergy, Unknown, 08/20/17) Objective Last 24 Hour Vital Signs Date Time Temp Pulse Resp B/P (MAP) Pulse Ox O2 Delivery O2 Flow Rate FiO2 01/16/20 08:44 71 101/60 01/16/20 08:35 Room Air 01/16/20 08:00 97.6 71 16 101/60 (74) 96 01/16/20 06:00 100/72 01/16/20 04:00 97.8 72 18 131/89 (103) 99 01/15/20 23:16 20 122/79 (93) 94 01/15/20 23:06 122/79 01/15/20 21:00 Room Air 01/15/20 20:00 97.8 72 18 107/68 (81) 96 01/15/20 17:47 117/79 01/15/20 16:00 97.3 72 16 117/79 (92) 96 01/15/20 14:13 97.7 01/15/20 14:13 97.7 01/15/20 12:43 127/77 01/15/20 12:00 97.7 81 17 127/77 (94) 96 Height (Feet): 6 Height (Inches): 1.00 Weight (Pounds): 270 HEENT: mucous membranes moist Respiratory/Chest: lungs clear Cardiovascular: normal rate Abdomen: soft, non tender Extremities: no edema Neurologic/Psychiatric: alert, responsive Microbiology Date/Time Source Procedure Growth Status 01/14/20 18:42 Urine,Clean Catch Urine Culture - Final Mixed Gram Positive Organism Complete 01/13/20 23:45 Rectum - Final NO CARBAPENEM-RESISTANT ENTEROBACTERI... Complete 01/13/20 23:45 Rectum VRE Culture - Final Enterococcus Faecalis - Vre Complete 01/13/20 23:45 Nasal Nares MRSA Culture - Final NO METHICILLIN RESISTANT STAPH AUREUS... Complete 01/13/20 19:06 Nasopharynx SARS-CoV-2 RdRp Gene Assay - Final Complete Current Medications Medications (Trade) Dose Ordered Sig/Paul Route PRN Reason Start Time Stop Time Status Last Admin Dose Admin Acetaminophen (Tylenol) 650 mg Q4H PRN ORAL Pain Scale (3-5) 01/14/20 01:45 02/13/20 01:44 Amlodipine Besylate (Norvasc) 5 mg DAILY ORAL 01/14/20 09:00 02/13/20 08:59 01/16/20 08:44 Bisacodyl (Dulcolax) 10 mg PRN RECTAL 01/14/20 01:45 04/13/20 01:44 Clonidine HCl (Catapres Tab) 0.1 mg EVERY 6 HOURS ORAL 01/14/20 12:00 04/13/20 11:59 01/15/20 17:47 Clotrimazole (Lotrimin) 1 applic THREE TIMES A DAY TOPIC 01/15/20 13:00 04/14/20 12:59 01/16/20 08:48 Docusate Sodium (Colace) 250 mg DAILY ORAL 01/14/20 09:00 02/13/20 08:59 01/16/20 08:46 Famotidine (Pepcid) 20 mg BID@0800,2000 ORAL 01/14/20 20:00 04/13/20 08:59 01/16/20 08:44 Fluoxetine HCl (PROzac) 40 mg DAILY ORAL 01/14/20 09:00 02/13/20 08:59 01/16/20 08:45 Hydromorphone HCl (Dilaudid) 2 mg Q4H PRN ORAL Severe Pain (Pain Scale 7-10) 01/14/20 09:30 01/21/20 09:29 01/16/20 08:45 Methocarbamol (Robaxin) 500 mg Q8H PRN ORAL Muscle Spasm 01/14/20 09:30 02/13/20 09:29 01/16/20 11:13 Nitrofurantoin (Macrobid) 100 mg EVERY 12 HOURS ORAL 01/15/20 13:00 01/22/20 12:59 01/16/20 08:44 Pregabalin (Lyrica) 100 mg THREE TIMES A DAY ORAL 01/16/20 09:00 02/15/20 08:59 01/16/20 08:46 Risperidone (RisperDAL) 0.5 mg QHS ORAL 01/14/20 21:00 02/28/20 20:59 01/15/20 20:45 Sucralfate (Carafate) 1 gm FOUR TIMES A DAY ORAL 01/14/20 09:00 04/13/20 08:59 01/16/20 08:46 Beau Virgen MD Jan 16, 2020 11:40
[2020-01-16 12:20] VITALS: BP 144/94
--- NOTE | 2020-01-16 14:02 | NUR ---
*-*DISCHARGE PLANNED*-* PATIENT HAS BEEN ACCEPTED AND WILL BE DISCHARGE BACK TO: [facility] P: [phone] FOR NURSE TO NURSE REPORT ROOM# 1.[facility] SET FOR 4PM S/W TEVIN [id number]. PLACED A CALL TO PATIENTS BROTHERZOILA, NO ANSWER, UNABLE TO LEAVE VOICE MESSAGE, PLACED A CALL TO PATIENTS FRIEND JOHNNY, NO ANSWER, LEFT VOICE MESSAGE IN REGARDS TO DISCHARGE PLAN.
--- NOTE | 2020-01-16 14:10 | General Progress Note ---
Subjective ROS Limited/Unobtainable: Yes Allergies: Coded Allergies: FENTANYL (Unverified Allergy, Unknown, 08/20/17) KETOROLAC (Unverified Allergy, Unknown, 08/20/17) NAPROXEN (Unverified Allergy, Unknown, 08/20/17) PENICILLINS (Unverified Allergy, Unknown, 08/20/17) Objective Last 24 Hour Vital Signs Date Time Temp Pulse Resp B/P (MAP) Pulse Ox O2 Delivery O2 Flow Rate FiO2 01/16/20 12:20 98.6 85 16 144/94 (111) 97 01/16/20 08:44 71 101/60 01/16/20 08:35 Room Air 01/16/20 08:00 97.6 71 16 101/60 (74) 96 01/16/20 06:00 100/72 01/16/20 04:00 97.8 72 18 131/89 (103) 99 01/15/20 23:16 20 122/79 (93) 94 01/15/20 23:06 122/79 01/15/20 21:00 Room Air 01/15/20 20:00 97.8 72 18 107/68 (81) 96 01/15/20 17:47 117/79 01/15/20 16:00 97.3 72 16 117/79 (92) 96 01/15/20 14:13 97.7 01/15/20 14:13 97.7 Intake and Output 01/15/20 01/16/20 19:00 07:00 Intake Total 400 ml 700 ml Output Total 725 ml 1280 ml Balance -325 ml -580 ml Intake Oral 400 ml 700 ml Output Urine Total 725 ml 1280 ml # Voids 2 # Bowel Movements 1 Height (Feet): 6 Height (Inches): 1.00 Weight (Pounds): 270 Assessment/Plan Problem List: (1) Intractable back pain ICD Codes: M54.9 - Dorsalgia, unspecified SNOMED: 672144888 (2) Leukocytosis ICD Codes: D72.829 - Elevated white blood cell count, unspecified SNOMED: 223649836, 882010570 (3) COPD (chronic obstructive pulmonary disease) ICD Codes: J44.9 - Chronic obstructive pulmonary disease, unspecified SNOMED: 23279331 (4) Constipation ICD Codes: K59.00 - Constipation, unspecified SNOMED: 51720467 Assessment/Plan: pain is under control dc to snf see dc summary for details Reynaldo Gaffney MD Jan 16, 2020 14:10
[2020-01-16 16:00] VITALS: BP 138/88
[2020-01-16 17:12] VITALS: BP 138/88
--- NOTE | 2020-01-16 17:39 | NUR ---
nurse notes discharge to SNF obtained , patient agreed with the plan of care, notified family member , but no answer left message to friend awaiting for his call report given to Naldo MORALES accordingly 1642 discharged in stable condition with all belongings taken accompanied by ambulance personnel , patient refused to sign belongings list stated he is ok report given to ambulance personnel, discharge via ambulance arleen parker
--- NOTE | 2020-01-18 14:19 | Discharge Summary ---
Discharge Summary Discharge Summary _ DATE OF ADMISSION: 01/13/2020 DATE OF DISCHARGE: 01/16/2020 DISCHARGED BY: Dr. Reynaldo Donahue CONSULTANTS: Dr. Beau Sampson [facility] HOSPITAL COURSE: The patient is a 69-year-old male who came in due to intractable back pain and leukocytosis. He has history of chronic pain syndrome, constipation, hypertension, GERD, depression and neuropathy. Patient was sent over from nursing home facility due to elevated white blood cell count. He also has history of chronic back pain and recently underwent MRI of the lumbar spine. Upon evaluation at ED, vital signs were stable. Blood work showed elevated WBC to 15.7. COVID-19 rapid test was negative. Urinalysis was negative. Chest x- ray clear. Patient was then admitted for evaluation of intractable back pain and leukocytosis. He was observed off antibiotics. He complained of lower abdominal pain. He was given laxatives. He was given Dilaudid, Lyrica and Robaxin for pain control. He complained of pain to bilateral leg and feet. He complained of shooting pain and numbness with tingling sensation from back to the legs. Patient has peripheral neuropathy and radiculopathy secondary to lower back surgical procedure. No podiatry procedure needed. He was noted to have redness and erosion under pannus consistent with Kitty. He was given antifungal cream. Urine culture showed growth of mixed gram-positive organisms. Unknown etiology for leukocytosis. He was given empirically nitrofurantoin. He was eventually cleared for discharge back to alf. FINAL DIAGNOSES: Intractable back pain Leukocytosis, source unknown Dysuria Hypertension Peripheral neuropathy Hyperlipidemia Opiate dependence COPD Constipation Continue intertrigo DISPOSITION: [facility] DISCHARGE MEDICATIONS: Refer to Discharge Medication List. I have been assigned to complete a discharge summary on this account, I was not involved with the patient's management.--BREANA Ramirez Jacqueline Robles NP Jan 18, 2020 14:19
== END 2020-01-16 17:30 | DRG 552 ==
LOC: EDBD 18:57 → EMR 19:12 → 4E 23:22 → EDBEDREQ 23:37
DX: M51.16 Intervertebral disc disorders with radiculopathy, lumbar region (principal); F11.20 Opioid dependence, uncomplicated; G82.20 Paraplegia, unspecified; M96.1 Postlaminectomy syndrome, not elsewhere classified; Z98.1 Arthrodesis status; M47.26 Other spondylosis with radiculopathy, lumbar region; I10 Essential (primary) hypertension; J44.9 Chronic obstructive pulmonary disease, unspecified; G62.9 Polyneuropathy, unspecified; Z88.6 Allergy status to analgesic agent; Z88.0 Allergy status to penicillin; Z88.8 Allergy status to other drugs, medicaments and biological substances; K21.9 Gastro-esophageal reflux disease without esophagitis; D72.829 Elevated white blood cell count, unspecified; R30.0 Dysuria; K59.00 Constipation, unspecified
CPT/HCPCS: 36415; 71045; 80053; 80061; 81003; 83690; 83735; 84100; 84550; 85025; 86140; 87081; 87086; 96374; 99285; U0002